=== PATIENT | male | born 1955 | race Caucasian/White ===

== ENCOUNTER 2020-09-01 11:59 | Outpatient (REF) | payer OTHER, SELFPAY ==
--- NOTE | ~2020-09-01 | XR_ITS ---
EXAMINATION: XR RIBS, RIGHT CLINICAL INFORMATION: Pleurodynia COMPARISON: CT chest of August 06, 2018 and chest x-ray of August 08, 2017 TECHNIQUE: 3 views of the right ribs were obtained. PA chest. FINDINGS: Lungs are hyperinflated with flattening of diaphragms. There is prominence of the central pulmonary arteries consistent with emphysema with some degree of pulmonary artery hypertension. No confluent parenchymal disease is seen. No pneumothorax or pleural effusion. There is bilateral apical pleural-parenchymal scarring present. Heart normal size. No evidence of pulmonary edema. There appears to be an old healed fracture about the posterior lateral aspect of the right ninth rib which was not definitely evident on CT scan of August 06, 2018. No destructive bony lesion is appreciated. XR/XR ribs RT min 3V w CXR1V IMPRESSION: COPD. No acute parenchymal disease. Old healed right ninth rib fracture with no new acute fracture appreciated. No destructive bony lesion appreciated. No pleural thickening or pleural effusion appreciated.
== END 2020-09-01 12:00 | disposition home or self-care (01) ==
LOC: HO.HMGCX 11:59
PROVIDERS: PCP Internal Medicine; Visit Provider Hospitalist
DX: R07.81 Pleurodynia (principal)
CPT/HCPCS: 71101

== ENCOUNTER → 2020-09-19 15:05 | Outpatient (BNVA) | payer OTHER, SELFPAY | PROVIDERS: PCP Internal Medicine; Visit Provider Internal Medicine ==

== ENCOUNTER 2020-10-06 08:10 | Outpatient (REF) | payer OTHER, SELFPAY ==
--- NOTE | 2020-10-06 16:40 | PFT_ITS ---
INDICATION: COPD. SPIROMETRY: FEV1 to FVC 47% with an FEV1 of 2.56 L, which is 57% predicted, an FVC of 5.45 L which is 92% predicted. No significant response to bronchodilators noted. Maximum voluntary ventilation 60% predicted. Of note, he has significant small airways disease. LUNG VOLUMES: Total lung capacity 107% predicted with residual volume 145% predicted. DIFFUSION CAPACITY: DLCO of 42% predicted. COMPARISONS: None. INTERPRETATION: There is an obstructive ventilatory defect consistent with moderate to severe COPD. No significant response to bronchodilators noted. Again, significant small airways disease and a mild to moderate decrease in the maximum voluntary ventilation secondary to deconditioning and also worsening dynamic inspiratory capacity. Lung volumes show significant air trapping, and the patient does have a severe diffusion impairment secondary to emphysema and all the parenchymal lung conditions should be considered. Clinical correlation warranted. Javi Ramesh MD MR/MODL / [id number]
== END 2020-10-06 08:11 | disposition home or self-care (01) ==
LOC: HO.RESP 08:10
PROVIDERS: PCP Internal Medicine; Visit Provider Internal Medicine
DX: J44.9 Chronic obstructive pulmonary disease, unspecified (principal); F17.200 Nicotine dependence, unspecified, uncomplicated
CPT/HCPCS: 94060; 94727; 94729

== ENCOUNTER 2020-10-27 16:01 | Outpatient (REF) | payer OTHER, SELFPAY ==
--- NOTE | ~2020-10-27 | CT_ITS ---
EXAMINATION: CT CHEST SCREENING CLINICAL INFORMATION: Nicotine dependence. COMPARISON: Chest x-ray 09/01/2020 TECHNIQUE: Multidetector volumetric CT imaging of the chest is performed without contrast using low dose technique. Additional 2D coronal and sagittal reformatted images and axial 3D maximum intensity projection (MIP) images are generated on the CT workstation. This CT examination was performed using dose optimization techniques as appropriate, variously including the following: *Automated exposure control *Adjustment of mA and/or kV according to patient size (this includes techniques or standardized protocols for targeted exams where dose is matched to indication/reason for exam; i.e. extremities or head) *Use of iterative reconstruction technique DLP: 65 mGy-cm FINDINGS: LUNGS: There is bilateral apical parenchymal scarring and apical pleural thickening. There is a 2 mm pleural-based nodule left lower lobe axial image 50/4, 4 mm nodule right lower lobe adjacent to the major fissure axial image 49/4, 2 mm nodule right middle lobe axial image 49/4. No additional nodules seen. MEDIASTINUM: The thyroid lobes are symmetrical and normal. The central trachea and the bronchi widely patent. Heart size and the great vessels are normal caliber. No abnormal size mediastinal or hilar lymph nodes seen. PLEURA: There is bilateral apical pleural thickening without calcification. No pleural effusion seen. AXILLA: No lymphadenopathy. UPPER ABDOMEN: Visualized liver, spleen, pancreas and bilateral adrenal glands are unremarkable. OSSEOUS STRUCTURES: No lytic or sclerotic process seen. There is mild spondylosis dorsal spine. CT/CT lung screening IMPRESSION: Slightly hyperinflated lungs with pulmonary nodule largest measuring 4 mm in right lower lobe. ASSESSMENT: Lung-RADS category 2: Benign RECOMMENDATION: Low dose annual CT chest.
== END 2020-10-27 16:02 | disposition home or self-care (01) ==
LOC: HO.CT 16:01
PROVIDERS: Visit Provider Physician Assistant Medical
DX: Z12.2 Encounter for screening for malignant neoplasm of respiratory organs (principal); F17.210 Nicotine dependence, cigarettes, uncomplicated
CPT/HCPCS: 71271

== ENCOUNTER → 2020-10-30 09:20 | Outpatient (BNVA) | payer OTHER, SELFPAY | PROVIDERS: PCP Internal Medicine; Visit Provider Internal Medicine ==

== ENCOUNTER 2021-02-15 12:17 | Outpatient (REF) | payer OTHER, SELFPAY ==
--- NOTE | ~2021-02-15 | XR_ITS ---
EXAMINATION: CHEST X-RAY AND BILATERAL RIB X-RAY CLINICAL INFORMATION: Chest pain and pleurodynia Previous chest x-ray July [address] most recent October 2020 TECHNIQUE: PA and lateral chest. 6 views of the left ribs FINDINGS: The cardiac and mediastinal contours are stable. The lungs are well inflated. There is biapical pleural thickening, left greater than right. The lungs are otherwise clear. There is no pleural effusion. No rib fracture or bone lesion is seen. There is curvature of the thoracic spine to the left and degenerative change. XR/XR chest 2V IMPRESSION: COPD. Biapical pleural thickening, left greater than right. Mild scoliosis and degenerative changes of the spine. No rib fracture or bone lesion is seen.
--- NOTE | ~2021-02-15 | XR_ITS ---
EXAMINATION: CHEST X-RAY AND BILATERAL RIB X-RAY CLINICAL INFORMATION: Chest pain and pleurodynia Previous chest x-ray July [address] most recent October 2020 TECHNIQUE: PA and lateral chest. 6 views of the left ribs FINDINGS: The cardiac and mediastinal contours are stable. The lungs are well inflated. There is biapical pleural thickening, left greater than right. The lungs are otherwise clear. There is no pleural effusion. No rib fracture or bone lesion is seen. There is curvature of the thoracic spine to the left and degenerative change. XR/XR ribs LT 2V IMPRESSION: COPD. Biapical pleural thickening, left greater than right. Mild scoliosis and degenerative changes of the spine. No rib fracture or bone lesion is seen.
== END 2021-02-15 12:18 | disposition home or self-care (01) ==
LOC: HO.XRAY 12:17
PROVIDERS: PCP Internal Medicine; Visit Provider Physician Assistant
DX: R07.81 Pleurodynia (principal)
CPT/HCPCS: 71046; 71100

== ENCOUNTER → 2021-04-30 09:05 | Outpatient (BNVA) | payer OTHER, SELFPAY | PROVIDERS: PCP Internal Medicine; Visit Provider Internal Medicine ==

== ENCOUNTER 2021-06-05 10:58 | Outpatient (REF) | payer OTHER, SELFPAY ==
--- NOTE | ~2021-06-05 | XR_ITS ---
EXAMINATION: XR CHEST CLINICAL INFORMATION: Chest pain COMPARISON: Chest radiograph 02/15/2021 TECHNIQUE: 2 views of the chest were obtained. FINDINGS: Significant changes of COPD are present with hyperinflated lungs, flattening of the diaphragms and increased retrosternal airspace. Heart size within normal limits.. No infiltrates, effusions or lung masses seen. Some old healed right-sided rib fractures are present. XR/XR chest 2V IMPRESSION: COPD. No acute intrathoracic disease
== END 2021-06-05 10:59 | disposition home or self-care (01) ==
LOC: HO.XRAY 10:58
PROVIDERS: PCP Internal Medicine; Visit Provider Internal Medicine
DX: R07.9 Chest pain, unspecified (principal); J44.9 Chronic obstructive pulmonary disease, unspecified; J40 Bronchitis, not specified as acute or chronic; Z87.891 Personal history of nicotine dependence
CPT/HCPCS: 71046

== ENCOUNTER 2022-05-14 09:24 | Emergency (ER) | payer OTHER, SELFPAY ==
--- NOTE | ~2022-05-14 | XR_ITS ---
EXAMINATION: XR CHEST CLINICAL INFORMATION: Shortness of breath. COMPARISON: 06/05/2021 chest radiographs. TECHNIQUE: 2 views of the chest were obtained. FINDINGS: No significant abnormality is noted involving the heart, lungs, mediastinum, bony thorax or soft tissues. XR/XR chest 2V IMPRESSION: No acute cardiopulmonary process.
--- NOTE | 2022-05-14 09:28 | ECG_ITS ---
Test Reason : CHEST PAIN/SOB Blood Pressure : / mmHG Vent. Rate : 077 BPM Atrial Rate : 077 BPM P-R Int : 158 ms QRS Dur : 096 ms QT Int : 378 ms P-R-T Axes : 079 -77 066 degrees QTc Int : 427 ms Sinus rhythm with occasional Premature ventricular complexes Possible Left atrial enlargement Left axis deviation Incomplete right bundle branch block Abnormal ECG No previous ECGs available Referred By: Generic ED Physician Electronically Signed By:ROBBY JULIO
[2022-05-14 09:31] VITALS: BP 213/119; PULSE 83; RESP 20; TEMP 36.6; O2SAT 96; BMI 23.7
--- NOTE | 2022-05-14 10:04 | PC.NURSE ---
patient a&ox3, iv inserted labs drawn, ekg performed, laboratory monitor applied, call borges within reach, will continue to monitor
[2022-05-14 10:13] VITALS: BP 169/89; PULSE 60; RESP 18; O2SAT 95
--- NOTE | 2022-05-14 10:30 | ED_ITS ---
HPI - Chest Pain General Chief Complaint: Chest Pain Stated Complaint: Chest pain/SOB sent by PCP Time Seen by Provider: 05/14/22 09:39 Source: patient Mode of arrival: ambulatory History of Present Illness HPI narrative: Patient is a 66-year-old male presents emergency department for evaluation of chest pain and shortness of breath. He was sent from a urgent care today. He states over the past 2 weeks he has been having increasing shortness of breath, but has been worse over the past few days. Reports diffuse chest pain described as a discomfort with indigestion. Reports a history of COPD states due insurance coverage he is not inhalers. Denies fevers, chills headache dizziness lightheadedness, neck, neck, numbness or tingling extremities, nausea, vomiting, abdominal pain. Denies any recent sick contacts. Related Data Previous Rx's Medication Instructions Recorded albuterol sulfate 90 mcg/actuation 2 puff inhalation Q4-6H PRN 10/30/20 aerosol inhaler shortness of breath or wheezing 60 days #8.5 grams umeclidinium 62.5 mcg/actuation 1 inh inhalation DAILY COPD 30 01/16/22 blister powder for inhalation days #30 ea (Incruse Ellipta) albuterol sulfate 90 mcg/actuation 2 inh inhalation Q4H PRN shortness 05/14/22 breath activated powder inhaler of breath or wheezing #1 ea cefuroxime axetil 500 mg tablet 500 mg PO BID #14 tabs 05/14/22 prednisone 20 mg tablet 40 mg PO DAILY 4 days #8 tabs 05/14/22 Allergies Allergy/AdvReac Type Severity Reaction Status Date / Time N.K.D.A. Allergy Unknown Unknown Uncoded 05/14/22 09:30 Review of Systems Review of Systems: Constitutional : No Weight loss, No Fever, No Chills ENT/Mouth :? No sore throat, No Rhinorrhea Eyes: No Eye Pain, No Swelling Cardiovascular : pos Chest Pain, pos SOB, no Dyspnea on Exertion, No Orthopnea, No Edema, No Palpitations Respiratory : No Cough, No Sputum Gastrointestinal : pos Nausea, No Vomiting, No Diarrhea, No abdominal Pain, No Hematochezia, No Melena Genitourinary : No Dysuria, No Urinary Frequency Musculoskeletal : No joint pain, No Myalgias, No Joint Swelling Skin : No Skin Lesions, No rash Neuro : No Weakness, No Numbness, No Dizziness, No Headache Psych : No Anxiety/Panic, No Depression Heme/Lymph: No Bruising, No Lymphadenopathy Endocrine : No Polyuria, No Polydipsia Yes all other systems are reviewed and are negative [facility] Past Medical History Attestation statement: The following information was validated with the patient. Source: old records reviewed Medical History Bronchitis Chest pain COPD (chronic obstructive pulmonary disease) Personal history of nicotine dependence Smoker Tubular adenoma of colon (~2010) Surgical History History of colonoscopy (~2018) History of endoscopy (~2018) Social History Social History Housing: House Alcohol intake: never Patient Tobacco Use Status: Current everyday Tobacco user Cigarettes Per Day: 4 Smoked in Last 30 Days: No e-Cigarette/Vaping Use: Never Used Use of substances other than those prescribed or required for medical reasons: Yes Substance Use Type: Marijuana Substance Use Frequency: Occasionally Advance Directives: No Advance Directives Information Provided: Yes Physical Exam Vital Signs: Vital Signs: Last Vital Signs Temp 98 F 05/14/22 11:46 Pulse 78 05/14/22 11:46 Resp 18 05/14/22 11:46 BP 172/104 H 05/14/22 11:46 Pulse Ox 97 05/14/22 11:46 O2 Del Method 05/14/22 11:46 BMI result Body Mass Index 23.7 Appearance: Alert.?Oriented to person, place and time. No acute distress.?Normal affect. Eyes: Pupils equal, round and reactive to light.? ENT: Pharynx normal.?? Neck: Normal inspection.? Neck supple.?? CVS: Heart sounds normal. Normal heart rate and rhythm.? Pulses normal.?? Respiratory: No respiratory distress.? Lung sounds type bilaterally, decreased aeration, excretory wheezing present. Abdomen: Soft and non-tender. Normoactive bowel sounds. Skin: Skin warm and dry.? Normal skin color.? Extremities: No lower extremity edema.? No calf ttp? Neuro: Moves all extremities spontaneously. Sensation intact bilaterally. Ambulates with normal steady gait. Course Reevaluation(s) Reevaluation #1: CBC reveals no leukocytosis, mild normocytic anemia which is consistent with baseline. BNP is within normal limits, do not suspect acute onset CHF at this time. Troponin <3.5, EKG revealing sinus rhythm, incomplete right bundle-branch block, with PVCs, given duration of symptoms, do not suspect ACS at this time. Chest x-ray without acute cardiopulmonary process, no pleural effusion, infiltrate, vascular congestion. At this time suspect symptoms are most consistent with COPD exacerbation, likely in the setting of viral upper respiratory infection. Patient was initially hypertensive, at the time of re- evaluation noted to be 168/88. Will send prescription for albuterol inhaler and antibiotic, and steroids to patient's pharmacy. We discussed worrisome signs and symptoms that would warrant re-evaluation in the emergency department. 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 All questions were answered. Patient is stable for discharge. Time: 13:01 Medications Administered Discontinued Medications Generic Name Dose Route Start Last Admin Trade Name Freq PRN Reason Stop Dose Admin Albuterol Sulfate 10 mg/ 0 mg 05/14/22 10:44 05/14/22 10:52 Ipratropium [place] 0.5 mg INHALE 05/14/22 10:45 1 each ONCE ONE Administration Methylprednisolone Sodium Succinate 80 mg 05/14/22 10:44 05/14/22 11:59 Methylprednisolone Sod Succ 125 Mg/2 Ml Vial IVPUSH 05/14/22 10:45 45 mg ONCE ONE Administration Medical Decision Making Medical Decision Making [facility] Narrative: Patient is a 66 old male with a past medical history of COPD who presents emergency department for evaluation of chest pain and shortness of breath, progressively worsening. COPD and not currently taking any inhaled steroids, bronchodilators, or anticholinergics. Will obtain CBC to evaluate for leukocytosis/ anemia, CMP and lipase to evaluate for abnormal electrolytes /abnormal renal function/ abnormal hepatic/biliary function, EKG and troponin to evaluate for ischemia/ACS. Chest x-ray to evaluate for consolidation/ infiltrate/ mass/ pulmonary congestion, BNP, and Urinalysis. Patient received Solu-Medrol IV, DuoNeb nebulizer. Disposition pending results. Differential Diagnosis Differential Diagnoses: The differential diagnosis associated with the presentation includes (ACS, pulmonary embolism, COPD exacerbation, pneumonia, viral upper respiratory infection, CHF, pleural effusion) Lab Data MDM Lab Attestation statement: I reviewed the patient's lab results. 05/14/22 12:08 05/14/22 10:35 Labs: Lab Results 05/14/22 05/14/22 05/14/22 Range/Units 09:44 10:35 10:35 WBC (4.8-10.8) X10*3/uL RBC (4.60-5.80) X10*6/uL Hgb (14.0-18.0) g/dl Hct (42.0-52.0) % MCV (80.0-98.0) fL MCH (27.0-33.0) pg MCHC (31.0-36.0) g/dl RDW (11.0-16.0) % Plt Count (160-400) X10*3/uL MPV (9.4-12.4) fL Immature Gran % (Auto) (0.0-0.4) % Neut % (Auto) (45-73) % Lymph % (Auto) (20-40) % Frontier % (Auto) (2-11) % Eos % (Auto) (0-4) % Baso % (Auto) (0-2) % Lymph # (Auto) (1.2-4.9) X10*3/uL Frontier # (Auto) (0.1-1.2) X10*3/uL Eos # (Auto) (0.0-0.4) X10*3/uL Baso # (Auto) (0.0-0.2) X10*3/uL Abs Immat Gran (auto) (0.00-0.03) X10*3/uL Absolute Neuts (auto) (2.0-8.3) x10*3/uL Absolute Nucleated RBC (0.0-0.012) X10*3/uL Nucleated RBC % (auto) (0.0-0.2) /100WBC PT (10.0-13.1) SEC INR (0.9-1.1) Sodium 139 (135-145) mmol/L Potassium 4.6 (3.3-5.1) mmol/L Chloride 110 H (96-108) mmol/L Carbon Dioxide 21 L (22-29) mmol/L Anion Gap 13 (12-20) BUN 17 H (9-16) mg/dL Creatinine 1.03 (0.5-1.4) mg/dL Estim Creat Clear Calc 91.3 Estimated GFR > 60 Random Glucose 97 (60-115) mg/dL Calcium 9.2 (8.4-10.2) mg/dL Total Bilirubin 0.4 (0.0-1.0) mg/dL Direct Bilirubin < 0.2 (0.0-0.5) mg/dL AST 17 (5-37) U/L ALT 16 (0-40) U/L Alkaline Phosphatase 109 (39-117) U/L Troponin I High Sens < 3.5 (<3.5-35.0) ng/L B-Natriuretic Peptide (<100) pg/mL Total Protein 7.2 (6.5-8.0) g/dL Albumin 4.0 (3.5-5.0) g/dL Lipase 13 (8-78) U/L COVID-19 ([facility]) (Negative) COVID-19 Clin Com Influenza Type A (CELIA) Negative (Negative) Influenza Type B (CELIA) Negative (Negative) Influenza A & B Note See Note 05/14/22 05/14/22 05/14/22 Range/Units 10:35 10:35 12:08 WBC 10.4 (4.8-10.8) X10*3/uL RBC 4.35 L (4.60-5.80) X10*6/uL Hgb 13.6 L (14.0-18.0) g/dl Hct 39.9 L (42.0-52.0) % MCV 91.7 (80.0-98.0) fL MCH 31.3 (27.0-33.0) pg MCHC 34.1 (31.0-36.0) g/dl RDW 14.3 (11.0-16.0) % Plt Count 245 (160-400) X10*3/uL MPV 9.7 (9.4-12.4) fL Immature Gran % (Auto) 0.3 (0.0-0.4) % Neut % (Auto) 65.1 (45-73) % Lymph % (Auto) 23.5 (20-40) % Frontier % (Auto) 6.5 (2-11) % Eos % (Auto) 4.2 H (0-4) % Baso % (Auto) 0.4 (0-2) % Lymph # (Auto) 2.4 (1.2-4.9) X10*3/uL Frontier # (Auto) 0.7 (0.1-1.2) X10*3/uL Eos # (Auto) 0.4 (0.0-0.4) X10*3/uL Baso # (Auto) 0.0 (0.0-0.2) X10*3/uL Abs Immat Gran (auto) 0.03 (0.00-0.03) X10*3/uL Absolute Neuts (auto) 6.8 (2.0-8.3) x10*3/uL Absolute Nucleated RBC 0.000 (0.0-0.012) X10*3/uL Nucleated RBC % (auto) 0.0 (0.0-0.2) /100WBC PT 12.1 (10.0-13.1) SEC INR 1.1 (0.9-1.1) Sodium (135-145) mmol/L Potassium (3.3-5.1) mmol/L Chloride (96-108) mmol/L Carbon Dioxide (22-29) mmol/L Anion Gap (12-20) BUN (9-16) mg/dL Creatinine (0.5-1.4) mg/dL Estim Creat Clear Calc Estimated GFR Random Glucose (60-115) mg/dL Calcium (8.4-10.2) mg/dL Total Bilirubin (0.0-1.0) mg/dL Direct Bilirubin (0.0-0.5) mg/dL AST (5-37) U/L ALT (0-40) U/L Alkaline Phosphatase (39-117) U/L Troponin I High Sens (<3.5-35.0) ng/L B-Natriuretic Peptide (<100) pg/mL Total Protein (6.5-8.0) g/dL Albumin (3.5-5.0) g/dL Lipase (8-78) U/L COVID-19 ([facility]) Negative (Negative) COVID-19 Clin Com See Note Influenza Type A ([facility]ELIA) (Negative) Influenza Type B ([facility]IA) (Negative) Influenza A & B Note 05/14/22 Range/Units 12:08 WBC (4.8-10.8) X10*3/uL RBC (4.60-5.80) X10*6/uL Hgb (14.0-18.0) g/dl Hct (42.0-52.0) % MCV (80.0-98.0) fL MCH (27.0-33.0) pg MCHC (31.0-36.0) g/dl RDW (11.0-16.0) % Plt Count (160-400) X10*3/uL MPV (9.4-12.4) fL Immature Gran % (Auto) (0.0-0.4) % Neut % (Auto) (45-73) % Lymph % (Auto) (20-40) % Frontier % (Auto) (2-11) % Eos % (Auto) (0-4) % Baso % (Auto) (0-2) % Lymph # (Auto) (1.2-4.9) X10*3/uL Frontier # (Auto) (0.1-1.2) X10*3/uL Eos # (Auto) (0.0-0.4) X10*3/uL Baso # (Auto) (0.0-0.2) X10*3/uL Abs Immat Gran (auto) (0.00-0.03) X10*3/uL Absolute Neuts (auto) (2.0-8.3) x10*3/uL Absolute Nucleated RBC (0.0-0.012) X10*3/uL Nucleated RBC % (auto) (0.0-0.2) /100WBC PT (10.0-13.1) SEC INR (0.9-1.1) Sodium (135-145) mmol/L Potassium (3.3-5.1) mmol/L Chloride (96-108) mmol/L Carbon Dioxide (22-29) mmol/L Anion Gap (12-20) BUN (9-16) mg/dL Creatinine (0.5-1.4) mg/dL Estim Creat Clear Calc Estimated GFR Random Glucose (60-115) mg/dL Calcium (8.4-10.2) mg/dL Total Bilirubin (0.0-1.0) mg/dL Direct Bilirubin (0.0-0.5) mg/dL AST (5-37) U/L ALT (0-40) U/L Alkaline Phosphatase (39-117) U/L Troponin I High Sens (<3.5-35.0) ng/L B-Natriuretic Peptide 65 (<100) pg/mL Total Protein (6.5-8.0) g/dL Albumin (3.5-5.0) g/dL Lipase (8-78) U/L COVID-19 ([facility]) (Negative) COVID-19 Clin Com Influenza Type A ([facility]) (Negative) Influenza Type B ([facility]) (Negative) Influenza A & B Note Independent Interpretation I performed an independent interpretation of an: EKG and Plain X-Ray (I person turbid chest x-ray and agree with radiologist impression) Interpretation: EKG: Rate: 77 Rhythm:? Sinus rhythm, incomplete right bundle-branch block, PVC Normal P waves.? Normal BIJU.?? Normal QRS complex.?? ST T wave :??No ST elevation, no ST depression, no T-wave inversion qTC: 427 prior studies:? None available for review The study has been interpreted contemporaneously by me. Radiology Impression Discussion of test interpretation with radiology: I have reviewed the radiologist's reading. Radiologist Impression: XR/XR chest 2V IMPRESSION: No acute cardiopulmonary process. External Record Review External record reviewed: Outpatient record Pulmonology, Dr. Monterroso, 01/16/2022, trial of Ellipta, encouraged to quit smoking. Discharge Plan Discharge Clinical Impression: COPD with acute exacerbation Patient Disposition: Elopement Instructions: COPD (Chronic Obstructive Pulmonary Disease) (ED) Additional Instructions: A prescription for antibiotic was sent to your pharmacy, please complete this entire course, in addition I have sent a prescription for an albuterol inhaler. 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 Return back to the emergency department with any new or worsening symptoms or concerns. Prescriptions: New cefuroxime axetil 500 mg tablet 500 mg PO BID Qty: 14 0RF albuterol sulfate 90 mcg/actuation aerosol powdr breath activated 2 inh inhalation Q4H PRN (Reason: shortness of breath or wheezing) Qty: 1 0RF prednisone 20 mg tablet 40 mg PO DAILY 4 Days Qty: 8 0RF No Action albuterol sulfate 90 mcg/actuation HFA aerosol inhaler 2 puff inhalation Q4-6H PRN (Reason: shortness of breath or wheezing) 60 Days Qty: 8.5 2RF Incruse Ellipta 62.5 mcg/actuation blister with device 1 inh inhalation DAILY 30 Days Qty: 30 5RF Referrals: Efe Ricci MD [Primary Care Provider] - Dominique Monterroso MD [Physician] - Interventions: ED Discharge Assessment Last Done: 05/14/22 13:42 Discharge Date/Time: 05/14/22 13:42
[2022-05-14 10:54] VITALS: PULSE 67; RESP 18; O2SAT 99
[2022-05-14 10:59] LABS: INTERNATIONAL NORM RATIO 1.1 (0.9-1.1); Prothrombin Time 12.1 SEC (10.0-13.1)
[2022-05-14 11:03] LABS: COVID-19 Test Negative (Negative); IDNOW Serial# 16C4AD1C; IDNOW Serial# BCCEAD1C; Influenza A Negative (Negative); Influenza B2 Negative (Negative)
[2022-05-14 11:12] LABS: Alanine Aminotransferase 16 U/L (0-40); Alkaline Phosphatase 109 U/L (39-117); Anion Gap 13 (12-20); Aspartate Amino Transferase 17 U/L (5-37); Bilirubin Direct < 0.2 mg/dL (0.0-0.5); Bilirubin Total 0.4 mg/dL (0.0-1.0); Blood Urea Nitrogen 17 mg/dL (9-16); Calcium 9.2 mg/dL (8.4-10.2); Carbon Dioxide 21 mmol/L (22-29); Chloride 110 mmol/L (96-108); Creatinine Clr Calc Pharmacy 91.3; Estimated Glomerular Filt Rate > 60; Glucose Random 97 mg/dL (60-115); Lipase 13 U/L (8-78); Potassium 4.6 mmol/L (3.3-5.1); Sodium 139 mmol/L (135-145); Total Protein 7.2 g/dL (6.5-8.0)
[2022-05-14 11:13] LABS: Troponin-I High Sensitivity < 3.5 ng/L (<3.5-35.0)
[2022-05-14 11:46] VITALS: BP 172/104; PULSE 78; RESP 18; TEMP 36.6; O2SAT 97
[2022-05-14] MEDS: methylPREDNISolone Sod Succ 125 MG/2 ML VIAL 80 MG IVPUSH (11:59)
--- NOTE | 2022-05-14 12:01 | PC.NURSE ---
pt medicated per order
[2022-05-14 12:17] LABS: MANUAL DIFF FLAG NO
[2022-05-14 12:24] LABS: Basophils Percent Auto 0.4 % (0-2); Eosinophils Absolute Auto 0.4 X10*3/uL (0.0-0.4); Eosinophils Percent Auto 4.2 % (0-4); Hematocrit 39.9 % (42.0-52.0); Hemoglobin 13.6 g/dl (14.0-18.0); Imm Gran Abs Auto 0.03 X10*3/uL (0.00-0.03); Imm Gran Pct Auto 0.3 % (0.0-0.4); Lymphocytes Absolute Auto 2.4 X10*3/uL (1.2-4.9); Lymphocytes Percent Auto 23.5 % (20-40); Mean Corpuscular HGB Conc 34.1 g/dl (31.0-36.0); Mean Corpuscular Hemoglobin 31.3 pg (27.0-33.0); Mean Corpuscular Volume 91.7 fL (80.0-98.0); Mean Platelet Volume 9.7 fL (9.4-12.4); Monocytes Absolute Auto 0.7 X10*3/uL (0.1-1.2); Monocytes Percent Auto 6.5 % (2-11); Neutrophils Absolute Auto 6.8 x10*3/uL (2.0-8.3); Neutrophils Percent Auto 65.1 % (45-73); Platelet Count 245 X10*3/uL (160-400); Red Blood Count 4.35 X10*6/uL (4.60-5.80); Red Cell Distribution Width 14.3 % (11.0-16.0); White Blood Count 10.4 X10*3/uL (4.8-10.8)
[2022-05-14 12:53] LABS: B Type Natriuretic Peptide 65 pg/mL (<100)
--- NOTE | 2022-05-14 13:26 | PC.NURSE ---
pt ambulated with O2 sat monitor on, pts O2 sat went from 97 and only dropped to 95%, pt denied sob while ambulating will notify provider.
== END 2022-05-14 13:42 | disposition left against medical advice (07) ==
PROVIDERS: Nurse Practitioner Family; Emergency Provider Emergency Medicine; PCP Internal Medicine
DX: J44.1 Chronic obstructive pulmonary disease with (acute) exacerbation (principal); R07.89 Other chest pain; R06.02 Shortness of breath; F17.210 Nicotine dependence, cigarettes, uncomplicated; Z20.822 Contact with and (suspected) exposure to COVID-19; Z20.828 Contact with and (suspected) exposure to other viral communicable diseases; Z79.899 Other long term (current) drug therapy; Z71.6 Tobacco abuse counseling
CPT/HCPCS: 36415; 71046; 80048; 80076; 83690; 83880; 84484; 85025; 85610; 87502; 87635; 93005; 94640; 96374; 99284; 99285; J2930

== ENCOUNTER → 2022-07-23 09:45 | Outpatient (BNVA) | payer MEDICARE, OTHER, SELFPAY | PROVIDERS: PCP Internal Medicine; Visit Provider Internal Medicine | DX: J44.9 Chronic obstructive pulmonary disease, unspecified (principal); J32.9 Chronic sinusitis, unspecified; F17.210 Nicotine dependence, cigarettes, uncomplicated | CPT/HCPCS: 99212 ==

== ENCOUNTER 2022-07-26 10:22 | Inpatient (IN) | payer MEDICARE, OTHER, SELFPAY ==
[2022-07-26] VITALS (12 sets, daily range): BP systolic 131–190; BP diastolic 73–102; PULSE 78–163; RESP 12–18; TEMP 36.6–37.2; O2SAT 92–97; BMI 26.1
--- NOTE | 2022-07-26 | ECG_ITS ---
Test Reason : CHEST PAIN Blood Pressure : / mmHG Vent. Rate : 144 BPM Atrial Rate : 000 BPM P-R Int : 000 ms QRS Dur : 086 ms QT Int : 266 ms P-R-T Axes : 000 -77 063 degrees QTc Int : 411 ms Atrial fibrillation with rapid ventricular response Left axis deviation Inferior-posterior infarct (cited on or before 26-JUL-2022) Abnormal ECG When compared with ECG of 26-JUL-2022 10:25, Atrial fibrillation has replaced Sinus rhythm ST now depressed in Anterior leads Referred By: Dusty Travis Electronically Signed By:Jean Claude Tony
--- NOTE | ~2022-07-26 | XR_ITS ---
EXAMINATION: XR CHEST CLINICAL INFORMATION: Acute dyspnea. COMPARISON: None available. TECHNIQUE: 2 views of the chest were obtained. FINDINGS: The lungs are hyperinflated but clear. The heart size and pulmonary vascularity is normal. No gross bony abnormality seen. XR/XR chest 2V IMPRESSION: Unremarkable chest exam.
--- NOTE | ~2022-07-26 | US_ITS ---
EXAMINATION: US VENOUS ULTRASOUND WITH DOPPLER LOWER EXTREMITY, BILATERAL CLINICAL INFORMATION: Bilateral lower lobe edema. COMPARISON: None available. TECHNIQUE: Ultrasound of the deep veins is performed from the hip to the calf with compression sonography and color and pulse Doppler assessment. Spectral analysis with color-flow imaging is performed. FINDINGS: RIGHT: There is normal venous compression and respiratory variation and augmented flow. The visualized common femoral vein, superficial femoral vein, profunda femoral vein, popliteal vein, and the trifurcation region shows no evidence of deep venous thrombosis. There is no significant popliteal fossa cyst. There is soft there is scattered plaque proximal right common femoral artery., Incidental finding. 2 lm 1.25 cm and residual lumen 0.8 cm. LEFT: There is normal venous compression and respiratory variation and augmented flow. The visualized common femoral vein, superficial femoral vein, profunda femoral vein, popliteal vein, and the trifurcation region shows no evidence of deep venous thrombosis. There is no significant popliteal fossa cyst. If the patient's symptoms persist, followup ultrasound in 5 days 7 days might be of value to exclude proximal propagation from a non-visualized calf vein. US/US venous duplex LE BI IMPRESSION: No DVT demonstrated in the bilateral lower extremity.
--- NOTE | 2022-07-26 10:24 | ECG_ITS ---
Test Reason : CHEST PAIN Blood Pressure : / mmHG Vent. Rate : 099 BPM Atrial Rate : 099 BPM P-R Int : 162 ms QRS Dur : 090 ms QT Int : 328 ms P-R-T Axes : 075 -83 062 degrees QTc Int : 420 ms Normal sinus rhythm Possible Left atrial enlargement Left axis deviation Cannot rule out inferior infarct Abnormal ECG When compared with ECG of 14-MAY-2022 09:34, Premature ventricular complexes are no longer Present Referred By: Generic ED Physician Electronically Signed By:Jean Claude Tony
--- NOTE | 2022-07-26 11:13 | ED.GENADULT ---
HPI - General Adult General Chief complaint: Dyspnea Stated complaint: chest pain diff breathing Time Seen by Provider: 07/26/22 10:39 Source: patient Mode of arrival: ambulatory Limitations: no limitations History of Present Illness HPI narrative: 67-year-old male with history of elevated blood pressure/hypertension, COPD presents with shortness of breath and chest pain. Symptoms of the shortness of breath started earlier this week. He described it as a head cold with congestion and some shortness of breath. Since last night, however, he has had increasing shortness of breath. There is no clear relieving or exacerbating features. It is associated with cough and yellow mucus production. He describes the symptoms as moderate nature. However, he is also now describing chest pressure. The pressure is mild to moderate. It is not associated with exertion. It is in the middle of his chest. Does not radiate. He does have lower extremity swelling which is new for him. The pressure he has been experiencing is constant without relief. He did recently start an antibiotic for sinus infection given to him by his primary care provider. Related Data Home Medications Medication Instructions Recorded Confirmed hydrochlorothiazide 25 mg tablet 25 mg PO DAILY 07/26/22 07/26/22 tiotropium bromide 18 mcg capsule 1 cap inhalation DAILY 07/26/22 07/26/22 with inhalation device (Spiriva with HandiHaler) Previous Rx's Medication Instructions Recorded albuterol sulfate 90 mcg/actuation 2 inh inhalation Q4H PRN shortness 05/14/22 breath activated powder inhaler of breath or wheezing #1 ea doxycycline hyclate 100 mg tablet 100 mg PO BID SINUSITIS 10 days 07/23/22 #20 tabs Allergies Allergy/AdvReac Type Severity Reaction Status Date / Time N.K.D.A. Allergy Unknown Unknown Uncoded 07/23/22 10:10 FORMERLY [facility] Past Medical History Medical History Bronchitis Chest pain COPD (chronic obstructive pulmonary disease) Personal history of nicotine dependence Sinusitis Smoker Tubular adenoma of colon (~2010) Surgical History History of colonoscopy (~2018) History of endoscopy (~2018) Social History Social History Housing: House Alcohol intake: never Patient Tobacco Use Status: Current everyday Tobacco user Cigarettes Per Day: 4 Smoked in Last 30 Days: No e-Cigarette/Vaping Use: Never Used Use of substances other than those prescribed or required for medical reasons: No Substance Use Type: Marijuana Advance Directives: No Advance Directives Information Provided: Yes Physical Exam ED Vital Signs: Vital Signs - 24 hr 07/26/22 10:34 07/26/22 10:37 07/26/22 11:35 Temperature 99.0 F 99.0 F Pulse Rate 90 92 89 Respiratory Rate 14 14 15 Blood Pressure 190/102 H 190/102 H Pulse Oximetry 97 97 Oxygen Delivery Method Room Air Room Air 07/26/22 12:08 07/26/22 13:14 07/26/22 13:18 Temperature Pulse Rate 163 H 148 H 101 H Respiratory Rate 16 12 Blood Pressure 147/94 H 149/83 H Pulse Oximetry 96 94 Oxygen Delivery Method Room Air Room Air BMI result Body Mass Index 26.1 GEN: Well developed, no acute distress, alert, oriented HEENT: Normocephalic, atraumatic, normal external ears, nose appears normal, no oropharyngeal edema or exudates Eyes: Normal to appearance Neck: Supple, no lymphadenopathy Respiratory: Talks in complete sentences, no respiratory distress, expiratory wheezes in bilateral lungs throughout all lung restrepo Cardiovascular: Regular rate and rhythm, no murmurs rubs or gallops Abdomen: Soft, nontender, nondistended, no guarding, no rebound Back: No CVA tenderness Extremities: No clubbing cyanosis 1+ by pedal edema Neurologic: No focal neurologic deficits, cranial nerves 2-12 intact, strength is 5/5 bilaterally, gait normal Skin: No rash Course Course Course Narrative: 67-year-old male shortness of breath and chest pain. Patient has history of hypertension and COPD. On exam he has expiratory wheezes. He is hypertensive. He is in no acute distress. Differential diagnosis could include infectious, cardiac, pulmonary. Will obtain chest x-ray, EKG, laboratory analysis, ultrasound of bilateral lower extremities given his lower extremity edema. Will provide the patient with sublingual nitroglycerin to see if that assists with his breathing and his chest discomfort. He is aware this may cause a headache. Due to wheezing, will give patient Solu-Medrol and DuoNebs x3 will re-evaluate patient. Patient may very well need to be hospitalized for his symptoms. Will also check for COVID and influenza. Reevaluation(s) Reevaluation #1: Heart rate increased after nebulizer treatment Time: 11:58 Reevaluation #2: having increased work of breathing at this time. Oxygen hunger, will give morphine. Tachycardia, will repeat EKG check for cardiac dysrhythmia Time: 12:05 Reevaluation #3: Patient now in atrial fibrillation with a heart rate of 144. Will give Cardizem. This could be due to medications or an underlying arrhythmia which is causing his symptoms. Time: 12:25 Additional Reevaluation(s): Will try beta obinna at this time, cardizem did not improve symptoms HR improved after metoprolol 5 mg IVP, giving 50 PO now, admitting to telemetry, not on any drips at this time. Consultations Consultation #1: Contacted via [facility] ([facility])keke Tony- rate control, anticoagulation at this time Time: 12:39 Medications Administered Discontinued Medications Generic Name Dose Route Start Last Admin Trade Name Freq PRN Reason Stop Dose Admin Albuterol Sulfate 5 mg/ 0 mg 07/26/22 11:01 07/26/22 11:34 Albuterol/Ipratropium 3 ml INHALE 07/26/22 11:02 5 each ONCE ONE Administration Diltiazem HCl 15 mg 07/26/22 12:33 07/26/22 12:38 Diltiazem Hcl 50 Mg/10 Ml Vial IVPUSH 07/26/22 12:34 15 mg STAT STA Administration Heparin Sodium (Porcine) 8,000 unit 07/26/22 12:41 07/26/22 13:10 Heparin Sodium,Porcine 5,000 Unit/Ml Vial 80 unit/kg (8000 unit) 07/26/22 12:42 8,000 unit IVPUSH Administration ONCE ONE Methylprednisolone Sodium Succinate 125 mg 07/26/22 11:01 07/26/22 11:41 Methylprednisolone Sod Succ 125 Mg/2 Ml Vial IVPUSH 07/26/22 11:02 125 mg ONCE ONE Administration Metoprolol Tartrate 5 mg 07/26/22 13:00 07/26/22 13:10 Metoprolol Tartrate 5 Mg/5 Ml Vial IVPUSH 07/26/22 13:01 5 mg ONCE ONE Administration Morphine Sulfate 4 mg 07/26/22 12:04 07/26/22 12:08 Morphine Sulfate 4 Mg/Ml Cartridge IVPUSH 07/26/22 12:05 4 mg ONCE ONE Administration Protocol Nitroglycerin 0.4 mg 07/26/22 11:01 07/26/22 11:41 Nitroglycerin 0.4 Mg Tab.Subl SUBLINGUAL 07/26/22 11:02 0.4 mg ONCE ONE Administration Medical Decision Making Medical Decision Making [facility] Narrative: 67-year-old male shortness of breath and chest pain. Patient has history of hypertension and COPD. On exam he has expiratory wheezes. He is hypertensive. He is in no acute distress. Differential diagnosis could include infectious, cardiac, pulmonary. Will obtain chest x-ray, EKG, laboratory analysis, ultrasound of bilateral lower extremities given his lower extremity edema. Will provide the patient with sublingual nitroglycerin to see if that assists with his breathing and his chest discomfort. He is aware this may cause a headache. Due to wheezing, will give patient Solu-Medrol and DuoNebs x3 will re-evaluate patient. Patient may very well need to be hospitalized for his symptoms. Will also check for COVID and influenza. Differential Diagnosis Differential Diagnoses: The differential diagnosis associated with the presentation includes (COPD exacerbation, cardiac pain, CHF, influenza, COVID, viral illness, pneumonia, sinus infection) Admission/Observation Consideration of admission/observation: Escalation of care including admission/observation considered Lab Data [facility] Lab Attestation statement: I reviewed the patient's lab results. 07/26/22 11:32 07/26/22 11:32 Labs: Lab Results 07/26/22 07/26/22 07/26/22 Range/Units 11:31 11:31 11:32 WBC 10.9 H (4.8-10.8) X10*3/uL RBC 4.33 L (4.60-5.80) X10*6/uL Hgb 13.5 L (14.0-18.0) g/dl Hct 39.6 L (42.0-52.0) % MCV 91.5 (80.0-98.0) fL MCH 31.2 (27.0-33.0) pg MCHC 34.1 (31.0-36.0) g/dl RDW 14.1 (11.0-16.0) % Plt Count 261 (160-400) X10*3/uL MPV 9.6 (9.4-12.4) fL Immature Gran % (Auto) 0.3 (0.0-0.4) % Neut % (Auto) 72.1 (45-73) % Lymph % (Auto) 13.9 L (20-40) % [place] % (Auto) 9.7 (2-11) % Eos % (Auto) 3.4 (0-4) % Baso % (Auto) 0.6 (0-2) % Lymph # (Auto) 1.5 (1.2-4.9) X10*3/uL [place] # (Auto) 1.1 (0.1-1.2) X10*3/uL Eos # (Auto) 0.4 (0.0-0.4) X10*3/uL Baso # (Auto) 0.1 (0.0-0.2) X10*3/uL Abs Immat Gran (auto) 0.03 (0.00-0.03) X10*3/uL Absolute Neuts (auto) 7.9 (2.0-8.3) x10*3/uL Absolute Nucleated RBC 0.000 (0.0-0.012) X10*3/uL Nucleated RBC % (auto) 0.0 (0.0-0.2) /100WBC Sodium (135-145) mmol/L Potassium (3.3-5.1) mmol/L Chloride (96-108) mmol/L Carbon Dioxide (22-29) mmol/L Anion Gap (12-20) BUN (9-16) mg/dL Creatinine (0.5-1.4) mg/dL Estim Creat Clear Calc Estimated GFR Random Glucose (60-115) mg/dL Calcium (8.4-10.2) mg/dL Troponin I High Sens (<3.5-35.0) ng/L B-Natriuretic Peptide (<100) pg/mL COVID-19 ([facility]) Negative (Negative) COVID-19 Clin Com See Note Influenza Type A ([facility]) Negative (Negative) Influenza Type B ([facility]) Negative (Negative) Influenza A & B Note See Note 07/26/22 07/26/22 07/26/22 Range/Units 11:32 11:32 11:32 WBC (4.8-10.8) X10*3/uL RBC (4.60-5.80) X10*6/uL Hgb (14.0-18.0) g/dl Hct (42.0-52.0) % MCV (80.0-98.0) fL MCH (27.0-33.0) pg MCHC (31.0-36.0) g/dl RDW (11.0-16.0) % Plt Count (160-400) X10*3/uL MPV (9.4-12.4) fL Immature Gran % (Auto) (0.0-0.4) % Neut % (Auto) (45-73) % Lymph % (Auto) (20-40) % [place] % (Auto) (2-11) % Eos % (Auto) (0-4) % Baso % (Auto) (0-2) % Lymph # (Auto) (1.2-4.9) X10*3/uL [place] # (Auto) (0.1-1.2) X10*3/uL Eos # (Auto) (0.0-0.4) X10*3/uL Baso # (Auto) (0.0-0.2) X10*3/uL Abs Immat Gran (auto) (0.00-0.03) X10*3/uL Absolute Neuts (auto) (2.0-8.3) x10*3/uL Absolute Nucleated RBC (0.0-0.012) X10*3/uL Nucleated RBC % (auto) (0.0-0.2) /100WBC Sodium 138 (135-145) mmol/L Potassium 4.0 (3.3-5.1) mmol/L Chloride 104 (96-108) mmol/L Carbon Dioxide 23 (22-29) mmol/L Anion Gap 15 (12-20) BUN 15 (9-16) mg/dL Creatinine 1.06 (0.5-1.4) mg/dL Estim Creat Clear Calc 87.5 Estimated GFR > 60 Random Glucose 104 (60-115) mg/dL Calcium 9.7 (8.4-10.2) mg/dL Troponin I High Sens < 2.7 (<3.5-35.0) ng/L B-Natriuretic Peptide < 10 (<100) pg/mL COVID-19 ([facility]) (Negative) COVID-19 Clin Com Influenza Type A ([facility]) (Negative) Influenza Type B ([facility]) (Negative) Influenza A & B Note Independent Interpretation I performed an independent interpretation of an: EKG (Normal sinus rhythm heart rate 99, left axis deviation, possible old inferior wall IA, alteration in precordial progression suggestive of an old septal wall IA, possible incomplete right bundle-branch block versus intraventricular conduction delay. Similar to 05/14/2022, PVCs absent), Plain X-Ray (Chest x-ray, hyperinflated lungs, COPD, no discrete infiltrates or pleural effusions) and Ultrasound (No DVT) Interpretation: Repeat EKG demonstrates atrial fibrillation with rapid ventricular response, heart rate 144 Radiology Impression Discussion of test interpretation with radiology: I have reviewed the radiologist's reading. ( XR/XR chest 2V IMPRESSION: Unremarkable chest exam. Dictated By:Bravo Mendez MDSigned By:<Electronically signed by Bravo Mendez MD in [place]>07/26/22 1145) Radiologist Impression: US/US venous duplex LE BI IMPRESSION: No DVT demonstrated in the bilateral lower extremity. Dictated By: Bravo Mendez MD Signed By: <Electronically signed by Bravo Mendez MD in [place]> 07/26/22 1225 Independent Historian Clinical information obtained from an independent historian. History obtained from or confirmed by: Spouse External Record Review External record reviewed: Office record (Pulmonary Medicine) Prescription Management I considered prescription management with: Pain Medication and Other (Antihypertensives) Chronic Conditions Patient?s care impacted by: Hypertension Critical Care Time Critical Care Time Critical Care Time: Yes Total Critical Care Time: 40 Attestation: Critical care time in terms of bedside management, documentation, review of medical data, managing critically ill components of care without attention could lead to deterioration medically an acutely. Is outside of procedures. Discharge Plan Discharge Clinical Impression: Chest pain, COPD (chronic obstructive pulmonary disease), Bilateral edema of lower extremity, Atrial fibrillation Patient Disposition: Admitted As Inpatient
--- NOTE | 2022-07-26 11:21 | PHA.MEDREC ---
Pharmacy Consult ? Medication Reconciliation Pharmacy has completed the medication reconciliation. Patient and spouse reported all medicaitons. Reported he stopped taking wellbutrin and omeprazole. Omeprazole did not work. Patient's spouse said patient just start Spiriva. He was prescribed another similar medications but was too expenisive, so she had the doctor switch it. Orginal medication was the Incruse. Chula Maradiaga, FranklynD
[2022-07-26] MEDS: Nitroglycerin 0.4 MG TAB.SUBL SUBLINGUAL (11:41)
[2022-07-26] MEDS: methylPREDNISolone Sod Succ 125 MG/2 ML VIAL IVPUSH (11:41)
[2022-07-26 11:42] LABS: MANUAL DIFF FLAG NO
[2022-07-26 11:44] LABS: Basophils Absolute Auto 0.1 X10*3/uL (0.0-0.2); Basophils Percent Auto 0.6 % (0-2); Eosinophils Absolute Auto 0.4 X10*3/uL (0.0-0.4); Eosinophils Percent Auto 3.4 % (0-4); Hematocrit 39.6 % (42.0-52.0); Hemoglobin 13.5 g/dl (14.0-18.0); Imm Gran Abs Auto 0.03 X10*3/uL (0.00-0.03); Imm Gran Pct Auto 0.3 % (0.0-0.4); Lymphocytes Absolute Auto 1.5 X10*3/uL (1.2-4.9); Lymphocytes Percent Auto 13.9 % (20-40); Mean Corpuscular HGB Conc 34.1 g/dl (31.0-36.0); Mean Corpuscular Hemoglobin 31.2 pg (27.0-33.0); Mean Corpuscular Volume 91.5 fL (80.0-98.0); Mean Platelet Volume 9.6 fL (9.4-12.4); Monocytes Absolute Auto 1.1 X10*3/uL (0.1-1.2); Monocytes Percent Auto 9.7 % (2-11); Neutrophils Absolute Auto 7.9 x10*3/uL (2.0-8.3); Neutrophils Percent Auto 72.1 % (45-73); Platelet Count 261 X10*3/uL (160-400); Red Blood Count 4.33 X10*6/uL (4.60-5.80); Red Cell Distribution Width 14.1 % (11.0-16.0); White Blood Count 10.9 X10*3/uL (4.8-10.8)
--- NOTE | 2022-07-26 11:46 | PC.NURSE ---
IV established, labs drawn and sent. Medicated per the JUN. Ultrasound at bedside.
[2022-07-26 11:59] LABS: Anion Gap 15 (12-20); Blood Urea Nitrogen 15 mg/dL (9-16); Calcium 9.7 mg/dL (8.4-10.2); Carbon Dioxide 23 mmol/L (22-29); Chloride 104 mmol/L (96-108); Creatinine Clr Calc Pharmacy 87.5; Estimated Glomerular Filt Rate > 60; Glucose Random 104 mg/dL (60-115); Sodium 138 mmol/L (135-145)
--- NOTE | 2022-07-26 11:59 | PC.NURSE ---
Pt's heart rate 140-160's after treatment and steroid, provider aware. Plan to monitor for 20 mins and potentially repeat EKG.
[2022-07-26 12:05] LABS: IDNOW Serial# 9DD0AD1C; Influenza A Negative (Negative); Influenza B2 Negative (Negative)
[2022-07-26 12:06] LABS: B Type Natriuretic Peptide < 10 pg/mL (<100)
[2022-07-26 12:06] LABS: COVID-19 Test Negative (Negative); IDNOW Serial# 55D5AD1C
[2022-07-26] MEDS: Morphine Sulfate 4 MG/ML CARTRIDGE IVPUSH ×2 (12:08→18:07)
--- NOTE | 2022-07-26 12:11 | PC.NURSE ---
Pt medicated per the MAR. Reporting discomfort vs pain in chest. States he is feeling better than before after morphine administration. Repeat EKG ordered. HR 140'-150' on monitor.
[2022-07-26 12:22] LABS: Troponin-I High Sensitivity < 2.7 ng/L (<3.5-35.0)
[2022-07-26] MEDS: dilTIAZem HCL 50 MG/10 ML VIAL 15 MG IVPUSH (12:38)
--- NOTE | 2022-07-26 12:51 | PC.NURSE ---
Cardizem given to patient, hr 130's
[2022-07-26] MEDS: Heparin Sodium,Porcine 5,000 UNIT/ML VIAL 8000 UNIT IVPUSH (13:10)
[2022-07-26] MEDS: Metoprolol Tartrate 5 MG/5 ML VIAL IVPUSH (13:10)
--- NOTE | 2022-07-26 13:17 | PC.NURSE ---
Pt reporting tightness in chest, states it feels more related to breathing than chest pain. Medicated with lopressor, hr in low 100's.
[2022-07-26 13:34] LABS: INTERNATIONAL NORM RATIO 1.2 (0.9-1.1); Prothrombin Time 13.6 SEC (10.0-13.1)
[2022-07-26 13:52] LABS: Partial Thromboplastin Time > 200.0 SEC (26.0-36.4)
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
[2022-07-26] MEDS: Metoprolol Tartrate 50 MG TABLET PO (14:13)
--- NOTE | 2022-07-26 15:00 | CA_ITS ---
Transthoracic Echocardiogram Patient (Last, First, Middle): Elias Pete M Gender: Male Date of : 1955 Age: 67 Procedure Date: 07/26/2022 Procedure Type: Transthoracic Echocardiogram Location: ER Height: 190.5 cm Weight: 99.79 kg BSA: 2.29 m2 Heart Rate: bpm BP: 145 / 80 mmHg Brood Station Manager: Referring MD: Florence HERNANDEZ Symptoms: New onset Afib with RVR Study Quality: Adequate ECG Rhythm: Atrial Fibrillation w RVR Conclusions: - Normal left ventricular size, thickness, and systolic function. The visually estimated ejection fraction is between 60-65%. - The basal inferior segment is akinetic. - Mildly increased right ventricular cavity size. There is normal right ventricular systolic function. - There is mild dilatation of the ascending aorta measuring 3.70 cm. Findings Left Ventricle Normal left ventricular size, thickness, and systolic function. The visually estimated ejection fraction is between 60-65%. There is evidence of regional wall motion abnormalities. Diastolic function is indeterminate on the basis of available data. Wall Motion Rest Echo Findings The basal inferior segment is akinetic. Right Ventricle Mildly increased right ventricular cavity size. There is normal right ventricular systolic function. Atria The left atrium is normal in size. Aortic Valve Normal aortic valve structure and function. There is no aortic valve stenosis. There is no aortic valve regurgitation. Mitral Valve Normal mitral valve structure and function. There is no mitral valve regurgitation. There is no mitral valve stenosis. Pulmonic Valve The pulmonic valve is likely normal. Tricuspid Valve Normal tricuspid valve structure and function. There is no tricuspid valve regurgitation. Tricuspid regurgitation envelope is inadequate for calculation of right ventricular systolic pressure. Normal right atrial pressure. Great Vessels There is mild dilatation of the ascending aorta measuring 3.70 cm. The visualized portions of the pulmonary artery and branches are normal. Venous The inferior vena cava is normal in size and collapses greater than 50% with inspiration. Pericardium/Pleural There is no evidence of pericardial effusion. Prior Study Comparison No prior study available for comparison. Measurements 2D Linear Measurements IVSd: 0.97 0.6-0.9/0.6-1.0 cm LVIDd: 4.73 3.9-5.3/4.2-5.9 cm LVIDd Index: 2.07 2.4-3.2/2.2-3.1 cm/m2 LVIDs: 2.97 2.0-3.6 cm LVPWd: 1.08 0.7-1.1 cm Ao Root: 3.00 2.1-3.5 cm LA Diam: 4.00 2.7-3.8/3.0-4.0 cm LAIDs Index: 1.75 1.5-2.3 cm/m2 LV Mass: 214.08 67-162/88-224 g LV Mass Index: 93.48 43-95/49-115 g/m2 LVOT Diam: 2.10 3.0+(-)1.3 cm 2D Systolic Function EF 4C: 71.00 >55% EF 2C: 62.00 >55% EF BiP: 68.30 >55% Mitral Valve MV Pk E: 0.91 MV Decel Time: 219.00 E'Lateral: 16.50 E'Medial: 18.00 E/E' Med: 5.10 E/E' Lat: 5.50 PHT: 64.00 MVA PHT: 3.44 Decel Tom[place]kins: 4.16 Aortic Valve AoV Pk Zackery: 1.06 AoV Mn Zackery: 0.64 AoV VTI: 0.19 AoV Pk Grad: 4.00 Aov Mn Grad: 3.00 CONCEPCION Cont.VTI: 3.61 LVOT LVOT Pk Zackery: 0.90 LVOT Mn Zackery: 0.65 LVOT VTI: 0.19 LVOT Pk Grad: 3.00 LVOT Mn Grad: 2.00 LVOT Diam: 2.10 LVOT Area: 3.46 Diastolic Function MV Pk E: 0.91 E'Medial: 18.00 E/E' Med: 5.10 E' Laterial: 16.50 E/E' Lat: 5.50 Tricuspid Valve TR Pk Azckery: 1.98 TR Pk Grad: 16.00 Great Vessels Aorta Ao Root-2D: 3.00 2.0-3.7 cm Ao Asc: 3.70 2.1-3.4 cm Pulmonary Valve PV Pk Zackery: 0.92 Peak PV Grad: 3.00 Updated in Other Vendor System with Status of Final Jean Claude Tony MD electronically signed on 07/27/2022 1:22:00 PM with status of Final
[2022-07-26] MEDS: 0.9 % Sodium Chloride Flush 3 ML SYRINGE IVFLUSH ×2 (17:39→20:35)
[2022-07-26] MEDS: Doxycycline Monohydrate 100 MG CAPSULE PO (17:39)
[2022-07-26] MEDS: Ipratropium Bromide 0.5 MG/2.5 ML SOLUTION INHALE (18:02)
[2022-07-26] MEDS: Apixaban 5 MG TABLET PO (20:35)
[2022-07-26] MEDS: Docusate Sodium 100 MG CAPSULE PO (20:35)
[2022-07-26] MEDS: methylPREDNISolone Sod Succ 40 MG/ML VIAL IVPUSH (20:35)
[2022-07-26] MEDS: Melatonin 3 MG TABLET 6 MG PO (20:38)
[2022-07-27] VITALS (8 sets, daily range): BP systolic 136–152; BP diastolic 80–96; PULSE 71–95; RESP 18–20; TEMP 36.1–37.1; O2SAT 92–98
[2022-07-27] MEDS: Doxycycline Monohydrate 100 MG CAPSULE PO ×2 (06:28→17:08)
[2022-07-27] MEDS: Ipratropium Bromide 0.5 MG/2.5 ML SOLUTION INHALE ×3 (08:00→16:09)
[2022-07-27] MEDS: Docusate Sodium 100 MG CAPSULE PO (08:10)
[2022-07-27] MEDS: Metoprolol Succinate ER 50 MG TAB.ER.24H PO ×2 (08:10→21:43)
[2022-07-27] MEDS: Apixaban 5 MG TABLET PO ×2 (08:10→21:43)
[2022-07-27] MEDS: hydroCHLOROthiazide 25 MG TABLET PO (08:10)
[2022-07-27] MEDS: Acetaminophen 325 MG TABLET 650 MG PO (08:17)
[2022-07-27] MEDS: Morphine Sulfate 4 MG/ML CARTRIDGE IVPUSH (08:21)
--- NOTE | 2022-07-27 10:01 | P.CONCA_ITS ---
History of Present Illness History of Present Illness Date of Service: 07/27/22 Requesting physician: Nikole Rainey Chief complaint: New onset AFib with RVR Narrative: [age] year gentleman presenting for chest pressure. Been experiencing chest pressure for last 3 months. It is a persistent pressure-like feeling in his chest which does not go way most of the days. In the last few days he noticed that his pressure the chest is worse and decided come the emergency department. In the ER he was noticed to be in AFib with RVR. He was given anticoagulation and was admitted. His troponins were negative. 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 He also has noticed that he is short of breath more than usual and cannot take few steps without getting out of breath. He has known history of COPD. He recently went to his pulmonol ogist and was congested and was given antibiotics which she was taking. He has background of hypertension and is currently taking hydrochlorothiazide. He is very concerned about his breathing that he cannot take few steps without getting out of breath. Occasionally he has felt palpitations to while doing activities when he was short of breath. [facility] Past Medical History Medical History Bronchitis Chest pain COPD (chronic obstructive pulmonary disease) Personal history of nicotine dependence Sinusitis Smoker Tubular adenoma of colon (~2010) Surgical History Surgical History History of colonoscopy (~2018) History of endoscopy (~2018) Social History Social History Housing: House Alcohol intake: never Patient Tobacco Use Status: Never used Tobacco Cigarettes Per Day: 4 Smoked in Last 30 Days: No e-Cigarette/Vaping Use: Never Used Use of substances other than those prescribed or required for medical reasons: No Substance Use Type: Marijuana Advance Directives: No Advance Directives Information Provided: Yes service: No Current occupational status: retired Meds Allergies Allergy/AdvReac Type Severity Reaction Status Date / Time N.K.D.A. Allergy Unknown Unknown Uncoded 07/23/22 10:10 Active Medications: Current Medications Acetaminophen (Acetaminophen 325 Mg Tablet) 650 mg PO Q6H PRN PRN Reason: Pain, Mild (Pain Scale 1-3) Last Admin: 04/08/23 08:17 Dose: 650 mg Albuterol Sulfate (Albuterol Sulfate 90 Mcg 8 Gm Inhaler) 2 puff INHALE Q4H PRN PRN Reason: shortness of breath or wheezing Apixaban (Apixaban 5 Mg Tablet) 5 mg PO BID [facility] Last Admin: 07/27/22 08:10 Dose: 5 mg Docusate Sodium (Docusate Sodium 100 Mg Capsule) 100 mg PO BID [facility] Last Admin: 07/27/22 08:10 Dose: 100 mg Doxycycline Monohydrate (Doxycycline Monohydrate 100 Mg Capsule) 100 mg PO Q12H [facility] Last Admin: 07/27/22 06:28 Dose: 100 mg Hydrochlorothiazide (Hydrochlorothiazide 25 Mg Tablet) 25 mg PO DAILY [facility]; Protocol Last Admin: 07/27/22 08:10 Dose: 25 mg Ipratropium [place] (Ipratropium [place] 0.5 Mg/2.5 Ml Solution) 0.5 mg INHALE RQ4H WHILE AWAKE [facility] Last Admin: 07/27/22 08:00 Dose: 0.5 mg Magnesium Hydroxide (Milk Of Magnesia 30 Ml Oral.Susp) 30 ml PO DAILY PRN PRN Reason: Constipation Melatonin (Melatonin 3 Mg Tablet) 6 mg PO BEDTIME PRN PRN Reason: Insomnia Last Admin: 07/26/22 20:38 Dose: 6 mg Methylprednisolone Sodium Succinate (Methylprednisolone Sod Succ 40 Mg/Ml Vial) 40 mg IVPUSH Q12H [facility] Last Admin: 07/26/22 20:35 Dose: 40 mg Metoprolol Succinate (Metoprolol Succinate Er 50 Mg Tab.Er.24h) 50 mg PO DAILY [facility]; Protocol Last Admin: 07/27/22 08:10 Dose: 50 mg Morphine Sulfate (Morphine Sulfate 4 Mg/Ml Cartridge) 4 mg IVPUSH Q4H PRN; Protocol PRN Reason: Pain, Severe (Pain Scale 7-10) Last Admin: 07/27/22 08:21 Dose: 4 mg Ondansetron HCl (Ondansetron Hcl 4 Mg/2 Ml Vial) 4 mg IVPUSH Q8H PRN PRN Reason: Nausea and Vomiting Pharmacy Consult (Consult Rx Perform Med Rec) 1 each MISCELLANE ONCE PRN PRN Reason: Consult order Sodium Chloride (0.9 % Sodium Chloride Flush 3 Ml Syringe) 3 ml IVFLUSH QSHIFT [facility] Last Admin: 07/27/22 07:17 Dose: Not Given Home Medications Medication Instructions Recorded Confirmed Last Taken Type hydrochlorothiazide 25 mg tablet 25 mg PO DAILY 07/26/22 07/26/22 Unknown History tiotropium bromide 18 mcg capsule 1 cap inhalation DAILY 07/26/22 07/26/22 Unknown History with inhalation device (Spiriva with HandiHaler) Physical Exam Vital Signs: Vital Signs: Last Vital Signs Temp 98.0 F 07/27/22 07:42 Pulse 94 07/27/22 08:01 Resp 18 07/27/22 08:01 BP 152/80 H 07/27/22 07:42 Pulse Ox 93 07/27/22 07:42 O2 Del Method Room Air 07/27/22 07:42 O2 Flow Rate 2 07/26/22 17:03 BMI result Body Mass Index 26.1 GENERAL APPEARANCE: in no acute distress, pleasant. NECK: no carotid bruit, no jugular venous distention. SKIN: no suspicious lesions, warm and dry. HEART: no murmurs, regular rate and rhythm. LUNGS: clear to auscultation bilaterally. ABDOMEN: soft, nontender. EXTREMITIES: Trace edema. PERIPHERAL PULSES: equal. NEUROLOGIC: No gross deficits, AAO X 3 Objective Labs and Meds 07/26/22 11:32 07/26/22 11:32 Lab results: Laboratory Results - last 24 hr 07/26/22 07/26/22 07/26/22 11:31 11:31 11:32 WBC 10.9 H RBC 4.33 L Hgb 13.5 L Hct 39.6 L MCV 91.5 MCH 31.2 MCHC 34.1 RDW 14.1 Plt Count 261 MPV 9.6 Immature Gran % (Auto) 0.3 Neut % (Auto) 72.1 Lymph % (Auto) 13.9 L [place] % (Auto) 9.7 Eos % (Auto) 3.4 Baso % (Auto) 0.6 Lymph # (Auto) 1.5 [place] # (Auto) 1.1 Eos # (Auto) 0.4 Baso # (Auto) 0.1 Abs Immat Gran (auto) 0.03 Absolute Neuts (auto) 7.9 Absolute Nucleated RBC 0.000 Nucleated RBC % (auto) 0.0 PT INR APTT Sodium Potassium Chloride Carbon Dioxide Anion Gap BUN Creatinine Estim Creat Clear Calc Estimated GFR Random Glucose Calcium Troponin I High Sens B-Natriuretic Peptide TSH COVID-19 (MAYE) Negative COVID-19 Clin Com See Note Influenza Type A (CELIA) Negative Influenza Type B (CELIA) Negative Influenza A & B Note See Note 07/26/22 07/26/22 07/26/22 11:32 11:32 11:32 WBC RBC Hgb Hct MCV MCH MCHC RDW Plt Count MPV Immature Gran % (Auto) Neut % (Auto) Lymph % (Auto) [place] % (Auto) Eos % (Auto) Baso % (Auto) Lymph # (Auto) [place] # (Auto) Eos # (Auto) Baso # (Auto) Abs Immat Gran (auto) Absolute Neuts (auto) Absolute Nucleated RBC Nucleated RBC % (auto) PT INR APTT Sodium 138 Potassium 4.0 Chloride 104 Carbon Dioxide 23 Anion Gap 15 BUN 15 Creatinine 1.06 Estim Creat Clear Calc 87.5 Estimated GFR > 60 Random Glucose 104 Calcium 9.7 Troponin I High Sens < 2.7 B-Natriuretic Peptide < 10 TSH 3.90 COVID-19 (MAYE) COVID-19 Clin Com Influenza Type A (CELIA) Influenza Type B (CELIA) Influenza A & B Note 07/26/22 13:22 WBC RBC Hgb Hct MCV MCH MCHC RDW Plt Count MPV Immature Gran % (Auto) Neut % (Auto) Lymph % (Auto) [place] % (Auto) Eos % (Auto) Baso % (Auto) Lymph # (Auto) [place] # (Auto) Eos # (Auto) Baso # (Auto) Abs Immat Gran (auto) Absolute Neuts (auto) Absolute Nucleated RBC Nucleated RBC % (auto) PT 13.6 H INR 1.2 H APTT > 200.0 H* Sodium Potassium Chloride Carbon Dioxide Anion Gap BUN Creatinine Estim Creat Clear Calc Estimated GFR Random Glucose Calcium Troponin I High Sens B-Natriuretic Peptide TSH COVID-19 (MAYE) COVID-19 Clin Com Influenza Type A (CELIA) Influenza Type B (CELIA) Influenza A & B Note Imaging Radiologist's impression: Impressions Chest X-Ray 07/26/22 11:12 IMPRESSION: Unremarkable chest exam. Venous Duplex 07/26/22 11:56 IMPRESSION: No DVT demonstrated in the bilateral lower extremity. Assessment and Plan (1) Atrial fibrillation with RVR: Status: Acute (2) Chest pain: Status: Acute [age] gentleman who is presenting for few symptoms. He is complaining of a pressure-like feeling in his chest which is persistently present for few months but got worse in the last few days. He is saying that the pain does not get better and is there all the time. There is no pleuritic component. He also has been short of breath more than usual. Clinically not in heart failure. He has mild wheezing on examination and definitely COPD is playing some role in his symptoms. I think he can be symptomatic from atrial fibrillation as AFib can lead to chest discomfort as well as shortness of breath. Increasing metoprolol to 50 mg twice a day. Continue apixaban. I think he will need KEVIN cardioversion. He is mildly dilated right ventricle on the echocardiogram and presented with shortness of breath and new onset atrial fibrillation. This combination can be seen in pulmonary emboli also. He had lower extremity venous Dopplers which were negative. I think we should do D-dimer on him and if it is abnormal consider doing a CT pulmonary angiogram. If D-dimer is negative then this is unlikely to be related pulmonary embolism and it is likely that he has symptoms due to AFib at this stage. Given his inferior Q-waves and evidence of basal akinesis on the echocardiogram he will need ischemic evaluation eventually. We will probably do a stress test as outpatient. Thank you for allowing me to participate in the care of your patient. Please feel free to contact me if you have any questions. Time Spent With Patient Time: Total time managing care of this patient today ____ minutes. Procedures Date of Service Date of Service: 07/27/22
[2022-07-27] MEDS: methylPREDNISolone Sod Succ 40 MG/ML VIAL IVPUSH ×2 (10:40→21:43)
--- NOTE | 2022-07-27 11:59 | MHC.CM.PN ---
TSE AND IMM 07/27/22 DELIVERED TO BEDSIDE, PT TO BE FLIPPED FROM OBS TO INPT FOR NEW ONSET AFIB W/RVR, CM MET W/PT AND AT BEDSIDE, PT AND ANSWERING QUESTIONS, PT IS INDEP W/ALL CARE, HAS A NEBULIZER, PULSE OXIMETER AND AUTOMATIC BP CUFF FOR DME, NO HOME SERVICES, PT REPORTS HE WOULD BE OPEN TO [facility] IF NECESSARY. PT VERIFIES PCP IS SAMARA DIAZ, PELON X2, PT EDUCATED ON AND HAS COMPLETED A HCP NAMING HIS RUTH LOREDO [phone] HIS [facility] AND DTR BILLIE FACUNDO [phone] HIS ALTERNATE, PT PROVIDED W/EDUCATIONAL HANDOUT, ORIGINAL AND 2 COPIES. ANTIC D/C HOME NO SERVICES ONCE MEDICALLY CLEARED, PT RUTH FOR TRANSPORT.
[2022-07-27 14:09] LABS: D Dimer High Sensitivity < 150 NG/ML
--- NOTE | 2022-07-27 14:40 | P.PNIM_ITS ---
Subjective Subjective Date of Service: 07/28/22 Physical Exam Vital Signs: Vital Signs: Last Vital Signs Temp 97.0 F 07/27/22 12:00 Pulse 95 07/27/22 12:12 Resp 18 07/27/22 12:12 BP 140/96 H 07/27/22 12:00 Pulse Ox 94 07/27/22 12:00 O2 Del Method Room Air 07/27/22 12:00 O2 Flow Rate 2 07/26/22 17:03 BMI result Body Mass Index 26.1 Objective Data Active Medications Acetaminophen (Acetaminophen 325 Mg Tablet) 650 mg PO Q6H PRN PRN Reason: Pain, Mild (Pain Scale 1-3) Last Admin: 07/27/22 08:17 Dose: 650 mg Documented By: VALDOENOAL Albuterol Sulfate (Albuterol Sulfate 90 Mcg 8 Gm Inhaler) 2 puff INHALE Q4H PRN PRN Reason: shortness of breath or wheezing Apixaban (Apixaban 5 Mg Tablet) 5 mg PO BID [facility] Last Admin: 07/27/22 08:10 Dose: 5 mg Documented By: POPPY-SOFFA Docusate Sodium (Docusate Sodium 100 Mg Capsule) 100 mg PO BID [facility] Last Admin: 07/27/22 08:10 Dose: 100 mg Documented By: POPPY-SOFFA Doxycycline Monohydrate (Doxycycline Monohydrate 100 Mg Capsule) 100 mg PO Q12H [facility] Last Admin: 07/27/22 06:28 Dose: 100 mg Documented By: ANTSHUN Hydrochlorothiazide (Hydrochlorothiazide 25 Mg Tablet) 25 mg PO DAILY [facility]; Protocol Last Admin: 07/27/22 08:10 Dose: 25 mg Documented By: POPPY-CHARUFA Ipratropium [place] (Ipratropium [place] 0.5 Mg/2.5 Ml Solution) 0.5 mg INHALE RQ4H WHILE AWAKE [facility] Last Admin: 07/27/22 12:11 Dose: 0.5 mg Documented By: ULRICC Magnesium Hydroxide (Milk Of Magnesia 30 Ml Oral.Susp) 30 ml PO DAILY PRN PRN Reason: Constipation Melatonin (Melatonin 3 Mg Tablet) 6 mg PO BEDTIME PRN PRN Reason: Insomnia Last Admin: 07/26/22 20:38 Dose: 6 mg Documented By: NATHALYOIC Methylprednisolone Sodium Succinate (Methylprednisolone Sod Succ 40 Mg/Ml Vial) 40 mg IVPUSH Q12H [facility] Last Admin: 07/27/22 10:40 Dose: 40 mg Documented By: JEAN Metoprolol Succinate (Metoprolol Succinate Er 50 Mg Tab.Er.24h) 50 mg PO BID [facility]; Protocol Morphine Sulfate (Morphine Sulfate 4 Mg/Ml Cartridge) 4 mg IVPUSH Q4H PRN; Protocol PRN Reason: Pain, Severe (Pain Scale 7-10) Last Admin: 07/27/22 08:21 Dose: 4 mg Documented By: KALYAN Ondansetron HCl (Ondansetron Hcl 4 Mg/2 Ml Vial) 4 mg IVPUSH Q8H PRN PRN Reason: Nausea and Vomiting Pharmacy Consult (Consult Rx Perform Med Rec) 1 each MISCELLANE ONCE PRN PRN Reason: Consult order Sodium Chloride (0.9 % Sodium Chloride Flush 3 Ml Syringe) 3 ml IVFLUSH QSHIFT [facility] Last Admin: 07/27/22 07:17 Dose: Not Given Documented By: JEAN Non-Admin Reason: See Note Labs 07/26/22 11:32 07/26/22 11:32 Labs: Laboratory Results - last 24 hr 07/26/22 07/27/22 11:32 13:52 D-Dimer High Sensitivty < 150 TSH 3.90 Assessment and Plan (1) Dyspnea: Status: Acute (2) Atrial fibrillation with RVR: Status: Acute Plan Pt is a 67-year-old male with a PMH significant for?HTN and COPD who presents to the ED with?SOB and chest pain.? Patient went into new onset AFib with RVR in the ED after treatment of DuoNeb.? Patient will be admitted to observation on telemetry for further evaluation of AFib with RVR and acute COPD exacerbation. New onset AFib with RVR went into AFib with RVR up to 160s in ED after DuoNeb treatment, denies history of AFib Remains in atrial fibrillation with stable ventricular rate on metoprolol xl 50 mg bid, continue Eliquis Echocardiogram showed EF 60-65%, evidence of regional wall motion abnormality, indeterminate diastolic function, mildly dilated right ventricle, D-dimer less than 150 less likely PE Persistent left anterior chest pain of several weeks duration no change in symptoms with activity or rest, with associated shortness of breath, palpitations and lightheadedness. Troponin flat ,no acute EKG changes, however echo showed wall motion abnormality ischemic workup as per Cardiology. Symptoms of chest pain/shortness of breath likely related to atrial fibrillation Cardio recommend KEVIN cardioversion at a.m. keep him NPO, amlodipine added for better blood pressure control. Add Ativan for mild anxiety Acute COPD exacerbation Shortness of breath of several weeks associated chest pain unchanged Lungs with prolonged expiratory phase, no significant rhonchi or wheeze Not hypoxic or requiring supplemental O2 Pt given DuoNeb in the ED, went into AFib with RVR shortly thereafter on Ipratropium breathing treatments ,and iv Solu-Medrol 40 mg Q 12 hours Will decrease frequency of updraft treatment and DC steroids Lower leg edema Resolved Constipation Colace b.i.d., milk of magnesia p.r.n. Full Code DVT Prophylaxis: On Eliquis Will continue in patient hospitalization due to persistent new onset atrial fibrillation plan for KEVIN cardioversion at a.m. Time Spent With Patient Time: Total time managing care of this patient today ____ minutes. Quality Stroke Does the patient have a stroke diagnosis?: No VTE Prior VTE?: No VTE Risk Level:: Medical - moderate - high VTE Device Contraindication: Treatment Not Indicated VTE Drug Contraindication: N/A - Med Ordered
[2022-07-28] VITALS (9 sets, daily range): BP systolic 132–156; BP diastolic 85–98; PULSE 64–96; RESP 16–22; TEMP 36.1–36.4; O2SAT 94–98
[2022-07-28] MEDS: 0.9 % Sodium Chloride Flush 3 ML SYRINGE IVFLUSH ×4 (00:07→20:20)
[2022-07-28] MEDS: Doxycycline Monohydrate 100 MG CAPSULE PO ×2 (05:46→18:18)
--- NOTE | 2022-07-28 06:18 | PC.NURSE ---
RESTFUL OVERNIGHT..ALERT..ORIENTED X3...NO DISTRESS AT REST ON ROOM AIR..MILDLY SOB WHEN OOB TO BR TO VOID..DECLINED PRN O2..DENIES DISCOMFORT...ATRIAL FIB HR 70'S-80'S..DENIES/OFFERS NO COMPLAINTS
[2022-07-28] MEDS: Ipratropium Bromide 0.5 MG/2.5 ML SOLUTION INHALE ×2 (07:49→14:18)
[2022-07-28] MEDS: Apixaban 5 MG TABLET PO ×2 (09:36→20:20)
[2022-07-28] MEDS: Metoprolol Succinate ER 50 MG TAB.ER.24H PO ×2 (09:36→20:20)
[2022-07-28] MEDS: hydroCHLOROthiazide 25 MG TABLET PO (09:37)
[2022-07-28] MEDS: Docusate Sodium 100 MG CAPSULE PO ×2 (09:38→20:20)
[2022-07-28] MEDS: Acetaminophen 325 MG TABLET 650 MG PO (09:44)
[2022-07-28] MEDS: LORazepam 0.5 MG TABLET PO ×2 (10:56→18:18)
--- NOTE | 2022-07-28 10:58 | P.PNCA_ITS ---
Subjective Subjective Date of Service: 07/28/22 Interval history: Seen examined at bedside. Short of breath. Complaining of chest discomfort. Continues to be in atrial fibrillation. On Toprol-XL 50 mg twice a day. Blood pressure is elevated. Saying he is feeling quite depressed due to his symptoms. Physical Exam Vital Signs: Last Vital Signs Temp 97.3 F 07/28/22 08:00 Pulse 95 07/28/22 08:00 Resp 20 07/28/22 08:00 BP 132/85 07/28/22 10:57 Pulse Ox 96 07/28/22 08:00 O2 Del Method Room Air 07/28/22 08:00 O2 Flow Rate 2 07/26/22 17:03 BMI result Body Mass Index 26.1 GENERAL APPEARANCE: in no acute distress, depressed. NECK: no carotid bruit, no jugular venous distention. SKIN: no suspicious lesions, warm and dry. HEART: no murmurs, irregular rate and rhythm. LUNGS: clear to auscultation bilaterally. ABDOMEN: soft, nontender. EXTREMITIES: Trace edema. PERIPHERAL PULSES: equal. NEUROLOGIC: No gross deficits, AAO X 3 Objective Labs and Meds 07/26/22 11:32 07/26/22 11:32 Lab results: Laboratory Results - last 24 hr 07/27/22 13:52 D-Dimer High Sensitivty < 150 Progress Note: A&P Assessment and plan (1) Atrial fibrillation with RVR: Status: Acute (2) Chest pain: Status: Acute (3) Dyspnea: Status: Acute Plan 67 year gentleman presenting for AFib with RVR, dyspnea and chest discomfort. His biomarkers are completely normal. He has been experiencing persistent chest discomfort 4 weeks. I think chest discomfort is related to AFib. He is on Eliq uis at this stage. On Toprol-XL 50 mg twice a day. Blood pressure is elevated and I am adding amlodipine 2.5 mg once a day. We discussed about KEVIN cardioversion I will try our best to do it tomorrow. Please keep him NPO after midnight. Eliquis should not be a interrupted. Post cardioversion he can be started on Multaq. He has some ECG changes of old inferior infarct with basal inferior wall motion abnormality. I would avoid flecainide or propafenone currently. He will need ischemic evaluation as outpatient with stress testing. Thank you for allowing me to participate in the care of your patient. Please feel free to contact me if you have any questions. Time Spent With Patient Time: Total time managing care of this patient today ____ minutes. Progress Note: Quality Stroke Does the patient have a stroke diagnosis?: No Procedures Date of Service Date of Service: 07/28/22
[2022-07-28] MEDS: amLODIPine Besylate 2.5 MG TABLET PO (12:08)
[2022-07-28] MEDS: Melatonin 3 MG TABLET 6 MG PO (20:20)
[2022-07-29] VITALS (13 sets, daily range): BP systolic 105–153; BP diastolic 70–97; PULSE 54–87; RESP 13–18; TEMP 36.1–37.1; O2SAT 93–99
[2022-07-29] MEDS: Doxycycline Monohydrate 100 MG CAPSULE PO ×2 (05:52→18:15)
--- NOTE | 2022-07-29 07:00 | CA_ITS ---
Transesophageal Echocardiogram Patient (Last, First, Middle): Elias Pete M Gender: Male Date of : 1955 Age: 67 Procedure Date: 07/29/2022 Procedure Type: Transesophageal Echocardiogram Location: [facility] [place] Height: 195.58 cm Weight: 99.79 kg BSA: 2.33 m2 Heart Rate: bpm [employer] Apprentice: ELMER Referring MD: Jean Claude Tony MD Tax Manager Cpa: Raza Lott MD Symptoms: Afib Conclusion: ??? 1. No intracardiac thrombi, masses or vegetations 2. No intracardiac shunting 3. Normal LV systolic function 4. Mild mitral regurgitation 5. [id number] atherosclerotic changes noted in the aorta 6. No pericardial effusion Findings Procedure Information Consent was obtained prior to the procedure. Pre KEVIN oral cavity was checked and revealed no overcrowding. The adult 3D probe was passed with no difficulty. Left Ventricle Normal left ventricular size, thickness, and systolic function. The visually estimated ejection fraction is between 60-65%. Right Ventricle Normal right ventricular cavity size and systolic function. Atria The left atrium is mildly dilated. There is lipomatous hypertrophy of the interatrial septum. There is no evidence of interatrial shunt. There is no evidence of thrombus or mass in the left atrium. the left atrial appendage was identified multiple you as there were no significant thrombi or masses seen in the left atrial appendage. The left atrial appendage ejection velocity was preserved and within normal range. The left upper and right upper pulmonary vein were draining normally into the left atrium. The right atrium is likely dilated. There is no evidence of thrombus or mass in the right atrium. The right atrium was not do very well visualized due to shadowing artifact due to lipomatous hypertrophy. However there are no significant thrombi or masses seen. IVC and SVC drain normally into the right atrium. The SVC is collapsible consistent with normal right atrial pressures. Aortic Valve Normal aortic valve structure and function. There is no aortic valve stenosis. There is no aortic valve regurgitation. Mitral Valve There is mild anterior mitral leaflet thickening. There is bowing of the anterior mitral leaflet without obvious prolapse. There is mild mitral valve regurgitation. There is no mitral valve stenosis. Pulmonic Valve The pulmonic valve is normal. Tricuspid Valve Normal tricuspid valve structure. There is mild tricuspid valve regurgitation. Great Vessels The visualized portions of the pulmonary artery and branches are normal. [id number] atherosclerotic changes noted in the descending and the arch of the aorta Venous The inferior vena cava is normal in size. Pericardium/Pleural There is no evidence of pericardial effusion. Updated by Raza Lott on 01:00 PM with Status of Final Raza Lott MD electronically signed on 07/29/2022 1:00:21 PM with status of Final
[2022-07-29] MEDS: Ipratropium Bromide 0.5 MG/2.5 ML SOLUTION INHALE ×2 (08:08→16:11)
[2022-07-29] MEDS: hydroCHLOROthiazide 25 MG TABLET PO (08:54)
[2022-07-29] MEDS: Docusate Sodium 100 MG CAPSULE PO ×2 (08:54→21:10)
[2022-07-29] MEDS: 0.9 % Sodium Chloride Flush 3 ML SYRINGE IVFLUSH ×3 (08:54→21:13)
[2022-07-29] MEDS: amLODIPine Besylate 2.5 MG TABLET PO (08:54)
[2022-07-29] MEDS: Apixaban 5 MG TABLET PO ×2 (08:54→21:10)
[2022-07-29] MEDS: Metoprolol Succinate ER 50 MG TAB.ER.24H PO (08:55)
--- NOTE | 2022-07-29 10:11 | P.CONAN_ITS ---
HPI - Anesthesia Eval Consult details Narrative: 67 M for KEVIN and cardioversion COPD , a fib RVR As per cardiology : 67 year gentleman presenting for AFib with RVR, dyspnea and chest discomfort.? His biomarkers are completely normal.? He has been experiencing persistent chest discomfort 4 weeks.? I think chest discomfort is related to AFib.? Post cardioversion he can be started on Multaq.? 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 I would avoid flecainide or propafenone currently.? He will need ischemic evaluation as outpatient with stress testing. ? [facility] Active Problems Active Problems: All Active Problems (Updated 07/28/22 @ 10:59 by Jean Claude Tony MD) Dyspnea (Acute) Atrial fibrillation with RVR (Acute) Bilateral edema of lower extremity (Acute) Atrial fibrillation (Acute) Sinusitis (Acute) Depression (Acute) Hypertension (Acute) Elevated BP without diagnosis of hypertension (Acute) Anxiety (Acute) Hospital discharge follow-up (Acute) GERD without esophagitis (Acute) Smoker (Acute) Bronchitis (Acute) Chest pain (Acute) Rib pain on left side (Acute) Left flank pain (Acute) Personal history of nicotine dependence (Acute) COPD (chronic obstructive pulmonary disease) (Acute) Rib pain on right side (Acute) Past Medical History Medical History Bronchitis Chest pain COPD (chronic obstructive pulmonary disease) Personal history of nicotine dependence Sinusitis Smoker Tubular adenoma of colon (~2010) Family History Family history of problems with anesthesia: No Surgical History Surgical History History of colonoscopy (~2018) History of endoscopy (~2018) History of Problems with Anesthesia: No Social History Social History Housing: House Alcohol intake: never Patient Tobacco Use Status: Never used Tobacco Cigarettes Per Day: 4 Smoked in Last 30 Days: No e-Cigarette/Vaping Use: Never Used Use of substances other than those prescribed or required for medical reasons: No Substance Use Type: Marijuana Advance Directives: No Advance Directives Information Provided: Yes service: No Current occupational status: retired Meds Allergies Allergy/AdvReac Type Severity Reaction Status Date / Time N.K.D.A. Allergy Unknown Unknown Uncoded 07/23/22 10:10 Active Medications: Current Medications Acetaminophen (Acetaminophen 325 Mg Tablet) 650 mg PO Q6H PRN PRN Reason: Pain, Mild (Pain Scale 1-3) Last Admin: 07/28/22 09:44 Dose: 650 mg Albuterol Sulfate (Albuterol Sulfate 90 Mcg 8 Gm Inhaler) 2 puff INHALE Q4H PRN PRN Reason: shortness of breath or wheezing Amlodipine Besylate (Amlodipine Besylate 2.5 Mg Tablet) 2.5 mg PO DAILY [facility]; Protocol Last Admin: 07/29/22 08:54 Dose: 2.5 mg Apixaban (Apixaban 5 Mg Tablet) 5 mg PO BID [facility] Last Admin: 07/29/22 08:54 Dose: 5 mg Docusate Sodium (Docusate Sodium 100 Mg Capsule) 100 mg PO BID [facility] Last Admin: 07/29/22 08:54 Dose: 100 mg Doxycycline Monohydrate (Doxycycline Monohydrate 100 Mg Capsule) 100 mg PO Q12H [facility] Last Admin: 07/29/22 05:52 Dose: 100 mg Hydrochlorothiazide (Hydrochlorothiazide 25 Mg Tablet) 25 mg PO DAILY [facility]; Protocol Last Admin: 07/29/22 08:54 Dose: 25 mg Ipratropium Cisco (Ipratropium Cisco 0.5 Mg/2.5 Ml Solution) 0.5 mg INHALE TID [facility] Last Admin: 07/29/22 08:08 Dose: 0.5 mg Lorazepam (Lorazepam 0.5 Mg Tablet) 0.5 mg PO Q8H PRN PRN Reason: Anxiety Last Admin: 07/28/22 18:18 Dose: 0.5 mg Magnesium Hydroxide (Milk Of Magnesia 30 Ml Oral.Susp) 30 ml PO DAILY PRN PRN Reason: Constipation Melatonin (Melatonin 3 Mg Tablet) 6 mg PO BEDTIME PRN PRN Reason: Insomnia Last Admin: 07/28/22 20:20 Dose: 6 mg Metoprolol Succinate (Metoprolol Succinate Er 50 Mg Tab.Er.24h) 50 mg PO BID [facility]; Protocol Last Admin: 07/29/22 08:55 Dose: 50 mg Morphine Sulfate (Morphine Sulfate 4 Mg/Ml Cartridge) 4 mg IVPUSH Q4H PRN; Prot ocol PRN Reason: Pain, Severe (Pain Scale 7-10) Last Admin: 07/27/22 08:21 Dose: 4 mg Ondansetron HCl (Ondansetron Hcl 4 Mg/2 Ml Vial) 4 mg IVPUSH Q8H PRN PRN Reason: Nausea and Vomiting Pharmacy Consult (Consult Rx Perform Med Rec) 1 each MISCELLANE ONCE PRN PRN Reason: Consult order Sodium Chloride (0.9 % Sodium Chloride Flush 3 Ml Syringe) 3 ml IVFLUSH QSHIFT [facility] Last Admin: 07/29/22 08:54 Dose: 3 ml Home Medications Medication Instructions Recorded Confirmed Last Taken Type hydrochlorothiazide 25 mg tablet 25 mg PO DAILY 07/26/22 07/26/22 Unknown History tiotropium bromide 18 mcg capsule 1 cap inhalation DAILY 07/26/22 07/26/22 Unknown History with inhalation device (Spiriva with HandiHaler) Exam Exam Date and Time: July 29, 2022 1011 Height,Weight and Vital Signs: Height 6 ft 5 in Weight 99.79 kg Last Vital Signs Temp 97.3 F 07/29/22 08:18 Pulse 81 07/29/22 08:18 Resp 18 07/29/22 08:18 BP 135/95 H 07/29/22 08:18 Pulse Ox 97 07/29/22 08:18 O2 Del Method Room Air 07/29/22 08:18 O2 Flow Rate 2 07/26/22 17:03 Pertinent Lab Results Pertinent Lab Results: Laboratory Tests 07/26/22 07/26/22 07/26/22 11:31 11:31 11:32 WBC 10.9 H RBC 4.33 L Hgb 13.5 L Hct 39.6 L MCV 91.5 MCH 31.2 MCHC 34.1 RDW 14.1 Plt Count 261 MPV 9.6 Immature Gran % (Auto) 0.3 Neut % (Auto) 72.1 Lymph % (Auto) 13.9 L [place] % (Auto) 9.7 Eos % (Auto) 3.4 Baso % (Auto) 0.6 Lymph # (Auto) 1.5 [place] # (Auto) 1.1 Eos # (Auto) 0.4 Baso # (Auto) 0.1 Abs Immat Gran (auto) 0.03 Absolute Neuts (auto) 7.9 Absolute Nucleated RBC 0.000 Nucleated RBC % (auto) 0.0 PT INR APTT D-Dimer High Sensitivty Sodium Potassium Chloride Carbon Dioxide Anion Gap BUN Creatinine Estim Creat Clear Calc Estimated GFR Random Glucose Calcium Troponin I High Sens B-Natriuretic Peptide TSH COVID-19 (MAYE) Negative COVID-19 Clin Com See Note Influenza Type A (CELIA) Negative Influenza Type B (CELIA) Negative Influenza A & B Note See Note 07/26/22 07/26/22 07/26/22 11:32 11:32 11:32 WBC RBC Hgb Hct MCV MCH MCHC RDW Plt Count MPV Immature Gran % (Auto) Neut % (Auto) Lymph % (Auto) [place] % (Auto) Eos % (Auto) Baso % (Auto) Lymph # (Auto) [place] # (Auto) Eos # (Auto) Baso # (Auto) Abs Immat Gran (auto) Absolute Neuts (auto) Absolute Nucleated RBC Nucleated RBC % (auto) PT INR APTT D-Dimer High Sensitivty Sodium 138 Potassium 4.0 Chloride 104 Carbon Dioxide 23 Anion Gap 15 BUN 15 Creatinine 1.06 Estim Creat Clear Calc 87.5 Estimated GFR > 60 Random Glucose 104 Calcium 9.7 Troponin I High Sens < 2.7 B-Natriuretic Peptide < 10 TSH 3.90 COVID-19 (MAYE) COVID-19 Clin Com Influenza Type A (CELIA) Influenza Type B (CELIA) Influenza A & B Note 07/26/22 07/27/22 13:22 13:52 WBC RBC Hgb Hct MCV MCH MCHC RDW Plt Count MPV Immature Gran % (Auto) Neut % (Auto) Lymph % (Auto) [place] % (Auto) Eos % (Auto) Baso % (Auto) Lymph # (Auto) [place] # (Auto) Eos # (Auto) Baso # (Auto) Abs Immat Gran (auto) Absolute Neuts (auto) Absolute Nucleated RBC Nucleated RBC % (auto) PT 13.6 H INR 1.2 H APTT > 200.0 H* D-Dimer High Sensitivty < 150 Sodium Potassium Chloride Carbon Dioxide Anion Gap BUN Creatinine Estim Creat Clear Calc Estimated GFR Random Glucose Calcium Troponin I High Sens B-Natriuretic Peptide TSH COVID-19 (MAYE) COVID-19 Clin Com Influenza Type A (CELIA) Influenza Type B (CELIA) Influenza A & B Note Narrative Narrative: Patient: Elias Pete MR#: [id number] : 1955 Date of Service: 07/26/22 Procedure(s): ECG 12 lead EKG Vent. Rate : 099 BPM ? ? Atrial Rate : 099 BPM ?? P-R Int : 162 ms? QRS Dur : 090 ms ? ? QT Int : 328 ms ? ? ? P-R-T Axes : 075 -83 062 degrees ?? QTc Int : 420 ms ? Normal sinus rhythm Possible Left atrial enlargement Left axis deviation Cannot rule out inferior infarct Abnormal ECG When compared with ECG of 14-MAY-2022 09:34, Premature ventricular complexes are no longer Present Date of Service: 07/26/22 Procedure(s): CA echo transthoracic complete ? Transthoracic Echocardiogram Procedure Date:? 07/26/2022 Procedure Type:? Transthoracic Echocardiogram Location:? ER Height:? 190.5 cm ? Weight: ? 99.79 kg BSA: ? 2.29 m2? Heart Rate:? ? ? bpm BP:? 145 / 80 mmHg Auto Body Estimator: ? ? VH Referring MD:? ? Florence HERNANDEZ Symptoms:? New onset Afib with RVR Study Quality: ? Adequate ECG Rhythm:? ? ? Atrial Fibrillation w RVR ?? ? Conclusions: - Normal left ventricular size, thickness, and systolic function. The visually estimated ejection fraction is between 60-65%.? ? ? - The basal inferior segment is akinetic.? - Mildly increased right ventricular cavity size.? There is? ? ? normal right ventricular systolic function.? - There is mild dilatation of the ascending aorta measuring 3.70 cm.?? Airway Mallampati Class: III Denture: Upper Loose/Missing/Broken Teeth: Yes (poor ) Assessment and Plan Assessment Anesthesia Assessment: Anesthesia Plan Discussed and Chart Reviewed Final Anesthetic Review Family History of Problems with Anesthesia: No History of Problems with Anesthesia: No NPO: Yes ASA Class: Emergency Final Preanesthetic Review: Meds/Allgs Chart Reviewed, Consent Obtained/Reviewed and Anes Risks/Benef Reviewed Patient Risk: Intermediate Procedure Risk: Intermediate Anesthetic Plan Anesthetic Plan: MAC: Disposition: Inp. Admit - IMC
--- NOTE | 2022-07-29 10:25 | P.PNCA_ITS ---
Subjective Subjective Date of Service: 07/29/22 Principal diagnosis: Atrial fibrillation Interval history: Patient heart rate is well controlled. Currently not having chest pain. Recent chest pain could be related to AFib. He is very anxious to get out of the ho spital. Denies any palpitations or lightheadedness. Review of Systems Constitutional: Reports no additional constitutional complaints Cardiovascular: Denies rapid heart rate, Denies lightheadedness, Denies Loss of Consciousness, Denies palpitations and Denies dyspnea Respiratory: Reports no additional respiratory complaints and Denies dyspnea Gastrointestinal: Reports no additional gastrointestinal complaints Reports system reviewed and no additional complaints, except as documented Endocrine: Reports no additional endocrine complaints and Denies palpitations Physical Exam Vital Signs: Last Vital Signs Temp 97.3 F 07/29/22 08:18 Pulse 81 07/29/22 08:18 Resp 18 07/29/22 08:18 BP 135/95 H 07/29/22 08:18 Pulse Ox 97 07/29/22 08:18 O2 Del Method Room Air 07/29/22 08:18 O2 Flow Rate 2 07/26/22 17:03 BMI result Body Mass Index 26.1 GENERAL APPEARANCE: in no acute distress, depressed. NECK: no carotid bruit, no jugular venous distention. SKIN: no suspicious lesions, warm and dry. HEART: no murmurs, irregular rate and rhythm. LUNGS: clear to auscultation bilaterally. ABDOMEN: soft, nontender. EXTREMITIES: Trace edema. PERIPHERAL PULSES: equal. NEUROLOGIC: No gross deficits, AAO X 3 Objective Labs and Meds 07/26/22 11:32 07/26/22 11:32 Progress Note: A&P Assessment and plan (1) Atrial fibrillation with RVR: Status: Acute Assessment and Plan: Patient with new onset atrial fibrillation with rapid ventricular response currently rate better controlled on current metoprolol therapy. Blood pressure is still elevated. Had chest pain syndrome and will pursue rhythm control approach. Not knowing exact onset of atrial fibrillation will perform KEVIN guided cardioversion. Discussed with patient the procedure of KEVIN as well as synchronized cardioversion. Risks, benefits, alternatives were discussed. Patient understands and agrees. If converts to sinus rhythm, will start on Multaq for better rate control. (2) Chest pain: Status: Acute Assessment and Plan: Could be related to atrial fibrillation, however given his multiple risk factors including family history, smoking, hypertension and his age would pursue ischemic workup as outpatient. Can be done as outpatient. Will continue to follow with you. Most likely discharge tomorrow Time Spent With Patient Time: Total time managing care of this patient today __30__ minutes. Progress Note: Quality Stroke Does the patient have a stroke diagnosis?: No Procedures Date of Service Date of Service: 07/29/22
--- NOTE | 2022-07-29 10:50 | MHC.SHP ---
Pre-Procedural Eval Section A Date of Service: 07/29/22 The patient is an INPATIENT: Yes Changes since office visit: Yes Patient answered all questions; No Cold of Flu in the past 2 weeks, No New Medical Problems and No Changes in Medication The History & Physical has been completed within 30 days and I have reviewed it.: Yes Section B Chief Complaint: New onset AFib with RVR Allergies: Allergies Allergy/AdvReac Type Severity Reaction Status Date / Time N.K.D.A. Allergy Unknown Unknown Uncoded 07/23/22 10:10 Plan I have reviewed the history and physical and performed a pertinent physical examination on my patient. No changes have occurred unless specified. Time Spent With Patient Time: Total time managing care of this patient today ____ minutes.
--- NOTE | 2022-07-29 11:46 | HO.PM.IMPN ---
Subjective Subjective Date of Service: 07/28/22 Interval History: Very anxious continue to have dull anterior chest wall pain, shortness of breath and palpitation with ambulation tele monitor showed persistent atrial fibrillation, no nause no vomiting, no headache no dizziness no other acute issues overnight. Review of Systems Review of Systems: Yes all other systems are reviewed and are negative Physical Exam Vital Signs: Vital Signs: Last Vital Signs Temp 97.6 F 07/29/22 10:51 Pulse 87 07/29/22 10:51 Resp 18 07/29/22 10:51 BP 118/97 H 07/29/22 10:51 Pulse Ox 99 07/29/22 10:51 O2 Del Method Room Air 07/29/22 10:51 O2 Flow Rate 2 07/26/22 17:03 BMI result Body Mass Index 26.1 Const: Other: General anxious looking, resting comfortably in no acute distress. Neck supple no JVD. CVS regular rate rhythm, mild mid anterior chest wall tenderness to palpation Respiratory lungs clear to auscultation, prolonged expiration few expiratory wheeze, no respiratory distress Gastrointestinal abdomen soft, nontender, bowel sounds audible, no guarding , no rigidity. Extremities no edema. Neuro nonfocal Skin no rash Psych anxious Objective Data Active Medications Acetaminophen (Acetaminophen 325 Mg Tablet) 650 mg PO Q6H PRN PRN Reason: Pain, Mild (Pain Scale 1-3) Last Admin: 07/28/22 09:44 Dose: 650 mg Documented By: MARISELA Albuterol Sulfate (Albuterol Sulfate 90 Mcg 8 Gm Inhaler) 2 puff INHALE Q4H PRN PRN Reason: shortness of breath or wheezing Amlodipine Besylate (Amlodipine Besylate 2.5 Mg Tablet) 2.5 mg PO DAILY [facility]; Protocol Last Admin: 07/29/22 08:54 Dose: 2.5 mg Documented By: ELIAZAR Apixaban (Apixaban 5 Mg Tablet) 5 mg PO BID [facility] Last Admin: 07/29/22 08:54 Dose: 5 mg Documented By: ELIAZAR Docusate Sodium (Docusate Sodium 100 Mg Capsule) 100 mg PO BID [facility] Last Admin: 07/29/22 08:54 Dose: 100 mg Documented By: ELIAZAR Doxycycline Monohydrate (Doxycycline Monohydrate 100 Mg Capsule) 100 mg PO Q12H [facility] Last Admin: 07/29/22 05:52 Dose: 100 mg Documented By: BRISSA Hydrochlorothiazide (Hydrochlorothiazide 25 Mg Tablet) 25 mg PO DAILY [facility]; Protocol Last Admin: 07/29/22 08:54 Dose: 25 mg Documented By: ELIAZAR Ipratropium [place] (Ipratropium [place] 0.5 Mg/2.5 Ml Solution) 0.5 mg INHALE TID [facility] Last Admin: 07/29/22 08:08 Dose: 0.5 mg Documented By: GERI Lorazepam (Lorazepam 0.5 Mg Tablet) 0.5 mg PO Q8H PRN PRN Reason: Anxiety Last Admin: 07/28/22 18:18 Dose: 0.5 mg Documented By: MARISELA Magnesium Hydroxide (Milk Of Magnesia 30 Ml Oral.Susp) 30 ml PO DAILY PRN PRN Reason: Constipation Melatonin (Melatonin 3 Mg Tablet) 6 mg PO BEDTIME PRN PRN Reason: Insomnia Last Admin: 07/28/22 20:20 Dose: 6 mg Documented By: BRISSA Metoprolol Succinate (Metoprolol Succinate Er 50 Mg Tab.Er.24h) 50 mg PO BID [facility]; Protocol Last Admin: 07/29/22 08:55 Dose: 50 mg Documented By: ELIAZAR Morphine Sulfate (Morphine Sulfate 4 Mg/Ml Cartridge) 4 mg IVPUSH Q4H PRN; Protocol PRN Reason: Pain, Severe (Pain Scale 7-10) Last Admin: 07/27/22 08:21 Dose: 4 mg Documented By: KALYAN Ondansetron HCl (Ondansetron Hcl 4 Mg/2 Ml Vial) 4 mg IVPUSH Q8H PRN PRN Reason: Nausea and Vomiting Pharmacy Consult (Consult Rx Perform Med Rec) 1 each MISCELLANE ONCE PRN PRN Reason: Consult order Sodium Chloride (0.9 % Sodium Chloride Flush 3 Ml Syringe) 3 ml IVFLUSH QSHIFT [facility] Last Admin: 07/29/22 08:54 Dose: 3 ml Documented By: ELIAZAR Labs 07/26/22 11:32 07/26/22 11:32 Assessment and Plan (1) Dyspnea: Status: Acute (2) Atrial fibrillation with RVR: Status: Acute Plan Pt is a 67-year-old male with a PMH significant for?HTN and COPD who presents to the ED with?SOB and chest pain.? Patient went into new onset AFib with RVR in the ED after treatment of DuoNeb.? Patient will be admitted to observation on telemetry for further evaluation of AFib with RVR and acute COPD exacerbation. New onset AFib with RVR went into AFib with RVR up to 160s in ED after DuoNeb treatment, denies history of AFib Remains in atrial fibrillation with stable ventricular rate on metoprolol xl 50 mg bid, continue Eliquis Echocardiogram showed EF 60-65%, evidence of regional wall motion abnormality, indeterminate diastolic function, mildly dilated right ventricle, D-dimer less than 150 less likely PE Persistent left anterior chest pain of several weeks duration no change in symptoms with activity or rest, with associated shortness of breath, palpitations and lightheadedness. Troponin flat ,no acute EKG changes, however echo showed wall motion abnormality ischemic workup as per Cardiology. Symptoms of chest pain/shortness of breath likely related to atrial fibrillation Cardio recommend KEVIN cardioversion at a.m. keep him NPO, amlodipine added for better blood pressure control. Add Ativan for mild anxiety Acute COPD exacerbation Shortness of breath of several weeks associated chest pain unchanged Lungs with prolonged expiratory phase, no significant rhonchi or wheeze Not hypoxic or requiring supplemental O2 Pt given DuoNeb in the ED, went into AFib with RVR shortly thereafter on Ipratropium breathing treatments ,and iv Solu-Medrol 40 mg Q 12 hours Will decrease frequency of updraft treatment and DC steroids Lower leg edema Resolved Constipation Colace b.i.d., milk of magnesia p.r.n. Full Code DVT Prophylaxis: On Eliquis Will continue in patient hospitalization due to persistent new onset atrial fibrillation plan for KEVIN cardioversion at a.m. Time Spent With Patient Time: Total time managing care of this patient today ____ minutes. Quality Stroke Does the patient have a stroke diagnosis?: No VTE Prior VTE?: No VTE Risk Level:: Medical - moderate - high VTE Device Contraindication: Treatment Not Indicated VTE Drug Contraindication: N/A - Med Ordered
--- NOTE | 2022-07-29 11:49 | ECG_ITS ---
Test Reason : S/P CARDIOVERSION Blood Pressure : / mmHG Vent. Rate : 055 BPM Atrial Rate : 055 BPM P-R Int : 176 ms QRS Dur : 082 ms QT Int : 410 ms P-R-T Axes : 079 -74 065 degrees QTc Int : 392 ms Sinus bradycardia with Premature supraventricular complexes Right atrial enlargement Left axis deviation Inferior infarct (cited on or before 26-JUL-2022) Abnormal ECG When compared with ECG of 26-JUL-2022 12:17, Sinus rhythm has replaced Atrial fibrillation Vent. rate has decreased BY [address] no longer depressed in Anterolateral leads Referred By: Raza Lott Electronically Signed By:RAZA LOTT MD
--- NOTE | 2022-07-29 11:50 | HO.CARDIVERS ---
Cardioversion Procedure Note Cardioversion Date of Procedure: Today Ordering Provider: Dr. Tony Performing Provider: Myself Indication for Procedure: Symptomatic persistent atrial fibrillation Pre-Op Diagnosis: Same Post-Op Diagnosis: Sinus rhythm Performed with Transesophageal Echo: No KEVIN findings (if KEVIN Performed): Dictate is safely. In short there were no intracardiac thrombi or masses History: See the consult note Consent: Verbal and Written consent was obtained from the patient before starting and after confirming oral anticoagulation use. The patient was made aware of the risk of synchronized cardioversion including benefits and alternatives Procedure: After consent obtained, cardioversion pads were attached in anteroposterior configuration and the patient was sedated by the anesthesia team. Once adequate sedation achieved, patient was delivered 200 joules of biphasic synchronized energy in anteroposterior configuration. Complications: None Impression: Successful conversion to sinus rhythm Recommendations: 1. Start Multaq 400 mg b.i.d. 2. Continue full oral anticoagulation Eliquis 3. 12 lead EKG 4. Hold metoprolol
--- NOTE | 2022-07-29 12:55 | HO.PM.IMPN ---
Subjective Subjective Date of Service: 07/29/22 Interval History: Very anxious this morning is scheduled for KEVIN cardioversion, continue to have dull anterior chest discomfort, palpitations and shortness of breath with ambulation, is NPO, tele monitor showed persistent atrial fibrillation with stable ventricular rate. Review of Systems Review of Systems: Yes all other systems are reviewed and are negative Physical Exam Vital Signs: Vital Signs: Last Vital Signs Temp 97.1 F 07/29/22 12:14 Pulse 54 07/29/22 12:14 Resp 16 07/29/22 12:14 BP 134/74 07/29/22 12:14 Pulse Ox 97 07/29/22 12:14 O2 Del Method Room Air 07/29/22 12:14 O2 Flow Rate 2 07/26/22 17:03 BMI result Body Mass Index 26.1 Const: Other: General anxious looking, resting comfortably in no acute distress.? Neck? supple no JVD. CVS? regular rate rhythm, mild mid anterior chest wall tenderness to palpation Respiratory lungs clear to auscultation, prolonged expiration, no respiratory distress Gastrointestinal abdomen soft, nontender, bowel sounds audible, no guarding , no rigidity. Extremities no edema. Neuro nonfocal Skin no rash Psych anxious Objective Data Active Medications Acetaminophen (Acetaminophen 325 Mg Tablet) 650 mg PO Q6H PRN PRN Reason: Pain, Mild (Pain Scale 1-3) Last Admin: 07/28/22 09:44 Dose: 650 mg Documented By: MARISELA Albuterol Sulfate (Albuterol Sulfate 90 Mcg 8 Gm Inhaler) 2 puff INHALE Q4H PRN PRN Reason: shortness of breath or wheezing Amlodipine Besylate (Amlodipine Besylate 5 Mg Tablet) 5 mg PO DAILY [facility]; Protocol Apixaban (Apixaban 5 Mg Tablet) 5 mg PO BID [facility] Last Admin: 07/29/22 08:54 Dose: 5 mg Documented By: ELIAZAR Docusate Sodium (Docusate Sodium 100 Mg Capsule) 100 mg PO BID [facility] Last Admin: 07/29/22 08:54 Dose: 100 mg Documented By: ELIAZAR Doxycycline Monohydrate (Doxycycline Monohydrate 100 Mg Capsule) 100 mg PO Q12H [facility] Last Admin: 07/29/22 05:52 Dose: 100 mg Documented By: BRISSA Hydrochlorothiazide (Hydrochlorothiazide 25 Mg Tablet) 25 mg PO DAILY [facility]; Protocol Last Admin: 07/29/22 08:54 Dose: 25 mg Documented By: ELIAZAR Ipratropium Wiley (Ipratropium Wiley 0.5 Mg/2.5 Ml Solution) 0.5 mg INHALE TID [facility] Last Admin: 07/29/22 08:08 Dose: 0.5 mg Documented By: GERI Lorazepam (Lorazepam 0.5 Mg Tablet) 0.5 mg PO Q8H PRN PRN Reason: Anxiety Last Admin: 07/28/22 18:18 Dose: 0.5 mg Documented By: MARISELA Magnesium Hydroxide (Milk Of Magnesia 30 Ml Oral.Susp) 30 ml PO DAILY PRN PRN Reason: Constipation Melatonin (Melatonin 3 Mg Tablet) 6 mg PO BEDTIME PRN PRN Reason: Insomnia Last Admin: 07/28/22 20:20 Dose: 6 mg Documented By: BRISSA Morphine Sulfate (Morphine Sulfate 4 Mg/Ml Cartridge) 4 mg IVPUSH Q4H PRN; Protocol PRN Reason: Pain, Severe (Pain Scale 7-10) Last Admin: 07/27/22 08:21 Dose: 4 mg Documented By: KALYAN Ondansetron HCl (Ondansetron Hcl 4 Mg/2 Ml Vial) 4 mg IVPUSH Q8H PRN PRN Reason: Nausea and Vomiting Pharmacy Consult (Consult Rx Perform Med Rec) 1 each MISCELLANE ONCE PRN PRN Reason: Consult order Sodium Chloride (0.9 % Sodium Chloride Flush 3 Ml Syringe) 3 ml IVFLUSH QSHIFT [facility] Last Admin: 07/29/22 08:54 Dose: 3 ml Documented By: ELIAZAR Labs 07/26/22 11:32 07/26/22 11:32 Assessment and Plan (1) Dyspnea: Status: Acute (2) Atrial fibrillation with RVR: Status: Acute Plan Pt is a 67-year-old male with a PMH significant for?HTN and COPD who presents to the ED with?SOB and chest pain.? Patient went into new onset AFib with RVR in the ED after treatment of DuoNeb.? Patient will be admitted to observation on telemetry for further evaluation of AFib with RVR and acute COPD exacerbation. New onset AFib with RVR went into AFib with RVR up to 160s in ED after DuoNeb treatment, denies history of AFib Remains in atrial fibrillation with stable ventricular rate on metoprolol xl 50 mg bid, and Eliquis Echocardiogram showed EF 60-65%, evidence of regional wall motion abnormality, indeterminate diastolic function, mildly dilated right ventricle, D-dimer less than 150 less likely PE Persistent left anterior chest pain of several weeks duration no change in symptoms with activity or rest, with associated shortness of breath, palpitations and lightheadedness. Troponin flat ,no acute EKG changes, however echo showed wall motion abnormality ischemic workup as per Cardiology. Symptoms of chest pain/shortness of breath likely related to atrial fibrillation Underwent KEVIN guided cardioversion converted to normal sinus rhythm with bradycardia Will DC metoprolol, will increase dose of Norvasc to 5 mg for better blood pressure control, Cardio recommend Multaq to be started this evening Ativan for mild anxiety Acute COPD exacerbation Resolved, shortness of breath likely due to atrial fibrillation Lungs with prolonged expiratory phase, no significant rhonchi or wheeze Not hypoxic or requiring supplemental O2 Continue as needed ipratropium updraft Lower leg edema Resolved Constipation Colace b.i.d., milk of magnesia p.r.n. Full Code DVT Prophylaxis: On Eliquis Will continue in patient hospitalization due to KEVIN cardioversion , placed on Multaq will need tele monitoring times 24 hours Time Spent With Patient Time: Total time managing care of this patient today ____ minutes. Quality Stroke Does the patient have a stroke diagnosis?: No VTE Prior VTE?: No VTE Risk Level:: Medical - moderate - high VTE Device Contraindication: Treatment Not Indicated VTE Drug Contraindication: N/A - Med Ordered
--- NOTE | 2022-07-29 14:58 | MHC.CM.PN ---
EMR reviewed, pt received successful cardioversion to sinus rhythm today. Once medically cleared anticipating D/C back home w/ no services, pts to transport. CM will continue to follow.
[2022-07-29] MEDS: LORazepam 0.5 MG TABLET PO (15:53)
[2022-07-29] MEDS: Dronedarone HCl 400 MG TABLET PO (21:10)
[2022-07-29] MEDS: Melatonin 3 MG TABLET 6 MG PO (21:10)
[2022-07-30 03:32] VITALS: BP 136/81; PULSE 56; RESP 14; TEMP 36.3; O2SAT 95
[2022-07-30] MEDS: Doxycycline Monohydrate 100 MG CAPSULE PO (05:47)
[2022-07-30] MEDS: Acetaminophen 325 MG TABLET 650 MG PO (05:50)
[2022-07-30] MEDS: LORazepam 0.5 MG TABLET PO (06:26)
--- NOTE | 2022-07-30 06:29 | PC.NURSE ---
pt sinus Travis all night high 40s 47-48 and occasional 38 pt asymptomatic
[2022-07-30 08:00] VITALS: BP 143/84; PULSE 59; RESP 20; TEMP 36.7; O2SAT 96
[2022-07-30] MEDS: Docusate Sodium 100 MG CAPSULE PO (08:36)
[2022-07-30] MEDS: 0.9 % Sodium Chloride Flush 3 ML SYRINGE IVFLUSH (08:36)
[2022-07-30] MEDS: Apixaban 5 MG TABLET PO (08:36)
[2022-07-30] MEDS: amLODIPine Besylate 5 MG TABLET PO (08:37)
[2022-07-30] MEDS: hydroCHLOROthiazide 25 MG TABLET PO (08:37)
[2022-07-30] MEDS: Ipratropium Bromide 0.5 MG/2.5 ML SOLUTION INHALE (08:37)
[2022-07-30 08:40] VITALS: PULSE 53; RESP 16; O2SAT 91
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
--- NOTE | 2022-07-30 10:46 | MHC.CM.PN ---
DP: PT HAS BEEN MEDICALLY CLEARED FOR DC HOME, NO SERVICES. WILL PROVIDE PT WITH [facility]. [facility] WILL TRANSPORT.
--- NOTE | 2022-07-30 10:56 | PM.PNCARD ---
Subjective Subjective Date of Service: 07/30/22 Principal diagnosis: Atrial fibrillation Interval history: Patient status post KEVIN guided cardioversion. Maintains rhythm today. Overnight however noted to be in sinus bradycardia heart rate in the 30s. His Multaq was withheld yesterday and metoprolol Multaq withheld this morning. No bleeding issues. No neurologic events. Wants to go home Review of Systems Review of Systems Yes all other systems are reviewed and are negative Physical Exam Vital Signs: Last Vital Signs Temp 98.0 F 07/30/22 08:00 Pulse 53 07/30/22 08:40 Resp 16 07/30/22 08:40 BP 143/84 H 07/30/22 08:00 Pulse Ox 96 07/30/22 08:00 O2 Del Method Room Air 07/30/22 08:00 O2 Flow Rate 2 07/26/22 17:03 BMI result Body Mass Index 26.1 Const General: cooperative, comfortable, no acute distress, alert and awake Orientation/consciousness: patient oriented x3 Neck Neck: Yes trachea midline, Yes supple and Yes no JVD Resp Effort & Inspection: normal respiratory effort Auscultation: clear to auscultation bilaterally Cardio Jugular venous distension: no JVD Palpation: normal PMI Rate: regular rate Rhythm: regular rhythm Heart sounds: S1 normal heart sound present, S2 normal heart sound present, no click, no gallops, no murmurs and no rubs GI Auscultation: normal bowel sounds Skin General skin exam: no rashes or lesions noted Neuro General: patient oriented x3 and no focal motor deficits Objective Labs and Meds 07/26/22 11:32 07/26/22 11:32 Progress Note: A&P Assessment and plan (1) Paroxysmal atrial fibrillation: Status: Acute Assessment and Plan: Paroxysmal atrial fibrillation status post KEVIN guided cardioversion. Feeling a lot better. Overnight developed bradycardia and therefore his rate lowering medication as well as Multaq are on hold. Will continue to hold them. Schedule for Holter monitor next couple of days. Will also need a stress test as outpatient given his chest pain associated with atrial fibrillation. Continue full oral anticoagulation with Eliquis uninterrupted for the usp. This was discussed with him in details. Avoidance of stimulants was discussed. Follow up in the office in 10-14 days. (2) Hypertension: Status: Acute Assessment and Plan: Hypertension which is better controlled. Continue current antihypertensive therapy with hydrochlorothiazide amlodipine. Stress mitigation strategies to be pursued. Avoidance stimulants such as caffeine and alcohol. Follow up in the clinic in 10-14 days after workup. Time Spent With Patient Time: Total time managing care of this patient today ____ minutes. Progress Note: Quality Stroke Does the patient have a stroke diagnosis?: No Procedures Date of Service Date of Service: 07/30/22
--- NOTE | 2022-07-30 13:08 | HO.POSTANES ---
Post Anesthesia Evaluation Post Anesthesia Evaluation Vital Signs: Vital Signs Temp Pulse Resp BP Pulse Ox O2 Del Method 07/30/22 08:40 53 16 07/30/22 08:00 98.0 F 59 20 143/84 H 96 Room Air 07/30/22 03:32 97.3 F 56 14 136/81 95 Room Air Anesthesia: Monitored Mental Status: Awake Pain Control: Satisfactory Nausea/Vomiting: None Hydration: Adequate Anesthesia-Related Issues: No Anes. Related Issues
== END 2022-07-30 11:09 | disposition home or self-care (01) | DRG 310 ==
LOC: HO.ED 13:51 → HO.EDOVER 15:36 → HO.IMC 15:57
PROVIDERS: Hospitalist; Internal Medicine Cardiovascular Disease; Admitting Provider Student in an Organized Health Care Education/Training Program; Emergency Provider Emergency Medicine; PCP Internal Medicine; Visit Provider Internal Medicine
PROC: 5A2204Z Restoration of Cardiac Rhythm, Single (ICD-10-PCS; CPT 93312; principal; 2022-07-29 11:00)
PROC: 5A2204Z Restoration of Cardiac Rhythm, Single (ICD-10-PCS; 2022-07-29 11:00)
DX: I48.19 Other persistent atrial fibrillation (principal); K59.00 Constipation, unspecified; I10 Essential (primary) hypertension; T48.6X5A Adverse effect of antiasthmatics, initial encounter; T46.2X5A Adverse effect of other antidysrhythmic drugs, initial encounter; R00.1 Bradycardia, unspecified; Z20.822 Contact with and (suspected) exposure to COVID-19; Z79.899 Other long term (current) drug therapy
CPT/HCPCS: 36415; 71046; 80048; 83880; 84443; 84484; 85025; 85379; 85610; 85730; 87502; 87635; 92960; 93005; 93306; 93970; 94640; 99222; 99285; J1643; J2270; J2370; J2920; J2930; J3010; Q9957

== ENCOUNTER → 2022-08-02 10:29 | Outpatient (REF) | payer MEDICARE, OTHER, SELFPAY ==
--- NOTE | 2022-08-02 10:31 | HM_ITS ---
Conclusion: 1. Patient was monitored for total period of 2 days and 23 hours 2. Baseline rhythm is normal sinus rhythm predominantly with average heart rate of 73 beats per minute 3. Intermittent episodes of atrial fibrillation with total burden of 7.72% with longest episode lasting 1 hour and 6 minutes with heart rate up to 160 beats per minute 4. Total of 2243 PACs accounting for 0.7% of total beats account for occasional PACs next 5. No significant pauses noted 6. Patient reported event of palpitations correlated with PACs MTDD
== END ==
LOC: HO.CARD 10:29
PROVIDERS: PCP Internal Medicine; Visit Provider Internal Medicine Cardiovascular Disease
DX: I48.0 Paroxysmal atrial fibrillation (principal); R06.00 Dyspnea, unspecified
CPT/HCPCS: 93242

== ENCOUNTER → 2022-08-12 10:01 | Outpatient (REF) | payer MEDICARE, OTHER, SELFPAY | LOC: HO.CARD 10:01 | PROVIDERS: PCP Internal Medicine; Visit Provider Internal Medicine Cardiovascular Disease | DX: Z13.89 Encounter for screening for other disorder (principal) ==

== ENCOUNTER → 2022-08-14 14:37 | Outpatient (BNVA) | payer MEDICARE, OTHER, SELFPAY | PROVIDERS: PCP Internal Medicine; Referring Provider Internal Medicine; Visit Provider Internal Medicine Cardiovascular Disease | DX: I48.0 Paroxysmal atrial fibrillation (principal) | CPT/HCPCS: 99212 ==

== ENCOUNTER 2022-08-16 11:36 | Day surgery (SDC) | payer MEDICARE, OTHER, SELFPAY ==
--- NOTE | 2022-08-15 10:59 | HO.ANESPROP2 ---
Documented by User: Shilpa Mtz NP 08/15/22 11:06 HPI - Anesthesia Eval Consult details Narrative: 67yo M for Cardioversion Eliquis for afib s/p KEVIN 07/27/22 with MAC PMFSH Active Problems Active Problems: All Active Problems (Updated 08/12/22 @ 11:16 by RUSTY Trejo) COPD (chronic obstructive pulmonary disease) (Acute) Hypertension (Acute) Paroxysmal atrial fibrillation (Acute) Sinusitis (Acute) Depression (Acute) Elevated BP without diagnosis of hypertension (Acute) Anxiety (Acute) Hospital discharge follow-up (Acute) GERD without esophagitis (Acute) Smoker (Acute) Bronchitis (Acute) Rib pain on left side (Acute) Left flank pain (Acute) Personal history of nicotine dependence (Acute) Rib pain on right side (Acute) Past Medical History Medical History Bronchitis Chest pain COPD (chronic obstructive pulmonary disease) Hypertension Personal history of nicotine dependence Sinusitis Smoker Tubular adenoma of colon (~2010) Family History Family history of problems with anesthesia: No Surgical History Surgical History History of colonoscopy (~2018) History of endoscopy (~2018) History of Problems with Anesthesia: No Social History Social History Housing: House Alcohol intake: never Patient Tobacco Use Status: Former Tobacco user Cigarettes Per Day: 4 e-Cigarette/Vaping Use: Never Used Second Hand Smoke Exposure: No Substance Use Type: Marijuana Are you DNR?: No Advance Directives: No Advance Directives Information Provided: Yes Nutrition Risks: No Nutritional Risk service: No Current occupational status: retired Meds Allergies Allergy/AdvReac Type Severity Reaction Status Date / Time N.K.D.A. Allergy Unknown Unknown Uncoded 07/23/22 10:10 Home Medications Medication Instructions Recorded Confirmed Last Taken Type hydrochlorothiazide 25 mg tablet 25 mg PO DAILY 07/26/22 08/16/22 08/16/22 History tiotropium bromide 18 mcg capsule 1 cap inhalation DAILY 07/26/22 08/16/22 08/15/22 History with inhalation device (Spiriva with HandiHaler) Exam Exam Date and Time: August 15, 2022 1059 Pertinent Lab Results Pertinent Lab Results: Laboratory Tests 07/26/22 07/26/22 11:32 11:32 WBC 10.9 H Hgb 13.5 L Hct 39.6 L Plt Count 261 Sodium 138 Potassium 4.0 Chloride 104 Carbon Dioxide 23 BUN 15 Creatinine 1.06 Narrative Narrative: EKG 07/2022 Afib @ [address] abnormality Holter 07/2022 Conclusion: 1. Patient was monitored for total period of 2 days and 23 hours 2. Baseline rhythm is normal sinus rhythm predominantly with average heart rate of 73 beats per minute 3. Intermittent episodes of atrial fibrillation with total burden of 7.72% with longest episode lasting 1 hour and 6 minutes with heart rate up to 160 beats per minute 4.? Total of 2243 PACs accounting for 0.7% of total beats account for occasional PACs next 5.? No significant pauses noted 6. Patient reported event of palpitations correlated with PACs KEVIN 07/2022 Conclusion: ??? 1. No intracardiac thrombi, masses or vegetations? 2. No intracardiac shunting? 3. Normal LV systolic function ? 4. Mild mitral regurgitation ? 5. [id number] atherosclerotic changes noted in the aorta ? 6. No pericardial effusion ?? Assessment and Plan Assessment Anesthesia Assessment: Chart Reviewed Final Anesthetic Review Family History of Problems with Anesthesia: No History of Problems with Anesthesia: No Documented by User: Rhiannon Mims MD 08/16/22 13:00 [facility] Active Problems Active Problems: All Active Problems (Updated 08/16/22 @ 12:50 by Rhiannon Mims MD) COPD (chronic obstructive pulmonary disease) (Acute) Hypertension (Acute) Paroxysmal atrial fibrillation (Acute) Sinusitis (Acute) Depression (Acute) Elevated BP without diagnosis of hypertension (Acute) Anxiety (Acute) Hospital discharge follow-up (Acute) GERD without esophagitis (Acute) Smoker (Acute) Bronchitis (Acute) Rib pain on left side (Acute) Left flank pain (Acute) Personal history of nicotine dependence (Acute) Rib pain on right side (Acute) Past Medical History Medical History Bronchitis Chest pain COPD (chronic obstructive pulmonary disease) Hypertension Personal history of nicotine dependence Sinusitis Smoker Tubular adenoma of colon (~2010) Surgical History Surgical History History of colonoscopy (~2018) History of endoscopy (~2018) Social History Social History Housing: House Alcohol intake: never Patient Tobacco Use Status: Former Tobacco user Cigarettes Per Day: 4 e-Cigarette/Vaping Use: Never Used Second Hand Smoke Exposure: No Substance Use Type: Marijuana Are you DNR?: No Advance Directives: No Advance Directives Information Provided: Yes Nutrition Risks: No Nutritional Risk service: No Current occupational status: retired Meds Allergies Allergy/AdvReac Type Severity Reaction Status Date / Time N.K.D.A. Allergy Unknown Unknown Uncoded 07/23/22 10:10 Home Medications Medication Instructions Recorded Confirmed Last Taken Type hydrochlorothiazide 25 mg tablet 25 mg PO DAILY 07/26/22 08/16/22 08/16/22 History tiotropium bromide 18 mcg capsule 1 cap inhalation DAILY 07/26/22 08/16/22 08/15/22 History with inhalation device (Spiriva with HandiHaler) Exam Height,Weight and Vital Signs: Height 6 ft 5 in Weight 94.801 kg Vital Signs Temp Pulse Resp BP Pulse Ox O2 Del Method 08/16/22 11:38 98.3 F 77 18 108/79 97 Room Air Pertinent Lab Results Pertinent Lab Results: Laboratory Tests 07/26/22 07/26/22 11:32 11:32 WBC 10.9 H Hgb 13.5 L Hct 39.6 L Plt Count 261 Sodium 138 Potassium 4.0 Chloride 104 Carbon Dioxide 23 BUN 15 Creatinine 1.06 Airway Mallampati Class: II TM Dist: >3cm Neck ROM: Full Loose/Missing/Broken Teeth: Yes (Most teeth missing. Poor dentition front) Heart: Irregularly irregular Lungs: CTAB Assessment and Plan Assessment Anesthesia Assessment: Anesthesia Plan Discussed Final Anesthetic Review NPO: Yes ASA Class: III Final Preanesthetic Review: No Changes in Pt Med Stat, Meds/Allgs Chart Reviewed, Consent Obtained/Reviewed and Anes Risks/Benef Reviewed Patient Risk: Intermediate Procedure Risk: Intermediate Assessment/Block/Sedation in SS: Assess/Block/Sedation-SS Anesthetic Plan Anesthetic Plan: GA Disposition: Standard PACU
[2022-08-16 06:21] VITALS: BMI 24.7
[2022-08-16 11:38] VITALS: BP 108/79; PULSE 77; RESP 18; TEMP 36.8; O2SAT 97
[2022-08-16] MEDS: Lactated Ringers 1,000 ML 50 ML IVCONT (12:00)
--- NOTE | 2022-08-16 12:13 | MHC.SHP ---
Pre-Procedural Eval Section A Date of Service: 08/16/22 The patient is an INPATIENT: No Changes since office visit: Yes Changes in Medication and Yes Patient answered all questions; No Cold of Flu in the past 2 weeks and No New Medical Problems The History & Physical has been completed within 30 days and I have reviewed it.: Yes Section B Chief Complaint: afib Allergies: Allergies Allergy/AdvReac Type Severity Reaction Status Date / Time N.K.D.A. Allergy Unknown Unknown Uncoded 07/23/22 10:10 Plan I have reviewed the history and physical and performed a pertinent physical examination on my patient. No changes have occurred unless specified. Time Spent With Patient Time: Total time managing care of this patient today ____ minutes.
[2022-08-16 13:17] VITALS: BP 155/74; PULSE 52; RESP 20; TEMP 37; O2SAT 95
--- NOTE | 2022-08-16 13:17 | ECG_ITS ---
Test Reason : post op Blood Pressure : / mmHG Vent. Rate : 052 BPM Atrial Rate : 052 BPM P-R Int : 172 ms QRS Dur : 096 ms QT Int : 450 ms P-R-T Axes : 075 -71 046 degrees QTc Int : 418 ms Sinus bradycardia Left axis deviation Possible Inferior infarct (cited on or before 26-JUL-2022) Abnormal ECG When compared with ECG of 29-JUL-2022 12:03, Premature supraventricular complexes are no longer Present Referred By: Raza Lott Electronically Signed By:Jean Claude Tony
[2022-08-16 13:22] VITALS: BP 107/63; PULSE 51; RESP 15; O2SAT 97
[2022-08-16 13:27] VITALS: BP 105/64; PULSE 51; RESP 20; O2SAT 97
[2022-08-16 13:32] VITALS: BP 105/64; PULSE 51; RESP 12; O2SAT 97
--- NOTE | 2022-08-16 13:33 | HO.CARDIVERS ---
Cardioversion Procedure Note Cardioversion Date of Procedure: Today Ordering Provider: Dr. Tony Performing Provider: Myself Indication for Procedure: Recurrent persistent symptomatic atrial fibrillation Pre-Op Diagnosis: Same Post-Op Diagnosis: Sinus rhythm Performed with Transesophageal Echo: No History: See the office note Consent: Verbal and Written consent was obtained from the patient before starting the procedure and after confirming oral anticoagulation amiodarone use. The patient was made aware of the risk of synchronized cardioversion including benefits and alternatives. Procedure: After consent obtained, cardioversion pads were attached in anteroposterior configuration and the patient was sedated by the anesthesia team. Once adequate sedation achieved, patient was delivered 200 joules of biphasic synchronized energy in anteroposterior configuration x2 Complications: None Impression: Successful conversion to sinus rhythm Recommendations: 1. 12 lead EKG 2. Continue amiodarone loading and dosing as recommended 3. Continue full oral anticoagulation 4. Follow up in the office after Holter monitor
[2022-08-16 13:47] VITALS: BP 116/71; PULSE 52; RESP 18; TEMP 36.4; O2SAT 96
== END 2022-08-16 14:15 | disposition home or self-care (01) ==
PROVIDERS: PCP Internal Medicine; Visit Provider Internal Medicine Cardiovascular Disease
PROC: 5A2204Z Restoration of Cardiac Rhythm, Single (ICD-10-PCS; principal; 2022-08-16 13:00)
DX: I48.19 Other persistent atrial fibrillation (principal); J44.9 Chronic obstructive pulmonary disease, unspecified; I10 Essential (primary) hypertension; Z79.01 Long term (current) use of anticoagulants; Z79.899 Other long term (current) drug therapy; Z87.891 Personal history of nicotine dependence
CPT/HCPCS: 92960; 93005; J0461

== ENCOUNTER → 2022-08-21 12:56 | Outpatient (REF) | payer MEDICARE, OTHER, SELFPAY ==
--- NOTE | 2022-08-21 13:01 | HM_ITS ---
Conclusion: 1. Patient was monitored for total period of 3 days 2. Baseline was normal sinus rhythm with average heart rate of 48 beats per minute 3. Significant sinus bradycardia weight 88% of time heart rate below 60 beats per minute with lowest heart rate of 39 beats per minute during sleep hours with no significant pauses greater than and 2.5 seconds 4. Rare ectopy noted 5. No patient reported events MTDD
== END ==
LOC: HO.CARD 12:56
PROVIDERS: Visit Provider Internal Medicine Cardiovascular Disease
DX: I48.0 Paroxysmal atrial fibrillation (principal)
CPT/HCPCS: 93242

== ENCOUNTER → 2022-09-03 08:24 | Outpatient (REF) | payer MEDICARE, OTHER, SELFPAY ==
--- NOTE | 2022-09-03 08:26 | CA_ITS ---
Acquisition Time: 2022-09-03 08:33:48 Total Exercise Time: 00:02:11 Test Indications: Dyspnea CP AFIB Medications: AMLODIPINE ELIQUIS HCTZ SPIRIVA ALBUTEROL Protocol: CATHY Max HR: 131 BPM 84% of Pred: 155 BPM Max BP: 172/078 mmHG Max Work Load: 4.6 METS Exercise stress test with exercise 2 min 11 sec of Cathy protocol, briefly achieving 74% MPHR, with patient request to stop due to significant shortness of breath, no chest discomfort, with isolated PVCs, with normotensive response to exercise, with nondiagnostic EKG for ischemia due to suboptimal exercise time and heart rate. Will order a pharmacological nuclear stress test for further evaluation. Test reviewed with Dr Tony Referred By: Raza Lott Overread By: DIANA BRAMBILA
== END ==
LOC: HO.CARD 08:24
PROVIDERS: PCP Internal Medicine; Visit Provider Internal Medicine Cardiovascular Disease
DX: I48.0 Paroxysmal atrial fibrillation (principal); R06.00 Dyspnea, unspecified
CPT/HCPCS: 93017

== ENCOUNTER → 2022-09-19 08:52 | Outpatient (REF) | payer MEDICARE, OTHER, SELFPAY ==
--- NOTE | ~2022-09-19 | NM_ITS ---
Myocardial perfusion study Indication: Abnormal stress test evaluate for myocardial ischemia Technique: The patient was brought in for a Lexiscan perfusion study on 09/19/2022. Patient performed low-level exercise and was injected 0.4 mg of Lexiscan intravenously. Within a minute of injection, 30 mCi of sestamibi was given intravenously. Images were obtained using the SPECT gamma camera interlaced with the gating device. Images were obtained in supine position. Resting perfusion study was performed on 09/20/2022. Patient was administered 30 mCi of sestamibi intravenously at rest. Images were then obtained in supine position. Images obtained with and without CT attenuation. Total DLP 81 mGy-cm. Images were processed with the software and compared side to side in short axis, horizontal long axis and vertical long axis views. Findings: The stress perfusion study showed non attenuated images show mildly reduced uptake in the inferior wall of the LV myocardium. Remainder of the LV myocardium is normally perfused. Attenuation corrected images show normal uptake of radiotracer in all segments of LV myocardium. The gated study shows normal LV systolic function with calculated LVEF of 67%. LV cavity is normal in size. The gated study shows normal systolic wall thickening and contraction of segments. Resting study shows non attenuated images show moderately reduced uptake in the inferior wall of the LV myocardium. Attenuated corrected images show mildly reduced uptake in the inferior wall of the LV myocardium.. Gating at rest reveals normal systolic wall motion with ejection fraction at 67%. The findings are consistent with normal myocardial perfusion. NM/NM cardiolite stress test Impression: 1. Myocardial perfusion imaging study shows normal myocardial perfusion 2. Gated LVEF is 67% 3. Transient ischemic dilatation not present EKG is nondiagnostic for ischemia
--- NOTE | 2022-09-19 08:55 | CA_ITS ---
Acquisition Time: 2022-09-19 09:02:02 Total Exercise Time: 00:02:00 Test Indications: CP, SOB Medications: SEE H Protocol: LEXISCAN Max HR: 085 BPM 54% of Pred: 155 BPM Max BP: 154/072 mmHG Max Work Load: 1.6 METS Pharmacological stress test with Lexiscan injection while walking on treadmill, without anginal symptoms, with isolated PVCs post inejction, with runs of accelerated junctional rhythm, with normotensive response to injection, with non-diagnositic EKGs. Aminophylline 75mg IVP to reverse Lexiscan. Nuclear images pending. Test reviewed with Dr. Lott. Referred By: Christy Lomeli Overread By: CHRISTY LOMELI
== END ==
LOC: HO.CARD 08:52
PROVIDERS: PCP Internal Medicine; Visit Provider Nurse Practitioner Family
DX: R06.02 Shortness of breath (principal); I48.0 Paroxysmal atrial fibrillation; R94.39 Abnormal result of other cardiovascular function study
CPT/HCPCS: 78452; 93017; A9500; J0280; J2785

== ENCOUNTER 2022-10-08 07:19 | Outpatient (REF) | payer MEDICARE, OTHER, SELFPAY ==
[2022-10-08 07:34] LABS: MANUAL DIFF FLAG NO
[2022-10-08 08:21] LABS: Basophils Absolute Auto 0.1 X10*3/uL (0.0-0.2); Eosinophils Absolute Auto 0.8 X10*3/uL (0.0-0.4); Eosinophils Percent Auto 8.5 % (0-4); Hematocrit 38.9 % (42.0-52.0); Hemoglobin 13.2 g/dl (14.0-18.0); Imm Gran Abs Auto 0.03 X10*3/uL (0.00-0.03); Imm Gran Pct Auto 0.3 % (0.0-0.4); Lymphocytes Absolute Auto 2.3 X10*3/uL (1.2-4.9); Lymphocytes Percent Auto 23.8 % (20-40); Mean Corpuscular HGB Conc 33.9 g/dl (31.0-36.0); Mean Corpuscular Hemoglobin 31.2 pg (27.0-33.0); Mean Platelet Volume 9.9 fL (9.4-12.4); Monocytes Absolute Auto 0.9 X10*3/uL (0.1-1.2); Monocytes Percent Auto 9.7 % (2-11); Neutrophils Absolute Auto 5.5 x10*3/uL (2.0-8.3); Neutrophils Percent Auto 56.7 % (45-73); Platelet Count 294 X10*3/uL (160-400); Red Blood Count 4.23 X10*6/uL (4.60-5.80); Red Cell Distribution Width 14.4 % (11.0-16.0); White Blood Count 9.7 X10*3/uL (4.8-10.8)
[2022-10-08 08:39] LABS: Estimated Average Glucose 111 mg/dL; Hemoglobin A1c % 5.5 %
[2022-10-08 09:12] LABS: Alanine Aminotransferase 17 U/L (0-40); Albumin Level 4.5 g/dL (3.5-5.0); Alkaline Phosphatase 119 U/L (39-117); Anion Gap 13 (12-20); Aspartate Amino Transferase 17 U/L (5-37); Bilirubin Total 0.5 mg/dL (0.0-1.0); Blood Urea Nitrogen 19 mg/dL (9-16); Calcium 9.9 mg/dL (8.4-10.2); Carbon Dioxide 28 mmol/L (22-29); Chloride 103 mmol/L (96-108); Cholesterol 239 mg/dL; Estimated Glomerular Filt Rate 53; Glucose Fasting 103 mg/dL (60-99); HDL Cholesterol 57 mg/dL; LDL Cholesterol Calculated 166 mg/dl; Potassium 3.6 mmol/L (3.3-5.1); Sodium 140 mmol/L (135-145); Total Protein 8.3 g/dL (6.5-8.0); Triglycerides 81 mg/dL
[2022-10-08 09:36] LABS: Folate 5.4 ng/mL (> or = 4.0); Prostate Specific Antigen Scr 2.81 ng/mL (<0.05-4.0); Vitamin B12 345 pg/mL (200-900)
[2022-10-08 09:45] LABS: Free T4 (Free Thyroxine) 0.98 ng/dL (0.71-1.85)
[2022-10-13 15:03] LABS: Vitamin D 25-OH, D2 <4 ng/mL; Vitamin D 25-OH, D3 9 ng/mL; Vitamin D 25-OH, Total 9 ng/mL (30-100)
== END 2022-10-08 07:20 | disposition home or self-care (01) ==
LOC: HO.LAB 07:19
PROVIDERS: PCP Internal Medicine; Visit Provider Nurse Practitioner Acute Care
DX: Z12.5 Encounter for screening for malignant neoplasm of prostate (principal); J44.9 Chronic obstructive pulmonary disease, unspecified; I48.0 Paroxysmal atrial fibrillation; R06.02 Shortness of breath; K59.00 Constipation, unspecified; I10 Essential (primary) hypertension; Z79.899 Other long term (current) drug therapy
CPT/HCPCS: 36415; 80053; 80061; 82306; 82607; 82746; 83036; 84153; 84439; 84443; 85025; 99212

== ENCOUNTER 2022-10-16 07:43 | Outpatient (REF) | payer MEDICARE, OTHER, SELFPAY ==
--- NOTE | ~2022-10-16 | XR_ITS ---
EXAMINATION: XR ABDOMEN WITH DECUBITUS VIEWS CLINICAL INDICATION: Unspecified abdominal pain. Evaluate for bowel obstruction. COMPARISON: None available. TECHNIQUE: Abdomen, 2 views FINDINGS: Lung bases are unremarkable. Moderate amount fecal material is present in the colon. No dilated loops of bowel. No pneumoperitoneum. No radiographic evidence of renal calculi. The visualized bones are intact. Mild dextrocurvature of the mildly degenerated lumbar spine. XR/XR abdomen w decubitus IMPRESSION: No acute radiographic abnormalities. No evidence of bowel obstruction.
== END 2022-10-16 07:44 | disposition home or self-care (01) ==
LOC: HO.XRAY 07:43
PROVIDERS: PCP Internal Medicine; Visit Provider Internal Medicine
DX: R10.9 Unspecified abdominal pain (principal)
CPT/HCPCS: 74021

== ENCOUNTER → 2022-10-18 10:02 | Outpatient (BNVA) | payer MEDICARE, OTHER, SELFPAY | PROVIDERS: PCP Internal Medicine; Visit Provider Nurse Practitioner Family | DX: R94.31 Abnormal electrocardiogram [ECG] [EKG] (principal) | CPT/HCPCS: 93005; Q3014 ==

== ENCOUNTER 2022-10-30 09:03 | Outpatient (AMB) | payer MEDICARE, OTHER, SELFPAY ==
--- NOTE | 2022-10-30 09:08 | A.OFFVIS_ITS ---
Intake Vital Signs 10/30/22 09:09 Height 6 ft 5 in Weight 213 lb 13.574 oz BMI 25.4 BP 138/80 Blood Pressure Location Lt brachial Position Sitting Pulse 56 Pulse Source Monitor Intake Visit Reasons: per DC multiple issues Intake Note: Follow up visit to discuss multiple cardiac concerns. 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 Allergy (Unknown, Uncoded 10/30/22 09:12) Unknown Medication List - Last Reconciled 10/30/22 by Jean Claude Tony MD albuterol sulfate 90 mcg/actuation 2 inhalations inhalation Q4H PRN apixaban (Eliquis) 5 mg PO BID atorvastatin 10 mg PO QPM 90 days bisacodyl (Dulcolax (bisacodyl)) 10 mg AZ DAILY PRN 12 days flecainide 50 mg PO Q12H hydrochlorothiazide 25 mg PO DAILY 90 days lactulose 10 grams (15 mL) PO BEDTIME PRN 3 days lisinopril 10 mg PO DAILY metoprolol succinate ER (Toprol XL) 25 mg PO DAILY sennosides (senna) 17.2 mg (2 x 8.6 mg) PO BEDTIME 30 days tiotropium bromide (Spiriva with HandiHaler) 1 cap inhalation DAILY HPI HPI Comments History of Present Illness Details 67-year-old gentleman who is here for follow-up. He presented to [facility] [place] with COPD exacerbation and he was in Atrial fibrillation. He was complaining of atypical chest pain and dyspnea. He was treated for COPD and underwent KEVIN cardioversion. He was discharged home and plan was to exercise stress test on him and decide about starting anti arrhythmic therapy. He came back for stress testing but was tachycardic and was noticed to be back in atrial fibrillation. At that time was started on metoprolol succinate and stress test was not performed. 08/14/22: His returning for follow-up now. He is saying that his shortness of breath is still present. He has COPD is under control but he continued to be short of breath. EKG in the office is showing atrial fib he also has atypical chest pain still happening. We discussed about starting amiodarone and re- attempt cardioversion. He was loaded with amiodarone and subsequently had successful cardioversion. He came back to office in September 2022 and was seen by Christy. At that time was complaining of constipation and multiple complaints. He had a stress test before that which was normal and after discussion his amiodarone was stopped and he was started on flecainide 50 mg twice a day. 10/30/22: He is here for follow-up. He has significant GI complaints ongoing. His main complaint is constipation. Also has nausea and abdominal discomfort. He has been taking medications as prescribed. He has been using laxatives including lactulose and senna. He is saying he drinks water and tries to hydrate himself. He does not take a lot of fiber in his diet. He is saying his breathing is improved but he is not back to his normal self. He has underlying COPD. He also has some peripheral edema. Clinically not in heart failure though. He also had some dizzy spells recently when he was out in the sun doing the heat wave. [facility] Medical History (Updated 10/30/22 @ 10:07 by Jean Claude Tony MD) Bronchitis Chest pain COPD (chronic obstructive pulmonary disease) Essential hypertension Gastritis Hypertension Paroxysmal atrial fibrillation Personal history of nicotine dependence Pure hypercholesterolemia Sinusitis Smoker Tubular adenoma of colon (~2010) Surgical History History of colonoscopy (~2018) History of endoscopy (~2018) Social History (Updated 10/30/22 @ 09:15 by YULIYA Tee) Housing: House Alcohol intake: never Patient Tobacco Use Status: Former Tobacco user Quit Date: 2021 Years Smoked: 30 +/- e-Cigarette/Vaping Use: Never Used Second Hand Smoke Exposure: No Substance Use Type: Marijuana service: No Current occupational status: retired Cognitive needs: No Hearing needs: No Vision needs: No Review of Systems Const Denies weakness ENT Denies dizziness Card Denies chest pain, Denies chest pain with activity, Denies syncope, Denies rapid heart rate, Denies pedal edema, Denies edema, Denies leg edema, Denies lightheadedness, Denies palpitations, Denies dyspnea, Denies dyspnea on exertion and Denies orthopnea Resp Denies cough, Denies dyspnea and Denies dyspnea on exertion GI Denies hematochezia and Denies change in stool character Musc Denies abnormal gait, Denies muscle cramps, Denies muscle weakness, Denies numbness, Denies radiating pain into limb and Denies tingling Neuro Denies abnormal gait, Denies dizziness, Denies syncope, Denies numbness, Denies tingling and Denies weakness Endo Denies palpitations Physical Exam Vital Signs: BMI result Body Mass Index 25.4 GENERAL APPEARANCE: in no acute distress, pleasant. NECK: no carotid bruit, no jugular venous distention. SKIN: no suspicious lesions, warm and dry. HEART: no murmurs, regular rate and rhythm. Bradycardia. LUNGS: clear to auscultation bilaterally. ABDOMEN: soft, nontender. EXTREMITIES: 1+ edema ankles. PERIPHERAL PULSES: equal. NEUROLOGIC: No gross deficits, AAO X 3 Office Procedures EKG Details: Sinus bradycardia 56 beats per minute, leftward axis, incomplete right bundle- branch block, QRS duration 110 milliseconds, QTC 430 milliseconds. AZ interval 186 milliseconds. [id number], Complete Assessment & Plan Assessment & Plan (1) Essential hypertension: Code(s): I10 - Essential (primary) hypertension (2) Constipation: Code(s): K59.00 - Constipation, unspecified Qualifiers: Constipation type: unspecified constipation type Qualified Code(s): K 59.00 - Constipation, unspecified (3) Paroxysmal atrial fibrillation: Code(s): I48.0 - Paroxysmal atrial fibrillation (4) Shortness of breath: Code(s): R06.02 - Shortness of breath (5) Peripheral edema: Code(s): R60.9 - Edema, unspecified Plan [age] gentleman is here for follow-up. He has paroxysmal symptomatic atrial fibrillation. He has been cardioverted twice in the past. He was initially started on amiodarone but developed some abdominal complaints including constipation abdominal pain. He had stress testing and amiodarone was stopped and he was started on flecainide. He also has hypertension and COPD. Blood pressure control is good. He has been on hydrochlorothiazide, lisinopril and metoprolol for hypertension. He is still complaining of abdominal pain and constipation. I have advised him to increase fiber in his diet and hydrate himself better. Specially with a heat wave and his dizzy spells, I have advised him that he should be hydrating himself better. We are holding the hydrochlorothiazide and atorvastatin to see if that helps his abdominal discomfort and constipation. He can continue as needed laxatives. For atrial fibrillation, he is currently in sinus rhythm with sinus bradycardia. He is on flecainide 50 mg twice a day. Changing his Toprol-XL to short-acting metoprolol 12.5 mg twice a day. There was some concern that he had heart rates in 40s at home. Currently is in 50s and I have advised the that if in noticed slow heart rates then he should be ambulated inside the house to see if his heart rate goes up. In general if there is appropriate rise of heart rate with activity then is not concerning. His dizziness episodes were due to dehydration and heat. He has peripheral edema. Clinically not in heart failure. I am going to start with compression stockings for now. Thiazide is held because of constipation. If he does not respond well to compression stockings then will try as needed Lasix. Long discussion with the patient and his . All questions were answered. Currently plan is to continue flecainide and metoprolol along with apixaban because he is in sinus rhythm and he does not tolerate atrial fibrillation. Thank you for allowing me to participate in the care of your patient. Please feel free to contact me if you have any questions. Medications: New metoprolol tartrate 12.5 mg (1/2 x 25 mg) PO BID 60 tabs 3RF comp.stocking,knee,long,medium As directed 2 ea 0RF R60.9 - Edema, unspecified On Hold atorvastatin Hold Comment: Doctor's Order 10 mg PO QPM 90 days 90 tabs 1RF hydrochlorothiazide Hold Comment: Doctor's Order 25 mg PO DAILY 90 days 90 tabs 1RF Coding Level of Care Code Est Pt Level 5 (25974) Diagnoses Essential hypertension I10 Constipation K59.00 Constipation type: unspecified constipation type Paroxysmal atrial fibrillation I48.0 Shortness of breath R06.02 Peripheral edema R60.9 CPT Codes EKG - CPT: 62677-[id number], Complete ([id number])
[2022-10-30 09:09] VITALS: BP 138/80; PULSE 56; BMI 25.4
== END 2022-10-30 09:42 | disposition home or self-care (01) ==
PROVIDERS: PCP Internal Medicine; Visit Provider Internal Medicine Cardiovascular Disease
DX: K59.00 Constipation, unspecified (principal); I48.0 Paroxysmal atrial fibrillation; R06.02 Shortness of breath; R60.9 Edema, unspecified; I10 Essential (primary) hypertension
CPT/HCPCS: 93010; 99215

== ENCOUNTER → 2022-10-30 09:03 | Outpatient (BNVA) | payer MEDICARE, OTHER, SELFPAY | PROVIDERS: PCP Internal Medicine; Visit Provider Internal Medicine Cardiovascular Disease | DX: R00.1 Bradycardia, unspecified (principal); I10 Essential (primary) hypertension; K59.00 Constipation, unspecified; I48.0 Paroxysmal atrial fibrillation; J44.1 Chronic obstructive pulmonary disease with (acute) exacerbation; R06.02 Shortness of breath; R60.9 Edema, unspecified; R07.89 Other chest pain; R11.0 Nausea; R10.9 Unspecified abdominal pain; Z98.890 Other specified postprocedural states | CPT/HCPCS: 93005; 99212 ==

== ENCOUNTER → 2022-11-06 10:02 | Outpatient (BNVA) | payer MEDICARE, OTHER, SELFPAY | PROVIDERS: PCP Internal Medicine; Visit Provider Nurse Practitioner Family ==

== ENCOUNTER 2022-11-26 10:30 | Outpatient (AMB) | payer MEDICARE, OTHER, SELFPAY ==
--- NOTE | 2022-11-26 10:33 | A.OFFVIS_ITS ---
Intake Vital Signs 11/26/22 10:34 Height 6 ft 5 in Weight 210 lb BMI 24.9 BP 164/82 H Blood Pressure Location Lt brachial Position Sitting Pulse 85 Pulse Source Pulse Oximeter Pulse Oximetry (%) 94 Oxygen Delivery Method Room Air Intake Visit Reasons: COPD Intake Note: pt is here for follow up and states he gets out of breath with exertion, stairs, carrying things, dx a-fib. 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 Allergy (Unknown, Uncoded 11/26/22 10:56) Unknown Medication List - Last Reconciled 11/26/22 by Dominique Monterroso MD albuterol sulfate 90 mcg/actuation 2 inhalations inhalation Q4H PRN apixaban (Eliquis) 5 mg PO BID atorvastatin 10 mg PO QPM 90 days bisacodyl (Dulcolax (bisacodyl)) 10 mg AZ DAILY PRN 12 days comp.stocking,knee,long,medium As directed flecainide 50 mg PO Q12H furosemide (Lasix) 20 mg PO DAILY lactulose 10 grams (15 mL) PO BEDTIME PRN 3 days lisinopril 10 mg PO DAILY metoprolol tartrate 12.5 mg (1/2 x 25 mg) PO BID sennosides (senna) 17.2 mg (2 x 8.6 mg) PO BEDTIME 30 days tiotropium bromide (Spiriva with HandiHaler) 1 cap inhalation DAILY Do you need a note to return to daycare/school/sports/work: No HPI COPD HPI Details 67 years old gentleman is here for follow-up for his COPD. COPD is under control but he does have complaint of getting short of breath if he does any heavy exertion, such as climbing stairs, walking fast or washing his car. He can walk at level ground for 1 or. 2 mi without getting short of breath He denies any. Cough or expectoration He was admitted in hospital in July of this year with atrial fibrillation and rapid ventricular response, treated with cardioversion but to atrial fibrillation has record, He has been followed up as outpatient by Cardiology and tried on various medications including amiodarone, , beta blockers and currently on flecainide. Heart rate is remaining under control at this time. He is on long-term anticoagulation with Eliquis. His current main complaint is ongoing constipation, in spite of using extra rough age, and using various kind of stool softeners and laxatives. Complains of abdominal discomfort because he has not moved his bowels for the last 3-4 days. Had abdominal x-ray yesterday which shows no obstruction but presence of stools in the large bowel. PENDING SALE TO [facility] Medical History Bronchitis Chest pain COPD (chronic obstructive pulmonary disease) Essential hypertension Gastritis Hypertension Paroxysmal atrial fibrillation Personal history of nicotine dependence Pure hypercholesterolemia Sinusitis Smoker Tubular adenoma of colon (~2010) Surgical History History of colonoscopy (~2018) History of endoscopy (~2018) Social History Housing: House Alcohol intake: never Patient Tobacco Use Status: Former Tobacco user Quit Date: 2021 Years Smoked: 30 +/- e-Cigarette/Vaping Use: Never Used Second Hand Smoke Exposure: No Substance Use Type: Marijuana service: No Current occupational status: retired Cognitive needs: No Hearing needs: No Vision needs: No Review of Systems Const All systems reviewed & are unremarkable except as noted in HPI and below Eyes Reports no additional complaints ENT Reports no additional complaints Card Reports chest pain (Discomfort across the sternum manubrie), Denies pedal edema, Denies irregular heart rhythm and Denies leg edema Resp Reports as per HPI GI Reports no additional complaints Reports no additional complaints Musc Reports no additional complaints Skin/Breast Reports system reviewed and no additional complaints, except as documented Neuro Reports no additional complaints Psych Reports no additional complaints Physical Exam Vital Signs: Last Vital Signs Pulse 85 11/26/22 10:34 BP 164/82 H 11/26/22 10:34 Pulse Ox 94 11/26/22 10:34 Oxygen Delivery Method Room Air 11/26/22 10:34 BMI result Body Mass Index 24.9 Const General: healthy appearing, comfortable, no acute distress, alert and awake Orientation/consciousness: patient oriented x3 HEENT Head: Yes normal to inspection General nose exam: No nasal polyps present, No nasal discharge present and Other nasal findings present (THICK YELLOW PHLEGM IS NOTED IN THE LEFT NOSTRIL.) Face and sinus: Yes sinuses nontender Mouth: oropharynx normal Throat: Yes posterior oropharynx normal (THERE IS MODERATE AMOUNT OF WHITISH YELLOW PHLEGM) Eyes General: appearance normal, both eyes and all related structures Neck Neck: Yes normal visual inspection, Yes no lymphadenopathy, Yes trachea midline and Yes no JVD Thyroid: Thyroid normal Chest Chest palpation & inspection: normal inspection of the chest, normal palpation of entire chest wall and no tenderness Resp Other: Percussion note is resonant, breath sounds are distant but equal on both sides. No wheezes or rhonchi are heard. Cardio Palpation: normal PMI Rate: regular rate Rhythm: regular rhythm Heart sounds: no gallops and no murmurs GI Palpation (GI): Soft to palpation, nontender, No hepatosplenomegaly present and no masses Auscultation: normal bowel sounds Back/Spine/Pelvis Thoracic/Lumbar Spine: thoracic and lumbar spine normal to inspection Skin General skin exam: no rashes or lesions noted Neuro General: patient oriented x3 and no focal motor deficits Cranial nerves: Yes CN's II-XII intact bilaterally Extrem General: Yes normal to inspection, Yes no clubbing, cyanosis or edema and Yes no calf tenderness Psych Appearance: grossly normal and well kempt Speech and movement: Normal speech and movement present Assessment & Plan Assessment & Plan (1) COPD (chronic obstructive pulmonary disease): Comment: (COPD -MODERATELY SEVERE. [place]: On his last visit he was prescribed to use Incruse Ellipta, As per insurance coverage it was changed to SPIRIVA HANDIHALER 1 INHALATION DAILY WHICH HE HAS BEEN USING REGULARLY. ALBUTEROL HFA 1 OR 2 PUFFS CUES 4-6 HOURS P.R.N.. HE HARDLY NEEDS TO USE IT. DYSPNEA ON EXERTION, IS EXPECTED FROM HIS COPD, BUT IT HAPPENS ONLY WHEN HE DOES EXTRA OF PHYSICAL WORK. ADVISED TO SLOW DOWN WHEN HE STARTS HAVING SHORTNESS OF BREATH INSTEAD OF USING TOO MUCH ALBUTEROL. Code(s): J44.9 - Chronic obstructive pulmonary disease, unspecified Coding Level of Care Code Est Pt Level 3 (63059) Diagnoses COPD (chronic obstructive pulmonary disease) J44.9
[2022-11-26 10:34] VITALS: BP 164/82; PULSE 85; O2SAT 94; BMI 24.9
== END 2022-11-26 10:55 | disposition home or self-care (01) ==
PROVIDERS: PCP Internal Medicine; Visit Provider Internal Medicine
DX: J44.9 Chronic obstructive pulmonary disease, unspecified (principal)
CPT/HCPCS: 99213

== ENCOUNTER → 2022-11-26 10:30 | Outpatient (BNVA) | payer MEDICARE, OTHER, SELFPAY | PROVIDERS: PCP Internal Medicine; Visit Provider Internal Medicine | DX: J44.9 Chronic obstructive pulmonary disease, unspecified (principal); I48.0 Paroxysmal atrial fibrillation; R79.89 Other specified abnormal findings of blood chemistry; Z79.01 Long term (current) use of anticoagulants; Z79.899 Other long term (current) drug therapy | CPT/HCPCS: 99212 ==

== ENCOUNTER 2022-11-28 09:27 | Outpatient (REF) | payer MEDICARE, OTHER, SELFPAY ==
[2022-11-28 11:10] LABS: Free T4 (Free Thyroxine) 1.05 ng/dL (0.71-1.85); Thyroid Stimulating Hormone 7.21 uIU/mL (0.32-4.0)
[2022-11-30 05:08] LABS: Thyroid Peroxidase Antibodies 1 IU/mL (<9)
[2022-11-30 05:38] LABS: Triiodothyronine T3 Total 108 ng/dL (76-181)
[2022-12-05 14:53] LABS: Thyroxine Binding Globulin 21.8 mcg/mL (12.7-25.1)
== END 2022-11-28 09:28 | disposition home or self-care (01) ==
LOC: HO.LAB 09:27
PROVIDERS: PCP Internal Medicine; Visit Provider Internal Medicine
DX: I48.0 Paroxysmal atrial fibrillation (principal); R79.89 Other specified abnormal findings of blood chemistry; R06.02 Shortness of breath; K59.00 Constipation, unspecified; I10 Essential (primary) hypertension
CPT/HCPCS: 36415; 84439; 84442; 84443; 84480; 86376; 93005; 99212

== ENCOUNTER 2022-11-28 14:29 | Outpatient (AMB) | payer MEDICARE, OTHER, SELFPAY ==
[2022-11-28 14:47] VITALS: BP 150/72; PULSE 62; BMI 25.1
--- NOTE | 2022-11-28 14:47 | A.OFFVIS_ITS ---
Intake Vital Signs 11/28/22 14:47 Height 6 ft 5 in Weight 211 lb 10.3 oz BMI 25.1 BP 150/72 H Blood Pressure Location Lt brachial Position Sitting Pulse 62 Intake Visit Reasons: 8 wk f/up per mt Intake Note: 8/wk f/u per mt Communications Station Manager Required: No Allergies N.K.D.A. Allergy (Unknown, Uncoded 11/26/22 10:56) Unknown Medication List - Last Reconciled 11/28/22 by Christy Lomeli BALING PRESS OPERATOR-C albuterol sulfate 90 mcg/actuation 2 inhalations inhalation Q4H PRN apixaban (Eliquis) 5 mg PO BID atorvastatin 10 mg PO QPM 90 days bisacodyl (Dulcolax (bisacodyl)) 10 mg [place] DAILY PRN 12 days comp.stocking,knee,long,medium As directed flecainide 50 mg PO Q12H furosemide (Lasix) 20 mg PO DAILY lactulose 10 grams (15 mL) PO BEDTIME PRN 3 days lisinopril 20 mg PO DAILY metoprolol tartrate 12.5 mg (1/2 x 25 mg) PO BID sennosides (senna) 17.2 mg (2 x 8.6 mg) PO BEDTIME 30 days tiotropium bromide (Spiriva with HandiHaler) 1 cap inhalation DAILY HPI 8 wk f/up per mt HPI Details Elias is a 67-year-old male with past medical history of smoking, COPD, hypertension, newer finding of atrial fibrillation requiring cardioversion, currently suppressed with flecainide who presents for follow-up. Today he reports that he continues to have issues with constipation. This has been his primary concern over the last few months. It initially it was felt to be related to his new medications however he had been on amlodipine and amiodarone which were then stopped. He reports abdominal pains and needing to t tung laxatives daily an order to have a bowel movement. He denies any nausea, vomiting, weight loss. He has not felt any heart palpitations consistent with AFib. No shortness of breath, dizziness, presyncope, syncope, falls. No PND, orthopnea or edema. No bleeding issues with his Eliquis. Taking meds as directed. [facility] Medical History Bronchitis Chest pain COPD (chronic obstructive pulmonary disease) Essential hypertension Gastritis Hypertension Paroxysmal atrial fibrillation Personal history of nicotine dependence Pure hypercholesterolemia Sinusitis Smoker Tubular adenoma of colon (~2010) Surgical History History of colonoscopy (~2018) History of endoscopy (~2018) Social History Housing: House Alcohol intake: never Patient Tobacco Use Status: Former Tobacco user Quit Date: 2021 Years Smoked: 30 +/- e-Cigarette/Vaping Use: Never Used Second Hand Smoke Exposure: No Substance Use Type: Marijuana service: No Current occupational status: retired Cognitive needs: No Hearing needs: No Vision needs: No Review of Systems Const All systems reviewed & are unremarkable except as noted in HPI and below ENT Denies dizziness Card Denies chest pain, Denies chest pain at rest, Denies chest pain with activity, Denies rapid heart rate, Denies pedal edema, Denies edema, Denies leg edema, Denies lightheadedness, Denies palpitations, Denies dyspnea, Denies dyspnea on exertion and Denies orthopnea Resp Denies cough, Denies dyspnea and Denies dyspnea on exertion GI Details: Abdominal discomfort, constipation Denies hematochezia and Reports change in stool character Musc Denies abnormal gait, Denies limited range of motion, Reports muscle cramps, Denies muscle weakness, Denies numbness, Denies radiating pain into limb, Denies stiffness and Denies tingling Neuro Denies abnormal gait, Denies dizziness, Denies numbness and Denies tingling Endo Denies palpitations Physical Exam Vital Signs: Last Vital Signs Pulse 62 11/28/22 14:47 BP 150/72 H 11/28/22 14:47 BMI result Body Mass Index 25.1 Const General: cooperative, comfortable and no acute distress Orientation/consciousness: patient oriented x3 Neck Neck: Yes normal visual inspection Resp Effort & Inspection: normal respiratory effort Auscultation: clear to auscultation bilaterally, no crackles, no rales, no rhonchi and no wheezes Cardio Jugular venous distension: no JVD Rate: regular rate Rhythm: regular rhythm Heart sounds: S1 normal heart sound present, S2 normal heart sound present, no gallops, no murmurs and no rubs GI Inspection: Yes normal to inspection Neuro General: patient oriented x3 Extrem General: Yes normal to inspection, No no pedal edema and No calf tenderness Psych Appearance: grossly normal Mental Status: mental status grossly normal Speech and movement: Normal speech and movement present Office Procedures EKG Details: Today, read by me, normal sinus rhythm, left axis deviation, can not exclude inferior infarct, unchanged appearance from prior, rate 62, QTC 426 millisecond [id number], Complete Assessment & Plan Assessment & Plan (1) Paroxysmal atrial fibrillation: Code(s): I48.0 - Paroxysmal atrial fibrillation Plan: Newer finding of atrial fibrillation during hospital admission July 2022 for chest pressure. He was noted to have AFib RVR which was treated for rate con trol and started on anticoagulation. He underwent a transesophageal echo and cardioversion on 07/29/2022 with successful conversion to sinus rhythm. An outpatient Holter monitor done on 08/02/2022 showed sinus rhythm with average heart rate 73, intermittent episodes of atrial fibrillation with burden 7.72%. This was then followed by persistent atrial fibrillation requiring amiodarone load and repeat cardioversion on 08/16/2022. Holter monitor done on 08/21 for 3 days shows sinus rhythm with average heart rate 48, 88% of the time heart rate below 60. His metoprolol was stopped and he was continued on amiodarone. He underwent an exercise stress test on 09/03/2022 with poor exercise tolerance due to shortness of breath, nondiagnostic EKGs. A pharmacological nuclear stress test was then done on 09/19/2022 showing normal myocardial perfusion imaging. On follow-up visit he reported issues with severe constipation, abdominal distention and discomfort. His amiodarone and amlodipine were stopped as he felt those medications were contributing to his symptoms. He was then changed to flecainide and a low-dose of metoprolol. He continues to report GI issues. An EKG done today shows normal sinus rhythm with left axis deviation, can not exclude prior inferior infarct, rate 62, QTC 426 millisecond. No reports of heart palpitations and no bleeding issues. Will continue current med management with flecainide, metoprolol and use of Eliquis for anticoagulation. He has been referred to electrophysiology for AFib ablation. He tells me his appointment is not until March. Instructed to call periodically to see if they have cancellations. Cardiology follow-up in 3-4 months, sooner if needed. EKG at that time. (2) Shortness of breath: Code(s): R06.02 - Shortness of breath Plan: As above. Normal nuclear stress test. (3) Constipation: Code(s): K59.00 - Constipation, unspecified Qualifiers: Constipation type: unspecified constipation type Qualified Code(s): K59.00 - Constipation, unspecified Plan: Symptoms as above, He is requesting referral to GI. Will send message to his PCP (4) Hypertension: Code(s): I10 - Essential (primary) hypertension Qualifiers: Hypertension type: primary hypertension Qualified Code(s): I10 - Essential (primary) hypertension Plan: Blood pressure mildly elevated today, 150/72, recheck 150/70. Will increase his lisinopril from 10 mg up to 20 mg daily. Labs done on 10/08/2022 shows creatin ine 1.34, potassium 3.6. He was having some newer ankle edema which may have been related to amlodipine. Since then his hydrochlorothiazide had been changed over to Lasix. At this time his edema has resolved. Medications: New lisinopril 20 mg PO DAILY 30 tabs 5RF Discontinued lisinopril Discontinued Reason: Doctor's Order 10 mg PO DAILY 30 tabs 1RF Coding Level of Care Code Est Pt Level 4 (33765) Diagnoses Paroxysmal atrial fibrillation I48.0 Shortness of breath R06.02 Constipation K59.00 Constipation type: unspecified constipation type Hypertension I10 Hypertension type: primary hypertension CPT Codes EKG - CPT: 62419-[id number], Complete ([id number]) Time Spent (min) 28 Comment Chart review, documentation, interview, assessment
== END 2022-11-28 15:40 | disposition home or self-care (01) ==
PROVIDERS: PCP Internal Medicine; Referring Provider Internal Medicine; Visit Provider Nurse Practitioner Family
DX: R94.31 Abnormal electrocardiogram [ECG] [EKG] (principal)
CPT/HCPCS: 93010; 99214

== ENCOUNTER 2023-01-02 09:01 | Outpatient (AMB) | payer MEDICARE, OTHER, SELFPAY ==
[2023-01-02 09:06] VITALS: BP 150/82; PULSE 63; BMI 24.7
--- NOTE | 2023-01-02 09:06 | A.OFFVIS_ITS ---
Intake Vital Signs 01/02/23 09:06 Height 6 ft 5 in Weight 208 lb 1.862 oz BMI 24.7 BP 150/82 H Blood Pressure Location Rt brachial Position Sitting Pulse 63 Intake Visit Reasons: 2 mth f/up Intake Note: 2 f/u Director Environmental Required: No Allergies N.K.D.A. Allergy (Unknown, Uncoded 11/26/22 10:56) Unknown Medication List - Last Reconciled 01/02/23 by CONSTANTIN Barillas albuterol sulfate 90 mcg/actuation 2 inhalations inhalation Q4H PRN apixaban (Eliquis) 5 mg PO BID aspirin 81 mg PO DAILY atorvastatin 10 mg PO QPM 90 days bisacodyl (Dulcolax (bisacodyl)) 10 mg [place] DAILY PRN 12 days comp.stocking,knee,long,medium As directed docusate sodium 100 mg PO DAILY furosemide (Lasix) 20 mg PO DAILY lactulose 10 grams (15 mL) PO BEDTIME PRN 3 days lisinopril 20 mg PO DAILY metoprolol tartrate 12.5 mg (1/2 x 25 mg) PO BID polyethylene glycol 3350 (Miralax) 17 grams PO DAILY sennosides (senna) 17.2 mg (2 x 8.6 mg) PO BEDTIME 30 days tiotropium bromide (Spiriva with HandiHaler) 1 cap inhalation DAILY HPI 2 mth f/up HPI Details Elias is a 67-year-old male past medical history of smoking, COPD, hypertension, atrial fibrillation with prior cardioversion who was recently admitted to [facility] for shortness of breath and found to have elevated troponin, TEO, Congestive heart failure. Echo showed EF 20-25% with wall motion abnormalities. He had cardiac catheterization showing no blockages. He was treated for stress-induced cardiomyopathy. His flecainide and amlodipine were stopped. Today he reports that he has been doing well since his hospital discharge. He says he has not had shortness of breath like prior to his admission. He denies any chest discomfort, heart palpitations, dizziness, presyncope, syncope. No PND, orthopnea or edema. He has been doing only light physical activity, walking in the neighborhood. No bleeding issues reported. He still has chronic constipation and is requesting a referral to GI. is present. Taking all meds as directed. [facility] Medical History Bronchitis Chest pain COPD (chronic obstructive pulmonary disease) Essential hypertension Gastritis Hypertension Paroxysmal atrial fibrillation Personal history of nicotine dependence Pure hypercholesterolemia Sinusitis Smoker Tubular adenoma of colon (~2010) Surgical History History of endoscopy (~2018) History of colonoscopy (~2018) Social History Housing: House Alcohol intake: never Patient Tobacco Use Status: Former Tobacco user Quit Date: 2021 Years Smoked: 30 +/- e-Cigarette/Vaping Use: Never Used Second Hand Smoke Exposure: No Substance Use Type: Marijuana service: No Current occupational status: retired Cognitive needs: No Hearing needs: No Vision needs: No Review of Systems Const All systems reviewed & are unremarkable except as noted in HPI and below ENT Denies dizziness Card Denies chest pain, Denies chest pain at rest, Denies chest pain with activity, Denies rapid heart rate, Denies pedal edema, Denies edema, Denies leg edema, Den ies lightheadedness, Denies palpitations, Denies dyspnea, Denies dyspnea on exertion and Denies orthopnea Resp Denies cough, Denies dyspnea and Denies dyspnea on exertion GI Denies hematochezia and Denies change in stool character Details: Chronic constipation Musc Denies abnormal gait, Denies limited range of motion, Denies muscle cramps, Denies muscle weakness, Denies numbness, Denies radiating pain into limb, Denies stiffness and Denies tingling Neuro Denies abnormal gait, Denies dizziness, Denies numbness and Denies tingling Endo Denies palpitations Physical Exam Vital Signs: Last Vital Signs Pulse 63 01/02/23 09:06 BP 150/82 H 01/02/23 09:06 BMI result Body Mass Index 24.7 Const General: cooperative, healthy appearing, comfortable and no acute distress Orientation/consciousness: patient oriented x3 HEENT Head: Yes normal to inspection Eyes Sclerae: sclerae normal Neck Neck: Yes normal visual inspection Carotids: normal carotid upstroke Chest Chest palpation & inspection: normal inspection of the chest Resp Effort & Inspection: normal respiratory effort Auscultation: clear to auscultation bilaterally, no crackles, no rales, no rhonchi and no wheezes Cardio Jugular venous distension: no JVD Rate: regular rate Rhythm: regular rhythm Heart sounds: S1 normal heart sound present, S2 normal heart sound present, no murmurs and no rubs Peripheral pulses: Peripheral pulses 2+ throughout GI Inspection: Yes normal to inspection Skin General skin exam: no rashes or lesions noted Neuro General: patient oriented x3 Extrem General: Yes normal to inspection Psych Appearance: grossly normal Mental Status: mental status grossly normal Speech and movement: Normal speech and movement present Office Procedures EKG Details: Today, read by me, sinus rhythm, left axis deviation, marked T-wave abnormality, same as EKG done at [facility] on 12/18/2022, QTC 472 milliseconds, rate 63 [id number], Complete Assessment & Plan Assessment & Plan (1) Stress-induced cardiomyopathy: Code(s): I51.81 - Takotsubo syndrome Plan: Recent [facility] admission for shortness of breath. He ruled in for NSTEMI. Echocardiogram showed EF 20-25% with regional wall motion abnormalities. He was taken for cardiac catheterization showing only minimal luminal irregularities. He was then determined to have stress induced cardiomyopathy. He did have TEO with creatinine up to 2.2 which had improved to 1.4 prior to discharge. His amlodipine was stopped and lisinopril was increased to 30 mg daily. His metoprolol tartrate was changed to metoprolol XL. His flecainide was stopped due to congestive heart failure. He was diuresed and sent home with Lasix 20 mg daily. At this point he reports he is doing well with no concerning symptoms beyond his usual constipation. On exam he does not appear fluid overloaded. His EKG today is showing sinus rhythm with left axis deviation, marked T-wave abnormality with inversions throughout which is same as EKG done at [facility] on 12/18/2022. Blood pressure is mildly elevated today. Will plan to review medication management with his primary drawing in machine tender Dr. Tony. Will obtain a limited echo to reassess EF and wall motion. Reviewed signs and symptoms of heart failure. Instructed on light physical activity. Cardiology follow-up in 4-6 weeks, sooner if needed. (2) NSTEMI (non-ST elevated myocardial infarction): Code(s): I21.4 - Non-ST elevation (NSTEMI) myocardial infarction Plan: Troponin elevation in setting of stress-induced cardiomyopathy. (3) S/P cardiac catheterization: Comment: 12/18/2022, left main, lad, left circumflex, RCA each with luminal irregularities Code(s): Z98.890 - Other specified postprocedural states (4) Systolic heart failure: Code(s): I50.20 - Unspecified systolic (congestive) heart failure Qualifiers: Heart failure chronicity: acute Qualified Code(s): I50.21 - Acute sy stolic (congestive) heart failure Plan: Acute systolic heart failure during recent [facility] admission. Diuresed input on Lasix 20 mg daily. Does not appear fluid overloaded on examination today (5) Hypertension: Code(s): I10 - Essential (primary) hypertension Qualifiers: Hypertension type: primary hypertension Qualified Code(s): I10 - Essential (primary) hypertension Plan: Blood pressure mildly elevated today, 150/82, recheck 160/78. His lisinopril was recently increased. His amlodipine was stopped for unclear reason. He is on metoprolol XL 25 mg daily, Lasix 20 mg daily. Will of further review meds with his drawing in machine tender. (6) Paroxysmal atrial fibrillation: Code(s): I48.0 - Paroxysmal atrial fibrillation Plan: Newer finding of atrial fibrillation during hospital admission July 2022 for chest pressure. He was noted to have AFib RVR which was treated for rate control and started on anticoagulation. He underwent a transesophageal echo and cardioversion on 07/29/2022 with successful conversion to sinus rhythm. An outpatient Holter monitor done on 08/02/2022 showed sinus rhythm with average heart rate 73, intermittent episodes of atrial fibrillation with burden 7.72%. This was then followed by persistent atrial fibrillation requiring amiodarone load and repeat cardioversion on 08/16/2022. Holter monitor done on 08/21 for 3 days shows sinus rhythm with average heart rate 48, 88% of the time heart rate below 60. His metoprolol was stopped and he was continued on amiodarone. He underwent an exercise stress test on 09/03/2022 with poor exercise tolerance due to shortness of breath, nondiagnostic EKGs. A pharmacological nuclear stress test was then done on 09/19/2022 showing normal myocardial perfusion imaging. On follow-up visit he reported issues with severe constipation, abdominal distention and discomfort. His amiodarone and amlodipine were stopped as he felt those medications were contributing to his symptoms. He was then changed to flecainide and a low-dose of metoprolol. He continues to report GI issues. At recent [facility] admission his flecainide was stopped due to congestive heart failure. An EKG done today shows normal sinus rhythm rate 63. No reports of heart palpitations and no bleeding issues. Will continue current med management with metoprolol and use of Eliquis for anticoagulation. Alternate antiarrhythmic may be indicated. He previously was referred to electrophysiology for AFib ablation. (7) Shortness of breath: Code(s): R06.02 - Shortness of breath Plan: As above. (8) Constipation: Code(s): K59.00 - Constipation, unspecified Qualifiers: Constipation type: unspecified constipation type Qualified Code(s): K59.00 - Constipation, unspecified Plan: Symptoms as above, He is requesting referral to GI. Will send message to his PCP Orders: Orders CA echo limited Today I50.20 - Unspecified systolic (congestive) heart failure, I51.81 - Takotsubo syndrome Coding Level of Care Code Est Pt Level 4 (99636) Diagnoses Stress-induced cardiomyopathy I51.81 NSTEMI (non-ST elevated myocardial infarction) I21.4 S/P cardiac catheterization Z98.890 Acute systolic heart failure I50.21 Heart failure chronicity: acute Primary hypertension I10 Hypertension type: primary hypertension Paroxysmal atrial fibrillation I48.0 Shortness of breath R06.02 Constipation, unspecified constipation type K59.00 Constipation type: unspecified constipation type CPT Codes EKG - CPT: 47820-[id number], Complete ([id number]) Time Spent (min) 35
== END 2023-01-02 09:47 | disposition home or self-care (01) ==
PROVIDERS: PCP Internal Medicine; Referring Provider Internal Medicine; Visit Provider Nurse Practitioner Family
DX: I51.81 Takotsubo syndrome (principal); I21.4 Non-ST elevation (NSTEMI) myocardial infarction; Z98.890 Other specified postprocedural states; I50.21 Acute systolic (congestive) heart failure; I10 Essential (primary) hypertension; I48.0 Paroxysmal atrial fibrillation; R06.02 Shortness of breath; K59.00 Constipation, unspecified
CPT/HCPCS: 93010; 99214

== ENCOUNTER → 2023-01-02 09:01 | Outpatient (BNVA) | payer MEDICARE, OTHER, SELFPAY | PROVIDERS: PCP Internal Medicine; Referring Provider Internal Medicine; Visit Provider Nurse Practitioner Family | DX: I11.0 Hypertensive heart disease with heart failure (principal); I50.21 Acute systolic (congestive) heart failure; I51.81 Takotsubo syndrome; I21.4 Non-ST elevation (NSTEMI) myocardial infarction; I48.0 Paroxysmal atrial fibrillation; R06.02 Shortness of breath; K59.00 Constipation, unspecified; Z98.890 Other specified postprocedural states | CPT/HCPCS: 93005; 99212 ==

== ENCOUNTER → 2023-01-13 09:53 | Outpatient (BNVA) | payer MEDICARE, OTHER, SELFPAY | PROVIDERS: PCP Internal Medicine; Visit Provider Internal Medicine Cardiovascular Disease ==

== ENCOUNTER 2023-01-21 14:59 | Outpatient (AMB) | payer MEDICARE, OTHER, SELFPAY ==
[2023-01-21 15:01] VITALS: BP 132/74; PULSE 58; O2SAT 95; BMI 24.8
--- NOTE | 2023-01-21 15:01 | A.OFFPC_ITS ---
Vital Signs 01/21/23 15:01 Height 6 ft 5 in Weight 209 lb 0.2 oz BMI 24.8 BP 132/74 Blood Pressure Location Lt brachial Position Sitting Pulse 58 Pulse Source Pulse Oximeter Temp Source Skin Pulse Oximetry (%) 95 Oxygen Delivery Method Room Air Intake Visit Reasons: [facility] 12/16-12/19 Heart failure Intake Note: Patient is here for hospital discharge follow up. Patient was discharged from [facility] [place]16[place]12/[place] HF. 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 Allergy (Unknown, Uncoded 01/21/23 15:09) Unknown Medication List - Last Reconciled 01/21/23 by Zuleyka Cr, RUSTY albuterol sulfate 90 mcg/actuation 2 inhalations inhalation Q4H PRN amiodarone 200 mg PO DAILY 30 days amlodipine 5 mg PO DAILY apixaban (Eliquis) 5 mg PO BID aspirin 81 mg PO DAILY atorvastatin 10 mg PO QPM 90 days bisacodyl (Dulcolax (bisacodyl)) 10 mg DE DAILY PRN 12 days comp.stocking,knee,long,medium As directed docusate sodium 100 mg PO DAILY furosemide (Lasix) 20 mg PO DAILY lactulose 10 grams (15 mL) PO BEDTIME PRN 3 days lisinopril 20 mg PO DAILY metoprolol succinate ER (Toprol XL) 25 mg PO DAILY polyethylene glycol 3350 (Miralax) 17 grams PO DAILY sennosides (senna) 17.2 mg (2 x 8.6 mg) PO BEDTIME 30 days tiotropium bromide (Spiriva with HandiHaler) 1 cap inhalation DAILY Tobacco use date assessed: 01/21/23 Fall risk assessment: No Falls in past year Last assessed Fall Risk: 01/21/23 Dental Screening Dental Screen Date: 01/21/23 Did you have a dental visit in the last 12 months?: Yes Did you have a dental problem in the last 6 months where you did not have access to dental care?: No HPI [facility] 12/16-12/19 Heart failure HPI Details Patient is a 67-year-old male who presents today to follow-up after [facility] discharge. Patient of Dr. Ricci. Admission date 12/15/2022, discharge date 12/19/2022. Discharge diagnosis: Acute kidney injury, NSTEMI. Patient with history of COPD, atrial fibrillation, hypertension presented to emergency department with shortness of breath. NSTEMI-patient is status post cardiac catheterization did not show any blockage, patient is to continue aspirin and statin-patient reports that his atorvastatin was stopped couple months ago-patient is to restart atorvastatin as prescribed, metoprolol changed to Toprol XL. 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 History of AFib-patient is to continue Eliquis and metoprolol, flecainide was discontinued per Cardiology recommendations due to new onset congestive heart failure. TEO-creatinine improved from 2.2-1.4 with IV fluids-patient is to repeat blood work with PCP. Patient was seen by [facility] couple weeks ago and he was started on amiodarone. He has an upcoming echocardiogram scheduled and also he will be seeing cardiology again 02/2023. In addition, patient reports ongoing constipation for the past 6 months, he reports bowel movement every 4-5 days which is hard, reports generalized abdominal pain intermittent usually 5 days per week, he reports intermittently severe pain at night and causes him hard time sleeping, reports abdominal pain usually after he eats, denies nausea or vomiting, no acid reflux. Also he reports starting seeing bright red blood in stool starting this week, reports history of hemorrhoids-denies rectal/hemorrhoidal pain. Patient requesting referral to see GI specialist, referral was placed by Cardiology couple weeks ago, will change to urgent referral due to starting with blood in stool. Patient denies changes in appetite, no changes in weight. [facility] Medical History Gastritis Pure hypercholesterolemia Essential hypertension Paroxysmal atrial fibrillation Sinusitis Hypertension Smoker Bronchitis Chest pain Tubular adenoma of colon (~2010) Personal history of nicotine dependence COPD (chronic obstructive pulmonary disease) Surgical History History of endoscopy (~2018) History of colonoscopy (~2018) Social History Housing: House Alcohol intake: never Patient Tobacco Use Status: Former Tobacco user Quit Date: 2021 Years Smoked: 30 +/- e-Cigarette/Vaping Use: Never Used Second Hand Smoke Exposure: No Substance Use Type: Marijuana service: No Current occupational status: retired Cognitive needs: No Hearing needs: No Vision needs: No Questionnaire Thrive Questionnaire Date Thrive assessed: 10/11/22 AUDIT C Alcohol Use Questionnaire (AUDIT-C) 1. How often do you have a drink containing alcohol?: Never 3. How often do you have six or more drinks on one occasion?: Never Total Score: 0 Score Reviewed/Action Taken: Yes (score reviewed, no action needed) GENIE-7 AMB Questionnaire GENIE-7 Date GENIE - 7 assessed: 05/24/22 Source: Developed by Drs. Kwan Nicholas, Shreya Dempsey, Sandoval Fuller and colleagues, with an educational em from [employer]. Review of Systems Const Denies body aches, Denies chills, Denies fever(s) and Denies headache(s) ENT Denies dizziness, Denies otalgia, Denies headache(s), Denies nasal discharge, Denies sinus pain and Denies sore throat Card Denies chest pain, Denies edema, Denies lightheadedness and Denies dyspnea Resp Denies cough, Denies dyspnea and Denies wheezing GI Reports abdominal pain, Reports hematochezia, Reports constipation, Denies diarrhea, Denies nausea and Denies vomiting Denies dysuria Musc Denies myalgias Skin/Breast Denies rash Neuro Denies dizziness and Denies headache(s) Aller/Immun Denies wheezing Physical exam (Primary Care) Vital Signs: Last Vital Signs Pulse 58 01/21/23 15:01 BP 132/74 01/21/23 15:01 Pulse Ox 95 01/21/23 15:01 Oxygen Delivery Method Room Air 01/21/23 15:01 BMI result Body Mass Index 24.8 Tobacco/Smoking Status: Tobacco use Status Tobacco use date assessed 01/21/23 01/21/23 15:08 Patient Tobacco Use Status Former Tobacco user 01/21/23 15:08 e-Cigarette/Vaping Use Never Used 01/21/23 15:08 Thrive Assessment: Date of Thrive Assessment Date Thrive assessed 10/11/22 01/21/23 15:08 Const General: cooperative and no acute distress Orientation/consciousness: patient oriented x3 HENMT Head: Yes normocephalic and Yes atraumatic Throat: Yes posterior oropharynx normal Eyes General: appearance normal, both eyes and all related structures Neck Neck: Yes normal visual inspection, Yes full ROM and Yes no lymphadenopathy Resp Effort & Inspection: normal respiratory effort and able to speak in complete sentences Auscultation: clear to auscultation bilaterally, no crackles, no rales, no rhonchi and no wheezes Cardio Rate: regular rate Rhythm: regular rhythm Heart sounds: S1 normal heart sound present, S2 normal heart sound present and no murmurs GI Other: Patient declined to check for external hemorrhoids Palpation (GI): Soft to palpation, not firm, Tenderness to palpation present (GI) (Right mid abdomen) with no rebound tenderness, no guarding, not rigid and no hepatosplenomegaly Auscultation: normal bowel sounds Skin General skin exam: no rashes or lesions noted Neuro General: patient oriented x3 Gait exam (Neuro): Normal gait present Extrem General: Yes full ROM and No edema Office Procedures Flu Questionnaire Does the patient have a severe egg allergy?: No Does the patient have severe life threatening allergies?: No Does the patient have a fever or illness today?: No Has the patient ever had Guillain-Mabscott Syndrome?: No Has the patient ever had any past reaction to a flu shot?: No Immunizations flu vacc [id number] 6mos up(PF) 60 mcg(15 mcgx4)/0.5 mL IM syringe Performing Provider: RUSTY Sauceda [place] [facility] [place] [facility] Documented (not given) by: YULIYA Shankar on 01/21/23 15:08 Reason Not Given: Patient Refused Assessment and Plan Assessment & Plan (1) Blood in stool: Code(s): K92.1 - Melena Plan: Urgent referral to GI Signs and symptoms reviewed when to notify provider or go to the emergency department (2) S/P cardiac catheterization: Comment: 12/18/2022, left main, lad, left circumflex, RCA each with luminal irregularities Code(s): Z98.890 - Other specified postprocedural states Plan: Continue to follow-up with [facility] as scheduled (3) Systolic heart failure: Code(s): I50.20 - Unspecified systolic (congestive) heart failure Qualifiers: Heart failure chronicity: acute Qualified Code(s): I50.21 - Acute systolic (congestive) heart failure Plan: Continue Lasix, lisinopril, metoprolol, amiodarone Continue to follow-up with cardiology (4) NSTEMI (non-ST elevated myocardial infarction): Code(s): I21.4 - Non-ST elevation (NSTEMI) myocardial infarction Plan: Same as above (5) Pure hypercholesterolemia: Code(s): E78.00 - Pure hypercholesterolemia, unspecified Plan: Patient is to restart atorvastatin 10 mg at bedtime LDL 166 09/2022, goal less than 100 (6) Constipation: Code(s): K59.00 - Constipation, unspecified Qualifiers: Constipation type: unspecified constipation type Qualified Code(s): K59.00 - Constipation, unspecified Plan: Urgent referral to GI Signs and symptoms reviewed when to notify provider or go to the emergency department Continue current bowel medications (7) Abdominal pain: Code(s): R10.9 - Unspecified abdominal pain Plan: Urgent referral to GI Signs and symptoms reviewed when to notify provider or go to the emergency department (8) Paroxysmal atrial fibrillation: Code(s): I48.0 - Paroxysmal atrial fibrillation Plan: Continue Eliquis and metoprolol Continue to follow-up with [facility] (9) Hospital discharge follow-up: Code(s): Z09 - Encounter for follow-up examination after completed treatment for conditions other than malignant neoplasm Plan: Repeat blood work ordered Orders: Orders Influenza [id number] Immunization Today Z23 - Encounter for immunization RUSTY Sauceda Complete Blood Count Auto Diff Today I21.4 - Non-ST elevation (NSTEMI) myocardial infarction RUSTY Sauceda Comprehensive Met. Panel Today I21.4 - Non-ST elevation (NSTEMI) myocardial infarction RUSTY Sauceda Referrals Gastroenterology Referral K59.00 - Constipation, unspecified, K92.1 - Melena, R10.9 - Unspecified abdominal pain RUSTY Sauceda Medications: Resumed atorvastatin 10 mg PO QPM 90 days 90 tabs 1RF Efe Ricci MD Coding Level of Care Code Est Pt Level 3 (21399) Diagnoses Blood in stool K92.1 S/P cardiac catheterization Z98.890 Acute systolic heart failure I50.21 Heart failure chronicity: acute NSTEMI (non-ST elevated myocardial infarction) I21.4 Pure hypercholesterolemia E78.00 Constipation, unspecified constipation type K59.00 Constipation type: unspecified constipation type Abdominal pain R10.9 Paroxysmal atrial fibrillation I48.0 Hospital discharge follow-up Z09
== END 2023-01-21 15:30 | disposition home or self-care (01) ==
PROVIDERS: PCP Internal Medicine; Visit Provider Nurse Practitioner Family
DX: K92.1 Melena (principal); I21.4 Non-ST elevation (NSTEMI) myocardial infarction; I48.0 Paroxysmal atrial fibrillation; K59.00 Constipation, unspecified
CPT/HCPCS: 99213

== ENCOUNTER 2023-02-20 14:07 | Outpatient (AMB) | payer MEDICARE, OTHER, SELFPAY ==
[2023-02-20 14:18] VITALS: BP 130/72; PULSE 81; O2SAT 95; BMI 24.5
--- NOTE | 2023-02-20 14:18 | MHC.OFFVIS ---
Intake Vital Signs 02/20/23 14:18 Height 6 ft 5 in Weight 207 lb BMI 24.5 BP 130/72 Blood Pressure Location Lt brachial Position Sitting Pulse 81 Pulse Source Pulse Oximeter Pulse Oximetry (%) 95 Oxygen Delivery Method Room Air Intake Visit Reasons: Sick Visit Intake Note: pt is here for sick visit, was at [facility] for 3 days for breathing and constipation, and Friday it started again, the whole top of his body is not feeling right. 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 Allergy (Unknown, Uncoded 02/20/23 14:45) Unknown Medication List - Last Reconciled 02/20/23 by Dominique Monterroso MD albuterol sulfate 90 mcg/actuation 2 inhalations inhalation Q4H PRN amiodarone 200 mg PO DAILY 30 days amlodipine 5 mg PO DAILY apixaban (Eliquis) 5 mg PO BID aspirin 81 mg PO DAILY bisacodyl (Dulcolax (bisacodyl)) [address] DAILY PRN 12 days comp.stocking,knee,long,medium As directed docusate sodium 100 mg PO BID furosemide (Lasix) 20 mg PO DAILY lactulose 10 grams (15 mL) PO BEDTIME PRN 3 days polyethylene glycol 3350 (Miralax) 17 grams PO DAILY sennosides (senna) 17.2 mg (2 x 8.6 mg) PO BEDTIME 30 days tiotropium bromide (Spiriva with HandiHaler) 1 cap inhalation DAILY Do you need a note to return to daycare/school/sports/work: No HPI Sick Visit HPI Details 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 JUST QUIT LAST YEAR, HE HAS MODERATELY SEVERE OBSTRUCTIVE AIRWAY DISORDER, HAS BEEN RELATIVELY STABLE AND WITHOUT ANY EXACERBATIONS. HE WAS THE ADMITTED AT [facility] LAST WEEK, WITH FEELING OF ?BLOATING AND TIGHT FEELING IN THE CHEST, THE WHOLE WORKUP OVER THERE SHOWED THAT HE WAS CONSTIPATED, WHICH IS IS VERY CHRONIC PROBLEM. THERE WAS NOTHING ACUTE GOING ON WITH HIS LUNGS. TODAY HE COMES WITH THE SAME FEELING, IF THERE IS SOME CONGESTION OF HIS LUNGS AND HE CANNOT TAKE DEEP BREATHS. HOWEVER HE DOES NOT HAVE ANY INCREASE IN HIS SHORTNESS OF BREATH . HE HAS HAD NO NO RECENT ENTER RESPIRATORY INFECTION . DENIES ANY PAIN IN THE CHEST ON TAKING DEEP BREATHS [facility] Medical History Gastritis Pure hypercholesterolemia Essential hypertension Paroxysmal atrial fibrillation Sinusitis Hypertension Smoker Bronchitis Chest pain Tubular adenoma of colon (~2010) Personal history of nicotine dependence COPD (chronic obstructive pulmonary disease) Surgical History History of endoscopy (~2018) History of colonoscopy (~2018) Social History Housing: House Alcohol intake: never Patient Tobacco Use Status: Former Tobacco user Quit Date: 2021 Years Smoked: 30 +/- e-Cigarette/Vaping Use: Never Used Second Hand Smoke Exposure: No Substance Use Type: Marijuana service: No Current occupational status: retired Cognitive needs: No Hearing needs: No Vision needs: No Review of Systems Const All systems reviewed & are unremarkable except as noted in HPI and below Eyes Reports no additional complaints ENT Reports no additional complaints Card Reports chest pain (Discomfort across the sternum manubrie), Denies pedal edema, Denies irregular heart rhythm and Denies leg edema Resp Reports as per HPI GI Reports no additional complaints Reports no additional complaints Musc Reports no additional complaints Skin/Breast Reports system reviewed and no additional complaints, except as documented Neuro Reports no additional complaints Psych Reports no additional complaints Physical Exam Vital Signs: Last Vital Signs Pulse 81 02/20/23 14:18 BP 130/72 02/20/23 14:18 Pulse Ox 95 02/20/23 14:18 Oxygen Delivery Method Room Air 02/20/23 14:18 BMI result Body Mass Index 24.5 Const General: healthy appearing, comfortable, no acute distress, alert and awake Orientation/consciousness: patient oriented x3 HEENT Head: Yes normal to inspection General nose exam: No nasal polyps present, No nasal discharge present and Other nasal findings present (THICK YELLOW PHLEGM IS NOTED IN THE LEFT NOSTRIL.) Face and sinus: Yes sinuses nontender Mouth: oropharynx normal Throat: Yes posterior oropharynx normal (THERE IS MODERATE AMOUNT OF WHITISH YELLOW PHLEGM) Eyes General: appearance normal, both eyes and all related structures Neck Neck: Yes normal visual inspection, Yes no lymphadenopathy, Yes trachea midline and Yes no JVD Thyroid: Thyroid normal Chest Chest palpation & inspection: normal inspection of the chest, normal palpation of entire chest wall and no tenderness Resp Other: Percussion note is resonant, breath sounds are distant but equal on both sides. No wheezes or rhonchi are heard. Cardio Palpation: normal PMI Rate: regular rate Rhythm: regular rhythm Heart sounds: no gallops and no murmurs GI Palpation (GI): Soft to palpation, nontender, No hepatosplenomegaly present and no masses Auscultation: normal bowel sounds Back/Spine/Pelvis Thoracic/Lumbar Spine: thoracic and lumbar spine normal to inspection Skin General skin exam: no rashes or lesions noted Neuro General: patient oriented x3 and no focal motor deficits Cranial nerves: Yes CN's II-XII intact bilaterally Extrem General: Yes normal to inspection, Yes no clubbing, cyanosis or edema and Yes no calf tenderness Psych Appearance: grossly normal and well kempt Speech and movement: Normal speech and movement present Office Procedures Spirometry Testing Spirometry Comments: pt performed maneuvers with excellent effort [id number]- Spirometry Results Reviewed Results Reviewed: DISCHARGE SUMMARY FROM [facility] IS REVIEWED AND EXPLAINED TO THE PATIENT. IT WAS NOT RELATED TO HER PULMONARY CONDITION. SPIROMETRY. FVC 97% FEV1 62% FEV1/FVC 48 FEF 25-75 27% C/W MODERATELY SEVERE OBSTRUCTIVE AIRWAY DISORDER, COMPARED TO RESULTS IN 2020 THERE IS NO FURTHER DECLINE . Assessment & Plan Assessment & Plan (1) COPD (chronic obstructive pulmonary disease): Comment: (COPD -MODERATELY SEVERE. SEEMS TO BE STABLE AT THIS TIME TX: SPIRIVA HANDIHALER 1 INHALATION DAILY WHICH HE HAS BEEN USING REGULARLY. ALBUTEROL HFA 1 OR 2 PUFFS CUES 4-6 HOURS P.R.N.. HE HARDLY NEEDS TO USE IT. DYSPNEA ON EXERTION, IS EXPECTED FROM HIS COPD, Code(s): J44.9 - Chronic obstructive pulmonary disease, unspecified Coding Level of Care Code Est Pt Level 3 (89204) Diagnoses COPD (chronic obstructive pulmonary disease) J44.9 CPT Codes Spirometry - CPT: 18823- Spirometry ([id number])
== END 2023-02-20 14:55 | disposition home or self-care (01) ==
PROVIDERS: PCP Internal Medicine; Visit Provider Internal Medicine
DX: J44.9 Chronic obstructive pulmonary disease, unspecified (principal)
CPT/HCPCS: 94010; 99213

== ENCOUNTER → 2023-02-20 14:07 | Outpatient (BNVA) | payer MEDICARE, OTHER, SELFPAY | PROVIDERS: PCP Internal Medicine; Visit Provider Internal Medicine | DX: J44.9 Chronic obstructive pulmonary disease, unspecified (principal) | CPT/HCPCS: 94010; 99212 ==

== ENCOUNTER 2023-02-26 09:29 | Outpatient (REF) | payer MEDICARE, OTHER, SELFPAY ==
[2023-02-28 14:37] LABS: H Pylori Breath Test Negative (Negative)
== END 2023-02-26 09:30 | disposition home or self-care (01) ==
LOC: HO.LNP 09:29
PROVIDERS: PCP Internal Medicine; Visit Provider Nurse Practitioner
DX: K59.04 Chronic idiopathic constipation (principal); K92.1 Melena; R10.9 Unspecified abdominal pain; A04.8 Other specified bacterial intestinal infections; I25.2 Old myocardial infarction
CPT/HCPCS: 83013; 99202

== ENCOUNTER 2023-02-26 09:29 | Outpatient (AMB) | payer MEDICARE, OTHER, SELFPAY ==
--- NOTE | 2023-02-26 09:30 | A.OFFVIS_ITS ---
Intake Vital Signs 02/26/23 09:34 Height 6 ft 5 in Weight 210 lb 5.136 oz BMI 24.9 BP 151/78 H Blood Pressure Location Lt brachial Position Sitting Pulse 76 Intake Visit Reasons: Constipation, abdominal pain, melena Intake Note: Patient presents to in office visit today as a new patient for constipation, abdominal pain, melena. CC: Patient c/o constipation since July after he went into [facility]. He states he had a heart attack back in November. Patient states he was taken to [facility] in an ambulance a few weeks ago d/t constipation because he could not breath. He states every time I eat I get pain , and states it feels tight and he can't sleep from pain and has to sit up. Patient states he is scheduled for a colonoscopy for the end of this month. He also reports he was having blood in the stool but this has resolved already. Inspector Open Die Required: No Allergies No Known Drug Allergies Allergy (Verified 02/26/23 09:42) Unknown N.K.D.A. Allergy (Unknown, Uncoded 02/20/23 14:45) Unknown HPI Constipation, abdominal pain, melena HPI Details 67-year-old male here for initial evalua tion of constipation abdominal pain. He is referred by Zuleyka Cr of [facility] primary care. PMX COPD Smoker High cholesterol Paroxysmal atrial fib Hypertension Status post NSTEMI Anxiety/depression History of sinusitis Right rib pain History of tubular adenoma-last colonoscopy 2018-[facility] * SURGICAL HISTORY EGD-2019, has son Colonoscopy-2019, [facility] * ALLERGIES: NKDA * [facility] LABS: Laboratory Tests 10/08/22 10/08/22 11/28/22 07:31 07:31 09:52 WBC 9.7 RBC 4.23 L Hgb 13.2 L Hct 38.9 L MCV 92.0 MCH 31.2 Plt Count 294 TSH 7.21 H Free T4 1.05 2019 EGD -[facility] Findings: Larynx: normal, no masses seen at vocal cords Esophagus: GE junction at 40 cm. No esophagitis or Lindsay?s. bx taken Stomach: Fundic and mid stomach mucosa was edematous and nodular appearing with erythema, biopsies taken. Distal stomach with atrophic appearing mucosa, biopsies taken. Retrofelxion with no evidence of GEJ or fundal mass Duodenum: Normal bulb and descending duodenum, bx taken Intervention: Biopsies as noted above Impression and Post Procedure Diagnosis: Plan: Await pathology results and CT scan results might consider trial of PPI depending on results of above BIOPSY A. Duodenum, biops y: Duodenal mucos a with no signific ant histopathology ; no villous abnormality identi fied; no increase in intraepithelial lymphocytes. B. Stomach, biopsy : Moderate active gastritis; Helico bacter pylori orga nisms present. C. Esophagus, biop sy: Squamous epit helium with mild r eactive features s uggestive of reflux disease; ne gative for intesti nal metaplasia; ne gative for dysplas ia. X-RAY OF THE ABDOMEN 10/16/22 FINDINGS: Lung bases are unremarkable. Moderate amount fecal material is present in the colon. No dilated loops of bowel. No pneumoperitoneum. No radiographic evidence of renal calculi. The visualized bones are intact. Mild dextrocurvature of the mildly degenerated lumbar spine. XR/XR abdomen w decubitus IMPRESSION: No acute radiographic abnormalities. No evidence of bowel obstruction. TODAY'S VISIT It appears the patient was seen in [address] Peace son an EGD was done and although there is a biopsy the procedure report is missing. HAD A CT SCAN in 2019 showing moderate scope tool the colon but no abnormality of the intestinal track liver or gallbladder to explain his pain. There is no indication of he was ever treated for his H pylori infection that in the notes but it does appear that a prescription was listed for amoxicillin clarithromycin in late 2018. The patient is also due for a colonoscopy in 2023. He says that it all stared with the [facility] in June, and then I had afib. He failed cardioversion the first time, he says it worked the second time - but they put me on a lot of medications and the CIC got worse. Then he had an TX which he feels was r/t the CIC as when he gets really backed up he can not breath (he has comorbid COPD so there is likely an element of restrictive lung disease). He was put on a regimen of laxatives (bisacodyl, colace and Miralax) and he is moving his bowels better, but he still has pain in the lower abdomen that feels like stretching. He has the pain daily but it is after eating. Pain is aroune 6-7/10. Sometimes taking tums makes it better, passing gas or burping helps too. His stool was very hard up to 2 weeks ago, but now is soft and green. He has lost 20lbs recently because he is afraid to eat. But he has a good appetite and he is always hungry. He still has frequent discomfort midline in the lower chest. He seems to remember taking the above abx but has not been tested for eradication. He feels that his current pain is similar. He has a EGD/colonoscopy scheduled with Dr. Mcclelland next week. Apparently, he saw Dr. Mcclelland at [facility]. He is on lasix and amiodarone. We will get HP breath test, TSH, chem panel, Trial of LInzess. ROV 2 weeks. [facility] Medical History Gastritis Pure hypercholesterolemia Essential hypertension Paroxysmal atrial fibrillation Sinusitis Hypertension Smoker Bronchitis Chest pain Tubular adenoma of colon (~2010) Personal history of nicotine dependence COPD (chronic obstructive pulmonary disease) Surgical History History of endoscopy (~2018) History of colonoscopy (~2018) Family History (Updated 02/26/23 @ 09:43 by SEDRICK Garcia) Sister Breast cancer Social History Housing: House Alcohol intake: never Patient Tobacco Use Status: Former Tobacco user Quit Date: 2021 Years Smoked: 30 +/- e-Cigarette/Vaping Use: Never Used Second Hand Smoke Exposure: No Substance Use Type: Marijuana service: No Current occupational status: retired Cognitive needs: No Hearing needs: No Vision needs: No Review of Systems Const Denies fatigue, Denies fever(s), Denies night sweats, Denies poor appetite and Reports weight loss ENT Reports Normal hearing present, Denies dental pain, Denies dysphagia, Denies hearing loss, Denies mouth pain, Denies odynophagia, Denies throat swelling, Denies tongue swelling and Reports other (Dentition adequate) Card Reports chest pain and Reports dyspnea on exertion Resp Reports dyspnea on exertion GI Reports abdominal pain, Denies melena, Reports bloating, Denies hematochezia, Reports constipation, Reports GI cramping, Denies dysphagia, Denies excessive flatus, Denies early satiety, Denies heartburn, Denies diarrhea, Denies nausea, Denies odynophagia, Denies vomiting and Denies hematemesis Skin/Breast Denies pruritus, Denies lesions, Denies rash and Denies jaundice Neuro Reports Normal hearing present and Denies Abnormal speech present Endo Denies fatigue Aller/Immun Denies throat swelling and Denies tongue swelling Physical Exam Vital Signs: Last Vital Signs Pulse 76 02/26/23 09:34 BP 151/78 H 02/26/23 09:34 BMI result Body Mass Index 24.9 Const General: cooperative, no acute distress, well developed and well groomed Nutritional Appearance: average body habitus and well nourished Orientation/consciousness: oriented to person, oriented to place and oriented to time Limitations: No language barrier HEENT Head: Yes normocephalic and Yes atraumatic Eyes General: appearance normal, both eyes and all related structures Pupils: Equal, round and reactive pupils present Neck Neck: Yes normal visual inspection and Yes no lymphadenopathy Thyroid: Thyroid normal Resp Effort & Inspection: normal respiratory effort and able to speak in complete sen tences Auscultation: clear to auscultation bilaterally, abnormal I/E ratio and diminished lung sounds bilateral in the lower lung restrepo Cardio Rate: regular rate Rhythm: regular rhythm Heart sounds: Normal, physiologic split S2 sound present Peripheral pulses: radial pulses present and posterior tibial pulses present GI Inspection: Yes distended (lower abd) and No Abdominal panniculus present Palpation (GI): Soft to palpation, nontender, no guarding, not rigid and No hepatosplenomegaly present Percussion: Yes normal to percussion Auscultation: normal bowel sounds Rectal Exam - Male: Yes deferred Skin General skin exam: no rashes or lesions noted, turgor normal, skin not dry, no jaundice, No spider nevi and no striae Rashes: no rashes Nails: normal Neuro General: oriented to person, oriented to place and oriented to time Cranial nerves: Yes Equal, round and reactive pupils present and Yes Normal hearing present Speech: No Abnormal speech present Extrem General: Yes normal to inspection, No clubbing, No cyanosis and No edema Psych Appearance: grossly normal and well kempt Mental Status: mental status grossly normal Speech and movement: Normal speech and movement present Affect: normal affect Attitude: cooperative Thought process: Normal thought process present and not confabulating Thought content: Normal thought content present Insight: Fair insight present (Psych) Judgement: Fair judgement present (Psych) Assessment & Plan Assessment & Plan (1) Chronic idiopathic constipation: Code(s): K59.04 - Chronic idiopathic constipation Plan: It appears the patient was seen in [address] Peace son an EGD was done and although there is a biopsy the procedure report is missing. HAD A CT SCAN in 2019 showing moderate scope tool the colon but no abnormality of the intestinal track liver or gallbladder to explain his pain. There is no indication of he was ever treated for his H pylori infection that in the notes but it does appear that a prescription was listed for amoxicillin clarithromycin in late 2018. The patient is also due for a colonoscopy in 2023. He says that it all stared with the [facility] in June, and then I had afib. He failed cardioversion the first time, he says it worked the second time - but they put me on a lot of medications and the CIC got worse. Then he had an TX which he feels was r/t the [facility] as when he gets really backed up he can not breath (he has comorbid COPD so there is likely an element of restrictive lung disease). He was put on a regimen of laxatives (bisacodyl, colace and Miralax) and he is moving his bowels better, but he still has pain in the lower abdomen that feels like stretching. He has the pain daily but it is after eating. Pain is aroune 6-7/10. Sometimes taking tums makes it better, passing gas or burping helps too. His stool was very hard up to 2 weeks ago, but now is soft and green. He has lost 20lbs recently because he is afraid to eat. But he has a good appetite and he is always hungry. He still has frequent discomfort midline in the lower chest. He seems to remember taking the above abx but has not been tested for eradication. He feels that his current pain is similar. He has a EGD/colonoscopy scheduled with Dr. Mcclelland next week. Apparently, he saw Dr. Mcclelland at [facility]. He is on lasix and amiodarone. We will get HP breath test, TSH, chem panel, Trial of LInzess. ROV 2 weeks. (2) Abdominal pain: Code(s): R10.9 - Unspecified abdominal pain Orders: Orders Comprehensive Met. Panel Today K59.04 - Chronic idiopathic constipation, R10.9 - Unspecified abdominal pain TSH reflex Free T4 Today K59.04 - Chronic idiopathic constipation H Pylori Breath Test Today Medications: New linaclotide (Linzess) 145 mcg PO QAM 30 caps 6RF A04.8 - Other specified bacterial intestinal infections, K59.04 - Chronic idiopathic constipation Discontinued sennosides (senna) Discontinued Reason: Doctor's Order 17.2 mg (2 x 8.6 mg) PO BEDTIME 30 days 60 caps 1RF constipation On Hold bisacodyl (Dulcolax (bisacodyl)) Hold Comment: Doctor's Order 10 mg IA DAILY 12 days PRN 12 ea 0RF constipation Coding Level of Care Code New Pt Level 3 (39992) Diagnoses Chronic idiopathic constipation K59.04 Abdominal pain R10.9
[2023-02-26 09:34] VITALS: BP 151/78; PULSE 76; BMI 24.9
== END 2023-02-26 10:53 | disposition home or self-care (01) ==
PROVIDERS: PCP Internal Medicine; Referring Provider Internal Medicine; Visit Provider Nurse Practitioner
DX: K59.04 Chronic idiopathic constipation (principal); R10.9 Unspecified abdominal pain
CPT/HCPCS: 99203; 99213

== ENCOUNTER 2023-03-11 13:21 | Outpatient (REF) | payer MEDICARE, OTHER, SELFPAY ==
[2023-03-11 13:38] LABS: MANUAL DIFF FLAG NO
[2023-03-11 13:59] LABS: Basophils Absolute Auto 0.1 X10*3/uL (0.0-0.2); Basophils Percent Auto 0.9 % (0-2); Eosinophils Absolute Auto 1.2 X10*3/uL (0.0-0.4); Eosinophils Percent Auto 12.3 % (0-4); Hematocrit 39.4 % (42.0-52.0); Imm Gran Abs Auto 0.02 X10*3/uL (0.00-0.03); Imm Gran Pct Auto 0.2 % (0.0-0.4); Lymphocytes Absolute Auto 2.9 X10*3/uL (1.2-4.9); Lymphocytes Percent Auto 29.7 % (20-40); Mean Corpuscular Hemoglobin 30.7 pg (27.0-33.0); Mean Corpuscular Volume 92.9 fL (80.0-98.0); Mean Platelet Volume 9.9 fL (9.4-12.4); Monocytes Absolute Auto 0.9 X10*3/uL (0.1-1.2); Monocytes Percent Auto 9.2 % (2-11); Neutrophils Absolute Auto 4.6 x10*3/uL (2.0-8.3); Neutrophils Percent Auto 47.7 % (45-73); Platelet Count 270 X10*3/uL (160-400); Red Blood Count 4.24 X10*6/uL (4.60-5.80); Red Cell Distribution Width 15.1 % (11.0-16.0); White Blood Count 9.6 X10*3/uL (4.8-10.8)
[2023-03-11 14:29] LABS: Alanine Aminotransferase 16 U/L (0-40); Albumin Level 4.4 g/dL (3.5-5.0); Alkaline Phosphatase 110 U/L (39-117); Anion Gap 8 (12-20); Aspartate Amino Transferase 19 U/L (5-37); Bilirubin Total 0.4 mg/dL (0.0-1.0); Blood Urea Nitrogen 18 mg/dL (9-16); Calcium 9.5 mg/dL (8.4-10.2); Carbon Dioxide 28 mmol/L (22-29); Chloride 105 mmol/L (96-108); Estimated Glomerular Filt Rate 54; Glucose Random 93 mg/dL (60-115); Potassium 4.3 mmol/L (3.3-5.1); Sodium 137 mmol/L (135-145)
[2023-03-11 14:44] LABS: TSH reflex Free T4 5.25 uIU/mL (0.32-4.0)
[2023-03-11 15:38] LABS: Free T4 (Free Thyroxine) 0.99 ng/dL (0.71-1.85)
== END 2023-03-11 13:22 | disposition home or self-care (01) ==
LOC: HO.LAB 13:21
PROVIDERS: Absent Provider Nurse Practitioner Family; PCP Internal Medicine; Visit Provider Nurse Practitioner
DX: R10.9 Unspecified abdominal pain (principal); I21.4 Non-ST elevation (NSTEMI) myocardial infarction; K59.04 Chronic idiopathic constipation
CPT/HCPCS: 36415; 80053; 84439; 84443; 85025

== ENCOUNTER 2023-03-12 12:04 | Outpatient (AMB) | payer MEDICARE, SELFPAY ==
[2023-03-12 12:07] VITALS: BP 153/84; PULSE 72; BMI 25.4
--- NOTE | 2023-03-12 12:07 | MHC.OFFVIS ---
Intake Vital Signs 03/12/23 12:07 Height 6 ft 5 in Weight 214 lb 4.629 oz BMI 25.4 BP 153/84 H Blood Pressure Location Lt brachial Position Sitting Pulse 72 Intake Visit Reasons: 2 weeks CIC Intake Note: Patient presents to in office visit today in follow up constipation, abdominal pain, melena. CC: Patient reports Linzess has not been working well for him he last had a BM since he started it Last Friday. He also reports abdominal pain. Pt stopeed taking his other medications thinking it was going to be too much with Linzess. Gravity Prospector Required: No Allergies No Known Drug Allergies Allergy (Verified 03/12/23 12:13) Unknown N.K.D.A. Allergy (Unknown, Uncoded 02/20/23 14:45) Unknown HPI 2 weeks CIC HPI Details Assessment & Plan (1) Chronic idiopathic constipation: Code(s): K59.04 - Chronic idiopathic constipation Plan: It appears the patient was seen in [address] Peace son an EGD was done and although there is a biopsy the procedure report is missing. HAD A CT SCAN in 2019 showing moderate scope tool the colon but no abnormality of the intestinal track liver or gallbladder to explain his pain. There is no indication of he was ever treated for his H pylori infection that in the notes but it does appear that a prescription was listed for amoxicillin clarithromycin in late 2018. The patient is also due for a colonoscopy in 2023. He says that it all stared with the CIC in June, and then I had afib. He failed cardioversion the first time, he says it worked the second time - but they put me on a lot of medications and the CIC got worse. Then he had an VT which he feels was r/t the CIC as when he gets really backed up he can not breath (he has comorbid COPD so there is likely an element of restrictive lung disease). He was put on a regimen of laxatives (bisacodyl, colace and Miralax) and he is moving his bowels better, but he still has pain in the lower abdomen that feels like stretching. He has the pain daily but it is after eating. Pain is aroune 6-7/10. Sometimes taking tums makes it better, passing gas or burping helps too. His stool was very hard up to 2 weeks ago, but now is soft and green. He has lost 20lbs recently because he is afraid to eat. But he has a good appetite and he is always hungry. He still has frequent discomfort midline in the lower chest. He seems to remember taking the above abx but has not been tested for eradication. He feels that his current pain is similar. He has a EGD/colonoscopy scheduled with Dr. Mcclelland next week. Apparently, he saw Dr. Mcclelland at [facility]. He is on lasix and amiodarone. We will get HP breath test, TSH, chem panel, Trial of LInzess. ROV 2 weeks. (2) Abdominal pain: Code(s): R10.9 - Unspecified abdominal pain Orders: Orders Comprehensive Met. Panel Today K59.04 - Chronic i diopathic constipa tion, R10.9 - Unsp ecified abdominal pain TSH reflex Free T4 Today K59.04 - Chronic i diopathic constipa tion H Pylori Breath Te st Today Medications: New linaclotide (Linze ss) 145 mcg PO QAM 30 caps 6RF A04.8 - Other spec ified bacterial in testinal infection s, K59.04 - Chroni c idiopathic const ipation Discontinued sennosides (senna) Discontinued R veda: Doctor's O rder 17.2 mg (2 x 8.6 m g) PO BEDTIME 30 d ays 60 caps 1RF co nstipation On Hold bisacodyl (Dulcola x (bisacodyl)) Hold Comment: Doc tor's Order 10 mg VA DAILY 12 days PRN 12 ea 0R F constipation LABS: Laboratory Tests 02/26/23 03/11/23 03/11/23 10:45 13:37 13:37 Estimated GFR 54 Total Bilirubin 0.4 AST 19 ALT 16 TSH 5.25 H Free T4 0.99 H. pylori Breath T est Negative CORRESPONDENCRE On 02/27/23 @ 15:47 Monica Singh Wrote To Francisco I have a coupon he can try to use. On 02/27/23 @ 12:33 Sofía Ramesh Wrote To FranciscoJuly sending as fyi - we discussed it in person but just so theres a trail. I'm going to attempt to enroll patient in [employer] assistance program for Linzess given OOP cost of $400. no PA required by insurance. patient has medicare. I spoke w/ and informed her of the forms and also included the voucher provided. TODAY'S VISIT The LInzess is not moving his bowels at the 145mcg dose. BUT he also did not know to add back in his other constipation meds if he did not move his bowels. Consequently this caused him lower abdominal pain it cramping. It is odd that his pain is always worse at night and better during the day. He also feels like at night but he has the pain his breathing is affected. I did explain how the bowels could affect the breathing especially in a COPD patient to help them better understand the pathophysiology. I reviewed the thyroid which continues to run high in the TSH but normal in the free T4. He is on amiodarone so this could be a benign affect to the lab results but also could be an element of subclinical hypothyroidism contributing to the constipation. Will continue to watch this going forward and consider if an endocrinology consult or trial of thyroid meds would be advantageous. He has an EGD/colonoscopy coming up that scheduled at [facility]. Because I cannot access the records I would give them my business card and asked them to request records to be forwarded to me so that I will have the most information to treat him. Going to increase the Linzess 290 micro g and I have asked him to add back in his other constipation meds 1 to time to see what they really need if this does not work by itself. They were successful in utilizing the coupon I gave them [facility]had [facility] co-pay. Return office visit in 5 weeks. PFSH Medical History Gastritis Pure hypercholesterolemia Essential hypertension Paroxysmal atrial fibrillation Sinusitis Hypertension Smoker Bronchitis Chest pain Tubular adenoma of colon (~2010) Personal history of nicotine dependence COPD (chronic obstructive pulmonary disease) Surgical History History of endoscopy (~2018) History of colonoscopy (~2018) Family History Sister Breast cancer Housing: House Alcohol intake: never Patient Tobacco Use Status: Former Tobacco user Quit Date: 2021 Years Smoked: 30 +/- e-Cigarette/Vaping Use: Never Used Second Hand Smoke Exposure: No Substance Use Type: Marijuana service: No Current occupational status: retired Cognitive needs: No Hearing needs: No Vision needs: No Review of Systems Const Denies fatigue, Denies fever(s), Denies night sweats, Denies poor appetite and Denies weight loss ENT Reports Normal hearing present, Denies dental pain, Denies dysphagia, Denies hearing loss, Denies mouth pain, Denies odynophagia, Denies throat swelling, Denies tongue swelling and Reports other (Dentition adequate) Card Reports no additional complaints Resp Reports no additional complaints GI Reports abdominal pain, Denies melena, Denies bloating, Denies hematochezia, Reports constipation, Denies GI cramping, Denies dysphagia, Denies excessive flatus, Denies early satiety, Reports heartburn, Denies diarrhea, Denies nausea, Denies odynophagia, Denies vomiting and Denies hematemesis Skin/Breast Denies pruritus, Denies lesions, Denies rash and Denies jaundice Neuro Reports Normal hearing present and Denies Abnormal speech present Endo Denies fatigue Aller/Immun Denies throat swelling and Denies tongue swelling Physical Exam Vital Signs: Last Vital Signs Pulse 72 03/12/23 12:07 BP 153/84 H 03/12/23 12:07 BMI result Body Mass Index 25.4 Const General: cooperative, no acute distress, well developed and well groomed Nutritional Appearance: average body habitus and well nourished Orientation/consciousness: oriented to person, oriented to place and oriented to time Limitations: No language barrier HEENT Head: Yes normocephalic and Yes atraumatic Eyes General: appearance normal, both eyes and all related structures Pupils: Equal, round and reactive pupils present Neck Neck: Yes normal visual inspection and Yes no lymphadenopathy Thyroid: Thyroid normal Resp Effort & Inspection: normal respiratory effort and able to speak in complete sentences Auscultation: clear to auscultation bilaterally Cardio Rate: regular rate Rhythm: regular rhythm Heart sounds: Normal, physiologic split S2 sound present Peripheral pulses: radial pulses present and posterior tibial pulses present GI Inspection: No distended and No Abdominal panniculus present Palpation (GI): Soft to palpation, nontender, no guarding, not rigid and No hepatosplenomegaly present Percussion: Yes normal to percussion Auscultation: normal bowel sounds Rectal Exam - Male: Yes deferred Skin General skin exam: no rashes or lesions noted, turgor normal, skin not dry, no jaundice, No spider nevi and no striae Rashes: no rashes Nails: normal Neuro General: oriented to person, oriented to place and oriented to time Cranial nerves: Yes Equal, round and reactive pupils present and Yes Normal hearing present Speech: No Abnormal speech present Extrem General: Yes normal to inspection, No clubbing, No cyanosis and No edema Psych Appearance: grossly normal and well kempt Mental Status: mental status grossly normal Speech and movement: Normal speech and movement present Affect: normal affect Attitude: cooperative Thought process: Normal thought process present and not confabulating Thought content: Normal thought content present Insight: Limited insight present (Psych) Judgement: Limited judgement present (Psych) Assessment & Plan Assessment & Plan (1) Chronic idiopathic constipation: Code(s): K59.04 - Chronic idiopathic constipation Plan: The Terry is not moving his bowels at the 145mcg dose. BUT he also did not know to add back in his other constipation meds if he did not move his bowels. Consequently this caused him lower abdominal pain it cramping. It is odd that his pain is always worse at night and better during the day. He also feels like at night but he has the pain his breathing is affected. I did explain how the bowels could affect the breathing especially in a COPD patient to help them better understand the pathophysiology. I reviewed the thyroid which continues to run high in the TSH but normal in the free T4. He is on amiodarone so this could be a benign affect to the lab results but also could be an element of subclinical hypothyroidism contributing to the constipation. Will continue to watch this going forward and consider if an endocrinology consult or trial of thyroid meds would be advantageous. He has an EGD/colonoscopy coming up that scheduled at [facility]. Because I cannot access the records I would give them my business card and asked them to request records to be forwarded to me so that I will have the most information to treat him. Going to increase the Linzess 290 micro g and I have asked him to add back in his other constipation meds 1 to time to see what they really need if this does not work by itself. They were successful in utilizing the coupon I gave them since they were in the Medicare donut hole/had a high co-pay. Return office visit in 5 weeks. (2) GERD without esophagitis: Code(s): K21.9 - Gastro-esophageal reflux disease without esophagitis (3) H. pylori infection: Code(s): A04.8 - Other specified bacterial intestinal infections Plan: Negative stool antigen in 2022 to confirm eradication Plan He is here today with his who is supportive The LInzess is not moving his bowels at the 145mcg dose. BUT he also did not know to add back in his other constipation meds if he did not move his bowels. Consequently this caused him lower abdominal pain it cramping. It is odd that his pain is always worse at night and better during the day. He also feels like at night but he has the pain his breathing is affected. I did explain how the bowels could affect the breathing especially in a COPD patient to help them better understand the pathophysiology. I reviewed the thyroid which continues to run high in the TSH but normal in the free T4. He is on amiodarone so this could be a benign affect to the lab results but also could be an element of subclinical hypothyroidism contributing to the constipation. Will continue to watch this going forward and consider if an endocrinology consult or trial of thyroid meds would be advantageous. He has an EGD/colonoscopy coming up that scheduled at [facility]. Because I cannot access the records I would give them my business card and asked them to request records to be forwarded to me so that I will have the most information to treat him. Going to increase the Linzess 290 micro g and I have asked him to add back in his other constipation meds 1 to time to see what they really need if this does not work by itself. They were successful in utilizing the coupon I gave them since they were in the Medicare donut hole/had a high co-pay. Return office visit in 5 weeks. Medications: New linaclotide (Linzess) 290 mcg PO QAM 30 days 30 caps 6RF K59.04 - Chronic idiopathic constipation Discontinued linaclotide (Linzess) Discontinued Reason: Doctor's Order 145 mcg PO QAM 30 caps 6RF A04.8 - Other specified bacterial intestinal infections, K59.04 - Chronic idiopathic constipation Coding Level of Care Code Est Pt Level 3 (58881) Diagnoses Chronic idiopathic constipation K59.04 GERD without esophagitis K21.9 H. pylori infection A04.8
== END 2023-03-12 12:48 | disposition home or self-care (01) ==
PROVIDERS: PCP Internal Medicine; Visit Provider Nurse Practitioner
DX: K59.04 Chronic idiopathic constipation (principal); K21.9 Gastro-esophageal reflux disease without esophagitis; A04.8 Other specified bacterial intestinal infections
CPT/HCPCS: 99213

== ENCOUNTER → 2023-03-12 12:04 | Outpatient (BNVA) | payer MEDICARE, OTHER, SELFPAY | PROVIDERS: PCP Internal Medicine; Visit Provider Nurse Practitioner | DX: K59.04 Chronic idiopathic constipation (principal); K21.9 Gastro-esophageal reflux disease without esophagitis; A04.8 Other specified bacterial intestinal infections | CPT/HCPCS: 99212 ==

== ENCOUNTER 2023-03-19 11:22 | Outpatient (AMB) | payer MEDICARE, SELFPAY ==
--- NOTE | 2023-03-19 11:32 | A.OFFVIS_ITS ---
Intake Vital Signs 03/19/23 11:43 Height 6 ft 5 in Weight 211 lb 10.3 oz BMI 25.1 BP 120/70 Blood Pressure Location Lt brachial Position Sitting Pulse 70 Intake Visit Reasons: fu Intake Note: f/u feel good Reexaminer Required: No Accompanied by: Self / Same As Patient Allergies No Known Drug Allergies Allergy (Verified 03/19/23 11:44) Unknown N.K.D.A. Allergy (Unknown, Uncoded 02/20/23 14:45) Unknown Medication List - Last Reconciled 03/19/23 by Jean Claude Tony MD albuterol sulfate 90 mcg/actuation 2 inhalations inhalation Q4H PRN amiodarone 200 mg PO DAILY 30 days amlodipine 5 mg PO DAILY apixaban (Eliquis) 5 mg PO BID aspirin 81 mg PO DAILY bisacodyl (Dulcolax (bisacodyl)) 10 mg ID DAILY PRN 12 days comp.stocking,knee,long,medium As directed furosemide (Lasix) 20 mg PO DAILY linaclotide (Linzess) 290 mcg PO QAM 30 days polyethylene glycol 3350 (Miralax) 17 grams PO DAILY sennosides (Natural Senna Laxative) 17.2 mg PO BEDTIME tiotropium bromide (Spiriva with HandiHaler) 1 cap inhalation DAILY HPI HPI Comments History of Present Illness Details 67-year-old gentleman who is here for fo llow-up. He presented to [facility] with COPD exacerbation and he was in Atrial fibrillation. He was complaining of atypical chest pain and dyspnea. He was treated for COPD and underwent KEVIN cardioversion. He was discharged home and plan was to exercise stress test on him and decide about starting anti arrhythmic therapy. He came back for stress testing but was tachycardic and was noticed to be back in atrial fibrillation. At that time was started on metoprolol succinate and stress test was not performed. 08/14/22: His returning for follow-up now . He is saying that his shortness of breath is still present. He has COPD is under control but he continued to be short of breath. EKG in the office is showing atrial fib he also has atypical chest pain still happening. We discussed about starting amiodarone and re- attempt cardioversion. He was loaded with amiodarone and subsequently had successful cardioversion. He came back to office in September 2022 and was seen by Christy. At that time was complaining of constipation and multiple complaints. He had a stress test before that which was normal and after discussion his amiodarone was stopped and he was started on flecainide 50 mg twice a day. 10/30/22: He is here for follow-up. He has significant GI complaints ongoing. His main complaint is constipation. Also has nausea and abdominal discomfort. He has been taking medications as prescribed. He has been using laxatives including lactulose and senna. He is saying he drinks water and tries to hydrate himself. He does not take a lot of fiber in his diet. He is saying his breathing is improved but he is not back to his normal self. He has underlying COPD. He also has some peripheral edema. Clinically not in heart failure though. He also had some dizzy spells recently when he was out in the sun doing the heat wave. 03/19/2023: He returns for follow-up. Maegan retana has been on amiodarone is currently is in sinus rhythm. He is saying his breathing is better. He is due to see electrophysiology next month at [facility] for consideration for AFib ablation. Continues to get abdominal issues and is closely following with GI. [facility] Medical History Gastritis Pure hypercholesterolemia Essential hypertension Paroxysmal atrial fibrillation Sinusitis Hypertension Smoker Bronchitis Chest pain Tubular adenoma of colon (~2010) Personal history of nicotine dependence COPD (chronic obstructive pulmonary disease) Surgical History History of endoscopy (~2018) History of colonoscopy (~2018) Family History Sister Breast cancer Social History Housing: House Alcohol intake: never Patient Tobacco Use Status: Former Tobacco user Quit Date: 2021 Years Smoked: 30 +/- e-Cigarette/Vaping Use: Never Used Second Hand Smoke Exposure: No Substance Use Type: Marijuana service: No Current occupational status: retired Cognitive needs: No Hearing needs: No Vision needs: No Review of Systems Const Reports chills, Reports fatigue, Reports fever(s), Reports frequent falls, Reports weakness, Reports weight gain and Reports weight loss ENT Reports dizziness Card Reports chest pain, Reports leg edema, Reports lightheadedness, Reports palpitations, Reports dyspnea and Reports dyspnea on exertion Resp Reports cough, Reports dyspnea and Reports dyspnea on exertion GI Reports hematochezia Musc Reports abnormal gait, Reports muscle weakness, Reports numbness, Reports radiating pain into limb and Reports tingling Neuro Reports abnormal gait, Reports dizziness, Reports frequent falls, Reports numbness, Reports tingling and Reports weakness Endo Reports fatigue and Reports palpitations Physical Exam Vital Signs: Last Vital Signs Pulse 70 03/19/23 11:43 BP 120/70 03/19/23 11:43 BMI result Body Mass Index 25.1 GENERAL APPEARANCE: in no acute distress, pleasant. NECK: no carotid bruit, no jugular venous distention. SKIN: no suspicious lesions, warm and dry. HEART: no murmurs, regular rate and rhythm. LUNGS: clear to auscultation bilaterally. ABDOMEN: soft, nontender. EXTREMITIES: No significant edema. PERIPHERAL PULSES: equal. NEUROLOGIC: No gross deficits, AAO X 3 Office Procedures EKG Details: Sinus rhythm 70 beats per minute, left axis deviation, QTC 425 milliseconds. [id number], Complete Assessment & Plan Assessment & Plan (1) Paroxysmal atrial fibrillation: Code(s): I48.0 - Paroxysmal atrial fibrillation Plan Pleasant 67 gentleman is here for follow-up. He has paroxysmal atrial fibrillation. He is currently in sinus rhythm on amiodarone 200 mg daily. He is on anticoagulation with apixaban 5 mg twice a day. Clinically not in heart failure. Blood pressure control is reasonable. He is due to see electrophysiology at [facility] to discuss ablation. If he has a successful procedure then we will consider stopping amiodarone 2 months after the procedure. Given his relatively younger age would favor getting him off the amiodarone. Thank you for allowing me to participate in the care of your patient. Please feel free to contact me if you have any questions. k Coding Level of Care Code Est Pt Level 4 (00042) Diagnoses Paroxysmal atrial fibrillation I48.0 CPT Codes EKG - CPT: 73388-[id number], Complete ([id number])
[2023-03-19 11:43] VITALS: BP 120/70; PULSE 70; BMI 25.1
== END 2023-03-19 12:11 | disposition home or self-care (01) ==
PROVIDERS: PCP Internal Medicine; Visit Provider Internal Medicine Cardiovascular Disease
DX: I48.0 Paroxysmal atrial fibrillation (principal)
CPT/HCPCS: 93010; 99214

== ENCOUNTER → 2023-03-19 11:22 | Outpatient (BNVA) | payer MEDICARE, OTHER, SELFPAY | PROVIDERS: PCP Internal Medicine; Visit Provider Internal Medicine Cardiovascular Disease | DX: I48.0 Paroxysmal atrial fibrillation (principal) | CPT/HCPCS: 93005; 99212 ==

== ENCOUNTER 2023-04-23 11:51 | Outpatient (AMB) | payer MEDICARE, OTHER, SELFPAY ==
--- NOTE | 2023-04-23 12:15 | A.OFFVIS_ITS ---
Intake Vital Signs 04/23/23 12:24 Height 6 ft 5 in Weight 213 lb 13.574 oz BMI 25.4 BP 164/79 H Blood Pressure Location Lt brachial Position Sitting Pulse 78 Intake Visit Reasons: 5 week follow u p Intake Note: Patient presents to in office visit today in 5 weeks follow up constipation, abdominal pain, and melena. CC: Patient reports Linzess did not work and he continues having the constipation. He underwent colonoscopy and EGD at [facility] on 03/14/23. Patient also c/o buzzing sound from his left ear mostly at night when he goes to bed. 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 Allergy (Unknown, Uncoded 02/20/23 14:45) Unknown HPI 5 week follow u p HPI Details Assessment & Plan (1) Chronic idiopathic constipation: Code(s): K59.04 - Chronic idiopathic constipation Plan: The LInzess is not moving his bowels at the 145mcg dose. BUT he also did not know to add back in his other constipation meds if he did not move his bowels. Consequently this caused him lower abdominal pain it cramping. It is odd that his pain is always worse at night and better during the day. He also feels like at night but he has the pain his breathing is affected. I did explain how the bowels could affect the breathing especially in a COPD patient to help them better understand the pathophysiology. I reviewed the thyroid which continues to run high in the TSH but normal in the free T4. He is on amiodarone so this could be a benign affect to the lab results but also could be an element of subclinical hypothyroidism contributing to the constipation. Will continue to watch this going forward and consider if an endocrinology consult or trial of thyroid meds would be advantageous. He has an EGD/colonoscopy coming up that scheduled at [facility]. Because I cannot access the records I would give them my business card and asked them to request records to be forwarded to me so that I will have the most information to treat him. Going to increase the Linzess 290 micro g and I have asked him to add back in his other constipation meds 1 to time to see what they really need if this does not work by itself. They were successful in utilizing the coupon I gave them since they were in the Medicare donut hole/had a high co-pay. Return office visit in 5 weeks. (2) GERD without esophagitis: Code(s): K21.9 - Gastro-esophageal reflux disease without esophagitis (3) H. pylori infection: Code(s): A04.8 - Other specified bacterial intestinal infections Plan: Negative stool antigen in 2022 to confirm eradication Plan He is here today with his who is supportive The LInzess is not moving his bowels at the 145mcg dose. BUT he also did not know to add back in his other constipation meds if he did not move his bowels. Consequently this caused him lower abdominal pain it cramping. It is odd that his pain is always worse at night and better during the day. He also feels like at night but he has the pain his breathing is affected. I did explain how the bowels could affect the breathing especially in a COPD patient to help them better understand the pathophysiology. I reviewed the thyroid which continues to run high in the TSH but normal in the free T4. He is on amiodarone so this could be a benign affect to the lab results but also could be an element of subclinical hypothyroidism contributing to the constipation. Will continue to watch this going forward and consider if an endocrinology consult or trial of thyroid meds would be advantageous. He has an EGD/colonoscopy coming up that scheduled at [facility]. Because I cannot access the records I would give them my business card and asked them to request records to be forwarded to me so that I will have the most information to treat him. Going to increase the Linzess 290 micro g and I have asked him to add back in his other constipation meds 1 to time to see what they really need if this does not work by itself. They were successful in utilizing the coupon I gave them since they were in the Medicare donut hole/had a high co-pay. Return office visit in 5 weeks. Medications: New linaclotide (Linze ss) 290 mcg PO QAM 30 days 30 caps 6RF K59.04 - Chronic i diopathic constipa tion Discontinued linaclotide (Linze ss) Discontinue d Reason: Doctor' s Order 145 mcg PO QAM 30 caps 6RF A04.8 - Other spec ified bacterial in testinal infection s, K59.04 - Chroni c idiopathic const ipation TODAY'S VISIT He is accompanied by his who is supportive. He had severe CIC again and diff breathing with severe LLQ pain. After the i nitial free coupon on they were never able to we deem the additional coupons because of Medicare restrictions. So to seems that we will have to work with the [id number] that her covered. In the past he seemed to be moving his bowels well, although he did not avoid those episodes of shortness of breath, when he would take 2 of the bisacodyl Friday and Friday. He went back to this dosing schedule when he could get the Linzess. I suggest that for now he try doing the 2 tabs every Friday and Friday and 1 tablet in the evening every other day of the week. He can cut back on this if he has diarrhea. We want to make sure that he can breathe a he does not go through these attacks of feeling short of breath as this is probably even more worrying than the left lower quadrant pain. Another contributing factor is his amiodarone which is known to cause constipation, however this was discontinued by his rabies inspector about 3 weeks ago. Given the very long half-life of amiodarone he also may find that he needs to change the dosing of the bisacodyl as this medication leaves his system. Again, initially the constipation became a problem when he was put on this m edication for his AFib. ROV 4 weeks. [facility] Medical History H. pylori infection Essential hypertension Abdominal pain Constipation Shortness of breath Sinusitis Elevated BP without diagnosis of hypertension Hospital discharge follow-up Bronchitis Rib pain on left side Left flank pain Rib pain on right side Gastritis Pure hypercholesterolemia Paroxysmal atrial fibrillation Hypertension Smoker Chest pain Tubular adenoma of colon (~2010) Personal history of nicotine dependence COPD (chronic obstructive pulmonary disease) Surgical History History of endoscopy (~2018) History of colonoscopy (~2019) Family History Sister Breast cancer Social History Housing: House Alcohol intake: never Patient Tobacco Use Status: Former Tobacco user Quit Date: 2021 Years Smoked: 30 +/- e-Cigarette/Vaping Use: Never Used Second Hand Smoke Exposure: No Substance Use Type: Marijuana service: No Current occupational status: retired Cognitive needs: No Hearing needs: No Vision needs: No Review of Systems Const Denies fatigue, Denies fever(s), Denies night sweats, Denies poor appetite and Denies weight loss ENT Reports Normal hearing present, Denies dental pain, Denies dysphagia, Denies hearing loss, Denies mouth pain, Denies odynophagia, Denies throat swelling, Denies tongue swelling and Reports other (Dentition adequate) Card Reports no additional complaints Resp Reports no additional complaints GI Denies abdominal pain, Denies melena, Denies bloating, Denies hematochezia, Reports constipation, Reports GI cramping, Denies dysphagia, Denies excessive flatus, Denies early satiety, Reports heartburn, Denies diarrhea, Denies nausea, Denies odynophagia, Denies vomiting and Denies hematemesis Skin/Breast Denies pruritus, Denies lesions, Denies rash and Denies jaundice Neuro Reports Normal hearing present and Denies Abnormal speech present Endo Denies fatigue Aller/Immun Denies throat swelling and Denies tongue swelling Physical Exam Vital Signs: Last Vital Signs Pulse 78 04/23/23 12:24 BP 164/79 H 04/23/23 12:24 BMI result Body Mass Index 25.4 Const General: cooperative, no acute distress, well developed and well groomed Nutritional Appearance: average body habitus and well nourished Orientation/consciousness: oriented to person, oriented to place and oriented to time Limitations: No language barrier HEENT Head: Yes normocephalic and Yes atraumatic Eyes General: appearance normal, both eyes and all related structures Pupils: Equal, round and reactive pupils present Neck Neck: Yes normal visual inspection and Yes no lymphadenopathy Thyroid: Thyroid normal Resp Effort & Inspection: normal respiratory effort and able to speak in complete sentences Auscultation: clear to auscultation bilaterally Cardio Rate: regular rate Rhythm: regular rhythm Heart sounds: Normal, physiologic split S2 sound present Peripheral pulses: radial pulses present and posterior tibial pulses present GI Inspection: No distended and No Abdominal panniculus present Palpation (GI): Soft to palpation, nontender, no guarding, not rigid and No hepatosplenomegaly present Percussion: Yes normal to percussion Auscultation: normal bowel sounds Rectal Exam - Male: Yes deferred Skin General skin exam: no rashes or lesions noted, turgor normal, skin not dry, no jaundice, No spider nevi and no striae Rashes: no rashes Nails: normal Neuro General: oriented to person, oriented to place and oriented to time Cranial nerves: Yes Equal, round and reactive pupils present and Yes Normal hearing present Speech: No Abnormal speech present Extrem General: Yes normal to inspection, No clubbing, No cyanosis and No edema Psych Appearance: grossly normal and well kempt Mental Status: mental status grossly normal Speech and movement: Normal speech and movement present Affect: normal affect Attitude: cooperative Thought process: Normal thought process present and not confabulating Thought content: Normal thought content present Insight: Fair insight present (Psych) Judgement: Fair judgement present (Psych) Assessment & Plan Assessment & Plan (1) Chronic idiopathic constipation: Code(s): K59.04 - Chronic idiopathic constipation (2) GERD without esophagitis: Code(s): K21.9 - Gastro-esophageal reflux disease without esophagitis Plan He is accompanied by his who is supportive. He had severe CIC again and diff breathing with severe LLQ pain. After the initial free coupon on they were never able to we deem the additional coupons because of Medicare restrictions. So to seems that we will have to work with the [id number] that her covered. In the past he seemed to be moving his bowels well, although he did not avoid those episodes of shortness of breath, when he would take 2 of the bisacodyl Friday and Friday. He went back to this dosing schedule when he could get the Linzess. I suggest that for now he try doing the 2 tabs every Friday and Friday and 1 tablet in the evening every other day of the week. He can cut back on this if he has diarrhea. We want to make sure that he can breathe a he does not go through these attacks of feeling short of breath as this is probably even more worrying than the left lower quadrant pain. He continues on famotidine 40 mg once a day with good control of his GERD. Another contributing factor is his amiodarone which is known to cause constipation, however this was discontinued by his rabies inspector about 3 weeks ago. Given the very long half-life of amiodarone he also may find that he needs to change the dosing of the bisacodyl as this medication leaves his system. Again, initially the constipation became a problem when he was put on this medication for his AFib. ROV 4 weeks. Medications: New bisacodyl 2 tabs M,W,F: 1 tab on all other nights orally 2 times a day; 60 tabs 6RF K59.04 - Chronic idiopathic constipation Discontinued bisacodyl Discontinued Reason: Doctor's Order 10 mg KS DAILY 12 days PRN 12 ea 0RF constipation amiodarone Take 2 tabs twice a day for 2 weeks (loading dose) - then reduce to one tab daily ( maintenance dose). Discontinued Reason: Doctor's Order 200 mg PO DAILY 30 days 70 tabs 1RF On Hold famotidine (Pepcid) Hold Comment: not helping 40 mg PO BEDTIME 30 tabs 6RF linaclotide (Linzess) Hold Comment: Doctor's Order 290 mcg PO QAM 30 days 30 caps 6RF K59.04 - Chronic idiopathic constipation Coding Level of Care Code Est Pt Level 3 (12303) Diagnoses Chronic idiopathic constipation K59.04 GERD without esophagitis K21.9
[2023-04-23 12:24] VITALS: BP 164/79; PULSE 78; BMI 25.4
== END 2023-04-23 13:22 | disposition home or self-care (01) ==
PROVIDERS: PCP Internal Medicine; Visit Provider Nurse Practitioner
DX: K59.04 Chronic idiopathic constipation (principal); K21.9 Gastro-esophageal reflux disease without esophagitis
CPT/HCPCS: 99213

== ENCOUNTER → 2023-04-23 11:51 | Outpatient (BNVA) | payer MEDICARE, MEDICAID, OTHER, SELFPAY | PROVIDERS: PCP Internal Medicine; Visit Provider Nurse Practitioner | DX: K59.04 Chronic idiopathic constipation (principal); K21.9 Gastro-esophageal reflux disease without esophagitis | CPT/HCPCS: 99212 ==

== ENCOUNTER 2023-05-27 10:08 | Outpatient (AMB) | payer MEDICARE, OTHER, MEDICAID, SELFPAY ==
--- NOTE | 2023-05-27 10:16 | MHC.OFFVIS ---
Intake Vital Signs 05/27/23 10:17 Height 6 ft 5 in Weight 218 lb 4.122 oz BMI 25.9 BP 140/62 H Blood Pressure Location Lt brachial Position Sitting Pulse 70 Pulse Source Pulse Oximeter Pulse Oximetry (%) 98 Oxygen Delivery Method Room Air Intake Visit Reasons: COPD Intake Note: pt is here for follow up and states he is at the same level, stomach issues still. Utilization Management Um Nurse Required: No Allergies No Known Drug Allergies Allergy (Verified 05/27/23 10:21) Unknown N.K.D.A. Allergy (Unknown, Uncoded 05/27/23 10:21) Unknown Medication List - Last Reconciled 05/27/23 by Dominique Monterroso MD albuterol sulfate 90 mcg/actuation 2 inhalations inhalation Q4H PRN apixaban (Eliquis) 5 mg PO BID aspirin 81 mg PO DAILY bisacodyl 2 tabs M,W,F: 1 tab on all other nights orally 2 times a day; comp.stocking,knee,long,medium As directed famotidine (Pepcid) 40 mg PO BEDTIME furosemide (Lasix) 20 mg PO DAILY linaclotide (Linzess) 290 mcg PO QAM 30 days polyethylene glycol 3350 (Miralax) 17 grams PO DAILY tiotropium bromide (Spiriva with HandiHaler) 1 cap inhalation DAILY Do you need a note to return to daycare/school/sports/work: No HPI COPD HPI Details 67 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 .HE IS HERE FOR HIS ROUTINE FOLLOW-UP LUCKILY HE HAS HAD NO ACUTE RESPIRATORY INFECTION CAUSING ANY ACUTE EXACERBATION. HIS MAIN COMPLAINT IS GETTING SHORT OF BREATH WHEN HE WALKS UP HILL OR WALKS AT A FAST PACE. HAS VERY LITTLE COUGH. OR WHEEZING HE USES SPIRIVA HANDIHALER ONCE A DAY AND, THE RESCUE INHALER ONLY RARELY. HE WAS IN ANNUAL LUNG SCREENING PROGRAM. BUT HIS LAST LDCT WAS IN 2020. [facility] Medical History H. pylori infection Essential hypertension Abdominal pain Constipation Shortness of breath Sinusitis Elevated BP without diagnosis of hypertension Hospital discharge follow-up Bronchitis Rib pain on left side Left flank pain Rib pain on right side Gastritis Pure hypercholesterolemia Paroxysmal atrial fibrillation Hypertension Smoker Chest pain Tubular adenoma of colon (~2010) Personal history of nicotine dependence COPD (chronic obstructive pulmonary disease) Surgical History History of endoscopy (~2018) History of colonoscopy (~2018) Family History Sister Breast cancer Social History Housing: House Alcohol intake: never Patient Tobacco Use Status: Former Tobacco user Quit Date: 2021 Years Smoked: 30 +/- e-Cigarette/Vaping Use: Never Used Second Hand Smoke Exposure: No Substance Use Type: Marijuana service: No Current occupational status: retired Cognitive needs: No Hearing needs: No Vision needs: No Review of Systems Const All systems reviewed & are unremarkable except as noted in HPI and below Eyes Reports no additional complaints ENT Reports no additional complaints Card Reports chest pain (Discomfort across the sternum manubrie), Denies pedal edema, Denies irregular heart rhythm and Denies leg edema Resp Reports as per HPI GI Reports no additional complaints Reports no additional complaints Musc Reports no additional complaints Skin/Breast Reports system reviewed and no additional complaints, except as documented Neuro Reports no additional complaints Psych Reports no additional complaints Physical Exam Const General: healthy appearing, comfortable, no acute distress, alert and awake Orientation/consciousness: patient oriented x3 HEENT Head: Yes normal to inspection General nose exam: No nasal polyps present, No nasal discharge present and Other nasal findings present (THICK YELLOW PHLEGM IS NOTED IN THE LEFT NOSTRIL.) Face and sinus: Yes sinuses nontender Mouth: oropharynx normal Throat: Yes posterior oropharynx normal (THERE IS MODERATE AMOUNT OF WHITISH YELLOW PHLEGM) Eyes General: appearance normal, both eyes and all related structures Neck Neck: Yes normal visual inspection, Yes no lymphadenopathy, Yes trachea midline and Yes no JVD Thyroid: Thyroid normal Chest Chest palpation & inspection: normal inspection of the chest, normal palpation of entire chest wall and no tenderness Resp Other: Percussion note is resonant, breath sounds are distant but equal on both sides. No wheezes or rhonchi are heard. Cardio Palpation: normal PMI Rate: regular rate Rhythm: regular rhythm Heart sounds: no gallops and no murmurs GI Palpation (GI): Soft to palpation, nontender, No hepatosplenomegaly present and no masses Auscultation: normal bowel sounds Back/Spine/Pelvis Thoracic/Lumbar Spine: thoracic and lumbar spine normal to inspection Skin General skin exam: no rashes or lesions noted Neuro General: patient oriented x3 and no focal motor deficits Cranial nerves: Yes CN's II-XII intact bilaterally Extrem General: Yes normal to inspection, Yes no clubbing, cyanosis or edema and Yes no calf tenderness Psych Appearance: grossly normal and well kempt Speech and movement: Normal speech and movement present Results Reviewed Results Reviewed: I reviewed the results of pulmonary function test in 2020 and subsequent spirometry, reports were. With him He has moderately severe obstructive airway disorder, without any response to BDs Assessment & Plan Assessment & Plan (1) COPD (chronic obstructive pulmonary disease): Comment: (COPD -MODERATELY SEVERE. SEEMS TO BE STABLE AT THIS TIME Code(s): J44.9 - Chronic obstructive pulmonary disease, unspecified Plan: TX: SPIRIVA HANDIHALER 1 INHALATION DAILY WHICH HE HAS BEEN USING REGULARLY. ALBUTEROL HFA 1 OR 2 PUFFS CUES 4-6 HOURS P.R.N.. HE HARDLY NEEDS TO USE IT. (2) Smoker: Comment: LONG-TIME SMOKER , HE HAS NOT SMOKED IN THE PAST ONE YEAR. Code(s): F17.200 - Nicotine dependence, unspecified, uncomplicated Plan: .COMMENDED FOR NOT SMOKING HE SHOULD CONTINUE IN ANNUAL LUNG SCREENING PROGRAM. I HAVE GENERATED THE REFERRAL AGAIN. Orders: Referrals Thoracic Surgery Referral F17.200 - Nicotine dependence, unspecified, uncomplicated, J44.9 - Chronic obstructive pulmonary disease, unspecified Coding Level of Care Code Est Pt Level 3 (65325) Diagnoses COPD (chronic obstructive pulmonary disease) J44.9 Smoker F17.200
[2023-05-27 10:17] VITALS: BP 140/62; PULSE 70; O2SAT 98; BMI 25.9
== END 2023-05-27 10:35 | disposition home or self-care (01) ==
PROVIDERS: PCP Internal Medicine; Visit Provider Internal Medicine
DX: J44.9 Chronic obstructive pulmonary disease, unspecified (principal); F17.200 Nicotine dependence, unspecified, uncomplicated
CPT/HCPCS: 99213

== ENCOUNTER → 2023-05-27 10:08 | Outpatient (BNVA) | payer MEDICARE, MEDICAID, SELFPAY | PROVIDERS: PCP Internal Medicine; Visit Provider Internal Medicine | DX: J44.9 Chronic obstructive pulmonary disease, unspecified (principal); Z87.891 Personal history of nicotine dependence | CPT/HCPCS: 99212 ==

== ENCOUNTER 2023-06-13 10:02 | Outpatient (AMB) | payer MEDICARE, OTHER, SELFPAY ==
--- NOTE | 2023-06-13 10:10 | A.OFFVIS_ITS ---
Intake Vital Signs 06/13/23 10:14 Height 6 ft 5 in Weight 210 lb 12.191 oz BMI 25.0 BP 179/93 H Blood Pressure Location Rt brachial Position Sitting Pulse 109 H Intake Visit Reasons: 4 week follow up Intake Note: Patient here for 4wk f/u constipation. Reports improvement with constipation. Patient states sleep has improved since last visit. Prepress Supervisor Required: No Accompanied by: Self / Same As Patient Allergies No Known Drug Allergies Allergy (Verified 06/16/23 10:12) Unknown N.K.D.A. Allergy (Unknown, Uncoded 06/16/23 10:12) Unknown HPI 4 week follow up HPI Details Assessment & Plan (1) Chronic idiopathic constipation: Code(s): K59.04 - Chronic idiopathic constipation (2) GERD without esophagitis: Code(s): K21.9 - Gastro-esophageal reflux disease without esophagitis Plan He is accompanied by his who is supportive. He had severe CIC again and diff breathing with severe LLQ pain. After the initial free coupon on they were never able to we deem the additional coupons because of Medicare restrictions. So to seems that we will have to work with the [id number] that her covered. In the past he seemed to be moving his bowels well, although he did not avoid those episodes of shortness of breath, when he would take 2 of the bisacodyl Friday and Friday. He went back to this dosing schedule when he could get the Linzess. I suggest that for now he try doing the 2 tabs every Friday and Friday and 1 tablet in the evening every other day of the week. He can cut back on this if he has diarrhea. We want to make sure that he can breathe a he does not go through these attacks of feeling short of breath as this is probably even more worrying than the left lower quadrant pain. He continues on famotidine 40 mg once a day with good control of his GERD. Another contributing factor is his amiodarone which is known to cause constipation, however this was discontinued by his mortgage loan processor about 3 weeks ago. Given the very long half-life of amiodarone he also may find that he needs to change the dosing of the bisacodyl as this medication leaves his system. Again, initially the constipation became a problem when he was put on this medication for his AFib. ROV 4 weeks. Medications: New bisacodyl 2 tabs M,W,F: 1 ta b on all other nig hts orally 2 times a day; 60 tabs 6 RF K59.04 - Chronic i diopathic constipa tion Discontinued bisacodyl Disco ntinued Reason: D octor's Order 10 mg NM DAILY 12 days PRN 12 ea 0R F constipation amiodarone Take 2 tabs twice a da y for 2 weeks (maura ding dose) - then reduce to one tab daily ( maintenanc e dose). Disco ntinued Reason: D octor's Order 200 mg PO DAILY 3 0 days 70 tabs 1RF On Hold famotidine (Pepcid ) Hold Comment: not helping 40 mg PO BEDTIME 30 tabs 6RF linaclotide (Linze ss) Hold Commen t: Doctor's Order 290 mcg PO QAM 30 days 30 caps 6RF K59.04 - Chronic i diopathic constipa tion TODAY'S VISIT He is doing much better with the bisacodyl, he says ?it has not perfect, but if I keep doing what you tell me I am feeling much better. ? His stomach problems and not waking him up as much only maybe twice a week which is a great improvement. He does know that if he has dietary indiscretions it will be worse and that ?if the heartburn stops nothing at all will stop it. ? He knows that tacos for instance which she enjoys eating did not sit well with him. For now he feels satisfied with his GI regimen of bisacodyl and famotidine. Return office visit in 6 months. [facility] Medical History H. pylori infection Essential hypertension Abdominal pain Constipation Shortness of breath Sinusitis Elevated BP without diagnosis of hypertension Hospital discharge follow-up Bronchitis Rib pain on left side Left flank pain Rib pain on right side Gastritis Pure hypercholesterolemia Paroxysmal atrial fibrillation Hypertension Smoker Chest pain Tubular adenoma of colon (~2010) Personal history of nicotine dependence COPD (chronic obstructive pulmonary disease) Surgical History History of endoscopy (~2018) History of colonoscopy (~2018) Family History Sister Breast cancer Social History Housing: House Alcohol intake: never Patient Tobacco Use Status: Former Tobacco user Quit Date: 2021 Years Smoked: 30 +/- e-Cigarette/Vaping Use: Never Used Second Hand Smoke Exposure: No Substance Use Type: Marijuana service: No Current occupational status: retired Cognitive needs: No Hearing needs: No Vision needs: No Review of Systems Const Denies fatigue, Denies fever(s), Denies night sweats, Denies poor appetite and Denies weight loss ENT Reports Normal hearing present, Denies dental pain, Denies dysphagia, Denies hearing loss, Denies mouth pain, Denies odynophagia, Denies throat swelling, Denies tongue swelling and Reports other (Dentition adequate) Card Reports no additional complaints Resp Reports no additional complaints GI Details: Denies abdominal pain, Denies melena, Denies bloating, Denies hematochezia, Reports constipation, Denies GI cramping, Denies dysphagia, Denies excessive flatus, Denies early satiety, Reports heartburn, Denies diarrhea, Denies nausea, Denies odynophagia, Denies vomiting and Denies hematemesis Skin/Breast Denies pruritus, Denies lesions, Denies rash and Denies jaundice Neuro Reports Normal hearing present and Denies Abnormal speech present Endo Denies fatigue Aller/Immun Denies throat swelling and Denies tongue swelling Physical Exam Vital Signs: Last Vital Signs Pulse 109 H 06/13/23 10:14 BP 179/93 H 06/13/23 10:14 BMI result Body Mass Index 25.0 Const General: cooperative, no acute distress, well developed and well groomed Nutritional Appearance: average body habitus and well nourished Orientation/consciousness: oriented to person, oriented to place and oriented to time Limitations: No language barrier HEENT Head: Yes normocephalic and Yes atraumatic Eyes General: appearance normal, both eyes and all related structures Pupils: Equal, round and reactive pupils present Neck Neck: Yes normal visual inspection and Yes no lymphadenopathy Thyroid: Thyroid normal Resp Effort & Inspection: normal respiratory effort and able to speak in complete sentences Auscultation: clear to auscultation bilaterally Cardio Rate: regular rate Rhythm: regular rhythm Heart sounds: Normal, physiologic split S2 sound present Peripheral pulses: radial pulses present and posterior tibial pulses present GI Inspection: No distended and No Abdominal panniculus present Palpation (GI): Soft to palpation, nontender, no guarding, not rigid and No hepatosplenomegaly present Percussion: Yes normal to percussion Auscultation: normal bowel sounds Rectal Exam - Male: Yes deferred Skin General skin exam: no rashes or lesions noted, turgor normal, skin not dry, no jaundice, No spider nevi and no striae Rashes: no rashes Nails: normal Neuro General: oriented to person, oriented to place and oriented to time Cranial nerves: Yes Equal, round and reactive pupils present and Yes Normal hearing present Speech: No Abnormal speech present Extrem General: Yes normal to inspection, No clubbing, No cyanosis and No edema Psych Appearance: grossly normal and well kempt Mental Status: mental status grossly normal Speech and movement: Normal speech and movement present Affect: normal affect Attitude: cooperative Thought process: Normal thought process present and not confabulating Thought content: Normal thought content present Insight: Fair insight present (Psych) Judgement: Fair judgement present (Psych) Assessment & Plan Assessment & Plan (1) Chronic idiopathic constipation: Code(s): K59.04 - Chronic idiopathic constipation (2) GERD without esophagitis: Code(s): K21.9 - Gastro-esophageal reflux disease without esophagitis Plan He is doing much better with the bisacodyl, he says ?it has not perfect, but if I keep doing what you tell me I am feeling much better. ? His stomach problems and not waking him up as much only maybe twice a week which is a great improvement. He does know that if he has dietary indiscretions it will be worse and that ?if the heartburn stops nothing at all will stop it. ? He knows that tacos for instance which she enjoys eating did not sit well with him. For now he feels satisfied with his GI regimen of bisacodyl and famotidine. Return office visit in 6 months. Medications: New bisacodyl (Dulcolax (bisacodyl)) 10 mg (2 x 5 mg) PO BEDTIME 60 tabs 6RF 30 days K59.04 - Chronic idiopathic constipation Discontinued linaclotide Discontinued Reason: Doctor's Order 290 mcg PO QAM 30 days 30 caps 6RF K59.04 - Chronic idiopathic constipation Resumed famotidine (Pepcid) 40 mg PO BEDTIME 30 tabs 6RF Coding Level of Care Code Est Pt Level 3 (56816) Diagnoses Chronic idiopathic constipation K59.04 GERD without esophagitis K21.9
[2023-06-13 10:14] VITALS: BP 179/93; PULSE 109; BMI 25.0
== END 2023-06-13 10:39 | disposition home or self-care (01) ==
PROVIDERS: PCP Internal Medicine; Visit Provider Nurse Practitioner
DX: K59.04 Chronic idiopathic constipation (principal); K21.9 Gastro-esophageal reflux disease without esophagitis
CPT/HCPCS: 99213

== ENCOUNTER → 2023-06-13 10:02 | Outpatient (BNVA) | payer MEDICARE, OTHER, SELFPAY | PROVIDERS: PCP Internal Medicine; Visit Provider Nurse Practitioner | DX: K59.04 Chronic idiopathic constipation (principal); K21.9 Gastro-esophageal reflux disease without esophagitis | CPT/HCPCS: 99212 ==

== ENCOUNTER 2023-06-16 09:59 | Outpatient (AMB) | payer MEDICARE, MEDICAID, SELFPAY ==
[2023-06-16 10:10] VITALS: BP 140/82; PULSE 94; BMI 25.7
--- NOTE | 2023-06-16 10:10 | MHC.OFFVIS ---
Intake Vital Signs 06/16/23 10:10 Height 6 ft 5 in Weight 216 lb 7.903 oz BMI 25.7 BP 140/82 H Blood Pressure Location Rt brachial Position Sitting Pulse 94 Pulse Source Pulse Oximeter Intake Visit Reasons: 3 mth fu (KM) Patient Accounting Representative Required: No Allergies No Known Drug Allergies Allergy (Verified 06/16/23 10:12) Unknown N.K.D.A. Allergy (Unknown, Uncoded 06/16/23 10:12) Unknown Medication List - Last Reconciled 06/16/23 by Christy Lomeli, [employer] albuterol sulfate 90 mcg/actuation 2 inhalations inhalation Q4H PRN apixaban (Eliquis) 5 mg PO BID aspirin 81 mg PO DAILY bisacodyl (Dulcolax (bisacodyl)) 10 mg (2 x 5 mg) PO BEDTIME 30 days comp.stocking,knee,long,medium As directed famotidine (Pepcid) 40 mg PO BEDTIME furosemide (Lasix) 20 mg PO DAILY polyethylene glycol 3350 (Miralax) 17 grams PO DAILY tiotropium bromide (Spiriva with HandiHaler) 1 cap inhalation DAILY HPI 3 mth fu (KM) HPI Details Elias is a 67-year-old male past medical history of smoking, COPD, hypertension, atrial fibrillation with prior cardioversion, recurrent paroxysmal AFib, TEO, Congestive heart failure, cardiomyopathy who was seen by Dr. Constantino for EP in March and was taken off amiodarone as it may contribute to his issue with constipation. His AFib was to be treated with heart rate control. He now presents for follow-up. Today he reports that he has been feeling generally well. He still has issues with intermittent constipation and abdominal pains. He is following with GI. Overall he says this has improved some. He denies any issues with heart palpitations, shortness of breath, chest discomfort at rest or with activity. No lightheadedness, presyncope, syncope, PND, orthopnea or edema. Taking meds as directed. No bleeding issues reported. [facility]MERLY [facility], [facility] Medical History H. pylori infection Essential hypertension Abdominal pain Constipation Shortness of breath Sinusitis Elevated BP without diagnosis of hypertension Hospital discharge follow-up Bronchitis Rib pain on left side Left flank pain Rib pain on right side Gastritis Pure hypercholesterolemia Paroxysmal atrial fibrillation Hypertension Smoker Chest pain Tubular adenoma of colon (~2010) Personal history of nicotine dependence COPD (chronic obstructive pulmonary disease) Surgical History History of endoscopy (~2018) History of colonoscopy (~2018) Family History Sister Breast cancer Social History Housing: House Alcohol intake: never Patient Tobacco Use Status: Former Tobacco user Quit Date: 2021 Smoked: 30 +/- e-Cigarette/Vaping Use: Never Used Second Hand Smoke Exposure: No Substance Use Type: Marijuana service: No Current occupational status: retired Cognitive needs: No Hearing needs: No Vision needs: No Review of Systems Const All systems reviewed & are unremarkable except as noted in HPI and below ENT Denies dizziness Card Denies chest pain, Denies chest pain at rest, Denies chest pain with activity, Denies rapid heart rate, Denies pedal edema, Denies edema, Denies leg edema, Denies lightheadedness, Denies palpitations, Denies dyspnea, Denies dyspnea on exertion and Denies orthopnea Resp Denies cough, Denies dyspnea and Denies dyspnea on exertion GI Denies hematochezia, Denies change in stool character, Reports constipation and Reports GI cramping Musc Denies abnormal gait, Denies limited range of motion, Denies muscle cramps, Denies muscle weakness, Denies numbness, Denies radiating pain into limb, Denies stiffness and Denies tingling Neuro Denies abnormal gait, Denies dizziness, Denies numbness and Denies tingling Endo Denies palpitations Physical Exam Vital Signs: Last Vital Signs Pulse 94 06/16/23 10:10 BP 140/82 H 06/16/23 10:10 BMI result Body Mass Index 25.7 Const General: cooperative, healthy appearing, comfortable and no acute distress Orientation/consciousness: patient oriented x3 Neck Neck: Yes normal visual inspection and Yes no JVD Resp Effort & Inspection: normal respiratory effort Auscultation: clear to auscultation bilaterally, no crackles, no rales, no rhonchi and no wheezes Cardio Jugular venous distension: no JVD Rate: regular rate Rhythm: abnormal rhythm Heart sounds: S1 normal heart sound present, S2 normal heart sound present, no murmurs and no rubs Peripheral pulses: Peripheral pulses 2+ throughout Neuro General: patient oriented x3 Extrem General: Yes normal to inspection and No no pedal edema Psych Appearance: grossly normal Mental Status: mental status grossly normal Speech and movement: Normal speech and movement present Office Procedures EKG Details: Today, read by me, atrial fibrillation, left axis deviation, rate 86, QTC 452 milliseconds [id number], Complete Assessment & Plan Assessment & Plan (1) Paroxysmal atrial fibrillation: Code(s): I48.0 - Paroxysmal atrial fibrillation Plan: Newer finding of atrial fibrillation during hospital admission July 2022 for chest pressure. He was noted to have AFib RVR which was treated for rate control and started on anticoagulation. He underwent a transesophageal echo and cardioversion on 07/29/2022 with successful conversion to sinus rhythm. An outpatient Holter monitor done on 08/02/2022 showed sinus rhythm with average heart rate 73, intermittent episodes of atrial fibrillation with burden 7.72%. This was then followed by persistent atrial fibrillation requiring amiodarone load and repeat cardioversion on 08/16/2022. Holter monitor done on 08/21 for 3 days shows sinus rhythm with average heart rate 48, 88% of the time heart rate below 60. His metoprolol was stopped and he was continued on amiodarone. He underwent an exercise stress test on 09/03/2022 with poor exercise tolerance due to shortness of breath, nondiagnostic EKGs. A pharmacological nuclear stress test was then done on 09/19/2022 showing normal myocardial perfusion imaging. Since then he did have cardiac catheterization as stated below. In March 2023 he was evaluated by Dr. Constantino for electrophysiology. Patient's primary complaint was of constipation and abdominal discomfort. It was thought that his amiodarone could be contributing to this symptom. Amiodarone was stopped. Patient tells me that also his metoprolol was stopped. EKG done today showing atrial fibrillation, rate 86. He is not noticing heart palpitations. At this time he is not on any rate control agents. Blood pressure is mildly elevated. Will be adding metoprolol XL 50 mg daily. Will plan to check Holter monitor prior to next visit. Cardiology office visit in 4 months, sooner if needed. (2) Stress-induced cardiomyopathy: Code(s): I51.81 - Takotsubo syndrome Plan: Recent [facility] admission for shortness of breath 11/2022. He ruled in for NSTEMI. Echocardiogram showed EF 20-25% with regional wall motion abnormalities. He was taken for cardiac catheterization showing only minimal luminal irregularities. He was then determined to have stress induced cardiomyopathy. His meds were adjusted and he was put on lisinopril and metoprolol XL to help with neurohormonal modulation. He had been on flecainide which was stopped due to congestive heart failure. He was diuresed and sent home with Lasix 20 mg daily. A repeat echocardiogram done at [facility] 01/2023 showed EF 60-65%, basal inferior inferior and inferior lateral akinetic. Today he reports that his breathing is comfortable. He recently had some leg edema and had restarted the Lasix which he had previously stopped. On exam he does not appear fluid overloaded. His EKG today is showing atrial fibrillation, rate 86. Blood pressure is mildly elevated today. His current med list no longer includes lisinopril or metoprolol. Is back on amlodipine for blood pressure control. Reviewed with Dr. Justen mendez. Will restart metoprolol XL 50 mg daily. Reviewed signs and symptoms of heart failure. (3) NSTEMI (non-ST elevated myocardial infarction): Code(s): I21.4 - Non-ST elevation (NSTEMI) myocardial infarction Plan: Troponin elevation in setting of stress-induced cardiomyopathy. (4) S/P cardiac catheterization: Comment: 12/18/2022, left main, lad, left circumflex, RCA each with luminal irregularities Code(s): Z98.890 - Other specified postprocedural states Plan: As above (5) Systolic heart failure: Code(s): I50.20 - Unspecified systolic (congestive) heart failure Qualifiers: Heart failure chronicity: acute Qualified Code(s): I50.21 - Acute systolic (congestive) heart failure Plan: Acute systolic heart failure during recent [facility] admission 11/2022. Diuresed input on Lasix 20 mg daily. Does not appear fluid overloaded on examination today (6) Hypertension: Code(s): I10 - Essential (primary) hypertension Qualifiers: Hypertension type: primary hypertension Qualified Code(s): I10 - Essential (primary) hypertension Plan: Blood pressure mildly elevated today. Restarting metoprolol (7) Constipation: Code(s): K59.00 - Constipation, unspecified Qualifiers: Constipation type: unspecified constipation type Qualified Code(s): K59.00 - Constipation, unspecified Plan: Following with GI Plan Time spent on chart review, documentation, interview assess Orders: Orders ECG 3 day holter monitor 3 Months I48.0 - Paroxysmal atrial fibrillation Medications: New metoprolol succinate ER 50 mg PO DAILY 90 tabs 3RF Coding Level of Care Code Est Pt Level 4 (17224) Diagnoses Paroxysmal atrial fibrillation I48.0 Stress-induced cardiomyopathy I51.81 NSTEMI (non-ST elevated myocardial infarction) I21.4 S/P cardiac catheterization Z98.890 Acute systolic heart failure I50.21 Heart failure chronicity: acute Primary hypertension I10 Hypertension type: primary hypertension Constipation, unspecified constipation type K59.00 Constipation type: unspecified constipation type CPT Codes EKG - CPT: 29820-[id number], Complete ([id number]) Time Spent (min) 30
== END 2023-06-16 10:33 | disposition home or self-care (01) ==
PROVIDERS: PCP Internal Medicine; Visit Provider Nurse Practitioner Family
DX: I48.0 Paroxysmal atrial fibrillation (principal); I51.81 Takotsubo syndrome; I21.4 Non-ST elevation (NSTEMI) myocardial infarction; Z98.890 Other specified postprocedural states; I50.21 Acute systolic (congestive) heart failure; I10 Essential (primary) hypertension; K59.00 Constipation, unspecified
CPT/HCPCS: 93010; 99214

== ENCOUNTER → 2023-06-16 09:59 | Outpatient (BNVA) | payer MEDICARE, MEDICAID, SELFPAY | PROVIDERS: PCP Internal Medicine; Visit Provider Nurse Practitioner Family | DX: I48.0 Paroxysmal atrial fibrillation (principal); I51.81 Takotsubo syndrome; I21.4 Non-ST elevation (NSTEMI) myocardial infarction; I50.21 Acute systolic (congestive) heart failure; I10 Essential (primary) hypertension; K59.00 Constipation, unspecified; Z98.890 Other specified postprocedural states | CPT/HCPCS: 93005; 99212 ==

== ENCOUNTER → 2023-06-20 09:05 | Outpatient (REF) | payer MEDICARE, MEDICAID, SELFPAY ==
--- NOTE | 2023-06-20 09:09 | HM_ITS ---
Conclusion: 1. Patient was monitored for total period of 3 days 2. Baseline was atrial fibrillation with average heart of 71 beats per minute with good rate control 3. No significant pauses noted 4. Frequent mostly isolated PVCs noted with total burden of 4.4% 5. Patient marked the counter 2 times with symptoms of chest pain shortness of breath correlating with PVCs MTDD
== END ==
LOC: HO.CARD 09:05
PROVIDERS: PCP Internal Medicine; Visit Provider Nurse Practitioner Family
DX: I48.0 Paroxysmal atrial fibrillation (principal)
CPT/HCPCS: 93242

== ENCOUNTER → 2023-06-20 09:09 | Outpatient (BNV) | payer MEDICARE, MEDICAID, SELFPAY | PROVIDERS: PCP Internal Medicine; Visit Provider Internal Medicine Cardiovascular Disease | DX: I48.0 Paroxysmal atrial fibrillation (principal) | CPT/HCPCS: 93244 ==

== ENCOUNTER 2023-07-24 10:44 | Outpatient (AMB) | payer MEDICARE, SELFPAY ==
[2023-07-24 10:50] VITALS: BP 144/90; PULSE 85; O2SAT 98; BMI 25.7
--- NOTE | 2023-07-24 10:50 | A.OFFPC_ITS ---
Vital Signs 07/24/23 10:50 Height 6 ft 5 in Weight 217 lb BMI 25.7 BP 144/90 H Blood Pressure Location Lt brachial Position Sitting Pulse 85 Pulse Source Pulse Oximeter Pulse Oximetry (%) 98 Oxygen Delivery Method Room Air Intake Visit Reasons: Constipation Engine Dispatcher Required: No Prepper: Not Required per policy Accompanied by: Self / Same As Patient Allergies No Known Drug Allergies Allergy (Verified 07/24/23 11:12) Unknown Medication List - Last Reconciled 07/25/23 by Efe Ricci MD albuterol sulfate 90 mcg/actuation 2 inhalations inhalation Q4H PRN apixaban (Eliquis) 5 mg PO BID aspirin 81 mg PO DAILY bisacodyl (Dulcolax (bisacodyl)) 10 mg (2 x 5 mg) PO BEDTIME 30 days comp.stocking,knee,long,medium As directed famotidine (Pepcid) 40 mg PO BEDTIME furosemide 20 mg PO DAILY metoprolol succinate ER 50 mg PO DAILY polyethylene glycol 3350 (Miralax) 17 grams PO DAILY tiotropium bromide (Spiriva with HandiHaler) 1 cap inhalation DAILY Tobacco use date assessed: 07/24/23 Fall risk assessment: No Falls in past year Last assessed Fall Risk: 07/24/23 Dental Screening Dental Screen Date: 07/24/23 Did you have a dental visit in the last 12 months?: No Did you have a dental problem in the last 6 months where you did not have access to dental care?: No Was dental information given to patient?: Patient has dentist HPI Constipation HPI Details Patient comes in today for his follow up visit - he was last seen by me on 10/11/2022 He was previously admitted to [facility] in November 2022 when he presented to the ER there with increasing SOB and was found to be in heart failure, with EF of only 25 to 30% at the time, an elevated troponin level and findings of TEO He had a recent cardiac catheterization done a couple of months prior (September 2022) that showed no significant coronary disease (myocardial perfusion was normal) and he was diagnosed with stress-induced cardiomyopathy His Flecainide and Amlodipine at the time were discontinued due to his CHF Amiodarone was started for his atrial fibrillation (patient has had 2 previous cardioversions but he eventually reverted back to AF) He was admitted to [facility] again briefly in January 2023 when he went to the ER with chest pains and discomfort Work ups done revealed (+) elevated troponin and findings of TEO again but his EF is now normal on echocardiogram His symptoms were thought to be more likely multifactorial, including his bouts with constipation recently, and not necessarily cardiac He was started on a maintenance bowel regimen and was referred to GI for his bowel issues and also to pulmonary for his recurrent SOB He was seen by Dr. Constantino ar [facility] in March 2023 for further consultation regarding his atrial fibrillation and was advised at this time to just continue with rate control going forward, as he has apparently failed cardioversion already twice It was thought that his increasing constipation at the time was due to his Amiodarone and this was discontinued Patient states that his bowel movements have been well-controlled since as long as he stays on his Miralax and Docusate He is currently on Eliquis for thromboembolism prophylaxis and Metoprolol ER for rate control States that he presently feels okay He denies any headaches or dizziness Denies any chest pains, no SOB No nausea/vomiting and no abdominal pain noted lately [facility] Medical History (Updated 07/25/23 @ 05:37 by Efe Ricci MD) Chronic kidney disease (CKD), stage II (mild) H. pylori infection Essential hypertension Constipation Sinusitis Bronchitis Gastritis Pure hypercholesterolemia Paroxysmal atrial fibrillation Smoker Tubular adenoma of colon (~2010) Personal history of nicotine dependence COPD (chronic obstructive pulmonary disease) Surgical History History of endoscopy (~2018) History of colonoscopy (~2018) Family History (Updated 07/24/23 @ 10:52 by YULIYA Partida) Sister Breast cancer Social History Housing: House Alcohol intake: never Patient Tobacco Use Status: Former Tobacco user Quit Date: 2021 Years Smoked: 30 +/- e-Cigarette/Vaping Use: Never Used Second Hand Smoke Exposure: No Substance Use Type: Marijuana service: No Current occupational status: retired Cognitive needs: No Hearing needs: No Vision needs: No Questionnaire PHQ-9 Over the last 2 weeks, how often have you been bothered by any of the following problems? 1. Little interest or pleasure in doing things: not at all 2. Feeling down, depressed, or hopeless: not at all 3. Trouble falling or staying asleep, or sleeping too much: not at all 4. Feeling tired or having little energy: not at all 5. Poor appetite or overeating: not at all 6. Feeling bad about yourself - or that you are a failure or have let yourself or your family down: not at all 7. Trouble concentrating on things, such as reading the newspaper or watching television: not at all 8. Moving or speaking so slowly that other people could have noticed. Or the opposite - being so fidgety or restless that you have been moving around a lot more than usual: several days 9. Thoughts that you would be better off or of hurting yourself in some way: not at all Total score: 1 Depression Screening Interpretation: Negative Depression Screening Done: Yes 82213 - PHQ-9 Billing: Yes Source: Developed by Drs. Kwan Nicholas, Shreya Dempsey, Sandoval Fuller and colleagues, with an educational em from [employer]. Thrive Questionnaire Date Thrive assessed: 07/24/23 I am a: Patient What is your living situation today?: I have a steady place to live Within the past 12 months, did the food you bought not last and you didn't have the money to get more?: Never true Within the past 12 months, did you worry whether your food would run out before you got money to buy more?: Never true Do you have trouble paying for medicines?: No Do you have trouble getting transportation to medical appointments?: No Do you have trouble paying your heating and electricity bill?: No Do you have trouble taking care of your child, family member or friend?: No Do you have trouble with day-to-day activities such as bathing, preparing meals, shopping, managing finances, etc.?: No Are you currently unemployed and looking for a job?: No Are you interested in more education?: No Please select the resources that you would like help with: None Currently or been in a relationship where the following occur: no concerns reported THRIVE Score: 0 AUDIT C Alcohol Use Questionnaire (AUDIT-C) 1. How often do you have a drink containing alcohol?: Never 3. How often do you have six or more drinks on one occasion?: Never Total Score: 0 Score Reviewed/Action Taken: Yes (score reviewed, no action needed) GENIE-7 AMB Questionnaire GENIE-7 Date GENIE - 7 assessed: 07/24/23 Feeling nervous, anxious, or on edge: 1 = Several days Not being able to stop or control worryin = Not at all Worrying too much about different things: 1 = Several days Trouble relaxin = Not at all Being so restless that it is hard to sit still: 0 = Not at all Becoming easily annoyed or irritable: 0 = Not at all Feeling afraid as if something awful might happen: 0 = Not at all Total GENIE-7 score (0-4 normal; 5-9 mild; 10-14 moderate; 15-21 severe): 2 Source: Developed by Drs. Kwan Nicholas, Shreya Dempsey, Sandoval Fuller and colleagues, with an educational em from [employer]. Review of Systems Const Denies chills, Reports fatigue (mild), Denies fever(s) and Denies headache(s) ENT Denies dysphagia, Denies dizziness, Denies otalgia, Denies headache(s), Denies neck pain, Denies odynophagia and Denies sore throat Card Denies chest pain, Denies palpitations and Reports dyspnea on exertion (mild) Resp Denies chest congestion, Denies cough, Reports dyspnea on exertion (mild) and Denies wheezing GI Denies abdominal pain, Reports constipation (controlled lately), Denies dysphagia, Denies heartburn, Denies diarrhea, Denies nausea, Denies odynophagia and Denies vomiting Denies dysuria, Denies nocturia and Denies urinary frequency Musc Denies back pain and Denies neck pain Skin/Breast Denies rash Neuro Denies dizziness and Denies headache(s) Endo Reports fatigue (mild) and Denies palpitations Aller/Immun Denies wheezing Physical exam (Primary Care) Vital Signs: Last Vital Signs Pulse 85 07/24/23 10:50 BP 144/90 H 07/24/23 10:50 Pulse Ox 98 07/24/23 10:50 Oxygen Delivery Method Room Air 07/24/23 10:50 BMI result Body Mass Index 25.7 Tobacco/Smoking Status: Tobacco use Status Tobacco use date assessed 07/24/23 07/24/23 10:52 Patient Tobacco Use Status Former Tobacco user 07/24/23 10:52 e-Cigarette/Vaping Use Never Used 07/24/23 10:52 PHQ-9: PHQ-9 Score PHQ-9: Total score 1 07/24/23 11:24 Depression Screening Interpretation: Negative Thrive Assessment: Date of Thrive Assessment Date Thrive assessed 07/24/23 07/24/23 10:52 Currently or been in a relationship where the following occur: no concerns reported Const General: no acute distress and alert HENMT Ears: TM's normal bilaterally and EAC's normal Throat: Yes posterior oropharynx normal and Yes tonsils normal (no TP congestion) Neck Neck: Yes no lymphadenopathy and Yes supple Thyroid: Thyroid normal Resp Auscultation: clear to auscultation bilaterally, no rales, no wheezes and diminished lung sounds (slightly) bilateral Cardio Rate: regular rate Rhythm: abnormal rhythm irregularly irregular Heart sounds: no murmurs GI Palpation (GI): Soft to palpation and nontender Auscultation: normal bowel sounds General: Yes no CVA tenderness Back/Spine/Pelvis Back: no CVA tenderness Skin Rashes: no rashes Extrem General: Yes no clubbing, cyanosis or edema Assessment and Plan Assessment & Plan (1) Persistent atrial fibrillation: Code(s): I48.19 - Other persistent atrial fibrillation Plan: Patient is currently in atrial fibrillation but is rate-controlled He's had 2 unsuccessful cardioversions in the past; was initially on Fleicanide but this had to be discontinued last year when patient developed stress-induced cardiomyopathy and also had NSTEMI He was more recently on Amiodarone but this was also discontinued due to his increasing constipation while on the Rx He was seen by Dr. Constantino at [facility] in March 2023 and was advised going forward to just continue with rate control for his AF Continue Apixaban 5 mg BID for thromboembolism prophylaxis and Metoprolol ER 50 mg QD for rate control Follow up with cardiology as scheduled (2) Stress-induced cardiomyopathy: Code(s): I51.81 - Takotsubo syndrome Plan: His EF was around 25 to 30% back in September 2022 when he presented to the ER with increasing SOB - was diagnosed with CHF and started on Furosemide 20 mg QD His EF has since improved back to normal a few months later He had a normal myocardial perfusion on stress testing in September 2022 and cardiac catheterization done last year also showed no significant coronary disease Continue Apirin 81 mg QD (3) Pure hypercholesterolemia: Code(s): E78.00 - Pure hypercholesterolemia, unspecified Plan: Reinforced low cholesterol diet His LDL cholesterol when last checked here at [facility] in September 2022 was still at 166 mg/dl He was started on Atorvastatin 10 mg QD last year but unclear how long he took it for as he reports that he has not been taking it for a while now Will have him recheck his labs and fasting lipids in 3 months for follow up (4) Constipation: Code(s): K59.00 - Constipation, unspecified Qualifiers: Constipation type: unspecified constipation type Qualified Code(s): K59.00 - Constipation, unspecified Plan: Patient states that this has been better controlled lately, as long as he stays on his regimen of Miralax 17 gm QD and Dulcolax 10 mg Q HS He is again reminded as well on increased oral fluids and dietary fiber intake Follow up with GI as scheduled (5) COPD (chronic obstructive pulmonary disease): Comment: (COPD -MODERATELY SEVERE. SEEMS TO BE STABLE AT THIS TIME Code(s): J44.9 - Chronic obstructive pulmonary disease, unspecified Qualifiers: COPD type: unspecified COPD Qualified Code(s): J44.9 - Chronic obstructive pulmonary disease, unspecified Plan: Stable Continue Spiriva Handihaler 18 mcg inhale contents of 1 capsule QD and Albuterol HFA 2 inhalations Q 6 hours PRN Follow up with pulmonary as scheduled (6) Chronic kidney disease (CKD), stage II (mild): Code(s): N18.2 - Chronic kidney disease, stage 2 (mild) Plan: He's had bouts of TEO on his hospital admissions to [facility] last year Follow up with nephrology as scheduled Will have patient recheck his labs and renal function in 3 months for follow up (7) GERD without esophagitis: Code(s): K21.9 - Gastro-esophageal reflux disease without esophagitis Plan: Dietary restrictions reinforced Continue Famotidine 40 mg Q HS Plan Follow up in 3 months Orders: Orders Complete Blood Count Auto Diff 3 Months D64.9 - Anemia, unspecified Comprehensive [place]. Panel Fast 3 Months E78.00 - Pure hypercholesterolemia, unspecified Lipid Panel 3 Months E78.00 - Pure hypercholesterolemia, unspecified Free T4 (Free Thyroxine) 3 Months R79.89 - Other specified abnormal findings of blood chemistry UA CC w/rflx Micro + Cult 3 Months R30.0 - Dysuria Vitamin D 25-OH Total 3 Months E55.9 - Vitamin D deficiency, unspecified B Type Natriuretic Peptide 3 Months I50.9 - Heart failure, unspecified, I51.81 - Takotsubo syndrome Thyroid Stimulating Hormone 3 Months R79.89 - Other specified abnormal findings of blood chemistry Coding Level of Care Code Est Pt Level 4 (20688) Diagnoses Persistent atrial fibrillation I48.19 Stress-induced cardiomyopathy I51.81 Pure hypercholesterolemia E78.00 Constipation, unspecified constipation type K59.00 Constipation type: unspecified constipation type Chronic obstructive pulmonary disease, unspecified COPD type J44.9 COPD type: unspecified COPD Chronic kidney disease (CKD), stage II (mild) N18.2 GERD without esophagitis K21.9
== END 2023-07-24 11:26 | disposition home or self-care (01) ==
PROVIDERS: PCP Internal Medicine; Visit Provider Internal Medicine
DX: K59.00 Constipation, unspecified (principal); I51.81 Takotsubo syndrome; E78.00 Pure hypercholesterolemia, unspecified; J44.9 Chronic obstructive pulmonary disease, unspecified; N18.2 Chronic kidney disease, stage 2 (mild); K21.9 Gastro-esophageal reflux disease without esophagitis
CPT/HCPCS: 99214

== ENCOUNTER 2023-08-15 11:00 | Outpatient (AMB) | payer MEDICARE, MEDICAID, SELFPAY ==
--- NOTE | 2023-08-15 07:53 | MHC.OFFVIS ---
Intake Visit Reasons: Former smoker Allergies No Known Drug Allergies Allergy (Verified 07/24/23 11:12) Unknown HPI HPI Former smoker: Details: Initial visit for this 68yo former smoker with a 40PYH. Patient started smoking at age 18 for 49 years at 1ppd. He quit smoking 1 year ago - 07/2022. . Reports marijuana use 1-2 times a week. Denies second hand smoke exposure. Denies exposure to chemicals or substances like asbestos. . Denies known family history of lung cancer. Denies personal history of cancers. Denies chest CT in last year. . Denies recent travel outside the [place]. Denies recent respiratory illness or recent hospitalization for respiratory issues. Reports testing positive for COVID. Admits receiving COVID Vaccine. x2. . History of ME in 11/2022. Denies fever, chills, new/worsening cough, hemoptysis, hoarseness or dysphagia. Denies significant chest pain, significant dyspnea or unintentional weight loss. Patient Lung Cancer Screening Questionnaire reviewed with patient by provider. . Shared Decision Making Completed. Patient meets criteria. Discussed in detail with patient, the risk vs benefit of LDCT screening. Patient consents to proceed with scan. Discussed and encouraged continued smoking cessation. [facility] Medical History (Updated 08/15/23 @ 11:18 by Radha Villanueva PA-C) Stress-induced cardiomyopathy Paroxysmal atrial fibrillation History of non-ST elevation myocardial infarction (NSTEMI) Essential hypertension Pure hypercholesterolemia Chronic kidney disease (CKD), stage II (mild) COPD (chronic obstructive pulmonary disease) Bronchitis Sinusitis Personal history of nicotine dependence H. pylori infection Constipation Gastritis Tubular adenoma of colon (~2010) Surgical History (Updated 08/15/23 @ 10:42 by Radah Villanueva PA-C) History of cardioversion History of cardiac cath History of endoscopy (~2018) History of colonoscopy (~2018) Family History (Updated 07/24/23 @ 10:52 by YULIYA Partida) Sister Breast cancer Social History (Updated 08/15/23 @ 11:19 by Radha Villanueva PA-C) Housing: House Alcohol intake: never Patient Tobacco Use Status: Former Tobacco user Quit Date: 07/2022 Years Smoked: (former smoker - onset 18yo, 1ppd x 49yrs, 40pyh - quit 07/2022) e-Cigarette/Vaping Use: Never Used Second Hand Smoke Exposure: No Substance Use Type: Marijuana service: No Current occupational status: retired Cognitive needs: No Hearing needs: No Vision needs: No Assessment & Plan Assessment & Plan (1) Personal history of nicotine dependence: Comment: (former smoker - onset 18yo, 1ppd x 49yrs, 40pyh - quit 07/2022) Code(s): Z87.891 - Personal history of nicotine dependence Category: Medical Plan: - SDM visit completed today in office. - Patient meets criteria for LDCT for lung cancer screening purposes and is asymptomatic. - Smoking cessation counseling offered. Patients can always call [phone]. - Will arrange for a LDCT scan of the chest for screening purposes at [facility]. - Risks, benefits, and alternatives were discussed in detail and the patient agrees to proceed. - Risks discussed include but are not limited to: radiation exposure, anxiety during testing and while awaiting results, false negatives, false positives and possibility of additional intervention such as further imaging or surgical procedures for benign disease. - Benefits are obviously detection of lung cancer at an early stage which can lead to improved outcomes. - Discussed the importance of screening program compliance with adherence to yearly LDCT scan as scheduled - or sooner interval scans for personalized screening regimen. - Discussed follow up plan. Our office will send a letter discussing results and if needed set up phone call and office visit based on CT findings. - Patient educated on results categorization and the management decisions for suspicious findings potentially found on the screening LDCT scan. Any patient with a Lung RADS score of 3 or 4 will be reviewed by a multidisciplinary team at [facility] to form a plan of action in regards to scan findings. - If further work up is warranted for a suspicious lung finding this will be followed by the Lung Cancer Screening program in conjunction with the Thoracic Surgery Department at [facility]. - A copy of the office note and LDCT will be sent to the patient's PCP - as well as documentation on any associated further plans of care. - Incidental findings on LDCT are the PCP's responsibility. These findings are indicated with an S finding on the LDCT Assessment. A note discussing the findings will be sent to the PCP who is then responsible for further management. - All questions answered.? Coding Level of Care Code Lung Cancer Screening G0296 Diagnoses Personal history of nicotine dependence Z87.891
== END 2023-08-15 11:30 | disposition home or self-care (01) ==
PROVIDERS: PCP Internal Medicine; Referring Provider Internal Medicine; Visit Provider Physician Assistant Medical
DX: Z87.891 Personal history of nicotine dependence (principal)
CPT/HCPCS: G0296

== ENCOUNTER 2023-08-15 11:27 | Outpatient (REF) | payer MEDICARE, MEDICAID, SELFPAY ==
--- NOTE | ~2023-08-15 | CT_ITS ---
EXAMINATION: CT CHEST SCREENING CLINICAL INFORMATION: Personal history of nicotine dependence. The patient has a 46 pack-year history of smoking, having quit 1 year ago. COMPARISON: X-ray chest 07/26/2022. CT chest 10/27/2020. TECHNIQUE: Multidetector volumetric CT imaging of the chest is performed on a Siemens SOMATOM Definition scanner without contrast using low dose technique. Additional 2D coronal and sagittal reformatted images and axial 3D maximum intensity projection (MIP) images are generated on the CT workstation. This CT examination was performed using dose optimization techniques as appropriate, variously including the following: *Automated exposure control *Adjustment of mA and/or kV according to patient size (this includes techniques or standardized protocols for targeted exams where dose is matched to indication/reason for exam; i.e. extremities or head) *Use of iterative reconstruction technique DLP: 64 mGy-cm FINDINGS: LUNGS: Marked bilateral biapical pleural-parenchymal scarring is present. Mild emphysematous changes are present. Diffuse [id number] bronchial thickening is seen. There are some unchanged lung nodules seen, the largest in the right lower lobe adjacent to the fissure measuring 4 mm (5:363, compare prior 5:397), along with a left lower lobe pleural-based 3 mm nodule (5:367, compare prior 5:411). The images of all nodules have been saved. MEDIASTINUM: The ascending aorta measures about 4 cm and is unchanged. Heart size normal. No mediastinal or hilar lymphadenopathy. CORONARY ARTERY CALCIFICATION: Mild. PLEURA: There is no pleural effusion. AXILLA: No lymphadenopathy. UPPER ABDOMEN: Unremarkable. OSSEOUS STRUCTURES: Mild degenerative changes are present in the spine. CT/CT lung screening IMPRESSION: No evidence of malignancy. Unchanged small pulmonary nodules ASSESSMENT: Lung-RADS category 2: Benign RECOMMENDATION: Routine annual low-dose CT screening in 12 months.
== END 2023-08-15 11:28 | disposition home or self-care (01) ==
LOC: HO.CT 11:27
PROVIDERS: PCP Internal Medicine; Visit Provider Nurse Practitioner Family
DX: Z12.2 Encounter for screening for malignant neoplasm of respiratory organs (principal); Z87.891 Personal history of nicotine dependence
CPT/HCPCS: 71271; G0296

== ENCOUNTER 2023-10-02 11:16 | Outpatient (AMB) | payer MEDICARE, MEDICAID, SELFPAY ==
[2023-10-02 11:33] VITALS: BP 112/80; PULSE 84; O2SAT 98; BMI 25.2
--- NOTE | 2023-10-02 11:33 | A.OFFVIS_ITS ---
Vital Signs 10/02/23 11:33 Height 6 ft 5 in Weight 212 lb 11.937 oz BMI 25.2 BP 112/80 Blood Pressure Location Lt brachial Position Sitting Pulse 84 Pulse Source Pulse Oximeter Pulse Oximetry (%) 98 Oxygen Delivery Method Room Air Intake Visit Reasons: copd Intake Note: pt is here for follow up and states he had a couple of episodes of breathing. 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 Allergies No Known Drug Allergies Allergy (Verified 10/02/23 11:40) Unknown Medication List - Last Reconciled 10/02/23 by Dominique Monterroso MD albuterol sulfate 90 mcg/actuation 2 inhalations inhalation Q4H PRN amlodipine 5 mg PO DAILY apixaban (Eliquis) 5 mg PO BID aspirin 81 mg PO DAILY bisacodyl (Dulcolax (bisacodyl)) 10 mg (2 x 5 mg) PO BEDTIME 30 days comp.stocking,knee,long,medium As directed famotidine (Pepcid) 40 mg PO BEDTIME furosemide 20 mg PO DAILY metoprolol succinate ER 50 mg PO DAILY polyethylene glycol 3350 (Miralax) 17 grams PO DAILY tiotropium bromide (Spiriva with HandiHaler) 1 cap inhalation DAILY HPI Comments Details: 68 YEARS OLD GENTLEMAN, WITH LONGSTANDING PAST HISTORY OF SMOKING BUT LUCKILY QUIT IN 2022. HE IS HERE FOR FOLLOW-UP. FAR COPD IS CONCERNED IS REMAINING VERY STABLE. HE DOES HAVE MILD INTERMITTENT COUGH, WHICH MAY BE DUE TO INTERMITTENT SMOKING. 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 HE DOES GET SHORT OF BREATH IF HE WALKS UP HILL OR CLIMBS STAIRS, . BUT HE IS COMFORTABLE AT REST USING SPIRIVA HANDIHALER 1 CAPSULE BY INHALATION DAILY AND ALBUTEROL HFA ONLY ONCE IN A WHILE. HE IS PARTICIPATING IN LUNG SCREENING PROGRAM, AND RECENT LDCT. IS BENIGN. [facility] Medical History Stress-induced cardiomyopathy Paroxysmal atrial fibrillation History of non-ST elevation myocardial infarction (NSTEMI) Essential hypertension Pure hypercholesterolemia Chronic kidney disease (CKD), stage II (mild) COPD (chronic obstructive pulmonary disease) Bronchitis Sinusitis Personal history of nicotine dependence H. pylori infection Constipation Gastritis Tubular adenoma of colon (~2010) Surgical History History of cardioversion History of cardiac cath History of endoscopy (~2018) History of colonoscopy (~2018) Family History Sister Breast cancer Social History Housing: House Alcohol intake: never Patient Tobacco Use Status: Former Tobacco user Years Smoked: (former smoker - onset 18yo, 1ppd x 49yrs, 40pyh - quit 07/2022) e-Cigarette/Vaping Use: Never Used Second Hand Smoke Exposure: No Substance Use Type: Marijuana service: No Current occupational status: retired Cognitive needs: No Hearing needs: No Vision needs: No Review of Systems Const All systems reviewed & are unremarkable except as noted in HPI and below Eyes Reports no additional complaints ENT Reports no additional complaints Card Reports chest pain (Discomfort across the sternum manubrie), Denies pedal edema, Denies irregular heart rhythm and Denies leg edema Resp Reports as per HPI GI Reports no additional complaints Reports no additional complaints Musc Reports no additional complaints Skin/Breast Reports system reviewed and no additional complaints, except as documented Neuro Reports no additional complaints Psych Reports no additional complaints Physical Exam Vital Signs: Last Vital Signs Pulse 84 10/02/23 11:33 BP 112/80 10/02/23 11:33 Pulse Ox 98 10/02/23 11:33 Oxygen Delivery Method Room Air 10/02/23 11:33 BMI result Body Mass Index 25.2 Const General: healthy appearing, comfortable, no acute distress, alert and awake Orientation/consciousness: patient oriented x3 HEENT Head: Yes normal to inspection General nose exam: No nasal polyps present, No nasal discharge present and Other nasal findings present (THICK YELLOW PHLEGM IS NOTED IN THE LEFT NOSTRIL.) Face and sinus: Yes sinuses nontender Mouth: oropharynx normal Throat: Yes posterior oropharynx normal (THERE IS MODERATE AMOUNT OF WHITISH YELLOW PHLEGM) Eyes General: appearance normal, both eyes and all related structures Neck Neck: Yes normal visual inspection, Yes no lymphadenopathy, Yes trachea midline and Yes no JVD Thyroid: Thyroid normal Chest Chest palpation & inspection: normal inspection of the chest, normal palpation of entire chest wall and no tenderness Resp Other: Percussion note is resonant, breath sounds are distant but equal on both sides. No wheezes or rhonchi are heard. Cardio Palpation: normal PMI Rate: regular rate Rhythm: regular rhythm Heart sounds: no gallops and no murmurs GI Palpation (GI): Soft to palpation, nontender, No hepatosplenomegaly present and no masses Auscultation: normal bowel sounds Back/Spine/Pelvis Thoracic/Lumbar Spine: thoracic and lumbar spine normal to inspection Skin General skin exam: no rashes or lesions noted Neuro General: patient oriented x3 and no focal motor deficits Cranial nerves: Yes CN's II-XII intact bilaterally Extrem General: Yes normal to inspection, Yes no clubbing, cyanosis or edema and Yes no calf tenderness Psych Appearance: grossly normal and well kempt Speech and movement: Normal speech and movement present Assessment & Plan Assessment & Plan (1) Personal history of nicotine dependence: Comment: (former smoker - onset 18yo, 1ppd x 49yrs, 40pyh - quit 07/2022), has cheated by smoking 1 or 2 cigarettes a day last month, may be due to stress, but not anymore. Code(s): Z87.891 - Personal history of nicotine dependence Category: Medical Plan: I told him that he should not go back to smoking at all . And he is agreeable (2) COPD (chronic obstructive pulmonary disease): Comment: (COPD -MODERATELY SEVERE. SEEMS TO BE STABLE AT THIS TIME Code(s): J44.9 - Chronic obstructive pulmonary disease, unspecified Category: Medical Qualifiers: COPD type: unspecified COPD Qualified Code(s): J44.9 - Chronic obstructive pulmonary disease, unspecified Plan: Continues Spiriva HandiHaler 1 inhalation daily. Albuterol HFA 2 puffs q.6 hours only p.r.n. Coding Level of Care Code Est Pt Level 3 (31917) Diagnoses Personal history of nicotine dependence Z87.891 Chronic obstructive pulmonary disease, unspecified COPD type J44.9 COPD type: unspecified COPD
== END 2023-10-02 11:47 | disposition home or self-care (01) ==
PROVIDERS: PCP Internal Medicine; Visit Provider Internal Medicine
DX: Z87.891 Personal history of nicotine dependence (principal); J44.9 Chronic obstructive pulmonary disease, unspecified
CPT/HCPCS: 99213

== ENCOUNTER → 2023-10-02 11:16 | Outpatient (BNVA) | payer MEDICARE, MEDICAID, SELFPAY | PROVIDERS: PCP Internal Medicine; Visit Provider Internal Medicine | DX: J44.9 Chronic obstructive pulmonary disease, unspecified (principal); Z87.891 Personal history of nicotine dependence | CPT/HCPCS: 99212 ==

== ENCOUNTER 2023-10-15 10:07 | Outpatient (AMB) | payer MEDICARE, MEDICAID, SELFPAY ==
[2023-10-15 10:10] VITALS: BP 160/74; PULSE 86; BMI 24.9
--- NOTE | 2023-10-15 10:10 | A.OFFVIS_ITS ---
Vital Signs 10/15/23 10:10 Height 6 ft 5 in Weight 210 lb 5.136 oz BMI 24.9 BP 160/74 H Blood Pressure Location Rt brachial Position Sitting Pulse 86 Pulse Source Pulse Oximeter Intake Visit Reasons: 4 mth f/up s/p holter DC Intake Note: pt is here for his 4 mnth f/up he state thats he have been having pain on the pack on his neck that comes to his chest, yesterday pt was SOB and could walk, but today pt state that he is more better. Printer'S Devil Required: No Accompanied by: Spouse Allergies No Known Drug Allergies Allergy (Verified 10/02/23 11:40) Unknown Medication List - Last Reconciled 10/15/23 by Jean Claude Tony MD albuterol sulfate 90 mcg/actuation 2 inhalations inhalation Q4H PRN amlodipine 5 mg PO DAILY apixaban (Eliquis) 5 mg PO BID aspirin 81 mg PO DAILY bisacodyl (Dulcolax (bisacodyl)) 10 mg (2 x 5 mg) PO BEDTIME 30 days comp.stocking,knee,long,medium As directed famotidine (Pepcid) 40 mg PO BEDTIME furosemide 20 mg PO DAILY metoprolol succinate ER 50 mg PO DAILY polyethylene glycol 3350 (Miralax) 17 grams PO DAILY tiotropium bromide (Spiriva with HandiHaler) 1 cap inhalation DAILY HPI Comments Details: 67-year-old gentleman who is here for follow-up. He presented to [facility] with COPD exacerbation and he was in Atrial fibrillation. He was complaining of atypical chest pain and dyspnea. He was treated for COPD and underwent KEVIN card ioversion. He was discharged home and plan was to exercise stress test on him and decide about starting anti arrhythmic therapy. He came back for stress testing but was tachycardic and was noticed to be back in atrial fibrillation. At that time was started on metoprolol succinate and stress test was not performed. 08/14/22: His returning for follow-up now. He is saying that his shortness of b reath is still present. He has COPD is under control but he continued to be short of breath. EKG in the office is showing atrial fib he also has atypical chest pain still happening. We discussed about starting amiodarone and re- attempt cardioversion. He was loaded with amiodarone and subsequently had successful cardioversion. He came back to office in September 2022 and was seen by Christy. At that time was complaining of constipation and multiple complaints. He had a stress test before that which was normal and after discussion his amiodarone was stopped and he was started on flecainide 50 mg twice a day. 10/30/22: He is here for follow-up. He has significant GI complaints ongoing. His main complaint is constipation. Also has nausea and abdominal discomfort. He has been taking medications as prescribed. He has been using laxatives including lactulose and senna. He is saying he drinks water and tries to hydrate himself. He does not take a lot of fiber in his diet. He is saying his breathing is improved but he is not back to his normal self. He has underlying COPD. He also has some peripheral edema. Clinically not in heart failure though. He also had some dizzy spells recently when he was out in the sun doing the heat wave. 03/19/2023: He returns for follow-up. He has been on amiodarone is currently is in sinus rhythm. He is saying his breathing is better. He is due to see electrophysiology next month at [facility] for consideration for AFib ablation. Continues to get abdominal issues and is closely following with GI. 10/15/23: He is returning for follow-up. He has seen our nurse practitioners previously. He was referred to EP but it appears it was felt that he has not very symptomatic from atrial fibrillation and also was getting significant GI issues with amiodarone amiodarone was discontinued. He has been on metoprolol succinate 50 mg once a day. He is complaining of neck pain and upper chest tightness ongoing for few days persistently. He was also getting some fevers. Has been coughing too. He does not smoke cigarettes but his daughter smokes inside the household. He also has acid reflux and is using Pepcid currently although previously was advised to be on omeprazole. He is saying he is feeling better today but for the last couple of days he was not doing well and was getting significant symptoms along with shortness of breath. [facility] Medical History Stress-induced cardiomyopathy Paroxysmal atrial fibrillation History of non-ST elevation myocardial infarction (NSTEMI) Essential hypertension Pure hypercholesterolemia Chronic kidney disease (CKD), stage II (mild) COPD (chronic obstructive pulmonary disease) Bronchitis Sinusitis Personal history of nicotine dependence H. pylori infection Constipation Gastritis Tubular adenoma of colon (~2010) Surgical History History of cardioversion History of cardiac cath History of endoscopy (~2018) History of colonoscopy (~2018) Family History Sister Breast cancer Social History Housing: House Alcohol intake: never Patient Tobacco Use Status: Former Tobacco user Years Smoked: (former smoker - onset 18yo, 1ppd x 49yrs, 40pyh - quit 07/2022) e-Cigarette/Vaping Use: Never Used Second Hand Smoke Exposure: No Substance Use Type: Marijuana service: No Current occupational status: retired Cognitive needs: No Hearing needs: No Vision needs: No Review of Systems Const Denies chills, Denies fatigue, Denies fever(s), Denies frequent falls, Denies weakness, Denies weight gain and Denies weight loss ENT Denies dizziness Card Denies chest pain, Denies leg edema, Denies lightheadedness, Denies palpitations, Denies dyspnea and Denies dyspnea on exertion Resp Denies cough, Denies dyspnea and Denies dyspnea on exertion GI Denies hematochezia Musc Denies abnormal gait, Denies muscle weakness, Denies numbness, Denies radiating pain into limb and Denies tingling Neuro Denies abnormal gait, Denies dizziness, Denies frequent falls, Denies numbness, Denies tingling and Denies weakness Endo Denies fatigue and Denies palpitations Physical Exam Vital Signs: Last Vital Signs Pulse 86 10/15/23 10:10 BP 160/74 H 10/15/23 10:10 BMI result Body Mass Index 24.9 Manual BP 140/70 GENERAL APPEARANCE: in no acute distress, pleasant. NECK: no carotid bruit, no jugular venous distention. SKIN: no suspicious lesions, warm and dry. HEART: no murmurs, regular rate and rhythm. LUNGS: clear to auscultation bilaterally. ABDOMEN: soft, nontender. EXTREMITIES: No significant edema. PERIPHERAL PULSES: equal. NEUROLOGIC: No gross deficits, AAO X 3 Assessment & Plan Assessment & Plan (1) Dyspnea: Code(s): R06.00 - Dyspnea, unspecified Category: Medical Plan [age] year gentleman who is here for follow-up. He has history of atrial fibrillation which was initially felt to be quite symptomatic because he was complaining of shortness of breath but despite cardioversion his symptoms do not improve and it was felt that most of his symptoms are related to underlying COPD and lung disease. He was referred for ablation but he was treated with rate control strategy and his amiodarone was discontinued. Heart rate control is better. His blood pressure is elevated. I have advised him to increase her metoprolol succinate to 50 mg twice a day. He is complaining of some neck and chest discomfort ongoing for few days. He also is complaining of some shortness of breath. We will check a chest x-ray and some basic labs. Based on that will go forward with further management plan. I have advised him to use omeprazole 30 minutes before breakfast. We will see him back in few months. Thank you for allowing me to participate in the care of your patient. Please feel free to contact me if you have any questions. Orders: Orders Troponin-I High Sensitivity Today R06.00 - Dyspnea, unspecified Complete Blood Count Auto Diff Today R06.00 - Dyspnea, unspecified XR chest 2V Today R06.00 - Dyspnea, unspecified Basic Metabolic Panel Today R06.00 - Dyspnea, unspecified B Type Natriuretic Peptide Today R06.00 - Dyspnea, unspecified Medications: Changed From metoprolol succinate ER 50 mg PO DAILY 90 tabs 3RF R06.00 - Dyspnea, unspecified To metoprolol succinate ER 50 mg PO BID 120 tabs 3RF R06.00 - Dyspnea, unspecified Coding Level of Care Code Est Pt Level 4 (49061) Diagnoses Dyspnea R06.00
== END 2023-10-15 10:50 | disposition home or self-care (01) ==
PROVIDERS: PCP Internal Medicine; Visit Provider Internal Medicine Cardiovascular Disease
DX: R06.00 Dyspnea, unspecified (principal)
CPT/HCPCS: 99214

== ENCOUNTER 2023-10-15 10:07 | Outpatient (REF) | payer MEDICARE, MEDICAID, SELFPAY ==
--- NOTE | ~2023-10-15 | XR_ITS ---
EXAMINATION: XR CHEST CLINICAL INFORMATION: Dyspnea. COMPARISON: CT chest 08/15/2023. Chest radiograph 07/26/2022. TECHNIQUE: 2 views of the chest were obtained. FINDINGS: The lungs are well-inflated. There is no gross pneumothorax. Heart size is normal. Degenerative changes in the thoracic spine. Redemonstration of bilateral biapical pleural-parenchymal scarring with mild emphysematous changes, better characterized on CT scan. Pulmonary nodules identified on CT scan of 08/15/2023 are too tiny to characterize adequately on this exam. No new focal consolidation to suggest pneumonia. Increased blunting of the posterior sulcus suggests small left pleural effusion. XR/XR chest 2V IMPRESSION: 1. Redemonstration of bilateral biapical pleural-parenchymal scarring with mild emphysematous changes, better characterized on CT scan. 2. Pulmonary nodules identified on CT scan of 08/15/2023 are too tiny to characterize adequately on this exam. 3. Increased blunting of the posterior sulcus suggests small left pleural effusion.
[2023-10-15 11:13] LABS: MANUAL DIFF FLAG NO
[2023-10-15 11:38] LABS: Basophils Absolute Auto 0.1 X10*3/uL (0.0-0.2); Basophils Percent Auto 0.9 % (0-2); Eosinophils Absolute Auto 0.6 X10*3/uL (0.0-0.4); Eosinophils Percent Auto 5.9 % (0-4); Hematocrit 40.4 % (42.0-52.0); Hemoglobin 13.8 g/dl (14.0-18.0); Imm Gran Abs Auto 0.02 X10*3/uL (0.00-0.03); Imm Gran Pct Auto 0.2 % (0.0-0.4); Lymphocytes Absolute Auto 2.4 X10*3/uL (1.2-4.9); Lymphocytes Percent Auto 25.2 % (20-40); Mean Corpuscular HGB Conc 34.2 g/dl (31.0-36.0); Mean Corpuscular Hemoglobin 31.6 pg (27.0-33.0); Mean Corpuscular Volume 92.4 fL (80.0-98.0); Mean Platelet Volume 9.9 fL (9.4-12.4); Monocytes Absolute Auto 0.8 X10*3/uL (0.1-1.2); Monocytes Percent Auto 8.2 % (2-11); Neutrophils Absolute Auto 5.6 x10*3/uL (2.0-8.3); Neutrophils Percent Auto 59.6 % (45-73); Platelet Count 277 X10*3/uL (160-400); Red Blood Count 4.37 X10*6/uL (4.60-5.80); Red Cell Distribution Width 15.4 % (11.0-16.0); White Blood Count 9.3 X10*3/uL (4.8-10.8)
[2023-10-15 12:30] LABS: Anion Gap 11 (12-20); Blood Urea Nitrogen 17 mg/dL (9-16); Calcium 9.8 mg/dL (8.4-10.2); Carbon Dioxide 26 mmol/L (22-29); Chloride 106 mmol/L (96-108); Estimated Glomerular Filt Rate 55; Glucose Random 95 mg/dL (60-115); Potassium 4.4 mmol/L (3.3-5.1); Sodium 139 mmol/L (135-145)
[2023-10-15 12:33] LABS: B Type Natriuretic Peptide 161 pg/mL (<100)
[2023-10-15 12:38] LABS: Troponin-I High Sensitivity < 2.7 ng/L (<3.5-35.0)
== END 2023-10-15 10:08 | disposition home or self-care (01) ==
LOC: HO.XRAY 10:07
PROVIDERS: PCP Internal Medicine; Visit Provider Internal Medicine Cardiovascular Disease
DX: R06.00 Dyspnea, unspecified (principal); J44.9 Chronic obstructive pulmonary disease, unspecified
CPT/HCPCS: 36415; 71046; 80048; 83880; 84484; 85025; 99212

== ENCOUNTER 2023-10-28 10:17 | Outpatient (REF) | payer MEDICARE, MEDICAID, SELFPAY ==
[2023-10-28 10:32] LABS: MANUAL DIFF FLAG NO
[2023-10-28 11:13] LABS: Basophils Absolute Auto 0.1 X10*3/uL (0.0-0.2); Basophils Percent Auto 1.2 % (0-2); Eosinophils Absolute Auto 0.7 X10*3/uL (0.0-0.4); Eosinophils Percent Auto 5.5 % (0-4); Hematocrit 41.5 % (42.0-52.0); Hemoglobin 13.9 g/dl (14.0-18.0); Imm Gran Abs Auto 0.03 X10*3/uL (0.00-0.03); Imm Gran Pct Auto 0.2 % (0.0-0.4); Lymphocytes Percent Auto 16.4 % (20-40); Mean Corpuscular HGB Conc 33.5 g/dl (31.0-36.0); Mean Corpuscular Hemoglobin 31.3 pg (27.0-33.0); Mean Corpuscular Volume 93.5 fL (80.0-98.0); Mean Platelet Volume 10.1 fL (9.4-12.4); Monocytes Absolute Auto 0.6 X10*3/uL (0.1-1.2); Monocytes Percent Auto 4.7 % (2-11); Neutrophils Absolute Auto 8.7 x10*3/uL (2.0-8.3); Platelet Count 278 X10*3/uL (160-400); Red Blood Count 4.44 X10*6/uL (4.60-5.80); Red Cell Distribution Width 15.1 % (11.0-16.0); White Blood Count 12.1 X10*3/uL (4.8-10.8)
[2023-10-28 11:44] LABS: Appearance Urine Clear; Color Urine Yellow; Glucose Urine UA Negative (Negative); Leukocyte Esterase Urine Negative (Negative); Nitrite Urine Negative (Negative); Urine Blood Negative (Negative); Urine Ketones Negative (Negative); Urine Protein Negative (Neg-Trace)
[2023-10-28 11:51] LABS: B Type Natriuretic Peptide 142 pg/mL (<100)
[2023-10-28 12:24] LABS: Alanine Aminotransferase 15 U/L (0-40); Albumin Level 4.3 g/dL (3.5-5.0); Alkaline Phosphatase 117 U/L (39-117); Anion Gap 12 (12-20); Aspartate Amino Transferase 16 U/L (5-37); Bilirubin Total 0.4 mg/dL (0.0-1.0); Blood Urea Nitrogen 19 mg/dL (9-16); Calcium 9.6 mg/dL (8.4-10.2); Carbon Dioxide 25 mmol/L (22-29); Chloride 106 mmol/L (96-108); Cholesterol 201 mg/dL (<200); Estimated Glomerular Filt Rate 55; Free T4 (Free Thyroxine) 1.02 ng/dL (0.71-1.85); Glucose Fasting 115 mg/dL (60-99); HDL Cholesterol 41 mg/dL (>40); LDL Cholesterol Calculated 128 mg/dL (<100); Potassium 3.8 mmol/L (3.3-5.1); Sodium 139 mmol/L (135-145); Total Protein 7.8 g/dL (6.5-8.0); Triglycerides 160 mg/dL (<150); Vitamin D 25-OH Total 10.4 ng/mL (>30)
== END 2023-10-28 10:18 | disposition home or self-care (01) ==
LOC: HO.LAB 10:17
PROVIDERS: PCP Internal Medicine; Visit Provider Internal Medicine
DX: E78.00 Pure hypercholesterolemia, unspecified (principal); D64.9 Anemia, unspecified; R30.0 Dysuria; E55.9 Vitamin D deficiency, unspecified; I50.9 Heart failure, unspecified; I51.81 Takotsubo syndrome; R79.89 Other specified abnormal findings of blood chemistry
CPT/HCPCS: 36415; 80053; 80061; 81003; 82306; 83880; 84439; 84443; 85025

== ENCOUNTER 2023-10-30 11:23 | Outpatient (AMB) | payer MEDICARE, MEDICAID, SELFPAY ==
[2023-10-30 11:25] VITALS: BP 138/80; PULSE 96; O2SAT 97; BMI 24.9
--- NOTE | 2023-10-30 11:25 | A.OFFPC_ITS ---
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 Allergies No Known Drug Allergies Allergy (Verified 10/30/23 11:56) Unknown Medication List - Last Reconciled 10/30/23 by Efe Ricci MD albuterol sulfate 90 mcg/actuation 2 inhalations inhalation Q4H PRN amlodipine 5 mg PO DAILY apixaban (Eliquis) 5 mg PO BID aspirin 81 mg PO DAILY bisacodyl (Dulcolax (bisacodyl)) 10 mg (2 x 5 mg) PO BEDTIME 30 days comp.stocking,knee,long,medium As directed famotidine (Pepcid) 40 mg PO BEDTIME furosemide 40 mg (2 x 20 mg) PO DAILY metoprolol succinate ER 50 mg PO DAILY polyethylene glycol 3350 (Miralax) 17 grams PO DAILY tiotropium bromide (Spiriva with HandiHaler) 1 cap inhalation DAILY Tobacco use date assessed: 07/24/23 Fall risk assessment: No Falls in past year Last assessed Fall Risk: 10/30/23 Dental Screening Dental Screen Date: 07/24/23 HPI AF, cardiomyopathy HPI Details Patient comes in today for his follow up visit States that he feels okay He denies any headaches or dizziness Denies any chest pains, still has some shortness of breath with exertion at times but states that this is mostly mild No nausea/ vomiting, no abdominal pain No change in bowel habits noted He had his follow-up labs done couple of days ago - to discuss his results [facility] Medical History (Updated 10/30/23 @ 12:22 by Efe Ricci MD) Vitamin D deficiency Stress-induced cardiomyopathy Paroxysmal atrial fibrillation History of non-ST elevation myocardial infarction (NSTEMI) Essential hypertension Pure hypercholesterolemia Chronic kidney disease (CKD), stage II (mild) COPD (chronic obstructive pulmonary disease) Bronchitis Sinusitis Personal history of nicotine dependence H. pylori infection Constipation Gastritis Tubular adenoma of colon (~2010) Surgical History History of cardioversion History of cardiac cath History of endoscopy (~2019) History of colonoscopy (~2019) Family History Sister Breast cancer Social History Housing: House Alcohol intake: never Patient Tobacco Use Status: Former Tobacco user Years Smoked: (former smoker - onset 18yo, 1ppd x 49yrs, 40pyh - quit 07/2022) e-Cigarette/Vaping Use: Never Used Second Hand Smoke Exposure: No Substance Use Type: Marijuana service: No Current occupational status: retired Cognitive needs: No Hearing needs: No Vision needs: No Questionnaire PHQ-9 Over the last 2 weeks, how often have you been bothered by any of the following problems? 1. Little interest or pleasure in doing things: not at all 2. Feeling down, depressed, or hopeless: not at all 3. Trouble falling or staying asleep, or sleeping too much: not at all 4. Feeling tired or having little energy: not at all 5. Poor appetite or overeating: not at all 6. Feeling bad about yourself - or that you are a failure or have let yourself or your family down: not at all 7. Trouble concentrating on things, such as reading the newspaper or watching television: not at all 8. Moving or speaking so slowly that other people could have noticed. Or the opposite - being so fidgety or restless that you have been moving around a lot more than usual: several days 9. Thoughts that you would be better off or of hurting yourself in some way: not at all Total score: 1 Depression Screening Interpretation: Negative Depression Screening Done: Yes 14177 - PHQ-9 Billing: Yes Source: Developed by Drs. Kwan Nicholas, Shreya Dempsey, Sandoval Fuller and colleagues, with an educational em from [employer]. Thrive Questionnaire Date Thrive assessed: 07/24/23 I am a: Patient What is your living situation today?: I have a steady place to live Within the past 12 months, did the food you bought not last and you didn't have the money to get more?: Never true Within the past 12 months, did you worry whether your food would run out before you got money to buy more?: Never true Do you have trouble paying for medicines?: No Do you have trouble getting transportation to medical appointments?: No Do you have trouble paying your heating and electricity bill?: No Do you have trouble taking care of your child, family member or friend?: No Do you have trouble with day-to-day activities such as bathing, preparing meals, shopping, managing finances, etc.?: No Are you currently unemployed and looking for a job?: No Are you interested in more education?: No Please select the resources that you would like help with: None THRIVE Score: 0 AUDIT C Alcohol Use Questionnaire (AUDIT-C) 1. How often do you have a drink containing alcohol?: Never 3. How often do you have six or more drinks on one occasion?: Never Total Score: 0 Score Reviewed/Action Taken: Yes (score reviewed, no action needed) GENIE-7 AMB Questionnaire GENIE-7 Date GENIE - 7 assessed: 07/24/23 Source: Developed by Drs. Kwan Nicholas, Shreya Dempsey, Sandoval Fuller and colleagues, with an educational em from [employer]. Review of Systems Const Denies chills, Reports fatigue (mild), Denies fever(s) and Denies headache(s) ENT Denies dysphagia, Denies dizziness, Denies otalgia, Denies headache(s), Denies neck pain, Denies odynophagia and Denies sore throat Card Denies chest pain, Denies palpitations and Reports dyspnea on exertion (mild) Resp Denies chest congestion, Denies cough, Reports dyspnea on exertion (mild) and Denies wheezing GI Denies abdominal pain, Reports constipation (controlled lately), Denies dysphagia, Denies heartburn, Denies diarrhea, Denies nausea, Denies odynophagia and Denies vomiting Denies dysuria, Denies nocturia and Denies urinary frequency Musc Denies back pain and Denies neck pain Skin/Breast Denies rash Neuro Denies dizziness and Denies headache(s) Endo Reports fatigue (mild) and Denies palpitations Aller/Immun Denies wheezing Physical exam (Primary Care) Vital Signs: Last Vital Signs Pulse 96 10/30/23 11:25 BP 138/80 10/30/23 11:25 Pulse Ox 97 10/30/23 11:25 Oxygen Delivery Method Room Air 10/30/23 11:25 BMI result Body Mass Index 24.9 Tobacco/Smoking Status: Tobacco use Status Tobacco use date assessed 07/24/23 10/30/23 11:26 Patient Tobacco Use Status Former Tobacco user 10/30/23 11:26 e-Cigarette/Vaping Use Never Used 10/30/23 11:26 PHQ-9: PHQ-9 Score PHQ-9: Total score 1 10/31/23 00:12 Depression Screening Interpretation: Negative Thrive Assessment: Date of Thrive Assessment Date Thrive assessed 07/24/23 10/30/23 11:26 Const General: no acute distress and alert HENMT Ears: TM's normal bilaterally and EAC's normal Throat: Yes posterior oropharynx normal and Yes tonsils normal (no TP congestion) Neck Neck: Yes no lymphadenopathy and Yes supple Thyroid: Thyroid normal Resp Auscultation: clear to auscultation bilaterally, no rales, no wheezes and diminished lung sounds (slightly) bilateral Cardio Rate: regular rate Rhythm: abnormal rhythm irregularly irregular Heart sounds: no murmurs GI Palpation (GI): Soft to palpation and nontender Auscultation: normal bowel sounds General: Yes no CVA tenderness Back/Spine/Pelvis Back: no CVA tenderness Skin Rashes: no rashes Extrem General: Yes no clubbing, cyanosis or edema Results Reviewed Results Reviewed: Laboratory Tests 10/28/23 10/28/23 10:31 10:54 WBC 12.1 H Hgb 13.9 L Hct 41.5 L Plt Count 278 Sodium 139 Potassium 3.8 Creatinine 1.31 Estimated GFR 55 Fasting Glucose 115 H Calcium 9.6 AST 16 ALT 15 B-Natriuretic Peptide 142 H Triglycerides 160 H Cholesterol 201 H LDL Cholesterol, Calc 128 H HDL Cholesterol 41 25-OH Vitamin D Total 10.4 L TSH 5.30 H Free T4 1.02 Ur Specific [place] 1.010 Urine Protein Negative Urine Glucose (UA) Negative Urine Blood Negative Urine Nitrite Negative Ur Leukocyte Esterase Negative Assessment and Plan Assessment & Plan (1) Persistent atrial fibrillation: Code(s): I48.19 - Other persistent atrial fibrillation Plan: Patient is currently still in atrial fibrillation but is rate-controlled He's had 2 unsuccessful cardioversions in the past; was initially on Fleicanide but this had to be discontinued last year when patient developed stress-induced cardiomyopathy and also had NSTEMI He was more recently on Amiodarone but this was also discontinued due to his increasing constipation while on the Rx He was seen by Dr. Constantino at [facility] in March 2023 and was advised going forward to just continue with rate control for his AF Continue Apixaban 5 mg BID for thromboembolism prophylaxis and Metoprolol ER 50 mg QD for rate control Follow up with cardiology as scheduled (2) Stress-induced cardiomyopathy: Code(s): I51.81 - Takotsubo syndrome Plan: His EF was around 25 to 30% back in September 2022 when he presented to the ER with increasing SOB - was diagnosed with CHF and started on Furosemide 20 mg QD His EF has since improved back to normal a few months later He had a normal myocardial perfusion on stress testing in September 2022 and cardiac catheterization done last year also showed NO significant coronary disease Continue Aspirin 81 mg QD (3) Pure hypercholesterolemia: Code(s): E78.00 - Pure hypercholesterolemia, unspecified Plan: Results of his labs done a couple of days ago reviewed and discussed with patient - his LDL cholesterol has improved to 128 mg/dl on his recent labs (was at 166 mg/dl last year); total cholesterol is still at 201 mg/dl Reinforced low cholesterol diet He was started on Atorvastatin 10 mg QD last year but unclear how long he took it for as he reports that he has not been taking it for a while now Will start him back on Atorvastatin 10 mg Q HS Will have him recheck his labs and fasting lipids in 3 months for follow up (4) COPD (chronic obstructive pulmonary disease): Comment: (COPD -MODERATELY SEVERE. SEEMS TO BE STABLE AT THIS TIME Code(s): J44.9 - Chronic obstructive pulmonary disease, unspecified Qualifiers: COPD type: unspecified COPD Qualified Code(s): J44.9 - Chronic obstructive pulmonary disease, unspecified Plan: Stable although he still reports experiencing frequent SOB and SAMPSON Continue Spiriva Handihaler 18 mcg inhale contents of 1 capsule QD and Albuterol HFA 2 inhalations Q 6 hours PRN Will try starting him additionally on Montelukast 10 mg Q PM, especially with his recent eosinophilia, although have advised him that this may or may not necessarily help but he is willing to try anything that will help with his breathing He has quit smoking in 2022 and has not gone back to smoking so far Follow up with pulmonary as scheduled (5) Constipation: Code(s): K59.00 - Constipation, unspecified Qualifiers: Constipation type: unspecified constipation type Qualified Code(s): K59.00 - Constipation, unspecified Plan: Patient states that this has been better controlled lately, as long as he stays on his regimen of Miralax 17 gm QD and Dulcolax 10 mg Q HS He is again reminded on increased oral fluids and dietary fiber intake Follow up with GI as scheduled (6) Chronic kidney disease (CKD), stage II (mild): Code(s): N18.2 - Chronic kidney disease, stage 2 (mild) Plan: He's had bouts of TEO on his hospital admissions to [facility] last year but his renal function appears stable on his recent labs Follow up with nephrology as scheduled Will have patient recheck his labs and renal function in 3 months for follow up (7) Vitamin D deficiency: Code(s): E55.9 - Vitamin D deficiency, unspecified Plan: He is advised that his Vitamin D level is very low on his recent labs Will start him on Vitamin D3 2000 units QD (8) Eosinophilia: Code(s): D72.10 - Eosinophilia, unspecified Qualifiers: Eosinophilia type: unspecified eosinophilia Qualified Code(s): D72.10 - Eosinophilia, unspecified Plan: Have discussed with patient that his recent labs showed (+) leucocytosis and eosinpophilia - unclear at this time what is causing these Will test him for IgE Ab level with his next labs in 3 months Will also recheck his CBC in 3 months for follow up (9) Impaired fasting glucose: Code(s): R73.01 - Impaired fasting glucose Plan: Have also cautioned patient that his FBS is again elevated on his recent labs Reinforced low calorie/low carb diet Will recheck his FBS in 3 months; will also check his HgbA1c then for further evaluation (10) GERD without esophagitis: Code(s): K21.9 - Gastro-esophageal reflux disease without esophagitis Plan: Dietary restrictions reinforced Continue Famotidine 40 mg Q HS Plan Follow up in 3 months Orders: Orders Complete Blood Count Auto Diff 3 Months D64.9 - Anemia, unspecified IgE Antibody (Anti-IgE IgG) 3 Months D72.10 - Eosinophilia, unspecified B Type Natriuretic Peptide 3 Months I50.9 - Heart failure, unspecified UA CC w/rflx Micro + Cult 3 Months R30.0 - Dysuria Comprehensive [place]. Panel Fast 3 Months E78.00 - Pure hypercholesterolemia, unspecified Lipid Panel 3 Months E78.00 - Pure hypercholesterolemia, unspecified Hemoglobin A1c 3 Months R73.01 - Impaired fasting glucose Thyroid Stimulating Hormone 3 Months R79.89 - Other specified abnormal findings of blood chemistry Free T4 (Free Thyroxine) 3 Months R79.89 - Other specified abnormal findings of blood chemistry Vitamin D 25-OH Total 3 Months E55.9 - Vitamin D deficiency, unspecified Vitamin B12 and Folate 3 Months E53.8 - Deficiency of other specified B group vitamins Medications: New montelukast 10 mg PO QPM 90 tabs 1RF 90 days atorvastatin 10 mg PO BEDTIME 90 tabs 1RF 90 days cholecalciferol (vitamin D3) 50 mcg PO DAILY 90 caps 3RF 90 days E55.9 - Vitamin D deficiency, unspecified Coding Level of Care Code Est Pt Level 4 (12915) Complex EM visit Add On G2211 Diagnoses Persistent atrial fibrillation I48.19 Stress-induced cardiomyopathy I51.81 Pure hypercholesterolemia E78.00 Chronic obstructive pulmonary disease, unspecified COPD type J44.9 COPD type: unspecified COPD Constipation, unspecified constipation type K59.00 Constipation type: unspecified constipation type Chronic kidney disease (CKD), stage II (mild) N18.2 Vitamin D deficiency E55.9 Eosinophilia, unspecified type D72.10 Eosinophilia type: unspecified eosinophilia Impaired fasting glucose R73.01 GERD without esophagitis K21.9
== END 2023-10-30 12:10 | disposition home or self-care (01) ==
PROVIDERS: PCP Internal Medicine; Visit Provider Internal Medicine
DX: I48.19 Other persistent atrial fibrillation (principal); J44.9 Chronic obstructive pulmonary disease, unspecified; I51.81 Takotsubo syndrome; E78.00 Pure hypercholesterolemia, unspecified; K59.00 Constipation, unspecified; N18.2 Chronic kidney disease, stage 2 (mild); E55.9 Vitamin D deficiency, unspecified; D72.10 Eosinophilia, unspecified; R73.01 Impaired fasting glucose; K21.9 Gastro-esophageal reflux disease without esophagitis
CPT/HCPCS: 99214; G2211

== ENCOUNTER 2023-12-12 09:59 | Outpatient (AMB) | payer MEDICARE, MEDICAID, SELFPAY ==
[2023-12-12 10:14] VITALS: BP 152/84; PULSE 87; BMI 25.1
--- NOTE | 2023-12-12 10:14 | MHC.OFFVIS ---
Vital Signs 12/12/23 10:14 Height 6 ft 5 in Weight 211 lb 10.3 oz BMI 25.1 BP 152/84 H Blood Pressure Location Rt brachial Position Sitting Pulse 87 Intake Visit Reasons: 6 month follow up CIC, GERD Intake Note: Patient in office today in follow up of constipation. CC: Patient states that he has constipation if he forgets to take his medication but other than that he is doing well. 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 ? His stomach problems and not waking him up as much only maybe twice a week which is a great improvement. He does know that if he has dietary indiscretions it will be worse and that ?if the heartburn stops nothing at all will stop it. ? He knows that tacos for instance which she enjoys eating did not sit well with him. For now he feels satisfied with his GI regimen of bisacodyl and famotidine. Return office visit in 6 months. Medications: New bisacodyl (Dulcolax (bisacodyl)) 10 mg (2 x 5 mg) PO BEDTIME 60 tabs 6RF 30 days K59.04 - Chronic idiopathic constipation Discontinued linaclotide Discontinued Reason: Doctor's Order 290 mcg PO QAM 30 days 30 caps 6RF K59.04 - Chronic idiopathic constipation Resumed famotidine (Pepcid) 40 mg PO BEDTIME 30 tabs 6RF TODAY'S VISIT She continues to do well on his bisacodyl 2 qhs and famotidine prn. He is quite happy with this. Return office visit in 6 months PFSH Medical History Vitamin D deficiency Stress-induced cardiomyopathy Paroxysmal atrial fibrillation History of non-ST elevation myocardial infarction (NSTEMI) Essential hypertension Pure hypercholesterolemia Chronic kidney disease (CKD), stage II (mild) COPD (chronic obstructive pulmonary disease) Bronchitis Sinusitis Personal history of nicotine dependence H. pylori infection Constipation Gastritis Tubular adenoma of colon (~2010) Surgical History (Updated 12/12/23 @ 10:37 by GEOFF Gutierrez) History of cardioversion History of cardiac cath History of endoscopy (~2018) History of colonoscopy (~2018) Family History Sister Breast cancer Social History Housing: House Alcohol intake: never Patient Tobacco Use Status: Former Tobacco user Years Smoked: (former smoker - onset 18yo, 1ppd x 49yrs, 40pyh - quit 07/2022) e-Cigarette/Vaping Use: Never Used Second Hand Smoke Exposure: No Substance Use Type: Marijuana service: No Current occupational status: retired Cognitive needs: No Hearing needs: No Vision needs: No Review of Systems Const Denies fatigue, Denies fever(s), Denies night sweats, Denies poor appetite and Denies weight loss ENT Reports Normal hearing present, Denies dental pain, Denies dysphagia, Denies hearing loss, Denies mouth pain, Denies odynophagia, Denies throat swelling, Denies tongue swelling and Reports other (Dentition adequate) Card Reports no additional complaints Resp Reports no additional complaints GI Details: Denies abdominal pain, Denies melena, Denies bloating, Denies hematochezia, Reports constipation, Denies GI cramping, Denies dysphagia, Denies excessive flatus, Denies early satiety, Denies heartburn, Denies diarrhea, Denies nausea, Denies odynophagia, Denies vomiting and Denies hematemesis Skin/Breast Denies pruritus, Denies lesions, Denies rash and Denies jaundice Neuro Reports Normal hearing present and Denies Abnormal speech present Endo Denies fatigue Aller/Immun Denies throat swelling and Denies tongue swelling Physical Exam Vital Signs: Last Vital Signs Pulse 87 12/12/23 10:14 BP 152/84 H 12/12/23 10:14 BMI result Body Mass Index 25.1 Const General: cooperative, no acute distress, well developed and well groomed Nutritional Appearance: average body habitus and well nourished Orientation/consciousness: oriented to person, oriented to place and oriented to time Limitations: No language barrier HEENT Head: Yes normocephalic and Yes atraumatic Eyes General: appearance normal, both eyes and all related structures Pupils: Equal, round and reactive pupils present Neck Neck: Yes normal visual inspection and Yes no lymphadenopathy Thyroid: Thyroid normal Resp Effort & Inspection: normal respiratory effort and able to speak in complete sentences Auscultation: clear to auscultation bilaterally Cardio Rate: regular rate Rhythm: regular rhythm Heart sounds: Normal, physiologic split S2 sound present Peripheral pulses: radial pulses present and posterior tibial pulses present GI Inspection: No distended and No Abdominal panniculus present Palpation (GI): Soft to palpation, nontender, no guarding, not rigid and No hepatosplenomegaly present Percussion: Yes normal to percussion Auscultation: normal bowel sounds Rectal Exam - Male: Yes deferred Skin General skin exam: no rashes or lesions noted, turgor normal, skin not dry, no jaundice, No spider nevi and no striae Rashes: no rashes Nails: normal Neuro General: oriented to person, oriented to place and oriented to time Cranial nerves: Yes Equal, round and reactive pupils present and Yes Normal hearing present Speech: No Abnormal speech present Extrem General: Yes normal to inspection, No clubbing, No cyanosis and No edema Psych Appearance: grossly normal and well kempt Mental Status: mental status grossly normal Speech and movement: Normal speech and movement present Affect: normal affect Attitude: cooperative Thought process: Normal thought process present and not confabulating Thought content: Normal thought content present Insight: Good insight present (Psych) Judgement: Good judgement present (Psych) Assessment & Plan Assessment & Plan (1) Chronic idiopathic constipation: Code(s): K59.04 - Chronic idiopathic constipation Category: Medical (2) GERD without esophagitis: Code(s): K21.9 - Gastro-esophageal reflux disease without esophagitis Category: Medical Plan She continues to do well on his bisacodyl 2 qhs and famotidine prn. He is quite happy with this. Return office visit in 6 months Medications: Refilled famotidine 40 mg PO BEDTIME 90 tabs 2RF bisacodyl (Dulcolax (bisacodyl)) 10 mg (2 x 5 mg) PO BEDTIME 60 tabs 6RF 30 days K59.04 - Chronic idiopathic constipation Coding Level of Care Code Est Pt Level 3 (31343) Diagnoses Chronic idiopathic constipation K59.04 GERD without esophagitis K21.9
== END 2023-12-12 10:41 | disposition home or self-care (01) ==
PROVIDERS: PCP Internal Medicine; Visit Provider Nurse Practitioner
DX: K59.04 Chronic idiopathic constipation (principal); K21.9 Gastro-esophageal reflux disease without esophagitis
CPT/HCPCS: 99213

== ENCOUNTER → 2023-12-12 09:59 | Outpatient (BNVA) | payer MEDICARE, MEDICAID, SELFPAY | PROVIDERS: PCP Internal Medicine; Visit Provider Nurse Practitioner | DX: K59.04 Chronic idiopathic constipation (principal); K21.9 Gastro-esophageal reflux disease without esophagitis | CPT/HCPCS: 99212 ==

== ENCOUNTER 2024-01-12 14:58 | Outpatient (AMB) | payer MEDICARE, MEDICAID, SELFPAY ==
[2024-01-12 15:03] VITALS: BP 140/70; PULSE 95; BMI 25.7
--- NOTE | 2024-01-12 15:03 | MHC.OFFVIS ---
Vital Signs 01/12/24 15:03 Height 6 ft 5 in Weight 216 lb 7.903 oz BMI 25.7 BP 140/70 H Blood Pressure Location Lt brachial Position Sitting Pulse 95 Pulse Source Pulse Oximeter Intake Visit Reasons: 3m follow up Intake Note: 3 mth f/up- pt state that he have been SOB for the 2 days [employer] Required: No Accompanied by: Self / Same As Patient Allergies No Known Drug Allergies Allergy (Verified 12/12/23 10:15) Unknown Medication List - Last Reconciled 01/12/24 by Jean Claude Tony MD albuterol sulfate 90 mcg/actuation 2 inhalations inhalation Q4H PRN amlodipine 5 mg PO DAILY apixaban (Eliquis) 5 mg PO BID aspirin 81 mg PO DAILY atorvastatin 10 mg PO BEDTIME 90 days bisacodyl (Dulcolax (bisacodyl)) 10 mg (2 x 5 mg) PO BEDTIME 30 days cholecalciferol (vitamin D3) 50 mcg PO DAILY 90 days comp.stocking,knee,long,medium As directed famotidine 40 mg PO BEDTIME furosemide 40 mg (2 x 20 mg) PO DAILY metoprolol succinate ER 50 mg PO DAILY montelukast 10 mg PO QPM 90 days polyethylene glycol 3350 (Miralax) 17 grams PO DAILY tiotropium bromide (Spiriva with HandiHaler) 1 cap inhalation DAILY HPI Comments Details: 68-year-old gentleman who is here for follow-up. He presented to [facility] with COPD exacerbation and he was in Atrial fibrillation. He was complaining of atypical chest pain and dyspnea. He was treated for COPD and underwent KEVIN cardioversion. He was discharged home and plan was to exercise stress test on him and decide about starting anti arrhythmic therapy. He came back for stress testing but was tachycardic and was noticed to be back in atrial fibrillation. At that time was started on metoprolol succinate and stress test was not performed. 08/14/22: His returning for follow-up now. He is saying that his shortness of breath is still present. He has COPD is under control but he continued to be short of breath. EKG in the office is showing atrial fib he also has atypical chest pain still happening. We discussed about starting amiodarone and re-attempt cardioversion. He was loaded with amiodarone and subsequently had successful cardioversion. He came back to office in September 2022 and was seen by Christy. At that time was complaining of constipation and multiple complaints. He had a stress test before that which was normal and after discussion his amiodarone was stopped and he was started on flecainide 50 mg twice a day. 10/30/22: He is here for follow-up. He has significant GI complaints ongoing. His main complaint is constipation. Also has nausea and abdominal discomfort. He has been taking medications as prescribed. He has been using laxatives including lactulose and senna. He is saying he drinks water and tries to hydrate himself. He does not take a lot of fiber in his diet. He is saying his breathing is improved but he is not back to his normal self. He has underlying COPD. He also has some peripheral edema. Clinically not in heart failure though. He also had some dizzy spells recently when he was out in the sun doing the heat wave. 03/19/2023: He returns for follow-up. He has been on amiodarone is currently is in sinus rhythm. He is saying his breathing is better. He is due to see electrophysiology next month at [facility] for consideration for AFib ablation. Continues to get abdominal issues and is closely following with GI. 10/15/23: He is returning for follow-up. He has seen our nurse practitioners previously. He was referred to EP but it appears it was felt that he has not very symptomatic from atrial fibrillation and also was getting significant GI issues with amiodarone amiodarone was discontinued. He has been on metoprolol succinate 50 mg once a day. He is complaining of neck pain and upper chest tightness ongoing for few days persistently. He was also getting some fevers. Has been coughing too. He does not smoke cigarettes but his daughter smokes inside the household. He also has acid reflux and is using Pepcid currently although previously was advised to be on omeprazole. He is saying he is feeling better today but for the last couple of days he was not doing well and was getting significant symptoms along with shortness of breath. 01/12/2024: He is here for follow-up. He is saying that his breathing is good and bad on some days. He has been getting some abdominal pain and had some diarrhea today. No fevers or chills. He is saying he is feeling somewhat lousy due to that. He also has been experiencing left arm pain along with neck and left shoulder discomfort. He is saying his neck has been hurting for 1 month and since then he has been experiencing this pain. When he moves his left arm there is worsening of pain in the arm. There is no local tenderness noted though. [facility] Medical History Vitamin D deficiency Stress-induced cardiomyopathy Paroxysmal atrial fibrillation History of non-ST elevation myocardial infarction (NSTEMI) Essential hypertension Pure hypercholesterolemia Chronic kidney disease (CKD), stage II (mild) COPD (chronic obstructive pulmonary disease) Bronchitis Sinusitis Personal history of nicotine dependence H. pylori infection Constipation Gastritis Tubular adenoma of colon (~2010) Surgical History History of cardioversion History of cardiac cath History of endoscopy (~2018) History of colonoscopy (~2018) Family History Sister Breast cancer Social History Housing: House Alcohol intake: never Patient Tobacco Use Status: Former Tobacco user Years Smoked: (former smoker - onset 18yo, 1ppd x 49yrs, 40pyh - quit 07/2022) e-Cigarette/Vaping Use: Never Used Second Hand Smoke Exposure: No Substance Use Type: Marijuana service: No Current occupational status: retired Cognitive needs: No Hearing needs: No Vision needs: No Review of Systems Const Denies chills, Denies fatigue, Denies fever(s), Denies frequent falls, Denies weakness, Denies weight gain and Denies weight loss ENT Denies dizziness Card Denies chest pain, Denies leg edema, Denies lightheadedness, Denies palpitations, Reports dyspnea and Reports dyspnea on exertion Resp Denies cough, Reports dyspnea and Reports dyspnea on exertion GI Denies hematochezia Musc Denies abnormal gait, Denies muscle weakness, Denies numbness, Denies radiating pain into limb and Denies tingling Neuro Denies abnormal gait, Denies dizziness, Denies frequent falls, Denies numbness, Denies tingling and Denies weakness Endo Denies fatigue and Denies palpitations Physical Exam Vital Signs: Last Vital Signs Pulse 95 01/12/24 15:03 BP 140/70 H 01/12/24 15:03 BMI result Body Mass Index 25.7 GENERAL APPEARANCE: in no acute distress, pleasant. NECK: no carotid bruit, no jugular venous distention. SKIN: no suspicious lesions, warm and dry. HEART: no murmurs, irregular rate and rhythm. LUNGS: clear to auscultation bilaterally. ABDOMEN: soft, nontender. EXTREMITIES: No significant edema. PERIPHERAL PULSES: equal. NEUROLOGIC: No gross deficits, AAO X 3 Assessment & Plan Assessment & Plan (1) Dyspnea: Code(s): R06.00 - Dyspnea, unspecified Category: Medical (2) Persistent atrial fibrillation: Code(s): I48.19 - Other persistent atrial fibrillation Category: Medical Plan [age] year gentleman who is here for follow-up. He has persistent atrial fibrillation at this point and is being treated with rate control strategy with metoprolol succinate 50 mg daily. Heart rate is well controlled. He has advanced COPD and shortness of breath due to that. Blood pressure control is reasonable currently. He will continue same medications for now. Abdominal discomfort and diarrhea likely to do some viral gastroenteritis. He will monitor this and will hydrate himself. If he did not improve then he will reach out to Gastroenterology. Left arm pain along with neck and left shoulder pain. There is worsening of pain with movement of arm. This is likely musculoskeletal or related to neck issues. He did have cardiac catheterization previously which did not show any coronary disease. Thank you for allowing me to participate in the care of your patient. Please feel free to contact me if you have any questions. Coding Level of Care Code Est Pt Level 4 (90242) Diagnoses Dyspnea R06.00 Persistent atrial fibrillation I48.19
== END 2024-01-12 15:25 | disposition home or self-care (01) ==
PROVIDERS: PCP Internal Medicine; Visit Provider Internal Medicine Cardiovascular Disease
DX: R06.00 Dyspnea, unspecified (principal); I48.19 Other persistent atrial fibrillation
CPT/HCPCS: 99214

== ENCOUNTER → 2024-01-12 14:58 | Outpatient (BNVA) | payer MEDICARE, MEDICAID, SELFPAY | PROVIDERS: PCP Internal Medicine; Visit Provider Internal Medicine Cardiovascular Disease | DX: I48.19 Other persistent atrial fibrillation (principal); R06.00 Dyspnea, unspecified; J44.9 Chronic obstructive pulmonary disease, unspecified | CPT/HCPCS: 99212 ==

== ENCOUNTER 2024-02-04 14:00 | Outpatient (AMB) | payer MEDICARE, MEDICAID, SELFPAY ==
[2024-02-04 14:08] VITALS: BP 138/82; PULSE 92; O2SAT 98; BMI 26.1
--- NOTE | 2024-02-04 14:08 | A.OFFVIS_ITS ---
Vital Signs 02/04/24 14:08 Height 6 ft 5 in Weight 220 lb 7.396 oz BMI 26.1 BP 138/82 Blood Pressure Location Lt brachial Position Sitting Pulse 92 Pulse Source Pulse Oximeter Pulse Oximetry (%) 98 Oxygen Delivery Method Room Air Intake Visit Reasons: productive cough/ dyspnea Intake Note: pt is here for sick visit, it is sitting in the center of chest that it is on fire, it all start Friday with episode of unable to catch breath and progressing each day. pt has been out of sprivia for a few weeks. [employer] Required: No Allergies No Known Drug Allergies Allergy (Verified 02/04/24 14:30) Unknown Medication List - Last Reconciled 02/04/24 by Dominique Monterroso MD albuterol sulfate 90 mcg/actuation 2 inhalations inhalation Q4H PRN amlodipine 5 mg PO DAILY apixaban (Eliquis) 5 mg PO BID aspirin 81 mg PO DAILY atorvastatin 10 mg PO BEDTIME 90 days bisacodyl (Dulcolax (bisacodyl)) 10 mg (2 x 5 mg) PO BEDTIME 30 days cholecalciferol (vitamin D3) 50 mcg PO DAILY 90 days comp.stocking,knee,long,medium As directed famotidine 40 mg PO BEDTIME furosemide 40 mg (2 x 20 mg) PO DAILY metoprolol succinate ER 50 mg PO DAILY montelukast 10 mg PO QPM 90 days polyethylene glycol 3350 (Miralax) 17 grams PO DAILY tiotropium bromide (Spiriva with HandiHaler) 1 cap inhalation DAILY Do you need a note to return to daycare/school/sports/work: No HPI HPI productive cough/ dyspnea: Details: This 68 years old gentleman with past history of smoking, quit in 2022. He does have chronic obstructive pulmonary disease and some degree of upper airway allergies. He has been treated with Spiriva HandiHaler 1 capsule by inhalation daily and albuterol p.r.n.. He also takes montelukast 10 mg daily. This gentleman has cardiac issues and his shortness of breath on exertion is due to combination of COPD/congestive failure. He has been out of Spiriva for about 2 weeks and he did not realize whether he needs to continue or not . For the past few days he is having increased shortness of breath and even on minimal walking he can not catch his breath. He feels congested and somewhat heavy in the chest especially in the mid chest. He was afraid that he may end up in the hospital so he decided to come to the office for an urgent visit. [facility] Medical History Vitamin D deficiency Stress-induced cardiomyopathy Paroxysmal atrial fibrillation History of non-ST elevation myocardial infarction (NSTEMI) Essential hypertension Pure hypercholesterolemia Chronic kidney disease (CKD), stage II (mild) COPD (chronic obstructive pulmonary disease) Bronchitis Sinusitis Personal history of nicotine dependence H. pylori infection Constipation Gastritis Tubular adenoma of colon (~2010) Surgical History History of cardioversion History of cardiac cath History of endoscopy (~2018) History of colonoscopy (~2018) Family History Sister Breast cancer Social History Housing: House Alcohol intake: never Patient Tobacco Use Status: Former Tobacco user Years Smoked: (former smoker - onset 18yo, 1ppd x 49yrs, 40pyh - quit 07/2022) e-Cigarette/Vaping Use: Never Used Second Hand Smoke Exposure: No Substance Use Type: Marijuana service: No Current occupational status: retired Cognitive needs: No Hearing needs: No Vision needs: No Review of Systems Const All systems reviewed & are unremarkable except as noted in HPI and below Eyes Reports no additional complaints ENT Reports no additional complaints Card Reports chest pain (Discomfort across the sternum manubrie), Denies pedal edema, Denies irregular heart rhythm and Denies leg edema Resp Reports as per HPI GI Reports no additional complaints Reports no additional complaints Musc Reports no additional complaints Skin/Breast Reports system reviewed and no additional complaints, except as documented Neuro Reports no additional complaints Psych Reports no additional complaints Physical Exam Vital Signs: Last Vital Signs Pulse 92 02/04/24 14:08 BP 138/82 02/04/24 14:08 Pulse Ox 98 02/04/24 14:08 Oxygen Delivery Method Room Air 02/04/24 14:08 BMI result Body Mass Index 26.1 Const General: healthy appearing, comfortable, no acute distress, alert and awake Orientation/consciousness: patient oriented x3 HEENT Head: Yes normal to inspection General nose exam: No nasal polyps present, No nasal discharge present and Other nasal findings present (THICK YELLOW PHLEGM IS NOTED IN THE LEFT NOSTRIL.) Face and sinus: Yes sinuses nontender Mouth: oropharynx normal Throat: Yes posterior oropharynx normal (THERE IS MODERATE AMOUNT OF WHITISH YELLOW PHLEGM) Eyes General: appearance normal, both eyes and all related structures Neck Neck: Yes normal visual inspection, Yes no lymphadenopathy, Yes trachea midline and Yes no JVD Thyroid: Thyroid normal Chest Chest palpation & inspection: normal inspection of the chest, normal palpation of entire chest wall and no tenderness Resp Other: Percussion note is resonant, breath sounds are distant but equal on both sides. A few wheezes over the lower part of the chest, no rhonchi or crepitations. Cardio Palpation: normal PMI Rate: regular rate Rhythm: regular rhythm Heart sounds: no gallops and no murmurs GI Palpation (GI): Soft to palpation, nontender, No hepatosplenomegaly present and no masses Auscultation: normal bowel sounds Back/Spine/Pelvis Thoracic/Lumbar Spine: thoracic and lumbar spine normal to inspection Skin General skin exam: no rashes or lesions noted Neuro General: patient oriented x3 and no focal motor deficits Cranial nerves: Yes CN's II-XII intact bilaterally Extrem General: Yes normal to inspection, Yes no clubbing, cyanosis or edema and Yes no calf tenderness Psych Appearance: grossly normal and well kempt Speech and movement: Normal speech and movement present Assessment & Plan Assessment & Plan (1) COPD (chronic obstructive pulmonary disease): Comment: (COPD -MODERATELY SEVERE. HAS BEEN STABLE AND CONTROLLED, BUT NOW HE SEEMS TO HAVE A MILD ACUTE EXACERBATION , THIS MAY BE DUE TO LOW- GRADE VIRAL DISEASE ARE DUE TO NOT USING SPIRIVA HANDIHALER. Code(s): J44.9 - Chronic obstructive pulmonary disease, unspecified Category: Medical Qualifiers: COPD type: unspecified COPD Qualified Code(s): J44.9 - Chronic obstructive pulmonary disease, unspecified Plan: I ADVISED HIM THAT HE HAS TO STAY ON SPIRIVA HANDIHALER REGULARLY, SO HE NEEDS TO GET IT REFILLED. I WOULD ALSO GIVE HIM PREDNISONE 20 MG A DAY FOR 5 DAYS, JUST TO BE ON THE SAFE SIDE. EXPLAINED TO HIM THAT HE DOES NOT NEED TO USE ANY ANTIBIOTIC AT THIS TIME. CONTINUE TO USE ALBUTEROL 2 PUFFS Q 6 HOURS ONLY P.R.N.. (2) Personal history of nicotine dependence: Comment: (former smoker - onset 18yo, 1ppd x 49yrs, 40pyh - quit 07/2022), has cheated by smoking 1 or 2 cigarettes a day last month, may be due to stress, but not anymore. Code(s): Z87.891 - Personal history of nicotine dependence Category: Medical Plan: RECONFIRMED THAT HE IS NOT SMOKING ANYMORE SINCE 2022. Medications: New prednisone 10 mg PO BID 5 days 10 tabs 0RF copd EXCERBATION tiotropium bromide (Spiriva with HandiHaler) puncture 1 cap using device; one dose = 2 inhalations 1 cap inhalation DAILY 30 days 30 inhalations 5RF COPD Coding Level of Care Code Est Pt Level 3 (17126) Diagnoses Chronic obstructive pulmonary disease, unspecified COPD type J44.9 COPD type: unspecified COPD Personal history of nicotine dependence Z87.891
== END 2024-02-04 14:29 | disposition home or self-care (01) ==
PROVIDERS: PCP Internal Medicine; Visit Provider Internal Medicine
DX: J44.9 Chronic obstructive pulmonary disease, unspecified (principal); Z87.891 Personal history of nicotine dependence
CPT/HCPCS: 99213

== ENCOUNTER → 2024-02-04 14:00 | Outpatient (BNVA) | payer MEDICARE, MEDICAID, SELFPAY | PROVIDERS: PCP Internal Medicine; Visit Provider Internal Medicine | DX: J44.9 Chronic obstructive pulmonary disease, unspecified (principal); R06.00 Dyspnea, unspecified; Z87.891 Personal history of nicotine dependence; Z79.899 Other long term (current) drug therapy | CPT/HCPCS: 99212 ==

== ENCOUNTER 2024-02-16 12:01 | Outpatient (REF) | payer MEDICARE, MEDICAID, SELFPAY ==
[2024-02-16 12:28] LABS: Basophils Absolute Auto 0.1 X10*3/uL (0.0-0.2); Basophils Percent Auto 0.6 % (0-2); Eosinophils Absolute Auto 0.6 X10*3/uL (0.0-0.4); Hematocrit 41.6 % (42.0-52.0); Hemoglobin 14.2 g/dl (14.0-18.0); Imm Gran Abs Auto 0.04 X10*3/uL (0.00-0.03); Imm Gran Pct Auto 0.3 % (0.0-0.4); Lymphocytes Absolute Auto 3.5 X10*3/uL (1.2-4.9); Lymphocytes Percent Auto 24.8 % (20-40); MANUAL DIFF FLAG SCAN; Mean Corpuscular HGB Conc 34.1 g/dl (31.0-36.0); Mean Corpuscular Hemoglobin 32.1 pg (27.0-33.0); Mean Corpuscular Volume 93.9 fL (80.0-98.0); Mean Platelet Volume 9.6 fL (9.4-12.4); Monocytes Absolute Auto 1.6 X10*3/uL (0.1-1.2); Monocytes Percent Auto 11.3 % (2-11); Neutrophils Absolute Auto 8.4 x10*3/uL (2.0-8.3); Platelet Count 274 X10*3/uL (160-400); Red Blood Count 4.43 X10*6/uL (4.60-5.80); Red Cell Distribution Width 15.1 % (11.0-16.0); SCAN SMEAR FLAG 1; White Blood Count 14.2 X10*3/uL (4.8-10.8)
[2024-02-16 12:36] LABS: Estimated Average Glucose 120 mg/dL; Hemoglobin A1c % 5.8 % (<6.0); Total Hemoglobin (HGBA1C) 3667.4155 umol/L
[2024-02-16 12:46] LABS: SLIDE REVIEW VERIFIED
[2024-02-16 13:04] LABS: Alanine Aminotransferase 20 U/L (0-40); Alkaline Phosphatase 119 U/L (39-117); Anion Gap 8 (12-20); Aspartate Amino Transferase 23 U/L (5-37); Bilirubin Total 0.6 mg/dL (0.0-1.0); Blood Urea Nitrogen 15 mg/dL (9-16); Calcium 9.3 mg/dL (8.4-10.2); Carbon Dioxide 29 mmol/L (22-29); Chloride 103 mmol/L (96-108); Cholesterol 186 mg/dL (<200); Estimated Glomerular Filt Rate > 60; Glucose Fasting 92 mg/dL (60-99); HDL Cholesterol 51 mg/dL (>40); LDL Cholesterol Calculated 116 mg/dL (<100); Potassium 3.9 mmol/L (3.3-5.1); Sodium 136 mmol/L (135-145); Total Protein 7.5 g/dL (6.5-8.0); Triglycerides 97 mg/dL (<150)
[2024-02-16 13:15] LABS: Color Urine Yellow; Glucose Urine UA Negative (Negative); Leukocyte Esterase Urine Negative (Negative); Nitrite Urine Negative (Negative); PH 5.5 (5.0-9.0); UMIC TRIGGER UACC YES; Urine Blood Trace (Negative); Urine Ketones Negative (Negative); Urine Protein Negative (Neg-Trace)
[2024-02-16 13:16] LABS: Appearance Urine Clear
[2024-02-16 13:17] LABS: Bacteria Urine None Seen (None Seen); Hyaline Casts Urine 0-2 /LPF (0-2); RBC Urine 0-2 /HPF (0-2); Squamous Epithelial Cell Urine 0-2 /HPF (0-2); WBC Urine 0-5 /HPF (0-5)
[2024-02-16 13:26] LABS: Free T4 (Free Thyroxine) 1.08 ng/dL (0.71-1.85); Vitamin D 25-OH Total 9.8 ng/mL (>30)
[2024-02-16 13:29] LABS: Folate 6.1 ng/mL (> or = 4.0); Vitamin B12 353 pg/mL (200-900)
[2024-02-16 13:44] LABS: B Type Natriuretic Peptide 105 pg/mL (<100)
[2024-02-26 04:28] LABS: IgE Antibody (Anti-IgE IgG) <6 ng/mL (<168)
== END 2024-02-16 12:02 | disposition home or self-care (01) ==
LOC: HO.LAB 12:01
PROVIDERS: PCP Internal Medicine; Visit Provider Internal Medicine
DX: R07.81 Pleurodynia (principal); I50.9 Heart failure, unspecified; D64.9 Anemia, unspecified; E78.00 Pure hypercholesterolemia, unspecified; E53.8 Deficiency of other specified B group vitamins; R73.01 Impaired fasting glucose; E55.9 Vitamin D deficiency, unspecified; R79.89 Other specified abnormal findings of blood chemistry; D72.10 Eosinophilia, unspecified
CPT/HCPCS: 36415; 80053; 80061; 81001; 82306; 82607; 82746; 83036; 83520; 83880; 84439; 84443; 85025

== ENCOUNTER 2024-02-17 14:45 | Outpatient (AMB) | payer MEDICARE, MEDICAID, SELFPAY ==
--- NOTE | 2024-02-17 14:57 | A.OFFPC_ITS ---
Vital Signs 02/17/24 15:09 Height 6 ft 5 in Weight 216 lb BMI 25.6 BP 130/80 Blood Pressure Location Lt brachial Position Sitting Pulse 94 Pulse Source Pulse Oximeter Pulse Oximetry (%) 96 Oxygen Delivery Method Room Air Intake Visit Reasons: 3 Month F/U Intake Note: Patient is here to follow up on HTN, Hypercholesterolemia, CKD, COPD . Pt decline flu shot today. Chronometer Assembler Required: No Infantryman: Not Required per policy Accompanied by: Self / Same As Patient Allergies No Known Drug Allergies Allergy (Verified 02/17/24 15:20) Unknown Medication List - Last Reconciled 02/17/24 by Efe Ricci MD albuterol sulfate 90 mcg/actuation 2 inhalations inhalation Q4H PRN amlodipine 5 mg PO DAILY apixaban (Eliquis) 5 mg PO BID aspirin 81 mg PO DAILY atorvastatin 10 mg PO BEDTIME 90 days bisacodyl (Dulcolax (bisacodyl)) 10 mg (2 x 5 mg) PO BEDTIME 30 days cholecalciferol (vitamin D3) 50 mcg PO DAILY 90 days comp.stocking,knee,long,medium As directed famotidine 40 mg PO BEDTIME furosemide 40 mg (2 x 20 mg) PO DAILY metoprolol succinate ER 50 mg PO DAILY montelukast 10 mg PO QPM 90 days polyethylene glycol 3350 (Miralax) 17 grams PO DAILY prednisone 10 mg PO BID 5 days umeclidinium 62.5 mcg/actuation (Incruse Ellipta) 1 inh inhalation DAILY Tobacco use date assessed: 02/17/24 Fall risk assessment: No Falls in past year Last assessed Fall Risk: 02/17/24 Dental Screening Dental Screen Date: 07/24/23 HPI 3 Month F/U HPI Details Patient comes in today for his follow up visit States that he has been experiencing recurrent sharp pains in his right eye lately He was initially advised by his blocker heated metal [facility] that he had a laceration on his retina and initially underwent some procedure that he states helped with his vision only minimally He then went back for a follow up as his eye pain was getting worse and was supposedly found out by another doctor there who examined him this time that the contact lens that was initially placed was left in his eye for the past 3 weeks This was eventually removed and he is scheduled to go back next week on 02/27/2024 for a clean up surgery States that he currently still has recurrent eye pain as well as right-sided headaches Patient also recalls that about a month ago, he was unable to walk much due to increasing SAMPSON He was seen by Dr. Monterroso, who started him back on Spiriva but this was changed over to Incruse Ellipta later on due to insurance coverage - states that his shortness of breath has gradually improved since he was started on his inhaler(s) Patient currently denies any exertional chest pains No nausea/vomiting, no abdominal pain No change in bowel habits noted He had his follow-up labs done yesterday - to discuss his results [facility] Medical History Vitamin D deficiency Stress-induced cardiomyopathy Paroxysmal atrial fibrillation History of non-ST elevation myocardial infarction (NSTEMI) Essential hypertension Pure hypercholesterolemia Chronic kidney disease (CKD), stage II (mild) COPD (chronic obstructive pulmonary disease) Bronchitis Sinusitis Personal history of nicotine dependence H. pylori infection Constipation Gastritis Tubular adenoma of colon (~2010) Surgical History History of cardioversion History of cardiac cath History of endoscopy (~2018) History of colonoscopy (~2018) Family History Sister Breast cancer Social History Housing: House Alcohol intake: never Patient Tobacco Use Status: Former Tobacco user Years Smoked: (former smoker - onset 18yo, 1ppd x 49yrs, 40pyh - quit 07/2022) e-Cigarette/Vaping Use: Never Used Second Hand Smoke Exposure: Yes Substance Use Type: Marijuana service: No Current occupational status: retired Cognitive needs: No Hearing needs: No Vision needs: No Questionnaire Thrive Questionnaire Date Thrive assessed: 07/24/23 GENIE-7 AMB Questionnaire GENIE-7 Date GENIE - 7 assessed: 07/24/23 Source: Developed by Drs. Kwan Nicholas, Sherya Dempsey, Sandoval Fuller and colleagues, with an educational em from [employer]. Review of Systems Const Denies chills, Denies fatigue, Denies fever(s) and Reports headache(s) (on and off, right-sided (see HPI)) Eyes Reports blurry vision (in the right eye) and Reports eye pain (right eye) ENT Denies dysphagia, Denies dizziness, Denies otalgia, Reports headache(s) (on and off, right-sided (see HPI)), Denies neck pain, Denies odynophagia and Denies sore throat Card Denies chest pain, Denies palpitations and Reports dyspnea on exertion (mild) Resp Denies chest congestion, Denies cough and Reports dyspnea on exertion (mild) GI Denies abdominal pain, Reports constipation (controlled lately), Denies dysphagia, Denies heartburn, Denies diarrhea, Denies nausea, Denies odynophagia and Denies vomiting Denies dysuria, Denies nocturia and Denies urinary frequency Musc Denies back pain and Denies neck pain Skin/Breast Denies rash Neuro Denies dizziness and Reports headache(s) (on and off, right-sided (see HPI)) Endo Denies fatigue and Denies palpitations Physical exam (Primary Care) Vital Signs: Last Vital Signs Pulse 94 02/17/24 15:09 BP 130/80 02/17/24 15:09 Pulse Ox 96 02/17/24 15:09 Oxygen Delivery Method Room Air 02/17/24 15:09 BMI result Body Mass Index 25.6 Tobacco/Smoking Status: Tobacco use Status Tobacco use date assessed 02/17/24 02/17/24 15:13 Patient Tobacco Use Status Former Tobacco user 02/17/24 14:58 e-Cigarette/Vaping Use Never Used 02/17/24 14:58 Thrive Assessment: Date of Thrive Assessment Date Thrive assessed 07/24/23 02/17/24 14:58 Const General: no acute distress and alert HENMT Ears: TM's normal bilaterally and EAC's normal Throat: Yes posterior oropharynx normal and Yes tonsils normal (no TP congestion) Neck Neck: Yes no lymphadenopathy and Yes supple Thyroid: Thyroid normal Resp Auscultation: clear to auscultation bilaterally, no rales, no wheezes and diminished lung sounds (slightly) bilateral Cardio Rate: regular rate Rhythm: abnormal rhythm irregularly irregular Heart sounds: no murmurs GI Palpation (GI): Soft to palpation and nontender Auscultation: normal bowel sounds General: Yes no CVA tenderness Back/Spine/Pelvis Back: no CVA tenderness Skin Rashes: no rashes Extrem General: Yes no clubbing, cyanosis or edema Results Reviewed Results Reviewed: Laboratory Tests 02/16/24 02/16/24 12:13 12:14 WBC 14.2 H Hgb 14.2 Hct 41.6 L Plt Count 274 Sodium 136 Potassium 3.9 Creatinine 1.19 Estimated GFR > 60 Fasting Glucose 92 Hemoglobin A1c % 5.8 Calcium 9.3 AST 23 ALT 20 B-Natriuretic Peptide 105 H Triglycerides 97 Cholesterol 186 LDL Cholesterol, Calc 116 H HDL Cholesterol 51 Vitamin B12 353 25-OH Vitamin D Total 9.8 L TSH 3.50 Free T4 1.08 Ur Specific [place] 1.020 Urine Protein Negative Urine Glucose (UA) Negative Urine Blood Trace H Urine Nitrite Negative Ur Leukocyte Esterase Negative Coding Level of Care Code Est Pt Level 4 (54447) Diagnoses Persistent atrial fibrillation I48.19 Stress-induced cardiomyopathy I51.81 Pure hypercholesterolemia E78.00 Chronic obstructive pulmonary disease, unspecified COPD type J44.9 COPD type: unspecified COPD Chronic idiopathic constipation K59.04 Chronic kidney disease (CKD), stage II (mild) N18.2 Vitamin D deficiency E55.9 Eosinophilia, unspecified type D72.10 Eosinophilia type: unspecified eosinophilia Impaired fasting glucose R73.01 GERD without esophagitis K21.9 Pain in right eye H57.11 Assessment & Plan Assessment & Plan (1) Persistent atrial fibrillation: Code(s): I48.19 - Other persistent atrial fibrillation Category: Medical Plan: Patient is currently still in atrial fibrillation but is rate-controlled He's had 2 unsuccessful cardioversions in the past; was initially on Fleicanide but this had to be discontinued last year when patient developed stress-induced cardiomyopathy and also had NSTEMI He was more recently on Amiodarone but this was also discontinued due to his increasing constipation while on the Rx He was seen by Dr. Constantino at [facility] in March 2023 and was advised going forward to just continue with rate control for his AF Continue Apixaban 5 mg BID for thromboembolism prophylaxis and Metoprolol ER 50 mg QD for rate control Follow up with cardiology as scheduled (2) Stress-induced cardiomyopathy: Code(s): I51.81 - Takotsubo syndrome Category: Medical Plan: His EF was around 25 to 30% back in September 2022 when he presented to the ER with increasing SOB - was diagnosed with CHF and started on Furosemide 20 mg QD His EF has since improved back to normal a few months later He had a normal myocardial perfusion on stress testing in September 2022 and cardiac catheterization done last year also showed NO significant coronary disease Continue Aspirin 81 mg QD (3) Pure hypercholesterolemia: Code(s): E78.00 - Pure hypercholesterolemia, unspecified Category: Medical Plan: Results of his labs done yesterday reviewed and discussed with patient - his LDL cholesterol has improved further to 116 mg/dl on his recent labs (was at 166 mg/dl last year); total cholesterol is now at 186 mg/dl (201 mg/dl previously) Reinforced low cholesterol diet Continue Atorvastatin 10 mg Q HS Will have him recheck his labs and fasting lipids in 4 months for follow up (4) COPD (chronic obstructive pulmonary disease): Comment: (COPD -MODERATELY SEVERE. HAS BEEN STABLE AND CONTROLLED, BUT NOW HE SEEMS TO HAVE A MILD ACUTE EXACERBATION , THIS MAY BE DUE TO LOW- GRADE VIRAL DISEASE ARE DUE TO NOT USING SPIRIVA HANDIHALER. Code(s): J44.9 - Chronic obstructive pulmonary disease, unspecified Category: Medical Qualifiers: COPD type: unspecified COPD Qualified Code(s): J44.9 - Chronic obstructive pulmonary disease, unspecified Plan: Notes that his SAMPSON has been slowly improving on his current inhalers Continue Incruse Ellipta 62.5 mcg 1 inhalation QD and Albuterol HFA 2 inhalations Q 6 hours PRN He has quit smoking in 2022 and has not gone back to smoking since (5) Chronic idiopathic constipation: Code(s): K59.04 - Chronic idiopathic constipation Category: Medical Plan: Patient states that this has been better controlled lately, as long as he stays on his regimen of Miralax 17 gm QD and Dulcolax 10 mg Q HS He is again reminded on increased oral fluids and dietary fiber intake Follow up with GI as scheduled (6) Chronic kidney disease (CKD), stage II (mild): Code(s): N18.2 - Chronic kidney disease, stage 2 (mild) Category: Medical Plan: He's had bouts of TEO on his hospital admissions to [facility] last year but his renal function appears stable on his recent labs Follow up with nephrology as scheduled Will have patient recheck his labs and renal function in 4 months for follow up (7) Vitamin D deficiency: Code(s): E55.9 - Vitamin D deficiency, unspecified Category: Medical Plan: Continue Vitamin D3 2000 units QD (8) Eosinophilia: Code(s): D72.10 - Eosinophilia, unspecified Category: Medical Qualifiers: Eosinophilia type: unspecified eosinophilia Qualified Code(s): D72.10 - Eosinophilia, unspecified Plan: Have discussed with patient that his recent labs showed (+) leucocytosis and eosinpophilia - unclear at this time what is causing these We also tested him for IgE Ab level - results are still pending at this time We will recheck his CBC in 4 months for follow up (9) Impaired fasting glucose: Code(s): R73.01 - Impaired fasting glucose Category: Medical Plan: His HgbA1c was at 5.8% on his labs done yesterday; FBS is now normal at 92 mg/dl Reinforced low calorie/low carb diet (10) GERD without esophagitis: Code(s): K21.9 - Gastro-esophageal reflux disease without esophagitis Category: Medical Plan: Dietary restrictions reinforced Continue Famotidine 40 mg Q HS (11) Pain in right eye: Code(s): H57.11 - Ocular pain, right eye Category: Medical Plan: He was reportedly advised that he has a retinal laceration a few weeks ago but more recently has had some eye injury due to a contact lens supposedly being left in his eye accidentally for about 3 weeks He has an upcoming eye procedure next week to try to rectify his acute eye issue Follow up with ophthalmology as scheduled Plan Follow up in 4 months Orders: Orders Complete Blood Count Auto Diff 4 Months D64.9 - Anemia, unspecified Lipid Panel 4 Months E78.00 - Pure hypercholesterolemia, unspecified TSH reflex Free T4 4 Months E78.00 - Pure hypercholesterolemia, unspecified Comprehensive [place]. Panel Fast 4 Months E78.00 - Pure hypercholesterolemia, unspecified UA CC w/rflx Micro + Cult 4 Months R30.0 - Dysuria Vitamin D 25-OH Total 4 Months E55.9 - Vitamin D deficiency, unspecified B Type Natriuretic Peptide 4 Months I50.9 - Heart failure, unspecified
[2024-02-17 15:09] VITALS: BP 130/80; PULSE 94; O2SAT 96; BMI 25.6
== END 2024-02-17 15:36 | disposition home or self-care (01) ==
LOC: HO.HMCH 14:46
PROVIDERS: PCP Internal Medicine; Visit Provider Internal Medicine
DX: I48.19 Other persistent atrial fibrillation (principal); I51.81 Takotsubo syndrome; E78.00 Pure hypercholesterolemia, unspecified; J44.9 Chronic obstructive pulmonary disease, unspecified; K59.04 Chronic idiopathic constipation; N18.2 Chronic kidney disease, stage 2 (mild); E55.9 Vitamin D deficiency, unspecified; D72.10 Eosinophilia, unspecified; R73.01 Impaired fasting glucose; K21.9 Gastro-esophageal reflux disease without esophagitis; H57.11 Ocular pain, right eye

== ENCOUNTER → 2024-02-17 14:45 | Outpatient (BNVA) | payer MEDICARE, MEDICAID, SELFPAY | PROVIDERS: PCP Internal Medicine; Visit Provider Internal Medicine | DX: I48.19 Other persistent atrial fibrillation (principal); I51.81 Takotsubo syndrome; E78.00 Pure hypercholesterolemia, unspecified; J44.9 Chronic obstructive pulmonary disease, unspecified; K59.04 Chronic idiopathic constipation; N18.2 Chronic kidney disease, stage 2 (mild); E55.9 Vitamin D deficiency, unspecified; R73.01 Impaired fasting glucose; K21.9 Gastro-esophageal reflux disease without esophagitis; H57.11 Ocular pain, right eye | CPT/HCPCS: 99212 ==

== ENCOUNTER 2024-05-06 10:52 | Outpatient (AMB) | payer MEDICARE, MEDICAID, SELFPAY ==
--- NOTE | 2024-05-06 10:58 | A.OFFVIS_ITS ---
Vital Signs 05/06/24 10:59 Height 6 ft 5 in Weight 225 lb 15.581 oz BMI 26.8 BP 140/84 H Blood Pressure Location Lt brachial Position Sitting Pulse 68 Pulse Source Pulse Oximeter Pulse Oximetry (%) 96 Oxygen Delivery Method Room Air Intake Visit Reasons: copd Intake Note: pt is here for follow up and states his breahing is bad, he cannot even bring his trash cans out together, he gets a center based chest pain, he cannot bend down, he cannot breath. 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 Allergies No Known Drug Allergies Allergy (Verified 05/06/24 11:24) Unknown Medication List - Last Reconciled 05/06/24 by Dominique Monterroso MD albuterol sulfate 90 mcg/actuation 2 inhalations inhalation Q4H PRN amlodipine 5 mg PO DAILY apixaban (Eliquis) 5 mg PO BID aspirin 81 mg PO DAILY atorvastatin 10 mg PO BEDTIME 90 days bisacodyl (Dulcolax (bisacodyl)) 10 mg (2 x 5 mg) PO BEDTIME 30 days cholecalciferol (vitamin D3) 50 mcg PO DAILY 90 days comp.stocking,knee,long,medium As directed famotidine 40 mg PO BEDTIME furosemide 40 mg PO DAILY metoprolol succinate ER 50 mg PO DAILY montelukast 10 mg PO QPM 90 days polyethylene glycol 3350 (Miralax) 17 grams PO DAILY umeclidinium 62.5 mcg/actuation (Incruse Ellipta) 1 inh inhalation DAILY Do you need a note to return to daycare/school/sports/work: No HPI HPI copd: Details: This gentleman is 68 years old, with past history of smoking, quit 1 and half year ago. Has moderately severe obstructive airway disorder. Patient has been using Incruse Ellipta 1 inhalation daily. Up until last year he was fairly stable. Now he has increased dyspnea on exertion, when he goes to walk in his driveway and come back to the house. At times he does get some tight feeling in the chest. He is known to atrial fibrillation and also cardiomyopathy, with decreased LVEF ( 20-25 % as per ECHO in 2022 ) He is in annual lung screening program. [facility] Medical History Vitamin D deficiency Stress-induced cardiomyopathy Paroxysmal atrial fibrillation History of non-ST elevation myocardial infarction (NSTEMI) Essential hypertension Pure hypercholesterolemia Chronic kidney disease (CKD), stage II (mild) COPD (chronic obstructive pulmonary disease) Bronchitis Sinusitis Personal history of nicotine dependence H. pylori infection Constipation Gastritis Tubular adenoma of colon (~2010) Surgical History History of cardioversion History of cardiac cath History of endoscopy (~2018) History of colonoscopy (~2018) Family History Sister Breast cancer Social History Housing: House Alcohol intake: never Patient Tobacco Use Status: Former Tobacco user Years Smoked: (former smoker - onset 18yo, 1ppd x 49yrs, 40pyh - quit 07/2022) e-Cigarette/Vaping Use: Never Used Second Hand Smoke Exposure: Yes Substance Use Type: Marijuana service: No Current occupational status: retired Cognitive needs: No Hearing needs: No Vision needs: No Review of Systems Const All systems reviewed & are unremarkable except as noted in HPI and below Eyes Reports no additional complaints ENT Reports no additional complaints Card Reports chest pain (Discomfort across the sternum manubrie), Denies pedal edema, Denies irregular heart rhythm and Denies leg edema Resp Reports as per HPI GI Reports no additional complaints Reports no additional complaints Musc Reports no additional complaints Skin/Breast Reports system reviewed and no additional complaints, except as documented Neuro Reports no additional complaints Psych Reports no additional complaints Physical Exam Vital Signs: Last Vital Signs Pulse 68 05/06/24 10:59 BP 140/84 H 05/06/24 10:59 Pulse Ox 96 05/06/24 10:59 Oxygen Delivery Method Room Air 05/06/24 10:59 BMI result Body Mass Index 26.8 Const General: healthy appearing, comfortable, no acute distress, alert and awake Orientation/consciousness: patient oriented x3 HEENT Head: Yes normal to inspection General nose exam: No nasal polyps present, No nasal discharge present and Other nasal findings present (THICK YELLOW PHLEGM IS NOTED IN THE LEFT NOSTRIL.) Face and sinus: Yes sinuses nontender Mouth: oropharynx normal Throat: Yes posterior oropharynx normal (THERE IS MODERATE AMOUNT OF WHITISH YELLOW PHLEGM) Eyes General: appearance normal, both eyes and all related structures Neck Neck: Yes normal visual inspection, Yes no lymphadenopathy, Yes trachea midline and Yes no JVD Thyroid: Thyroid normal Chest Chest palpation & inspection: normal inspection of the chest, normal palpation of entire chest wall and no tenderness Resp Other: Percussion note is resonant, breath sounds are distant but equal on both sides. No wheezes heard .Also no rhonchi or crepitations. Cardio Palpation: normal PMI Rate: regular rate Rhythm: regular rhythm Heart sounds: no gallops and no murmurs GI Palpation (GI): Soft to palpation, nontender, No hepatosplenomegaly present and no masses Auscultation: normal bowel sounds Back/Spine/Pelvis Thoracic/Lumbar Spine: thoracic and lumbar spine normal to inspection Skin General skin exam: no rashes or lesions noted Neuro General: patient oriented x3 and no focal motor deficits Cranial nerves: Yes CN's II-XII intact bilaterally Extrem General: Yes normal to inspection, Yes no clubbing, cyanosis or edema and Yes no calf tenderness Psych Appearance: grossly normal and well kempt Speech and movement: Normal speech and movement present Office Procedures Spirometry Testing Spirometry Comments: In office spirometry completed with results given to Dr Monterroso. [id number]- Spirometry Results Reviewed Results Reviewed: SPIROMETRY IN THE OFFICE: FVC = 81 % FEV1= 53 % FEF 25-75 = 25 % C/W SEVERE OBSTRUCTIVE AIRWAY DISORDER. Assessment & Plan Assessment & Plan (1) COPD (chronic obstructive pulmonary disease): Comment: (COPD -MODERATELY SEVERE. HAS BEEN STABLE AND CONTROLLED, BUT NOW COMPLAINS OF INCREASED DYSPNEA ON ANY EXERTION. SPIROMETRY SHOWS SOME DECLINE IN THE FLOW VOLUMES, COMPARED TO SPIROMETRY IN 2020 AND 2022. SO HIS COPD IS SLIGHTLY GETTING WORSE, THIS MAY VERY WELL BE AGE RELATED. Code(s): J44.9 - Chronic obstructive pulmonary disease, unspecified Category: Medical Qualifiers: COPD type: unspecified COPD Qualified Code(s): J44.9 - Chronic obstructive pulmonary disease, unspecified Plan: EXPLAINED ABOUT COPD, EXPLAINED THAT THIS IS QUITE ADVANCED. IT IS GOOD THAT HE IS NOT SMOKING ANYMORE. R/X CONTINUE TO USE INCRUSE ELLIPTA 1 INHALATION DAILY WILL ADD WIXELA 250-51 INHALATION B.I.D. AND TO SEE IF THIS IMPROVES HIS LUNG FUNCTION , IF THERE IS NO SIGNIFICANT CHANGE THEN HE CAN STOP IT. CONTINUE TO USE ALBUTEROL HFA P.R.N. BUT AVOID ANY OVER USAGE. (2) Personal history of nicotine dependence: Comment: (former smoker - onset 18yo, 1ppd x 51yrs, 40pyh - quit 07/2022), has cheated by smoking 1 or 2 cigarettes a day last month, may be due to stress, but not anymore. Code(s): Z87.891 - Personal history of nicotine dependence Category: Medical Plan: CONTINUE ANNUAL LUNG SCREENING WITH LDCT (3) Dyspnea: Comment: INCREASED DYSPNEA IS DUE TO COMBINATION OF HIS ADVANCED CHRONIC OBSTRUCTIVE PULMONARY DISEASE WELL ISCHEMIC CARDIOMYOPATHY CAUSING LOW LVEF . AND PERSISTENT ATRIAL FIBRILLATION. Code(s): R06.00 - Dyspnea, unspecified Category: Medical Plan: EXPLAINED TO THE PATIENT THE COMBINATION OF PULMONARY WELL CARDIAC REASONS FOR INCREASED SHORTNESS OF BREATH. HE IS ADVISED TO WALK AT A SLOW PACE, AND AVOID ANY STRENUOUS PHYSICAL ACTIVITY, Orders: Orders AMB Spirometry Testing Today J44.9 - Chronic obstructive pulmonary disease, unspecified Coding Level of Care Code Est Pt Level 4 (86689) Diagnoses Chronic obstructive pulmonary disease, unspecified COPD type J44.9 COPD type: unspecified COPD Personal history of nicotine dependence Z87.891 Dyspnea R06.00 CPT Codes Spirometry - CPT: 33756- Spirometry ([id number])
[2024-05-06 10:59] VITALS: BP 140/84; PULSE 68; O2SAT 96; BMI 26.8
== END 2024-05-06 11:50 | disposition home or self-care (01) ==
PROVIDERS: PCP Internal Medicine; Visit Provider Internal Medicine
DX: J44.9 Chronic obstructive pulmonary disease, unspecified (principal); Z87.891 Personal history of nicotine dependence; R06.00 Dyspnea, unspecified
CPT/HCPCS: 94010; 99214

== ENCOUNTER → 2024-05-06 10:52 | Outpatient (BNVA) | payer MEDICARE, MEDICAID, SELFPAY | PROVIDERS: PCP Internal Medicine; Visit Provider Internal Medicine | DX: J44.9 Chronic obstructive pulmonary disease, unspecified (principal); R06.00 Dyspnea, unspecified; Z87.891 Personal history of nicotine dependence | CPT/HCPCS: 94010; 99212 ==

== ENCOUNTER 2024-06-21 14:00 | Outpatient (AMB) | payer MEDICARE, MEDICAID, SELFPAY ==
[2024-06-21 14:02] VITALS: BP 132/86; PULSE 114; O2SAT 96; BMI 26.8
--- NOTE | 2024-06-21 14:02 | A.OFFPC_ITS ---
Vital Signs 06/21/24 14:02 Height 6 ft 5 in Weight 226 lb 2 oz BMI 26.8 BP 132/86 Blood Pressure Location Lt brachial Position Sitting Pulse 114 H Pulse Source Pulse Oximeter Pulse Oximetry (%) 96 Oxygen Delivery Method Room Air Intake Visit Reasons: 4 Months f/u Operating Room Specialist Required: No Accompanied by: Self / Same As Patient Allergies No Known Drug Allergies Allergy (Verified 06/21/24 14:28) Unknown Medication List - Last Reconciled 06/21/24 by Efe Ricci MD albuterol sulfate 90 mcg/actuation 2 inhalations inhalation Q4H PRN amlodipine 5 mg PO DAILY apixaban (Eliquis) 5 mg PO BID aspirin 81 mg PO DAILY atorvastatin 10 mg PO BEDTIME 90 days bisacodyl (Dulcolax (bisacodyl)) 10 mg (2 x 5 mg) PO BEDTIME 30 days cholecalciferol (vitamin D3) 50 mcg PO DAILY 90 days comp.stocking,knee,long,medium As directed famotidine 40 mg PO BEDTIME fluticasone propion-salmeterol 250-50 mcg/dose (Wixela Inhub) 1 inh inhalation BID 30 days furosemide 40 mg PO DAILY metoprolol succinate ER 50 mg PO DAILY montelukast 10 mg PO QPM 90 days polyethylene glycol 3350 (Miralax) 17 grams PO DAILY umeclidinium 62.5 mcg/actuation (Incruse Ellipta) 1 inh inhalation DAILY Tobacco use date assessed: 06/21/24 Fall risk assessment: No Falls in past year Last assessed Fall Risk: 06/21/24 Dental Screening Dental Screen Date: 06/21/24 Did you have a dental visit in the last 12 months?: No Did you have a dental problem in the last 6 months where you did not have access to dental care?: No Was dental information given to patient?: No HPI 4 Months f/u HPI Details Patient comes in today for his follow up visit States that he has been experiencing increased cough and congestion for about 10 days now He is presently experiencing some chest pressure and some mild SAMPSON and states that he is coughing up thick whitish phlegm at times and that his cough is much worse at night and has kept him up the past few nights already Relates (+) fatigue but he denies any headaches or dizziness Denies any fever or sore throat Denies any exertional chest pains lately No nausea/vomiting, no abdominal pain No change in bowel habits noted He did not get his follow up labs done prior to his appointment today - states that he called up last week and was advised that he did not have any labs ordered for this appointment, which is obviously NOT CORRECT [facility] Medical History Vitamin D deficiency Stress-induced cardiomyopathy Paroxysmal atrial fibrillation History of non-ST elevation myocardial infarction (NSTEMI) Essential hypertension Pure hypercholesterolemia Chronic kidney disease (CKD), stage II (mild) COPD (chronic obstructive pulmonary disease) Bronchitis Sinusitis Personal history of nicotine dependence H. pylori infection Constipation Gastritis Tubular adenoma of colon (~2010) Surgical History History of cardioversion History of cardiac cath History of endoscopy (~2018) History of colonoscopy (~2018) Family History Sister Breast cancer Social History Housing: House Alcohol intake: never Patient Tobacco Use Status: Former Tobacco user Years Smoked: (former smoker - onset 18yo, 1ppd x 49yrs, 40pyh - quit 07/2022) e-Cigarette/Vaping Use: Never Used Second Hand Smoke Exposure: Yes Substance Use Type: Marijuana service: No Current occupational status: retired Cognitive needs: No Hearing needs: No Vision needs: No Questionnaire PHQ-9 Over the last 2 weeks, how often have you been bothered by any of the following problems? 1. Little interest or pleasure in doing things: not at all 2. Feeling down, depressed, or hopeless: not at all 3. Trouble falling or staying asleep, or sleeping too much: not at all 4. Feeling tired or having little energy: not at all 5. Poor appetite or overeating: not at all 6. Feeling bad about yourself - or that you are a failure or have let yourself or your family down: not at all 7. Trouble concentrating on things, such as reading the newspaper or watching television: not at all 8. Moving or speaking so slowly that other people could have noticed. Or the opposite - being so fidgety or restless that you have been moving around a lot more than usual: several days 9. Thoughts that you would be better off or of hurting yourself in some way: not at all Total score: 1 Depression Screening Interpretation: Negative Depression Screening Done: Yes 79196 - PHQ-9 Billing: Yes Source: Developed by Drs. Kwan Nicholas, Shreya Dempsey, Sandoval Fuller and colleagues, with an educational em from [employer]. Thrive Questionnaire Date Thrive assessed: 06/21/24 I am a: Patient What is your living situation today?: I have a steady place to live Within the past 12 months, did the food you bought not last and you didn't have the money to get more?: Never true Within the past 12 months, did you worry whether your food would run out before you got money to buy more?: Never true Do you have trouble paying for medicines?: No Do you have trouble getting transportation to medical appointments?: No Do you have trouble paying your heating and electricity bill?: No Do you have trouble taking care of your child, family member or friend?: No Do you have trouble with day-to-day activities such as bathing, preparing meals, shopping, managing finances, etc.?: No Are you currently unemployed and looking for a job?: No Are you interested in more education?: No Please select the resources that you would like help with: None Currently or been in a relationship where the following occur: No concerns reported THRIVE Score: 0 AUDIT C Alcohol Use Questionnaire (AUDIT-C) 1. How often do you have a drink containing alcohol?: Never 3. How often do you have six or more drinks on one occasion?: Never Total Score: 0 Score Reviewed/Action Taken: Yes (score reviewed, no action needed) GENIE-7 AMB Questionnaire GENIE-7 Date GENIE - 7 assessed: 06/21/24 Feeling nervous, anxious, or on edge: 0 = Not at all Not being able to stop or control worryin = Not at all Worrying too much about different things: 0 = Not at all Trouble relaxin = Not at all Being so restless that it is hard to sit still: 0 = Not at all Becoming easily annoyed or irritable: 0 = Not at all Feeling afraid as if something awful might happen: 0 = Not at all Total GENIE-7 score (0-4 normal; 5-9 mild; 10-14 moderate; 15-21 severe): 0 Source: Developed by Drs. Kwan Nicholas, Shreya Dempsey, Sandoval Fuller and colleagues, with an educational em from [employer]. Review of Systems Const Denies chills, Reports difficulty sleeping (mainly due to increased coughing recently), Reports fatigue, Denies fever(s) and Denies headache(s) ENT Denies dysphagia, Denies dizziness, Denies otalgia, Denies headache(s), Reports nasal congestion, Denies neck pain, Denies odynophagia and Denies sore throat Card Denies chest pain, Denies palpitations and Reports dyspnea on exertion Resp Reports chest congestion (for the past 10 days), Reports cough (recurrent, worse at night - coughs up thick whitish phlegm), Reports dyspnea on exertion and D enies wheezing GI Denies abdominal pain, Denies constipation (controlled lately), Denies dysphagia, Denies heartburn, Denies diarrhea, Denies nausea, Denies odynophagia and Denies vomiting Denies dysuria, Denies nocturia and Denies urinary frequency Musc Denies back pain and Denies neck pain Skin/Breast Denies rash Neuro Denies dizziness and Denies headache(s) Endo Reports fatigue and Denies palpitations Aller/Immun Denies wheezing Physical exam (Primary Care) Vital Signs: Last Vital Signs Pulse 114 H 06/21/24 14:02 BP 132/86 06/21/24 14:02 Pulse Ox 96 06/21/24 14:02 Oxygen Delivery Method Room Air 06/21/24 14:02 BMI result Body Mass Index 26.8 Tobacco/Smoking Status: Tobacco use Status Tobacco use date assessed 06/21/24 06/21/24 14:04 Patient Tobacco Use Status Former Tobacco user 06/21/24 14:04 e-Cigarette/Vaping Use Never Used 06/21/24 14:04 PHQ-9: PHQ-9 Score PHQ-9: Total score 1 06/21/24 14:04 Depression Screening Interpretation: Negative Thrive Assessment: Date of Thrive Assessment Date Thrive assessed 06/21/24 06/21/24 14:04 Currently or been in a relationship where the following occur: No concerns reported Const General: no acute distress and alert HENMT Ears: TM's normal bilaterally and EAC's normal Throat: Yes posterior oropharynx normal and Yes tonsils normal (no TP congestion) Neck Neck: Yes supple and No lymphadenopathy Thyroid: Thyroid normal Resp Auscultation: no rales, rhonchi (scattered) throughout, no wheezes, diminished lung sounds bilateral and bronchial breath sounds (occasional) bilateral Cardio Rate: regular rate Rhythm: abnormal rhythm irregularly irregular Heart sounds: no murmurs GI Palpation (GI): Soft to palpation and nontender Auscultation: normal bowel sounds General: Yes no CVA tenderness Back/Spine/Pelvis Back: no CVA tenderness Skin Rashes: no rashes Extrem General: Yes no clubbing, cyanosis or edema Coding Level of Care Code Est Pt Level 4 (19541) Diagnoses COPD exacerbation J44.1 Persistent atrial fibrillation I48.19 Stress-induced cardiomyopathy I51.81 Pure hypercholesterolemia E78.00 Chronic idiopathic constipation K59.04 Chronic kidney disease (CKD), stage II (mild) N18.2 Vitamin D deficiency E55.9 Eosinophilia, unspecified type D72.10 Eosinophilia type: unspecified eosinophilia Impaired fasting glucose R73.01 GERD without esophagitis K21.9 Additional Codes PHQ-9 - 21546 - PHQ-9 Billing: Yes ([id number]) Assessment & Plan Assessment & Plan (1) COPD exacerbation: Code(s): J44.1 - Chronic obstructive pulmonary disease with (acute) exacerbation Category: Medical Plan: Will start patient empirically for now on Doxycycline 100 mg BID x 10 days but he is advised to proceed to the ER [facility] or call for help if he starts experiencing progressive SOB despite his current meds/Tx Continue Incruse Ellipta 62.5 mcg 1 inhalation QD and Albuterol HFA 2 inhalations Q 6 hours PRN; Dr. Monterroso recently added Raymundoela to see if this will help him further; otherwise, if he does not notice any significant improvement, can D/C this He has quit smoking in 2022 and has not gone back to smoking since Follow up with pulmonary as scheduled (2) Persistent atrial fibrillation: Code(s): I48.19 - Other persistent atrial fibrillation Category: Medical Plan: In-office EKG done today showed (+) persistent AF with normal ventricular response with no acute ST-T wave changes noted Patient is currently still in atrial fibrillation but is rate-controlled He's had 2 unsuccessful cardioversions in the past; was initially on Fleicanide but this had to be discontinued a couple of years ago when patient developed stress-induced cardiomyopathy and also had NSTEMI He was more recently on Amiodarone but this was also discontinued due to his increasing constipation while on the Rx He was seen by Dr. Constantino at [facility] in March 2023 and was advised going forward to just continue with rate control for his AF Continue Apixaban 5 mg BID for thromboembolism prophylaxis and Metoprolol ER 50 mg QD for rate control Follow up with cardiology as scheduled (3) Stress-induced cardiomyopathy: Code(s): I51.81 - Takotsubo syndrome Category: Medical Plan: His EF was around 25 to 30% back in September 2022 when he presented to the ER with increasing SOB - was diagnosed with CHF and started on Furosemide 20 mg QD His EF has since improved back to normal a few months later He had a normal myocardial perfusion on stress testing in September 2022 and cardiac catheterization done last year also showed NO significant coronary disease Continue Aspirin 81 mg QD (4) Pure hypercholesterolemia: Code(s): E78.00 - Pure hypercholesterolemia, unspecified Category: Medical Plan: Patient did not get his follow up labs done prior to his appointment today as he supposedly called up last week to ask if he needs to have labs drawn for today's visit and was reportedly advised by the call center that he did not have any labs ordered, which is NOT CORRECT This is getting concerning as this is not my first patient that this has happened to and over the past few weeks, I have had several patients with similar encounters and they end up coming in with no follow up labs done - am not really sure why the people at the call center will be telling patients this when they cannot verify what they are saying or telling patients Have reminded patient that his LDL cholesterol has improved further to 116 mg/dl on his previous labs (was at 166 mg/dl the year before); total cholesterol was then at 186 mg/dl (201 mg/dl previously) Reinforced low cholesterol diet Continue Atorvastatin 10 mg Q HS Will have him recheck his labs and fasting lipids in 4 months for follow up - will just have patient use his current orders (updated) for his next lab draw and he is advised to not even bother to call up and just go to the lab when the time comes (5) Chronic idiopathic constipation: Code(s): K59.04 - Chronic idiopathic constipation Category: Medical Plan: Patient states that this has been better controlled as long as he stays on his regimen of Miralax 17 gm QD and Dulcolax 10 mg Q HS He is again reminded on increased oral fluids and dietary fiber intake Follow up with GI as scheduled (6) Chronic kidney disease (CKD), stage II (mild): Code(s): N18.2 - Chronic kidney disease, stage 2 (mild) Category: Medical Plan: He's had bouts of TEO on his hospital admissions to [facility] a couple of years ago but his renal function appears stable on his recent labs Follow up with nephrology as scheduled Will have patient recheck his labs and renal function in 4 months for follow up (7) Vitamin D deficiency: Code(s): E55.9 - Vitamin D deficiency, unspecified Category: Medical Plan: Continue Vitamin D3 2000 units QD (8) Eosinophilia: Code(s): D72.10 - Eosinophilia, unspecified Category: Medical Qualifiers: Eosinophilia type: unspecified eosinophilia Qualified Code(s): D72.10 - Eosinophilia, unspecified Plan: Have discussed with patient that his recent labs showed (+) leucocytosis and eosinpophilia - unclear at this time what is causing these We also tested him for IgE Ab level - results are still pending at this time We will recheck his CBC in 4 months for follow up (9) Impaired fasting glucose: Code(s): R73.01 - Impaired fasting glucose Category: Medical Plan: His HgbA1c was at 5.8% on his labs done a few months ago; FBS was normal at 92 mg/dl back then Reinforced low calorie/low carb diet (10) GERD without esophagitis: Code(s): K21.9 - Gastro-esophageal reflux disease without esophagitis Category: Medical Plan: Dietary restrictions reinforced Continue Famotidine 40 mg Q HS Plan Follow up in 4 months Medications: New doxycycline hyclate 100 mg PO BID 10 days 20 caps 0RF
--- OUTSIDE RECORDS SUMMARY | 2024-06-21 16:38 | XMS_ITS | Clinical Summary ---
Author Organization [facility] Facility Address [address] [address] Care Team Providers Care Insurance Examiner Name Role Phone Efe Ricci MD Primary Care Provider [phone] Allergies No known active allergies Medications amLODIPine (NORVASC) 5 MG tablet Take 5 mg by mouth 1 (one) time each day Active Apixaban Starter Pack 5 MG tablet therapy pack Take by mouth Act donte atorvastatin (LIPITOR) 10 MG tablet Take 10 mg by mouth 1 (one) time each day Active flecainide (TAMBOCOR) 50 MG tablet Take 50 mg by mouth in the morning and 50 mg in the evening. Active furosemide (LASIX) 20 MG tablet Take 20 mg by mouth in the morning and 20 mg in the evening. Active lisinopril 20 MG tablet Take 20 mg by mouth 1 (one) time each day Active metoprolol succinate XL (TOPROL XL) 25 MG 24 hr tablet Take 25 mg by mouth 1 (one) time each day Do not crush or chew. Active HEPARIN, PORCINE, IN NACL IJ Inject as directed Active Melatonin 3 MG capsule Take by mouth Active aspirin (ST MALIA) 81 MG EC tablet Take 81 mg by mouth 1 (one) time each day Active omeprazole (PriLOSEC) [address] capsule Take 20 mg by mouth 1 (one) time each day Do not crush or chew. Active amiodarone (PACERONE) 200 MG tablet Take 200 mg by mouth 1 (one) time each day Active Active Problems Problem Noted Date Diagnosed Date Hypertensive chronic kidney disease 01/18/2023 Dyslipidemia 01/18/2023 Stage 3a chronic kidney disease 01/18/2023 Nontransmural myocardial infarction 01/16/2023 Acute kidney failure 01/16/2023 Essential (primary) hypertension 01/16/2023 Paroxysmal atrial fibrillation 01/16/2023 Chronic obstructive pulmonary disease 01/16/2023 Social History Tobacco Use Types Packs/Day Years Used Date Smoking Tobacco: Former Cigarettes Smokeless Tobacco: Never Tobacco Cessation:Counseling Given: No Alcohol Use Standard Drinks/Week Comments Not Currently 0 (1 standard drink = 0.6 oz pur e alcohol) Sex and Gender Information Value Date Recorded Sex Assigned at Not on file Legal Sex Male 2:48 PM EDT Gender Identity Not on file Sexual Orientation Not on file Last Filed Vital Signs Vital Sign Reading Time Taken Comments Blood Pressure 144/75 01/16/2023 2:34 PM EDT Pulse 93 01/16/2023 2:34 PM EDT Temperature - - Respiratory Rate - - Oxygen Saturation - - Inhaled Oxygen Concentration - - Weight 93 kg (205 lb) 01/16/2023 2:34 PM EDT Height - - Body Mass Index - - Plan of Treatment Health Maintenance Due Date Last Done Comments Pneumococcal Vaccine: 65+ Ye ars (1 of 2 - PCV) 1961 Colorectal Cancer Screening: Annual FOBT 2006 Colorectal Cancer Screening: Colonoscopy 2006 Colorectal Cancer Screening: Sigmoidoscopy 2006 Influenza Vaccine (#1) 2023 Hepatitis B Vaccine Aged Out No longe r eligible based on patient's age to complete this topic Insurance MEDICARE MEDICARE Care Teams Insurance Examiner Relationship Specialty Start Date End Date Efe Ricci MD [address] [place] [address] [address] [place], [place] [id number] PCP - General Internal Medicine 01/16/23
== END 2024-06-21 14:36 | disposition home or self-care (01) ==
PROVIDERS: PCP Internal Medicine; Visit Provider Internal Medicine
DX: J44.1 Chronic obstructive pulmonary disease with (acute) exacerbation (principal); I48.19 Other persistent atrial fibrillation; I51.81 Takotsubo syndrome; E78.00 Pure hypercholesterolemia, unspecified; K59.04 Chronic idiopathic constipation; N18.2 Chronic kidney disease, stage 2 (mild); E55.9 Vitamin D deficiency, unspecified; D72.10 Eosinophilia, unspecified; R73.01 Impaired fasting glucose; K21.9 Gastro-esophageal reflux disease without esophagitis

== ENCOUNTER → 2024-06-21 14:00 | Outpatient (BNVA) | payer MEDICARE, MEDICAID, SELFPAY | PROVIDERS: PCP Internal Medicine; Visit Provider Internal Medicine | DX: J44.1 Chronic obstructive pulmonary disease with (acute) exacerbation (principal); I48.19 Other persistent atrial fibrillation; I51.81 Takotsubo syndrome; E78.00 Pure hypercholesterolemia, unspecified; K59.04 Chronic idiopathic constipation; N18.2 Chronic kidney disease, stage 2 (mild); E55.9 Vitamin D deficiency, unspecified; R73.01 Impaired fasting glucose; D72.10 Eosinophilia, unspecified; K21.9 Gastro-esophageal reflux disease without esophagitis | CPT/HCPCS: 96127; 99212 ==

== ENCOUNTER 2024-07-12 12:31 | Outpatient (AMB) | payer MEDICARE, MEDICAID, SELFPAY ==
--- NOTE | 2024-07-12 12:39 | A.OFFVIS_ITS ---
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 Required: No Accompanied by: Self / Same As Patient Allergies No Known Drug Allergies Allergy (Verified 06/21/24 14:28) Unknown Medication List - Last Reconciled 07/12/24 by Jean Claude Tony MD albuterol sulfate 90 mcg/actuation 2 inhalations inhalation Q4H PRN amlodipine 5 mg PO DAILY apixaban (Eliquis) 5 mg PO BID aspirin 81 mg PO DAILY atorvastatin 10 mg PO BEDTIME 90 days azithromycin For 250 mg dose pack: take 500 mg today (day 1), then 250 mg for 4 days (days 2-5) PO bisacodyl (Dulcolax (bisacodyl)) 10 mg (2 x 5 mg) PO BEDTIME 30 days cholecalciferol (vitamin D3) 50 mcg PO DAILY 90 days comp.stocking,knee,long,medium As directed famotidine 40 mg PO BEDTIME fluticasone propion-salmeterol 250-50 mcg/dose (Wixela Inhub) 1 inh inhalation BID 30 days furosemide 20 mg PO DAILY metoprolol succinate ER 50 mg PO DAILY montelukast 10 mg PO QPM 90 days polyethylene glycol 3350 (Miralax) 17 grams PO DAILY prednisone 10 mg PO DIRECTED umeclidinium 62.5 mcg/actuation (Incruse Ellipta) 1 inh inhalation DAILY HPI Comments Details: 69-year-old gentleman who is here for follow-up. He presented to [facility] with COPD exacerbation and he was in Atrial fibrillation. He was complaining of atypical chest pain and dyspnea. He was treated for COPD and underwent KEVIN cardioversion. He was discharged home and plan was to exercise stress test on him and decide about starting anti arrhythmic therapy. He came back for stress testing but was tachycardic and was noticed to be back in atrial fibrillation. At that time was started on metoprolol succinate and stress test was not performed. 08/14/22: His returning for follow-up now. He is saying that his shortness of breath is still present. He has COPD is under control but he continued to be short of breath. EKG in the office is showing atrial fib he also has atypical chest pain still happening. We discussed about starting amiodarone and re- attempt cardioversion. He was loaded with amiodarone and subsequently had successful cardioversion. He came back to office in September 2022 and was seen by Christy. At that time was complaining of constipation and multiple complaints. He had a stress test before that which was normal and after discussion his amiodarone was stopped and he was started on flecainide 50 mg twice a day. 10/30/22: He is here for follow-up. He has significant GI complaints ongoing. His main complaint is constipation. Also has nausea and abdominal discomfort. He has been taking medications as prescribed. He has been using laxatives including lactulose and senna. He is saying he drinks water and tries to hydrate himself. He does not take a lot of fiber in his diet. He is saying his breathing is improved but he is not back to his normal self. He has underlying COPD. He also has some peripheral edema. Clinically not in heart failure though. He also had some dizzy spells recently when he was out in the sun doing the heat wave. 03/19/2023: He returns for follow-up. He has been on amiodarone is currently is in sinus rhythm. He is saying his breathing is better. He is due to see electrophysiology next month at [facility] for consideration for AFib ablation. Continues to get abdominal issues and is closely following with GI. 10/15/23: He is returning for follow-up. He has seen our nurse practitioners previously. He was referred to EP but it appears it was felt that he has not very symptomatic from atrial fibrillation and also was getting significant GI issues with amiodarone amiodarone was discontinued. He has been on metoprolol s uccinate 50 mg once a day. He is complaining of neck pain and upper chest tightness ongoing for few days persistently. He was also getting some fevers. Has been coughing too. He does not smoke cigarettes but his daughter smokes inside the household. He also has acid reflux and is using Pepcid currently although previously was advised to be on omeprazole. He is saying he is feeling better today but for the last couple of days he was not doing well and was getting significant symptoms along with shortness of breath. 01/12/2024: He is here for follow-up. He is saying that his breathing is good and bad on some days. He has been getting some abdominal pain and had some diarrhea today. No fevers or chills. He is saying he is feeling somewhat lousy due to that. He also has been experiencing left arm pain along with neck and left shoulder discomfort. He is saying his neck has been hurting for 1 month and since then he has been experiencing this pain. When he moves his left arm there is worsening of pain in the arm. There is no local tenderness noted though. 07/12/2024: He is here for follow-up. He is saying he has been doing well. He has shortness of breath but this is stable. He has COPD and follows with pulmonology. No other symptoms currently. Heart rate well controlled in atrial fibrillation. Blood pressure is well controlled too. [facility] Medical History Vitamin D deficiency Stress-induced cardiomyopathy Paroxysmal atrial fibrillation History of non-ST elevation myocardial infarction (NSTEMI) Essential hypertension Pure hypercholesterolemia Chronic kidney disease (CKD), stage II (mild) COPD (chronic obstructive pulmonary disease) Bronchitis Sinusitis Personal history of nicotine dependence H. pylori infection Constipation Gastritis Tubular adenoma of colon (~2010) Surgical History History of cardioversion History of cardiac cath History of endoscopy (~2018) History of colonoscopy (~2018) Family History Sister Breast cancer Social History Housing: House Alcohol intake: never Patient Tobacco Use Status: Former Tobacco user Years Smoked: (former smoker - onset 18yo, 1ppd x 49yrs, 40pyh - quit 07/2022) e-Cigarette/Vaping Use: Never Used Second Hand Smoke Exposure: Yes Substance Use Type: Marijuana service: No Current occupational status: retired Cognitive needs: No Hearing needs: No Vision needs: No Review of Systems Const Denies chills, Denies fatigue, Denies fever(s), Denies frequent falls, Denies weakness, Denies weight gain and Denies weight loss ENT Denies dizziness Card Denies chest pain, Denies leg edema, Denies lightheadedness, Denies palpitations, Denies dyspnea and Denies dyspnea on exertion Resp Denies cough, Denies dyspnea and Denies dyspnea on exertion GI Denies hematochezia Musc Denies abnormal gait, Denies muscle weakness, Denies numbness, Denies radiating pain into limb and Denies tingling Neuro Denies abnormal gait, Denies dizziness, Denies frequent falls, Denies numbness, Denies tingling and Denies weakness Endo Denies fatigue and Denies palpitations Physical Exam Vital Signs: Last Vital Signs Pulse 88 07/12/24 12:41 BP 110/72 07/12/24 12:41 BMI result Body Mass Index 26.8 Office Procedures EKG Details: Atrial fibrillation, leftward axis, QTC 428 milliseconds. [id number], Complete Assessment & Plan Assessment & Plan (1) Dyspnea: Comment: INCREASED DYSPNEA IS DUE TO COMBINATION OF HIS ADVANCED CHRONIC OBSTRUCTIVE PU LMONARY DISEASE WELL ISCHEMIC CARDIOMYOPATHY CAUSING LOW LVEF . AND PERSISTENT ATRIAL FIBRILLATION. Code(s): R06.00 - Dyspnea, unspecified Category: Medical (2) Persistent atrial fibrillation: Code(s): I48.19 - Other persistent atrial fibrillation Category: Medical Plan 69-year-old gentleman who is here for follow-up. He has persistent atrial fibrillation at this point and is being treated with rate control strategy with metoprolol succinate 50 mg daily. Heart rate is well controlled. He has advanced COPD and shortness of breath due to that. Blood pressure control is reasonable currently. He will continue same medications for now. Continues to have abdominal issues and will be following with GI. Overall clinically stable. He will see us back in 6 months. Thank you for allowing me to participate in the care of your patient. Please feel free to contact me if you have any questions. Coding Level of Care Code Est Pt Level 4 (98697) Diagnoses Dyspnea R06.00 Persistent atrial fibrillation I48.19 CPT Codes EKG - CPT: [id number], Complete ([id number])
[2024-07-12 12:41] VITALS: BP 110/72; PULSE 88; BMI 26.8
== END 2024-07-12 13:31 | disposition home or self-care (01) ==
LOC: HO.HCS 12:31
PROVIDERS: PCP Internal Medicine; Visit Provider Internal Medicine Cardiovascular Disease
DX: R06.00 Dyspnea, unspecified (principal); I48.19 Other persistent atrial fibrillation
CPT/HCPCS: 93010; 99214

== ENCOUNTER → 2024-07-12 12:31 | Outpatient (BNVA) | payer MEDICARE, MEDICAID, SELFPAY | PROVIDERS: PCP Internal Medicine; Visit Provider Internal Medicine Cardiovascular Disease | DX: I48.19 Other persistent atrial fibrillation (principal); R06.00 Dyspnea, unspecified; J44.9 Chronic obstructive pulmonary disease, unspecified | CPT/HCPCS: 93005; 99212 ==

== ENCOUNTER 2024-08-12 10:59 | Outpatient (AMB) | payer MEDICARE, MEDICAID, SELFPAY ==
--- NOTE | 2024-08-12 11:01 | MHC.OFFVIS ---
Vital Signs 08/12/24 11:03 Height 6 ft 5 in Weight 220 lb 10.67 oz BMI 26.2 BP 147/81 H Blood Pressure Location Lt brachial Position Sitting Pulse 82 Intake Visit Reasons: 8 months follow up Intake Note: Elias presents in the office as a 8 month follow up. CC: States that he has been having issues with his stomach lately. Has been dealing with diarrhea and constipation on certain days. He states that his issue is more so the pains. Allergies No Known Drug Allergies Allergy (Verified 06/21/24 14:28) Unknown HPI HPI 8 months follow up: Details: Assessment & Plan (1) Chronic idiopathic constipation: Code(s): K59.04 - Chronic idiopathic constipation Category: Medical (2) GERD without esophagitis: Code(s): K21.9 - Gastro-esophageal reflux disease without esophagitis Category: Medical Plan She continues to do well on his bisacodyl 2 qhs and famotidine prn. He is quite happy with this. Return office visit in 6 months Medications: Refilled famotidine 40 mg PO BEDTIME 90 tabs 2RF bisacodyl (Dulcolax (bisacodyl)) 10 mg (2 x 5 mg) PO BEDTIME 60 tabs 6RF 30 days K59.04 - Chronic idiopathic constipation TODAY'S VISIT (Patient has been seeing Cardiology and complaining GI problems including diarrhea and constipation. Last visit with Cardiology 12/2023. They seem to think he might have a viral gastroenteritis.) He is moving his bowels well, but he is having intermittent fairly severe periumbilical abdominal pain. He describes it as cramping. The timing is random he has trouble tying it to anything eaten although bending seems to set it off somewhat. The pain is very severe times 10/10 in takes his breath away. When it starts last for couple of hours. He has tried taking an extra famotidine he is uncertain whether this has helped or not. I will give him twice a day dosing in the meantime just in case. There are no new medical conditions that he knows of, no big changes in his diet, and no medications that are new introduced to his regimen. He thinks that he his father may have had trouble with his gallbladder. We will get an ultrasound to see if this is gallbladder disease since he has a lot of burping and bloating but not much flatulence. I put him on simethicone to see if mobilizing gas is helpful and on dicyclomine to see if it helps with cramping. This access both the treatment and a diagnostic tool. Next avail. [facility] Medical History Vitamin D deficiency Stress-induced cardiomyopathy Paroxysmal atrial fibrillation History of non-ST elevation myocardial infarction (NSTEMI) Essential hypertension Pure hypercholesterolemia Chronic kidney disease (CKD), stage II (mild) COPD (chronic obstructive pulmonary disease) Bronchitis Sinusitis Personal history of nicotine dependence H. pylori infection Constipation Gastritis Tubular adenoma of colon (~2010) Surgical History History of cardioversion History of cardiac cath History of endoscopy (~2018) History of colonoscopy (~2018) Family History Sister Breast cancer Social History Housing: House Alcohol intake: never Patient Tobacco Use Status: Former Tobacco user Years Smoked: (former smoker - onset 18yo, 1ppd x 49yrs, 40pyh - quit 07/2022) e-Cigarette/Vaping Use: Never Used Second Hand Smoke Exposure: Yes Substance Use Type: Marijuana service: No Current occupational status: retired Cognitive needs: No Hearing needs: No Vision needs: No Review of Systems Const Denies fatigue, Denies fever(s), Denies night sweats, Denies poor appetite and Denies weight loss ENT Reports Normal hearing present, Denies dental pain, Denies dysphagia, Denies hearing loss, Denies mouth pain, Denies odynophagia, Denies throat swelling, Denies tongue swelling and Reports other (Dentition adequate) Card Reports no additional complaints Resp Reports no additional complaints GI Details: Reports abdominal pain, Reports belching, Denies melena, Reports bloating, Denies hematochezia, Denies constipation, Reports GI cramping, Denies dysphagia, Denies excessive flatus, Denies early satiety, Reports heartburn, Denies diarrhea, Denies nausea, Denies odynophagia, Denies vomiting and Denies hematemesis Skin/Breast Denies pruritus, Denies lesions, Denies rash and Denies jaundice Neuro Reports Normal hearing present and Denies Abnormal speech present Endo Denies fatigue Aller/Immun Denies throat swelling and Denies tongue swelling Physical Exam Vital Signs: Last Vital Signs Pulse 82 08/12/24 11:03 BP 147/81 H 08/12/24 11:03 BMI result Body Mass Index 26.2 Const General: cooperative, no acute distress, well developed and well groomed Nutritional Appearance: average body habitus and well nourished Orientation/consciousness: oriented to person, oriented to place and oriented to time Limitations: No language barrier HEENT Head: Yes normocephalic and Yes atraumatic Eyes General: appearance normal, both eyes and all related structures Pupils: Equal, round and reactive pupils present Neck Neck: Yes normal visual inspection and Yes no lymphadenopathy Thyroid: Thyroid normal Resp Effort & Inspection: normal respiratory effort and able to speak in complete sentences Auscultation: clear to auscultation bilaterally Cardio Rate: regular rate Rhythm: regular rhythm Heart sounds: Normal, physiologic split S2 sound present Peripheral pulses: radial pulses present and posterior tibial pulses present GI Inspection: No distended and No Abdominal panniculus present Palpation (GI): Soft to palpation, nontender, no guarding, not rigid and No hepatosplenomegaly present Percussion: Yes normal to percussion Auscultation: normal bowel sounds Rectal Exam - Male: Yes deferred Skin General skin exam: no rashes or lesions noted, turgor normal, skin not dry, no jaundice, No spider nevi and no striae Rashes: no rashes Nails: normal Neuro General: oriented to person, oriented to place and oriented to time Cranial nerves: Yes Equal, round and reactive pupils present and Yes Normal hearing present Speech: No Abnormal speech present Extrem General: Yes normal to inspection, No clubbing, No cyanosis and No edema Psych Appearance: grossly normal and well kempt Mental Status: mental status grossly normal Speech and movement: Normal speech and movement present Affect: normal affect Attitude: cooperative Thought process: Normal thought process present and not confabulating Thought content: Normal thought content present Insight: Good insight present (Psych) Judgement: Good judgement present (Psych) Assessment & Plan Assessment & Plan (1) GERD without esophagitis: Code(s): K21.9 - Gastro-esophageal reflux disease without esophagitis Category: Medical (2) Chronic idiopathic constipation: Code(s): K59.04 - Chronic idiopathic constipation Category: Medical (3) Abdominal bloating: Code(s): R14.0 - Abdominal distension (gaseous) Category: Medical (4) Periumbilical abdominal pain: Code(s): R10.33 - Periumbilical pain Category: Medical Plan (Patient has been seeing Cardiology and complaining GI problems including diarrhea and constipation. Last visit with Cardiology 12/2023. They seem to think he might have a viral gastroenteritis.) He is moving his bowels well, but he is having intermittent fairly severe periumbilical abdominal pain. He describes it as cramping. The timing is random he has trouble tying it to anything eaten although bending seems to set it off somewhat. The pain is very severe times 10/10 in takes his breath away. When it starts last for couple of hours. He has tried taking an extra famotidine he is uncertain whether this has helped or not. I will give him twice a day dosing in the meantime just in case. There are no new medical conditions that he knows of, no big changes in his diet, and no medications that are new introduced to his regimen. He thinks that he his father may have had trouble with his gallbladder. We will get an ultrasound to see if this is gallbladder disease since he has a lot of burping and bloating but not much flatulence. I put him on simethicone to see if mobilizing gas is helpful and on dicyclomine to see if it helps with cramping. This access both the treatment and a diagnostic tool. Next avail. Orders: Orders H pylori Ag Stool Today R10.33 - Periumbilical pain, R14.0 - Abdominal distension (gaseous) US abdomen complete Today R10.33 - Periumbilical pain, R14.0 - Abdominal distension (gaseous) Medications: New simethicone (Gas Relief (simethicone)) 125 mg PO BID-QID PRN 90 tabs 6RF abdominal distention R10.33 - Periumbilical pain, R14.0 - Abdominal distension (gaseous) dicyclomine 20 mg PO QID 30 days 120 tabs 6RF R10.33 - Periumbilical pain Changed From famotidine 40 mg PO BEDTIME 90 tabs 2RF To famotidine 40 mg PO BID 90 days 180 tabs 1RF Discontinued bisacodyl (Dulcolax (bisacodyl)) Discontinued Reason: Patient Completed Course 10 mg (2 x 5 mg) PO BEDTIME 30 days 60 tabs 6RF K59.04 - Chronic idiopathic constipation Coding Level of Care Code Est Pt Level 4 (48886) Diagnoses GERD without esophagitis K21.9 Chronic idiopathic constipation K59.04 Abdominal bloating R14.0 Periumbilical abdominal pain R10.33 Time Spent (min) 33
[2024-08-12 11:03] VITALS: BP 147/81; PULSE 82; BMI 26.2
--- OUTSIDE RECORDS SUMMARY | 2024-08-12 12:56 | XMS_ITS | Clinical Summary ---
Author Organization [facility] Facility Address [address] [address] Care Team Providers Care Cash Application Representative Name Role Phone Efe Ricci MD Primary Care Provider [phone] Allergies No known active allergies Medications amLODIPine [...] Due Date Last Done Comments Pneumococcal Vaccine: 50+ Ye ars (1 of 2 - PCV) 1976 Colorectal Cancer Screening: Annual FOBT 2006 Colorectal Cancer Screening: Colonoscopy 2006 Colorectal Cancer Screening: Sigmoidoscopy 2006 Influenza Vaccine (Season Ended) 2024 Hepatitis B Vaccine Aged Out No longe r eligible based on patient's age to complete this topic Insurance Medicare Medicare Care Teams Cash Application Representative Relationship Specialty Start Date End Date Efe Ricci MD [address] [place] [address] [address] [place], [place] [id number] PCP - General Internal Medicine 01/16/23
== END 2024-08-12 11:34 | disposition home or self-care (01) ==
LOC: HO.HGI 10:59
PROVIDERS: PCP Internal Medicine; Visit Provider Nurse Practitioner
DX: K21.9 Gastro-esophageal reflux disease without esophagitis (principal); K59.04 Chronic idiopathic constipation; R14.0 Abdominal distension (gaseous); R10.33 Periumbilical pain
CPT/HCPCS: 99214

== ENCOUNTER → 2024-08-12 10:59 | Outpatient (BNVA) | payer MEDICARE, MEDICAID, SELFPAY | PROVIDERS: PCP Internal Medicine; Visit Provider Nurse Practitioner | DX: K59.04 Chronic idiopathic constipation (principal); K21.9 Gastro-esophageal reflux disease without esophagitis; R14.0 Abdominal distension (gaseous); R10.33 Periumbilical pain | CPT/HCPCS: 99212 ==

== ENCOUNTER 2024-08-30 10:56 | Outpatient (AMB) | payer MEDICARE, MEDICAID, SELFPAY ==
[2024-08-30 11:01] VITALS: BP 140/84; PULSE 67; O2SAT 98; BMI 26.8
--- NOTE | 2024-08-30 11:01 | MHC.OFFVIS ---
Vital Signs 08/30/24 11:01 Height 6 ft 5 in Weight 225 lb 15.581 oz BMI 26.8 BP 140/84 H Blood Pressure Location Lt brachial Position Sitting Pulse 67 Pulse Source Pulse Oximeter Pulse Oximetry (%) 98 Oxygen Delivery Method Room Air Intake Visit Reasons: COPD Intake Note: pt is here for follow up and states his breathing is getting worse, he is having a stomach issue affecting his breathing Carbon Accountant Required: No Allergies No Known Drug Allergies Allergy (Verified 08/30/24 11:08) Unknown Medication List - Last Reconciled 08/30/24 by Dominique Monterroso MD albuterol sulfate 90 mcg/actuation 2 inhalations inhalation Q4H PRN amlodipine 5 mg PO DAILY apixaban (Eliquis) 5 mg PO BID aspirin 81 mg PO DAILY atorvastatin 10 mg PO BEDTIME 90 days cholecalciferol (vitamin D3) 50 mcg PO DAILY 90 days comp.stocking,knee,long,medium As directed dicyclomine 20 mg PO QID 30 days famotidine 40 mg PO BID 90 days fluticasone propion-salmeterol 250-50 mcg/dose (Wixela Inhub) 1 inh inhalation BID 30 days furosemide 20 mg PO DAILY metoprolol succinate ER 50 mg PO BID montelukast 10 mg PO QPM 90 days simethicone (Gas Relief (simethicone)) 125 mg PO BID-QID PRN umeclidinium 62.5 mcg/actuation (Incruse Ellipta) 1 inh inhalation DAILY Do you need a note to return to daycare/school/sports/work: No HPI HPI COPD: Details: 69 YEARS OLD GENTLEMAN IS HERE FOR HIS ROUTINE FOLLOW-UP. HE IS A CASE OF SEVERE, OBSTRUCTIVE AIRWAY DISORDER ALONG WITH UPPER AIRWAY ALLERGIES. DURING THE SPRING SEASON HIS NASAL CONGESTION IS SOMEWHAT WORSE. HE COMPLAINS OF INCREASED SHORTNESS OF BREATH ON MINIMAL EXERTION. BUT HE HAS NOT. HAD ANY ACUTE RESPIRATORY INFECTION HE SEEMS TO BE SUFFERING, FROM INCREASED LAZINESS AND IS NOT DOING ANY WALKING ON A REGULAR BASIS. ALSO HAS NOT BEEN USING THE INCRUSE ELLIPTA . HE THOUGHT HE SHOULD USE ONLY WIXELA TWICE A DAY. [facility] Medical History Vitamin D deficiency Stress-induced cardiomyopathy Paroxysmal atrial fibrillation History of non-ST elevation myocardial infarction (NSTEMI) Essential hypertension Pure hypercholesterolemia Chronic kidney disease (CKD), stage II (mild) COPD (chronic obstructive pulmonary disease) Bronchitis Sinusitis Personal history of nicotine dependence H. pylori infection Constipation Gastritis Tubular adenoma of colon (~2010) Surgical History History of cardioversion History of cardiac cath History of endoscopy (~2018) History of colonoscopy (~2018) Family History Sister Breast cancer Social History Housing: House Alcohol intake: never Patient Tobacco Use Status: Former Tobacco user Years Smoked: (former smoker - onset 18yo, 1ppd x 49yrs, 40pyh - quit 07/2022) e-Cigarette/Vaping Use: Never Used Second Hand Smoke Exposure: Yes Substance Use Type: Marijuana service: No Current occupational status: retired Cognitive needs: No Hearing needs: No Vision needs: No Review of Systems Const All systems reviewed & are unremarkable except as noted in HPI and below Eyes Reports no additional complaints ENT Reports no additional complaints Card Reports chest pain (Discomfort across the sternum manubrie), Denies pedal edema, Denies irregular heart rhythm and Denies leg edema Resp Reports as per HPI GI Reports no additional complaints Reports no additional complaints Musc Reports no additional complaints Skin/Breast Reports system reviewed and no additional complaints, except as documented Neuro Reports no additional complaints Psych Reports no additional complaints Physical Exam Const General: healthy appearing, comfortable, no acute distress, alert and awake Orientation/consciousness: patient oriented x3 HEENT Head: Yes normal to inspection General nose exam: No nasal polyps present, No nasal discharge present and Other nasal findings present (THICK YELLOW PHLEGM IS NOTED IN THE LEFT NOSTRIL.) Face and sinus: Yes sinuses nontender Mouth: oropharynx normal Throat: Yes posterior oropharynx normal (THERE IS MODERATE AMOUNT OF WHITISH YELLOW PHLEGM) Eyes General: appearance normal, both eyes and all related structures Neck Neck: Yes normal visual inspection, Yes no lymphadenopathy, Yes trachea midline and Yes no JVD Thyroid: Thyroid normal Chest Chest palpation & inspection: normal inspection of the chest, normal palpation of entire chest wall and no tenderness Resp Other: Percussion note is resonant, breath sounds are distant but equal on both sides. No wheezes heard .Also no rhonchi or crepitations. Cardio Palpation: normal PMI Rate: regular rate Rhythm: regular rhythm Heart sounds: no gallops and no murmurs GI Palpation (GI): Soft to palpation, nontender, No hepatosplenomegaly present and no masses Auscultation: normal bowel sounds Back/Spine/Pelvis Thoracic/Lumbar Spine: thoracic and lumbar spine normal to inspection Skin General skin exam: no rashes or lesions noted Neuro General: patient oriented x3 and no focal motor deficits Cranial nerves: Yes CN's II-XII intact bilaterally Extrem General: Yes normal to inspection, Yes no clubbing, cyanosis or edema and Yes no calf tenderness Psych Appearance: grossly normal and well kempt Speech and movement: Normal speech and movement present Assessment & Plan Assessment & Plan (1) COPD (chronic obstructive pulmonary disease): Comment: (COPD -MODERATELY SEVERE. HAS BEEN STABLE AND CONTROLLED, BUT NOW COMPLAINS OF INCREASED DYSPNEA ON ANY EXERTION. Code(s): J44.9 - Chronic obstructive pulmonary disease, unspecified Category: Medical Qualifiers: COPD type: unspecified COPD Qualified Code(s): J44.9 - Chronic obstructive pulmonary disease, unspecified Plan: CONTINUE TO USE WIXELA 250-50 1 INHALATION B.I.D. ALSO RESTART USING INCRUSE ELLIPTA 1 INHALATION DAILY USE ALBUTEROL HFA 2 PUFFS Q 6 HOURS P.R.N. (2) Personal history of nicotine dependence: Comment: (former smoker - onset 18yo, 1ppd x 49yrs, 40pyh - quit 07/2022), has cheated by smoking 1 or 2 cigarettes a day last month, may be due to stress, but not anymore. Code(s): Z87.891 - Personal history of nicotine dependence Category: Medical Plan: COMMENDED FOR NOT GOING BACK TO SMOKING. CONTINUE TO HAVE ANNUAL LDCT (3) Dyspnea: Comment: INCREASED DYSPNEA IS DUE TO COMBINATION OF HIS ADVANCED CHRONIC OBSTRUCTIVE PULMONARY DISEASE WELL ISCHEMIC CARDIOMYOPATHY CAUSING LOW LVEF ,AND PERSISTENT ATRIAL FIBRILLATION, AND SOME LAZINESS. Code(s): R06.00 - Dyspnea, unspecified Category: Medical Plan: GIVE HIM A PEP TALK. ADVISED HIM TO START WALKING AT LEAST UP TO 1 CT EVERY DAY, EVEN IF IT IS IN INSTALLMENTS. ADVISED TO DO DEEP BREATHING EXERCISES 2 OR 3 TIMES A DAY. I WILL RECHECK HIM MORE OF. Medications: Changed From umeclidinium 62.5 mcg/actuation (Incruse Ellipta) 1 inh inhalation DAILY 1 ea 6RF To umeclidinium 62.5 mcg/actuation (Incruse Ellipta) 1 inh inhalation DAILY 30 days 1 ea 6RF COPD Coding Level of Care Code Est Pt Level 3 (52154) Diagnoses Chronic obstructive pulmonary disease, unspecified COPD type J44.9 COPD type: unspecified COPD Personal history of nicotine dependence Z87.891 Dyspnea R06.00
--- OUTSIDE RECORDS SUMMARY | 2024-08-30 11:41 | XMS_ITS | Clinical Summary ---
Author Organization [facility] Facility Address [address] [address] Care Team Providers Care Waist Presser Name Role Phone Efe Ricci MD Primary Care Provider +1- [phone] Allergies No known active allergies Medications amLODIPine [...] this topic Insurance Medicare Medicare Care Teams Waist Presser Relationship Specialty Start Date End Date Efe Ricci MD [address] [place] [address] [address] [place], [place] [id number] PCP - General Internal Medicine 01/16/23
== END 2024-08-30 11:21 | disposition home or self-care (01) ==
LOC: HO.HPS 10:57
PROVIDERS: PCP Internal Medicine; Visit Provider Internal Medicine
DX: J44.9 Chronic obstructive pulmonary disease, unspecified (principal); Z87.891 Personal history of nicotine dependence; R06.00 Dyspnea, unspecified
CPT/HCPCS: 99213

== ENCOUNTER → 2024-08-30 10:56 | Outpatient (BNVA) | payer MEDICARE, MEDICAID, SELFPAY | PROVIDERS: PCP Internal Medicine; Visit Provider Internal Medicine | DX: J44.9 Chronic obstructive pulmonary disease, unspecified (principal); R06.00 Dyspnea, unspecified; Z87.891 Personal history of nicotine dependence | CPT/HCPCS: 99212 ==

== ENCOUNTER 2024-09-29 08:53 | Outpatient (REF) | payer MEDICARE, MEDICAID, SELFPAY ==
--- NOTE | ~2024-09-29 | US_ITS ---
CLINICAL HISTORY: R10.33 - Periumbilical pain US abdomen complete Comparison: None Findings: The pancreatic duct is dilated to 6 mm. Portions of the pancreas are poorly visualized secondary to overlying bowel gas. No obvious focal lesion within visualized portions. Mildly limited evaluation of the abdominal aorta secondary to overlying bowel gas. No gross evidence of aneurysm. Unremarkable IVC. The liver is normal in size and echotexture. There is no intrahepatic bile duct dilatation. The common duct is 6 mm in diameter. The gallbladder is normal. There is no sonographic Bernardo sign. The main portal vein is antegrade. The right kidney is 9.3 cm in length. The left kidney is 10.2 cm in length. The spleen is 10.3 cm in length. No ascites. IMPRESSION: There is abnormal dilatation of the pancreatic duct. Recommend further evaluation with contrast-enhanced CT or MRI when clinically appropriate. This document has been electronically signed by: Tammie Mendoza MD on 09/29/2024 16:31:56
--- OUTSIDE RECORDS SUMMARY | 2024-09-29 09:15 | XMS_ITS | Clinical Summary ---
Author Organization [facility] Facility Address [address] [address] Care Team Providers Care Division Manager Name Role Phone Efe Ricci MD Primary Care Provider +1- [phone] Allergies No known active allergies Medications amLODIPine [...] this topic Insurance Medicare Medicare Care Teams Division Manager Relationship Specialty Start Date End Date Efe Ricci MD [address] [place] [address] [address] [place], [place] [phone] PCP - General Internal Medicine 01/16/23
== END 2024-09-29 08:54 | disposition home or self-care (01) ==
LOC: HO.US 08:53
PROVIDERS: PCP Internal Medicine; Visit Provider Nurse Practitioner
DX: R10.33 Periumbilical pain (principal); R14.0 Abdominal distension (gaseous)
CPT/HCPCS: 76700

== ENCOUNTER → 2024-09-29 08:55 | Outpatient (BNV) | payer MEDICARE, MEDICAID, SELFPAY | PROVIDERS: PCP Internal Medicine; Visit Provider Radiology Diagnostic Radiology | DX: K86.89 Other specified diseases of pancreas (principal) | CPT/HCPCS: 76700 ==

== ENCOUNTER 2024-10-06 11:52 | Outpatient (AMB) | payer MEDICARE, MEDICAID, SELFPAY ==
--- NOTE | 2024-10-06 11:55 | MHC.OFFVIS ---
Vital Signs 10/06/24 11:56 Height 6 ft 5 in Weight 223 lb 8 oz BMI 26.5 BP 146/88 H Blood Pressure Location Rt brachial Position Sitting Pulse 76 Pulse Source Pulse Oximeter Pulse Oximetry (%) 96 Oxygen Delivery Method Room Air Intake Visit Reasons: f/u h pylori and us Intake Note: Est pt for GERD mgmt. US done. Needs H Pylori BT. On famotidine but not PPI. CC; C.O. possible adverse reaction to the dicyclomine. Pt reports he stopped taking the Rx after 1 week as he was noticing increased abd pain and constipation. Pt also here to discuss results of US and have BT performed provided that the POLITICAL ANTHROPOLOGIST agrees. Pt confirms he has not had anything to eat or drink in the last 1 hour. No famotidine within the last 24 hours. Power Generation Equipment Repairer Required: No Accompanied by: Self / Same As Patient Allergies No Known Drug Allergies Allergy (Verified 10/06/24 11:56) Unknown HPI HPI f/u h pylori and us: Details: Assessment & Plan (1) GERD without esophagitis: Code(s): K21.9 - Gastro-esophageal reflux disease without esophagitis Category: Medical (2) Chronic idiopathic constipation: Code(s): K59.04 - Chronic idiopathic constipation Category: Medical (3) Abdominal bloating: Code(s): R14.0 - Abdominal distension (gaseous) Category: Medical (4) Periumbilical abdominal pain: Code(s): R10.33 - Periumbilical pain Category: Medical Plan (Patient has been seeing Cardiology and complaining GI problems including diarrhea and constipation. Last visit with Cardiology 12/2023. They seem to think he might have a viral gastroenteritis.) He is moving his bowels well, but he is having intermittent fairly severe periumbilical abdominal pain. He describes it as cramping. The timing is random he has trouble tying it to anything eaten although bending seems to set it off somewhat. The pain is very severe times 10/10 in takes his breath away. When it starts last for couple of hours. He has tried taking an extra famotidine he is uncertain whether this has helped or not. I will give him twice a day dosing in the meantime just in case. There are no new medical conditions that he knows of, no big changes in his diet, and no medications that are new introduced to his regimen. He thinks that he his father may have had trouble with his gallbladder. We will get an ultrasound to see if this is gallbladder disease since he has a lot of burping and bloating but not much flatulence. I put him on simethicone to see if mobilizing gas is helpful and on dicyclomine to see if it helps with cramping. This access both the treatment and a diagnostic tool. Next avail. Orders: Orders H pylori Ag Stool Today R10.33 - Periumbilical pain, R14.0 - Abdominal distension (gaseous) US abdomen complete Today R10.33 - Periumbilical pain, R14.0 - Abdominal distension (gaseous) Medications: New simethicone (Gas Relief (simethicone)) 125 mg PO BID-QID PRN 90 tabs 6RF abdominal distention R10.33 - Periumbilical pain, R14.0 - Abdominal distension (gaseous) dicyclomine 20 mg PO QID 30 days 120 tabs 6RF R10.33 - Periumbilical pain Changed From famotidine 40 mg PO BEDTIME 90 tabs 2RF To famotidine 40 mg PO BID 90 days 180 tabs 1RF Discontinued bisacodyl (Dulcolax (bisacodyl)) Discontinued Reason: Patient Completed Course 10 mg (2 x 5 mg) PO BEDTIME 30 days 60 tabs 6RF K59.04 - Chronic idiopathic constipation LABS h pylori stool not obtained US ABD 09/2024 Findings: The pancreatic duct is dilated to 6 mm. Portions of the pancreas are poorly visualized secondary to overlying bowel gas. No obvious focal lesion within visualized portions. Mildly limited evaluation of the abdominal aorta secondary to overlying bowel gas. No gross evidence of aneurysm. Unremarkable IVC. The liver is normal in size and echotexture. There is no intrahepatic bile duct dilatation. The common duct is 6 mm in diameter. The gallbladder is normal. There is no sonographic Bernardo sign. The main portal vein is antegrade. The right kidney is 9.3 cm in length. The left kidney is 10.2 cm in length. The spleen is 10.3 cm in length. No ascites. IMPRESSION: There is abnormal dilatation of the pancreatic duct. Recommend further evaluation with contrast-enhanced CT or MRI when clinically appropriate. CORRESPONDENCE On 09/30/24 @ 12:23 Monica Singh Wrote To Monica Singh (2) Please call this patient and let him know I am ordering an MR CP to take a look at a possible dilated pancreatic duct. Sometimes this is a false reading on ultrasound I am mostly ordering this study just to be complete and thorough. Patient has chronic kidney disease so I would prefer this over CT with contrast. New Orders MR MRCP MRI 09/30/24 TODAYS VISIT MRCP was ordered in response to the dilated pancreatic duct which is of uncertain significance. I would like to go get some blood work and check a lipase and amylase. At this point he is off famotidine 40 mg twice a day and of the last visit we also started dicyclomine and simethicone. ABDOMINAL PAIN MORE OF a tightness, and it is very intermittent any still can not link it to anything like food eaten. He also has other concerning symptoms in that it manifest intermittently with severe intermittent shortness of breath. The way he can relate this is sometimes he can take his trash down to the end of his very long driveway without shortness of breath and other times he struggles severely and this can vary 1 day to the next. He is also having more swelling of his feet. Again when the abdominal pain happens it is just his intermittent and it is tied to these other symptoms of shortness of breath. He has been seeing his marketing technology coordinator and they are telling him that his COPD is stable and unchanged so this does not seem to be a convincing explanation. He does have atrial fibrillation and follows with cardiology so it is possible that this isn't atypical cardiac presentation into the stomach or interfering with the perfusion of the stomach. This would be my biggest fear. Because of this I am going to get some basic labs including a proBNP and I am going to ask him to go for a walk-in EKG. He had 1 in June which did appear to be significantly different from the 1 done a year prior but with his AFib it is difficult to tell. He has a cardiology appointment in December and depending on the outcome these labs I will try to advise him whether that should be moved up to be more proactive. In the meantime he has the MRCP scheduled at the end of this month for the dilated pancreatic duct which could just be a normal variant and of uncertain contribution to his symptoms. I would think that if he actually had pancreatic dysfunction that the pain would be more constant and not intermittent. However, we will check his pancreatic enzymes to see how those are affected or not. Return office visit after his MRCP at the end of this month. [facility] Medical History (Updated 10/06/24 @ 12:19 by GEOFF Gutierrez) Dilated pancreatic duct Vitamin D deficiency Stress-induced cardiomyopathy Paroxysmal atrial fibrillation History of non-ST elevation myocardial infarction (NSTEMI) Essential hypertension Pure hypercholesterolemia Chronic kidney disease (CKD), stage II (mild) COPD (chronic obstructive pulmonary disease) Bronchitis Sinusitis Personal history of nicotine dependence H. pylori infection Constipation Gastritis Tubular adenoma of colon (~2010) Surgical History History of cardioversion History of cardiac cath History of endoscopy (~2018) History of colonoscopy (~2018) Family History Sister Breast cancer Social History Housing: House Alcohol intake: never Patient Tobacco Use Status: Former Tobacco user Years Smoked: (former smoker - onset 18yo, 1ppd x 49yrs, 40pyh - quit 07/2022) e-Cigarette/Vaping Use: Never Used Second Hand Smoke Exposure: Yes Substance Use Type: Marijuana service: No Current occupational status: retired Cognitive needs: No Hearing needs: No Vision needs: No Review of Systems Const Denies fatigue, Denies fever(s), Denies night sweats, Denies poor appetite and Denies weight loss ENT Reports Normal hearing present, Denies dental pain, Denies dysphagia, Denies hearing loss, Denies mouth pain, Denies odynophagia, Denies throat swelling, Denies tongue swelling and Reports other (Dentition adequate) Card Reports no additional complaints and Reports dyspnea on exertion Resp Reports dyspnea on exertion GI Details: Reports abdominal pain, Denies melena, Denies bloating, Denies hematochezia, Denies constipation, Denies GI cramping, Denies dysphagia, Denies excessive flatus, Denies early satiety, Denies heartburn, Denies diarrhea, Denies nausea, Denies odynophagia, Denies vomiting and Denies hematemesis Skin/Breast Denies pruritus, Denies lesions, Denies rash and Denies jaundice Neuro Reports Normal hearing present and Denies Abnormal speech present Endo Denies fatigue Aller/Immun Denies throat swelling and Denies tongue swelling Physical Exam Vital Signs: Last Vital Signs Pulse 76 10/06/24 11:56 BP 146/88 H 10/06/24 11:56 Pulse Ox 96 10/06/24 11:56 Oxygen Delivery Method Room Air 10/06/24 11:56 BMI result Body Mass Index 26.5 Const General: cooperative, no acute distress, well developed and well groomed Nutritional Appearance: well nourished Orientation/consciousness: oriented to person, oriented to place and oriented to time Limitations: No language barrier HEENT Head: Yes normocephalic and Yes atraumatic Eyes General: appearance normal, both eyes and all related structures Pupils: Equal, round and reactive pupils present Neck Neck: Yes normal visual inspection and Yes no lymphadenopathy Thyroid: Thyroid normal Resp Effort & Inspection: normal respiratory effort and able to speak in complete sentences Auscultation: clear to auscultation bilaterally Cardio Rate: regular rate Rhythm: regular rhythm Heart sounds: Normal, physiologic split S2 sound present Peripheral pulses: radial pulses present and posterior tibial pulses present GI Inspection: No distended and No Abdominal panniculus present Palpation (GI): Soft to palpation, nontender, no guarding, not rigid and No hepatosplenomegaly present Percussion: Yes normal to percussion Auscultation: normal bowel sounds Rectal Exam - Male: Yes deferred Skin General skin exam: no rashes or lesions noted, turgor normal, skin not dry, no jaundice, No spider nevi and no striae Rashes: no rashes Nails: normal Neuro General: oriented to person, oriented to place and oriented to time Cranial nerves: Yes Equal, round and reactive pupils present and Yes Normal hearing present Speech: No Abnormal speech present Extrem General: Yes normal to inspection, No clubbing, No cyanosis and No edema Psych Appearance: grossly normal and well kempt Mental Status: mental status grossly normal Speech and movement: Normal speech and movement present Affect: normal affect Attitude: cooperative Thought process: Normal thought process present and not confabulating Thought content: Normal thought content present Insight: Good insight present (Psych) Judgement: Good judgement present (Psych) Assessment & Plan Assessment & Plan (1) Periumbilical abdominal pain: Code(s): R10.33 - Periumbilical pain Category: Medical (2) Dilated bile duct: Comment: ULTRASOUND OF THE ABDOMEN 09/29/2024 IMPRESSION: There is abnormal dilatation of the pancreatic duct. Recommend further evaluation with contrast-enhanced CT or MRI when clinically appropriate. Code(s): K83.8 - Other specified diseases of biliary tract Category: Medical (3) Abdominal bloating: Code(s): R14.0 - Abdominal distension (gaseous) Category: Medical (4) Chronic idiopathic constipation: Code(s): K59.04 - Chronic idiopathic constipation Category: Medical (5) GERD without esophagitis: Code(s): K21.9 - Gastro-esophageal reflux disease without esophagitis Category: Medical (6) Stress-induced cardiomyopathy: Code(s): I51.81 - Takotsubo syndrome Category: Medical (7) Systolic heart failure: Code(s): I50.20 - Unspecified systolic (congestive) heart failure Category: Medical Qualifiers: Heart failure chronicity: acute Qualified Code(s): I50.21 - Acute systolic (congestive) heart failure (8) Shortness of breath: Code(s): R06.02 - Shortness of breath Category: Medical Plan MRCP was ordered in response to the dilated pancreatic duct which is of uncertain significance. I would like to go get some blood work and check a lipase and amylase. At this point he is off famotidine 40 mg twice a day and of the last visit we also started dicyclomine and simethicone. ABDOMINAL PAIN MORE OF a tightness, and it is very intermittent any still can not link it to anything like food eaten. He also has other concerning symptoms in that it manifest intermittently with severe intermittent shortness of breath. The way he can relate this is sometimes he can take his trash down to the end of his very long driveway without shortness of breath and other times he struggles severely and this can vary 1 day to the next. He is also having more swelling of his feet. Again when the abdominal pain happens it is just his intermittent and it is tied to these other symptoms of shortness of breath. He has been seeing his marketing technology coordinator and they are telling him that his COPD is stable and unchanged so this does not seem to be a convincing explanation. He does have atrial fibrillation and follows with cardiology so it is possible that this isn't atypical cardiac presentation into the stomach or interfering with the perfusion of the stomach. This would be my biggest fear. Because of this I am going to get some basic labs including a proBNP and I am going to ask him to go for a walk-in EKG. He had 1 in June which did appear to be significantly different from the 1 done a year prior but with his AFib it is difficult to tell. He has a cardiology appointment in December and depending on the outcome these labs I will try to advise him whether that should be moved up to be more proactive. In the meantime he has the MRCP scheduled at the end of this month for the dilated pancreatic duct which could just be a normal variant and of uncertain contribution to his symptoms. I would think that if he actually had pancreatic dysfunction that the pain would be more constant and not intermittent. However, we will check his pancreatic enzymes to see how those are affected or not. Return office visit after his MRCP at the end of this month. Orders: Orders Amylase 10/06/24 K83.8 - Other specified diseases of biliary tract Comprehensive Met. Panel 10/06/24 R10.33 - Periumbilical pain, K83.8 - Other specified diseases of biliary tract B Type Natriuretic Peptide 10/06/24 I51.81 - Takotsubo syndrome, I50.21 - Acute systolic (congestive) heart failure ECG 12 lead EKG 10/06/24 I50.21 - Acute systolic (congestive) heart failure, I51.81 - Takotsubo syndrome, R06.02 - Shortness of breath Lipase 10/06/24 K83.8 - Other specified diseases of biliary tract Complete Blood Count Auto Diff 10/06/24 R10.33 - Periumbilical pain, K83.8 - Other specified diseases of biliary tract TSH reflex Free T4 10/06/24 R10.33 - Periumbilical pain, K83.8 - Other specified diseases of biliary tract Coding Level of Care Code Est Pt Level 4 (93757) Diagnoses Periumbilical abdominal pain R10.33 Dilated bile duct K83.8 Abdominal bloating R14.0 Chronic idiopathic constipation K59.04 GERD without esophagitis K21.9 Stress-induced cardiomyopathy I51.81 Acute systolic heart failure I50.21 Heart failure chronicity: acute Shortness of breath R06.02 Time Spent (min) 39
[2024-10-06 11:56] VITALS: BP 146/88; PULSE 76; O2SAT 96; BMI 26.5
--- OUTSIDE RECORDS SUMMARY | 2024-10-06 13:51 | XMS_ITS | Clinical Summary ---
Author Organization [facility] Facility Address [address] [address] Care Team Providers Care Medical Lab Technologist Name Role Phone Efe Ricci MD Primary Care Provider [phone]- [phone] Allergies No known active allergies Medications amLODIPine [...] this topic Insurance Medicare Medicare Care Teams Medical Lab Technologist Relationship Specialty Start Date End Date Efe Ricci MD [address] [place] [address] [address] [place], [place] [id number] PCP - General Internal Medicine 01/16/23
== END 2024-10-06 12:53 | disposition home or self-care (01) ==
LOC: HO.HGI 11:52
PROVIDERS: PCP Internal Medicine; Visit Provider Nurse Practitioner
DX: R10.33 Periumbilical pain (principal); K83.8 Other specified diseases of biliary tract; R14.0 Abdominal distension (gaseous); K59.04 Chronic idiopathic constipation; K21.9 Gastro-esophageal reflux disease without esophagitis; I51.81 Takotsubo syndrome; I50.21 Acute systolic (congestive) heart failure; R06.02 Shortness of breath
CPT/HCPCS: 99214

== ENCOUNTER → 2024-10-06 11:52 | Outpatient (BNVA) | payer MEDICARE, MEDICAID, SELFPAY | PROVIDERS: PCP Internal Medicine; Visit Provider Nurse Practitioner | DX: R10.33 Periumbilical pain (principal); R14.0 Abdominal distension (gaseous); K83.8 Other specified diseases of biliary tract; K59.04 Chronic idiopathic constipation; K21.9 Gastro-esophageal reflux disease without esophagitis | CPT/HCPCS: 99212 ==

== ENCOUNTER 2024-10-14 07:29 | Outpatient (REF) | payer MEDICARE, MEDICAID, SELFPAY ==
--- NOTE | ~2024-10-14 | CT_ITS ---
CLINICAL HISTORY: Z87.891 - Personal history of nicotine dependence CT lung cancer screening (LDCT) Comparison: CT/ND/SR - CT LUNG SCREENING - 08/15/23 11:43 EDT Technique: Axial CT images of the chest using low-dose technique. Referring provider counseled the patient on shared decision-making for LDCT screening. Additional counseling was provided on smoking cessation. Effective radiation dose total: DLP 60.9 mGycm, CTDIvol 1.5 mGy. Findings: Lung: No evidence of pneumonia or edema. Biapical scarring. Stable small bilateral pulmonary nodules. For example, no change in the 4 mm nodule within the right lower lobe anteriorly (image 125). Coronary artery calcifications: Mild Limited upper abdomen: Unremarkable Other: None Impression: 1. Coronary artery disease. 2. LungRADS 2 - Benign Appearance: Continue annual screening with low dose Chest CT in 12 months. ##L2## Category 1: Normal; continue annual screening Category 2: Benign appearance or behavior, continue annual screening Category 3: Probably benign, [address] recommended Category 4A: Suspicious, [address] recommended; may consider PET/CT Category 4B: Suspicious, Additional diagnostics and/or tissue sampling recommended Category 4X: Suspicious, Additional diagnostics and/or tissue sampling recommended Category 0: Recalls (incomplete screen due to Incomplete coverage, Noise, Respiratory motion, Expiration, Obscured by acute abnormality) This document has been electronically signed by: Radha Reilly MD on 10/14/2024 16:36:01
== END 2024-10-14 07:30 | disposition home or self-care (01) ==
LOC: HO.CT 07:29
PROVIDERS: PCP Internal Medicine; Visit Provider Physician Assistant Medical
DX: Z12.2 Encounter for screening for malignant neoplasm of respiratory organs (principal); Z87.891 Personal history of nicotine dependence
CPT/HCPCS: 71271

== ENCOUNTER → 2024-10-14 07:31 | Outpatient (BNV) | payer MEDICARE, MEDICAID, SELFPAY | PROVIDERS: PCP Internal Medicine; Visit Provider Radiology Diagnostic Radiology | DX: Z87.891 Personal history of nicotine dependence (principal) | CPT/HCPCS: 71271 ==

== ENCOUNTER 2024-10-18 09:51 | Outpatient (REF) | payer MEDICARE, MEDICAID, SELFPAY ==
--- NOTE | ~2024-10-18 | XR_ITS ---
EXAMINATION: XR SCREENING FILM FOR MR HISTORY: PRE MRI ORBITS, R/O METAL IN EYES COMPARISON: There are no prior studies available for comparison. FINDINGS: Three views of the orbits demonstrate no radiopaque foreign body. A rounded soft tissue density in the left frontal sinus likely represents a polyp or mucous retention cyst. XR/XR pre mri screening IMPRESSION: No radiopaque foreign body is identified. Electronically signed by: Kwan Kessler MD 10/18/2024 10:21 AM EDT
--- NOTE | ~2024-10-18 | MR_ITS ---
EXAMINATION: MRCP HISTORY: K86.89 - Other specified diseases of pancreas COMPARISON: Correlation is made with an abdominal ultrasound dated 09/29/[address] of the abdomen with contrast dated 08/06/2018 TECHNIQUE: Axial gradient echo in and out of phase T1, axial T2 and fat suppressed T2, and coronal haste T2 with fat saturation images were obtained through the abdomen. 3D MRCP Reconstructed images and thick slab imaging of the biliary tree were obtained. FINDINGS: There is no significant signal loss within the liver on opposed phase imaging to suggest steatosis. No abnormal signal intensity is identified in the liver. There is no intrahepatic biliary ductal dilatation. The gallbladder is unremarkable. The common bile duct is normal in caliber. No intraluminal filling defects are identified to suggest choledocholithiasis. The spleen has an unremarkable unenhanced appearance. There is mild dilatation of the pancreatic duct. There is pancreas divisum. The adrenals are unremarkable. There are probable subcentimeter cysts in both kidneys. No retroperitoneal lymphadenopathy or ascites is identified in the upper abdomen. The visualized bones demonstrate normal marrow signal intensity. MR/MR MRCP IMPRESSION: Pancreas divisum. Mild prominence of the pancreatic duct. Electronically signed by: Kwan Kessler MD 10/18/2024 12:13 PM EDT
--- OUTSIDE RECORDS SUMMARY | 2024-10-18 10:23 | XMS_ITS | Clinical Summary ---
Author Organization [facility] Facility Address [address] [address] Care Team Providers Care Painter And Paperhanger Apprentice Name Role Phone Efe Ricci MD Primary Care Provider +1- [phone] Allergies No known active allergies Medications amLODIPine [...] this topic Insurance Medicare Medicare Care Teams Painter And Paperhanger Apprentice Relationship Specialty Start Date End Date Efe Ricci MD [address] [place] [address] [address] [place], [place] [phone] PCP - General Internal Medicine 01/16/23
== END 2024-10-18 09:52 | disposition home or self-care (01) ==
LOC: HO.MRI 09:51
PROVIDERS: PCP Internal Medicine; Visit Provider Nurse Practitioner
DX: K86.89 Other specified diseases of pancreas (principal)
CPT/HCPCS: 74181

== ENCOUNTER → 2024-10-18 09:53 | Outpatient (BNV) | payer MEDICARE, MEDICAID, SELFPAY | PROVIDERS: PCP Internal Medicine; Visit Provider Radiology Diagnostic Radiology | DX: K86.89 Other specified diseases of pancreas (principal) | CPT/HCPCS: 74181 ==

== ENCOUNTER 2024-10-25 09:29 | Outpatient (REF) | payer MEDICARE, MEDICAID, SELFPAY ==
--- OUTSIDE RECORDS SUMMARY | 2024-10-25 10:01 | XMS_ITS | Clinical Summary ---
Author Organization [facility] Facility Address [address] [address] Care Team Providers Care Chemical Compounder Helper Name Role Phone Efe Ricci MD Primary Care Provider +1- [phone] Allergies No known active allergies Medications amLODIPine [...] this topic Insurance Medicare Medicare Care Teams Chemical Compounder Helper Relationship Specialty Start Date End Date Efe Ricci MD [address] [place] [address] [address] [place], [place] [phone] PCP - General Internal Medicine 01/16/23
[2024-10-25 10:11] LABS: MANUAL DIFF FLAG NO
[2024-10-25 10:52] LABS: Hematocrit 42.3 % (42.0-52.0); Hemoglobin 14.2 g/dl (14.0-18.0); Imm Gran Abs Auto 0.03 X10*3/uL (0.00-0.03); Imm Gran Pct Auto 0.3 % (0.0-0.4); Lymphocytes Absolute Auto 2.6 X10*3/uL (1.2-4.9); Mean Corpuscular HGB Conc 33.6 g/dl (31.0-36.0); Mean Corpuscular Hemoglobin 31.4 pg (27.0-33.0); Mean Corpuscular Volume 93.6 fL (80.0-98.0); NRBC Abs Auto 0.000 X10*3/uL (0.0-0.012); NRBC Pct Auto 0.0 /100WBC (0.0-0.2); Platelet Count 260 X10*3/uL (160-400); Red Blood Count 4.52 X10*6/uL (4.60-5.80); White Blood Count 10.9 X10*3/uL (4.8-10.8)
[2024-10-25 10:54] LABS: Hematocrit 42.1 % (42.0-52.0); Hemoglobin 14.2 g/dl (14.0-18.0); Imm Gran Abs Auto 0.02 X10*3/uL (0.00-0.03); Imm Gran Pct Auto 0.2 % (0.0-0.4); Lymphocytes Absolute Auto 2.7 X10*3/uL (1.2-4.9); Mean Corpuscular HGB Conc 33.7 g/dl (31.0-36.0); Mean Corpuscular Hemoglobin 31.6 pg (27.0-33.0); Mean Corpuscular Volume 93.6 fL (80.0-98.0); NRBC Abs Auto 0.000 X10*3/uL (0.0-0.012); NRBC Pct Auto 0.0 /100WBC (0.0-0.2); Platelet Count 258 X10*3/uL (160-400); Red Blood Count 4.50 X10*6/uL (4.60-5.80); White Blood Count 11.0 X10*3/uL (4.8-10.8)
[2024-10-25 11:20] LABS: B Type Natriuretic Peptide 258 pg/mL (<100)
[2024-10-25 12:16] LABS: Appearance Urine Clear; Glucose Urine UA Negative (Negative); PH 5.5 (5.0-9.0); Specific Gravity - Urine 1.025 (1.005-1.025)
[2024-10-25 12:30] LABS: Amylase 54 U/L (28-100)
[2024-10-25 12:36] LABS: Free T4 (Free Thyroxine) 0.98 ng/dL (0.71-1.85)
[2024-10-25 12:54] LABS: Anion Gap 12 (12-20)
[2024-10-25 13:01] LABS: Alanine Aminotransferase 17 U/L (0-40); Albumin Level 4.5 g/dL (3.5-5.0); Alkaline Phosphatase 123 U/L (39-117); Aspartate Amino Transferase 23 U/L (5-37); Blood Urea Nitrogen 17 mg/dL (9-16); Calcium 9.1 mg/dL (8.4-10.2); Carbon Dioxide 23 mmol/L (22-29); Chloride 109 mmol/L (96-108); Cholesterol 166 mg/dL (<200); Estimated Glomerular Filt Rate 56; HDL Cholesterol 41 mg/dL (>40); Lipase 18 U/L (8-78); Potassium 4.8 mmol/L (3.3-5.1); Sodium 139 mmol/L (135-145); Total Protein 7.7 g/dL (6.5-8.0); Triglycerides 91 mg/dL (<150)
== END 2024-10-25 09:30 | disposition home or self-care (01) ==
LOC: HO.LAB 09:29
PROVIDERS: Absent Provider Nurse Practitioner; PCP Internal Medicine; Visit Provider Internal Medicine
DX: I51.81 Takotsubo syndrome (principal); R30.0 Dysuria; D64.9 Anemia, unspecified; E55.9 Vitamin D deficiency, unspecified; E78.00 Pure hypercholesterolemia, unspecified; I50.21 Acute systolic (congestive) heart failure; R10.33 Periumbilical pain; K83.8 Other specified diseases of biliary tract
CPT/HCPCS: 36415; 80053; 80061; 81003; 82150; 82306; 83690; 83880; 84439; 84443; 85025

== ENCOUNTER 2024-10-27 13:28 | Outpatient (AMB) | payer MEDICARE, MEDICAID, SELFPAY ==
[2024-10-27 13:31] VITALS: BP 128/82; PULSE 77; O2SAT 94; BMI 26.3
--- NOTE | 2024-10-27 13:31 | A.OFFPC_ITS ---
Vital Signs 10/27/24 13:31 Height 6 ft 5 in Weight 221 lb 8 oz BMI 26.3 BP 128/82 Blood Pressure Location Lt brachial Position Sitting Pulse 77 Pulse Source Pulse Oximeter Pulse Oximetry (%) 94 Oxygen Delivery Method Room Air Intake Visit Reasons: Follow Up Fly Rail Operator Required: No Accompanied by: Self / Same As Patient Allergies No Known Drug Allergies Allergy (Verified 10/27/24 14:02) Unknown Medication List - Last Reconciled 10/27/24 by Efe Ricci MD albuterol sulfate 90 mcg/actuation 2 inhalations inhalation Q4H PRN amlodipine 5 mg PO DAILY apixaban (Eliquis) 5 mg PO BID aspirin 81 mg PO DAILY atorvastatin 10 mg PO BEDTIME 90 days cholecalciferol (vitamin D3) 50 mcg PO DAILY 90 days comp.stocking,knee,long,medium As directed famotidine 40 mg PO BID 90 days fluticasone propion-salmeterol 250-50 mcg/dose (Wixela Inhub) 1 inh inhalation BID 30 days furosemide 20 mg PO DAILY metoprolol succinate ER 50 mg PO BID montelukast 10 mg PO QPM 90 days simethicone (Gas Relief (simethicone)) 125 mg PO BID-QID PRN umeclidinium 62.5 mcg/actuation (Incruse Ellipta) 1 inh inhalation DAILY 30 days Tobacco use date assessed: 10/27/24 Fall risk assessment: No Falls in past year Last assessed Fall Risk: 10/27/24 Dental Screening Dental Screen Date: 10/27/24 Did you have a dental visit in the last 12 months?: No Did you have a dental problem in the last 6 months where you did not have access to dental care?: No Was dental information given to patient?: No HPI Follow Up HPI Details Patient comes in today for his follow-up visit States that he currently feels okay He denies any headaches or dizziness Denies any chest pains, no increased shortness of breath No nausea/vomiting, no abdominal pain No change in bowel habits noted He had his follow-up labs done a couple of days ago - to discuss his results adds that he had abdominal ultrasound and MRI as well as CT lung screening done over the past month and he would like to make sure that all of his results came out okay with no immediate concerns PFSH Medical History (Updated 10/31/24 @ 18:12 by Efe Ricci MD) Overweight (BMI 25.0-29.9) Dilated pancreatic duct Vitamin D deficiency Stress-induced cardiomyopathy Paroxysmal atrial fibrillation History of non-ST elevation myocardial infarction (NSTEMI) Essential hypertension Pure hypercholesterolemia Chronic kidney disease (CKD), stage II (mild) COPD (chronic obstructive pulmonary disease) Bronchitis Sinusitis Personal history of nicotine dependence H. pylori infection Constipation Gastritis Tubular adenoma of colon (~2010) Surgical History History of cardioversion History of cardiac cath History of endoscopy (~2018) History of colonoscopy (~2018) Family History Sister Breast cancer Social History Housing: House Alcohol intake: never Patient Tobacco Use Status: Former Tobacco user Years Smoked: (former smoker - onset 18yo, 1ppd x 49yrs, 40pyh - quit 07/2022) e-Cigarette/Vaping Use: Never Used Second Hand Smoke Exposure: Yes Substance Use Type: Marijuana service: No Current occupational status: retired Cognitive needs: No Hearing needs: No Vision needs: No Questionnaire PHQ-9 Over the last 2 weeks, how often have you been bothered by any of the following problems? 1. Little interest or pleasure in doing things: not at all 2. Feeling down, depressed, or hopeless: not at all 3. Trouble falling or staying asleep, or sleeping too much: not at all 4. Feeling tired or having little energy: not at all 5. Poor appetite or overeating: not at all 6. Feeling bad about yourself - or that you are a failure or have let yourself or your family down: not at all 7. Trouble concentrating on things, such as reading the newspaper or watching television: not at all 8. Moving or speaking so slowly that other people could have noticed. Or the opposite - being so fidgety or restless that you have been moving around a lot more than usual: not at all 9. Thoughts that you would be better off or of hurting yourself in some way: not at all Total score: 0 Depression Screening Interpretation: Negative Depression Screening Done: Yes 88883 - PHQ-9 Billing: Yes Source: Developed by Drs. Kwan Nicholas, Shreya Dempsey, Sandoval Fuller and colleagues, with an educational em from [employer]. Thrive Questionnaire Date Thrive assessed: 10/27/24 I am a: Patient What is your living situation today?: I have a place to live, but I am worried about losing it in the future Within the past 12 months, did the food you bought not last and you didn't have the money to get more?: I choose not to answer this question Within the past 12 months, did you worry whether your food would run out before you got money to buy more?: Never true Do you have trouble paying for medicines?: No Do you have trouble getting transportation to medical appointments?: No Do you have trouble paying your heating and electricity bill?: Yes Do you have trouble taking care of your child, family member or friend?: No Do you have trouble with day-to-day activities such as bathing, preparing meals, shopping, managing finances, etc.?: No Are you currently unemployed and looking for a job?: No Are you interested in more education?: No Please select the resources that you would like help with: None Currently or been in a relationship where the following occur: No concerns reported THRIVE Score: 2 AUDIT C Alcohol Use Questionnaire (AUDIT-C) 1. How often do you have a drink containing alcohol?: Never 3. How often do you have six or more drinks on one occasion?: Never Total Score: 0 Score Reviewed/Action Taken: Yes GENIE-7 AMB Questionnaire GENIE-7 Date GENIE - 7 assessed: 10/27/24 Feeling nervous, anxious, or on edge: 0 = Not at all Not being able to stop or control worryin = Not at all Worrying too much about different things: 0 = Not at all Trouble relaxin = Not at all Being so restless that it is hard to sit still: 0 = Not at all Becoming easily annoyed or irritable: 0 = Not at all Feeling afraid as if something awful might happen: 0 = Not at all Total GENIE-7 score (0-4 normal; 5-9 mild; 10-14 moderate; 15-21 severe): 0 Source: Developed by Drs. Kwan Nicholas, Shreya Dempsey, Sandoval Fuller and colleagues, with an educational em from [employer]. Review of Systems Const Denies chills, Denies fatigue, Denies fever(s) and Denies headache(s) ENT Denies dysphagia, Denies dizziness, Denies otalgia, Denies headache(s), Denies neck pain, Denies odynophagia and Denies sore throat Card Denies chest pain, Denies palpitations and Reports dyspnea on exertion (mild) Resp Denies chest congestion, Denies cough and Reports dyspnea on exertion (mild) GI Denies abdominal pain, Reports constipation (controlled lately), Denies dysphagia, Denies heartburn, Denies diarrhea, Denies nausea, Denies odynophagia and Denies vomiting Denies difficulty urinating, Denies dysuria, Denies nocturia and Denies urinary frequency Musc Denies back pain and Denies neck pain Skin/Breast Denies rash Neuro Denies dizziness and Denies headache(s) Endo Denies fatigue and Denies palpitations Physical exam (Primary Care) Vital Signs: Last Vital Signs Pulse 77 10/27/24 13:31 BP 128/82 10/27/24 13:31 Pulse Ox 94 10/27/24 13:31 Oxygen Delivery Method Room Air 10/27/24 13:31 BMI result Body Mass Index 26.3 Tobacco/Smoking Status: Tobacco use Status Tobacco use date assessed 10/27/24 10/27/24 13:40 Patient Tobacco Use Status Former Tobacco user 10/27/24 13:40 e-Cigarette/Vaping Use Never Used 10/27/24 13:40 PHQ-9: PHQ-9 Score PHQ-9: Total score 0 10/27/24 23:03 Depression Screening Interpretation: Negative Thrive Assessment: Date of Thrive Assessment Date Thrive assessed 10/27/24 10/27/24 13:40 Currently or been in a relationship where the following occur: No concerns reported Const General: no acute distress and alert HENMT Ears: TM's normal bilaterally and EAC's normal Throat: Yes posterior oropharynx normal and Yes tonsils normal (no TP congestion) Neck Neck: Yes supple and No lymphadenopathy Thyroid: Thyroid normal Resp Auscultation: clear to auscultation bilaterally, no rales, no wheezes and diminished lung sounds bilateral Cardio Rate: regular rate Rhythm: abnormal rhythm irregularly irregular Heart sounds: no murmurs GI Palpation (GI): Soft to palpation and nontender Auscultation: normal bowel sounds General: Yes no CVA tenderness Back/Spine/Pelvis Back: no CVA tenderness Skin Rashes: no rashes Extrem General: Yes no clubbing, cyanosis or edema Results Reviewed Results Reviewed: Laboratory Tests 10/25/24 10/25/24 10:07 10:09 WBC 11.0 H Hgb 14.2 Hct 42.1 Plt Count 258 Sodium 139 Potassium 4.8 D Creatinine 1.28 Estimated GFR 56 Fasting Glucose 93 Calcium 9.1 AST 23 ALT 17 B-Natriuretic Peptide 258 H Triglycerides 91 Cholesterol 166 LDL Cholesterol, Calc 107 H HDL Cholesterol 41 Amylase 54 Lipase 18 25-OH Vitamin D Total 15.9 L TSH 4.83 H Free T4 0.98 Ur Specific [place] 1.025 Urine Protein Negative Urine Glucose (UA) Negative Urine Blood Negative Urine Nitrite Negative Ur Leukocyte Esterase Negative Coding Level of Care Code Est Pt Level 4 (37582) Diagnoses Chronic obstructive pulmonary disease, unspecified COPD type J44.9 COPD type: unspecified COPD Persistent atrial fibrillation I48.19 Stress-induced cardiomyopathy I51.81 Pure hypercholesterolemia E78.00 Chronic idiopathic constipation K59.04 Dilated pancreatic duct K86.89 GERD without esophagitis K21.9 Chronic kidney disease (CKD), stage II (mild) N18.2 Vitamin D deficiency E55.9 Eosinophilia, unspecified type D72.10 Eosinophilia type: unspecified eosinophilia Impaired fasting glucose R73.01 Overweight (BMI 25.0-29.9) E66.3 Additional Codes PHQ-9 - 02132 - PHQ-9 Billing: Yes ([id number]) Assessment & Plan Assessment & Plan (1) COPD (chronic obstructive pulmonary disease): Comment: (COPD -MODERATELY SEVERE. HAS BEEN STABLE AND CONTROLLED, BUT NOW COMPLAINS OF INCREASED DYSPNEA ON ANY EXERTION. Code(s): J44.9 - Chronic obstructive pulmonary disease, unspecified Category: Medical Qualifiers: COPD type: unspecified COPD Qualified Code(s): J44.9 - Chronic obstructive pulmonary disease, unspecified Plan: Controlled at present Continue Wixela Inhub 250-50 mcg 1 inhalation BID, Incruse Ellipta 62.5 mcg 1 inhalation QD and Albuterol HFA 2 inhalations Q 6 hours PRN Follow up with pulmonary as scheduled (2) Persistent atrial fibrillation: Code(s): I48.19 - Other persistent atrial fibrillation Category: Medical Plan: Patient is currently still in atrial fibrillation but is rate-controlled His most recent EKG done in June 2024 still showed persistent atrial fibrillation He's had 2 unsuccessful cardioversions in the past; was initially on Fleicanide but this had to be discontinued a couple of years ago when patient developed stress-induced cardiomyopathy and also had NSTEMI He was more recently tried on Amiodarone but this was also discontinued due to his increasing constipation while on the Rx He was seen by Dr. Constantino at [facility] in March 2023 and was advised to just continue with rate control for his AF with no further recommendations at the time Continue Apixaban 5 mg BID for thromboembolism prophylaxis and Metoprolol ER 50 mg QD for rate control Follow up with cardiology as scheduled (3) Stress-induced cardiomyopathy: Code(s): I51.81 - Takotsubo syndrome Category: Medical Plan: His EF was around 25 to 30% back in September 2022 when he presented to the ER with increasing SOB - was diagnosed with CHF at the time and started on Furosemide 20 mg QD His EF apparently improved back to normal a few months later He had a normal myocardial perfusion on stress testing in September 2022 and cardiac catheterization done in 2022 also showed NO significant coronary disease Continue Aspirin 81 mg QD (4) Pure hypercholesterolemia: Code(s): E78.00 - Pure hypercholesterolemia, unspecified Category: Medical Plan: Results of his labs done a couple of days ago reviewed and discussed with patient - he is advised that his cholesterol levels have improved further from his previous numbers in January 2024 Reinforced low cholesterol diet Continue Atorvastatin 10 mg Q HS Will have him recheck his labs and fasting lipids in 4 months for follow up (5) Chronic idiopathic constipation: Code(s): K59.04 - Chronic idiopathic constipation Category: Medical Plan: Patient states that this has been better controlled as long as he stays on his regimen of Miralax 17 gm QD and Dulcolax 10 mg Q HS He is again reminded to increase his oral fluids and dietary fiber intake Follow up with GI as scheduled (6) Dilated pancreatic duct: Code(s): K86.89 - Other specified diseases of pancreas Category: Medical Plan: Patient is advised / reassured that his recent MRI/MRCP revealed (+) pancreas divisum, which is a benign condition with no further workups or intervention required (7) GERD without esophagitis: Code(s): K21.9 - Gastro-esophageal reflux disease without esophagitis Category: Medical Plan: Dietary restrictions reinforced Continue Famotidine 40 mg Q HS (8) Chronic kidney disease (CKD), stage II (mild): Code(s): N18.2 - Chronic kidney disease, stage 2 (mild) Category: Medical Plan: He's had bouts of TEO on his hospital admissions to [facility] a couple of years ago but his renal function appears stable on his recent labs Follow up with nephrology as scheduled Will have patient recheck his labs and renal function in 4 months for follow up (9) Vitamin D deficiency: Code(s): E55.9 - Vitamin D deficiency, unspecified Category: Medical Plan: Continue Vitamin D3 2000 units QD - he is advised that his Vitamin D level is still low on his recent labs (10) Eosinophilia: Code(s): D72.10 - Eosinophilia, unspecified Category: Medical Qualifiers: Eosinophilia type: unspecified eosinophilia Qualified Code(s): D72.10 - Eosinophilia, unspecified Plan: His recent labs still shows (+) leucocytosis and eosinophilia although his WBC count has decreased from before - still unclear at this time what is causing t hese His IgE Ab level back in January 2024 came out normal We will recheck his CBC in 4 months for follow up (11) Impaired fasting glucose: Code(s): R73.01 - Impaired fasting glucose Category: Medical Plan: His FBS was normal at 93 mg/dl on his recent labs; HgbA1c was normal at 5.8% when previously checked Reinforced low calorie/low carb diet (12) Overweight (BMI 25.0-29.9): Code(s): E66.3 - Overweight Category: Medical Plan: Reinforce diet/exercise as tolerated/lose weight Plan Follow up in 4 months Orders: Orders Complete Blood Count Auto Diff 4 Months D64.9 - Anemia, unspecified Lipid Panel 4 Months E78.00 - Pure hypercholesterolemia, unspecified B Type Natriuretic Peptide 4 Months I50.9 - Heart failure, unspecified Vitamin D 25-OH Total 4 Months E55.9 - Vitamin D deficiency, unspecified Comprehensive [place]. Panel Fast 4 Months E78.00 - Pure hypercholesterolemia, unspecified TSH reflex Free T4 4 Months E78.00 - Pure hypercholesterolemia, unspecified UA CC w/rflx Micro + Cult 4 Months R30.0 - Dysuria
--- OUTSIDE RECORDS SUMMARY | 2024-10-27 14:18 | XMS_ITS | Clinical Summary ---
Author Organization [facility] Facility Address [address] [address] Care Team Providers Care Subway Train Driver Name Role Phone Efe Ricci MD Primary Care Provider [phone]- [phone] Allergies No known active allergies Medications amLODIPine [...] Cancer Screening: Sigmoidoscopy 2006 Influenza Vaccine (#1) 2024 Hepatitis B Vaccine Aged Out No longe r eligible based on patient's age to complete this topic Insurance Medicare Medicare Care Teams Subway Train Driver Relationship Specialty Start Date End Date Efe Ricci MD [address] [place] [address] [address] [place], [place] [id number] PCP - General Internal Medicine 01/16/23
== END 2024-10-27 14:11 | disposition home or self-care (01) ==
LOC: HO.HMCH 13:29
PROVIDERS: PCP Internal Medicine; Visit Provider Internal Medicine
DX: J44.9 Chronic obstructive pulmonary disease, unspecified (principal); I48.19 Other persistent atrial fibrillation; I51.81 Takotsubo syndrome; E78.00 Pure hypercholesterolemia, unspecified; K59.04 Chronic idiopathic constipation; K86.89 Other specified diseases of pancreas; K21.9 Gastro-esophageal reflux disease without esophagitis; N18.2 Chronic kidney disease, stage 2 (mild); E55.9 Vitamin D deficiency, unspecified; D72.10 Eosinophilia, unspecified; R73.01 Impaired fasting glucose; E66.3 Overweight

== ENCOUNTER → 2024-10-27 13:28 | Outpatient (BNVA) | payer MEDICARE, MEDICAID, SELFPAY | PROVIDERS: PCP Internal Medicine; Visit Provider Internal Medicine | DX: J44.9 Chronic obstructive pulmonary disease, unspecified (principal); I48.19 Other persistent atrial fibrillation; I51.81 Takotsubo syndrome; E78.00 Pure hypercholesterolemia, unspecified; K86.89 Other specified diseases of pancreas; K21.9 Gastro-esophageal reflux disease without esophagitis; N18.2 Chronic kidney disease, stage 2 (mild); E55.9 Vitamin D deficiency, unspecified; D72.10 Eosinophilia, unspecified; R73.01 Impaired fasting glucose; E66.3 Overweight; Z68.26 Body mass index [BMI] 26.0-26.9, adult; Z71.3 Dietary counseling and surveillance; Z87.891 Personal history of nicotine dependence | CPT/HCPCS: 96127; 99212 ==

== ENCOUNTER 2024-12-01 10:59 | Outpatient (AMB) | payer MEDICARE, MEDICAID, SELFPAY ==
--- NOTE | 2024-12-01 11:24 | MHC.OFFVIS ---
Vital Signs 12/01/24 11:25 Height 6 ft 5 in Weight 223 lb 12.307 oz BMI 26.5 BP 142/90 H Blood Pressure Location Lt brachial Position Sitting Pulse 84 Pulse Source Pulse Oximeter Pulse Oximetry (%) 97 Oxygen Delivery Method Room Air Intake Visit Reasons: COPD Intake Note: pt is here for follow up and states he had an episode yesterday that he could not breath, tight in chest, pain in the neck which he could not move his head, and today still having some chest discomfort today. Instrumentation Engineer Required: No Allergies No Known Drug Allergies Allergy (Verified 12/01/24 11:40) Unknown Medication List - Last Reconciled 12/01/24 by Dominique Monterroso MD albuterol sulfate 90 mcg/actuation 2 inhalations inhalation Q4H PRN amlodipine 5 mg PO DAILY apixaban (Eliquis) 5 mg PO BID aspirin 81 mg PO DAILY atorvastatin 10 mg PO BEDTIME 90 days cholecalciferol (vitamin D3) 50 mcg PO DAILY 90 days comp.stocking,knee,long,medium As directed famotidine 40 mg PO BID 90 days fluticasone propion-salmeterol 250-50 mcg/dose (Wixela Inhub) 1 inh inhalation BID 30 days furosemide 20 mg PO DAILY PRN metoprolol succinate ER 50 mg PO BID montelukast 10 mg PO QPM 90 days simethicone (Gas Relief (simethicone)) 125 mg PO BID-QID PRN umeclidinium 62.5 mcg/actuation (Incruse Ellipta) 1 inh inhalation DAILY 30 days Do you need a note to return to daycare/school/sports/work: No HPI HPI COPD: Details: This 69 years old very pleasant gentleman is here for follow-up for his COPD. Since last visit he has been using Wixela as well as Incruse Ellipta regularly. He still gets shortness of breath on doing any strenuous work but not with ordinary day-to-day activities. Couple days ago he was doing some work at the sink, bending down, and a few days later he had acute neck pain , which seems to be due to cervical strain and not anything to do with the lungs. His ongoing symptoms are mild intermittent cough, and mild to moderate dyspnea on exertion. . No attacks of wheezing He is an ex smoker and is in annual lung screening program. [facility] Medical History Overweight (BMI 25.0-29.9) Dilated pancreatic duct Vitamin D deficiency Stress-induced cardiomyopathy Paroxysmal atrial fibrillation History of non-ST elevation myocardial infarction (NSTEMI) Essential hypertension Pure hypercholesterolemia Chronic kidney disease (CKD), stage II (mild) COPD (chronic obstructive pulmonary disease) Bronchitis Sinusitis Personal history of nicotine dependence H. pylori infection Constipation Gastritis Tubular adenoma of colon (~2010) Surgical History History of cardioversion History of cardiac cath History of endoscopy (~2018) History of colonoscopy (~2018) Family History Sister Breast cancer Social History Housing: House Alcohol intake: never Patient Tobacco Use Status: Former Tobacco user Years Smoked: (former smoker - onset 18yo, 1ppd x 49yrs, 40pyh - quit 07/2022) e-Cigarette/Vaping Use: Never Used Second Hand Smoke Exposure: Yes Substance Use Type: Marijuana service: No Current occupational status: retired Cognitive needs: No Hearing needs: No Vision needs: No Review of Systems Const All systems reviewed & are unremarkable except as noted in HPI and below Eyes Reports no additional complaints ENT Reports no additional complaints Card Reports chest pain (Discomfort across the sternum manubrie), Denies pedal edema, Denies irregular heart rhythm and Denies leg edema Resp Reports as per HPI GI Reports no additional complaints Reports no additional complaints Musc Reports no additional complaints Skin/Breast Reports system reviewed and no additional complaints, except as documented Neuro Reports no additional complaints Psych Reports no additional complaints Physical Exam Vital Signs: Last Vital Signs Pulse 84 12/01/24 11:25 BP 142/90 H 12/01/24 11:25 Pulse Ox 97 12/01/24 11:25 Oxygen Delivery Method Room Air 12/01/24 11:25 BMI result Body Mass Index 26.5 Const General: healthy appearing, comfortable, no acute distress, alert and awake Orientation/consciousness: patient oriented x3 HEENT Head: Yes normal to inspection General nose exam: No nasal polyps present, No nasal discharge present and Other nasal findings present (THICK YELLOW PHLEGM IS NOTED IN THE LEFT NOSTRIL.) Face and sinus: Yes sinuses nontender Mouth: oropharynx normal Throat: Yes posterior oropharynx normal (THERE IS MODERATE AMOUNT OF WHITISH YELLOW PHLEGM) Eyes General: appearance normal, both eyes and all related structures Neck Neck: Yes normal visual inspection, Yes no lymphadenopathy, Yes trachea midline and Yes no JVD Thyroid: Thyroid normal Chest Chest palpation & inspection: normal inspection of the chest, normal palpation of entire chest wall and no tenderness Resp Other: Percussion note is resonant, breath sounds are distant but equal on both sides. No wheezes heard .Also no rhonchi or crepitations. Cardio Palpation: normal PMI Rate: regular rate Rhythm: regular rhythm Heart sounds: no gallops and no murmurs GI Palpation (GI): Soft to palpation, nontender, No hepatosplenomegaly present and no masses Auscultation: normal bowel sounds Back/Spine/Pelvis Thoracic/Lumbar Spine: thoracic and lumbar spine normal to inspection Skin General skin exam: no rashes or lesions noted Neuro General: patient oriented x3 and no focal motor deficits Cranial nerves: Yes CN's II-XII intact bilaterally Extrem General: Yes normal to inspection, Yes no clubbing, cyanosis or edema and Yes no calf tenderness Psych Appearance: grossly normal and well kempt Speech and movement: Normal speech and movement present Assessment & Plan Assessment & Plan (1) COPD (chronic obstructive pulmonary disease): Comment: (COPD -MODERATELY SEVERE. HAS BEEN STABLE AND CONTROLLED, BUT COMPLAINS OF INCREASED DYSPNEA ON ANY EXERTION. ON FURTHER DISCUSSION HE ADMITS THAT HIS DYSPNEA ON EXERTION IS NOT A BIG PROBLEM Code(s): J44.9 - Chronic obstructive pulmonary disease, unspecified Category: Medical Qualifiers: COPD type: unspecified COPD Qualified Code(s): J44.9 - Chronic obstructive pulmonary disease, unspecified Plan: I ADVISED THAT A MAINTENANCE TREATMENT HE SHOULD CONTINUE ON WIXELA 250-51 INHALATION B.I.D. AND INCRUSE ELLIPTA 1 INHALATION DAILY. USE ALBUTEROL 2 PUFFS Q 6 HOURS ONLY P.R.N.. (2) Personal history of nicotine dependence: Comment: (former smoker - onset 18yo, 1ppd x 49yrs, 40pyh - quit 07/2022), has cheated by smoking 1 or 2 cigarettes a day last month, may be due to stress, but not anymore. Code(s): Z87.891 - Personal history of nicotine dependence Category: Medical Plan: ADVISE THAT HE SHOULD CONTINUE TO HAVE ANNUAL LUNG SCREENING WITH LDCT . (3) Dyspnea: Comment: INCREASED DYSPNEA IS DUE TO COMBINATION OF HIS ADVANCED CHRONIC OBSTRUCTIVE PULMONARY DISEASE WELL ISCHEMIC CARDIOMYOPATHY CAUSING LOW LVEF ,AND PERSISTENT ATRIAL FIBRILLATION, AND SOME LAZINESS. HE ADMITS THAT HIS DYSPNEA ON EXERTION IS STAYING STABLE. Code(s): R06.00 - Dyspnea, unspecified Category: Medical Plan: CONTINUE THE PRESENT MEDICATIONS AND ALSO TRY TO STAY ACTIVE, AND DO DEEP BREATHING EXERCISES 2 TO 3 TIMES A DAY. Coding Level of Care Code Est Pt Level 3 (15696) Diagnoses Chronic obstructive pulmonary disease, unspecified COPD type J44.9 COPD type: unspecified COPD Personal history of nicotine dependence Z87.891 Dyspnea R06.00
[2024-12-01 11:25] VITALS: BP 142/90; PULSE 84; O2SAT 97; BMI 26.5
--- OUTSIDE RECORDS SUMMARY | 2024-12-01 11:56 | XMS_ITS | Clinical Summary ---
Author Organization [facility] Facility Address [address] [address] Care Team Providers Care Electromechanical Technologist Name Role Phone Efe Ricci MD Primary Care Provider [phone]- [phone] Allergies No known active allergies Medications amLODIPine [...] this topic Insurance Medicare Medicare Care Teams Electromechanical Technologist Relationship Specialty Start Date End Date Efe Ricci MD [address] [place] [address] [address] [place], [place] [phone] PCP - General Internal Medicine 01/16/23
== END 2024-12-01 11:54 | disposition home or self-care (01) ==
LOC: HO.HPS 11:00
PROVIDERS: PCP Internal Medicine; Visit Provider Internal Medicine
DX: J44.9 Chronic obstructive pulmonary disease, unspecified (principal); Z87.891 Personal history of nicotine dependence; R06.00 Dyspnea, unspecified
CPT/HCPCS: 99213

== ENCOUNTER → 2024-12-01 10:59 | Outpatient (BNVA) | payer MEDICARE, MEDICAID, SELFPAY | PROVIDERS: PCP Internal Medicine; Visit Provider Internal Medicine | DX: R06.00 Dyspnea, unspecified (principal); J44.9 Chronic obstructive pulmonary disease, unspecified; Z87.891 Personal history of nicotine dependence | CPT/HCPCS: 99212 ==

== ENCOUNTER 2024-12-08 12:30 | Outpatient (AMB) | payer MEDICARE, MEDICAID, SELFPAY ==
--- NOTE | 2024-12-08 12:34 | A.OFFVIS_ITS ---
Vital Signs 12/08/24 12:39 Height 6 ft 5 in Weight 223 lb BMI 26.4 BP 158/86 H Blood Pressure Location Lt brachial Position Sitting Pulse 90 Pulse Source Pulse Oximeter Pulse Oximetry (%) 96 Oxygen Delivery Method Room Air Intake Visit Reasons: MRI results Intake Note: Est pt for mgmt of GERD + CIC. MRI done. CC: C.O. increased constipation with dicyclomine. Pt has since stopped this medication and returned to his previous baseline. Joint Cutter Required: No Accompanied by: Self / Same As Patient Allergies No Known Drug Allergies Allergy (Verified 12/08/24 12:41) Unknown HPI HPI MRI results: Details: Assessment & Plan (1) Periumbilical abdominal pain: Code(s): R10.33 - Periumbilical pain Category: Medical (2) Dilated bile duct: Comment: ULTRASOUND OF THE ABDOMEN 09/29/2024 IMPRESSION: There is abnormal dilatation of the pancreatic duct. Recommend further evaluation with contrast-enhanced CT or MRI when clinically appropriate. Code(s): K83.8 - Other specified diseases of biliary tract Category: Medical (3) Abdominal bloating: Code(s): R14.0 - Abdominal distension (gaseous) Category: Medical (4) Chronic idiopathic constipation: Code(s): K59.04 - Chronic idiopathic constipation Category: Medical (5) GERD without esophagitis: Code(s): K21.9 - Gastro-esophageal reflux disease without esophagitis Category: Medical (6) Stress-induced cardiomyopathy: Code(s): I51.81 - Takotsubo syndrome Category: Medical (7) Systolic heart failure: Code(s): I50.20 - Unspecified systolic (congestive) heart failure Category: Medical Qualifiers: Heart failure chronicity: acute Qualified Code(s): I50.21 - Acute systolic (congestive) heart failure (8) Shortness of breath: Code(s): R06.02 - Shortness of breath Category: Medical Plan MRCP was ordered in response to the dilated pancreatic duct which is of uncertain significance. I would like to go get some blood work and check a lipase and amylase. At this point he is off famotidine 40 mg twice a day and of the last visit we also started dicyclomine and simethicone. ABDOMINAL PAIN MORE OF a tightness, and it is very intermittent any still can not link it to anything like food eaten. He also has other concerning symptoms in that it manifest intermittently with severe intermittent shortness of breath. The way he can relate this is sometimes he can take his trash down to the end of his very long driveway without shortness of breath and other times he struggles severely and this can vary 1 day to the next. He is also having more swelling of his feet. Again when the abdominal pain happens it is just his intermittent and it is tied to these other symptoms of shortness of breath. He has been seeing his mechanical systems control engineer and they are telling him that his COPD is stable and unchanged so this does not seem to be a convincing explanation. He does have atrial fibrillation and follows with cardiology so it is possible that this isn't atypical cardiac presentation into the stomach or interfering with the perfusion of the stomach. This would be my biggest fear. Because of this I am going to get some basic labs including a proBNP and I am going to ask him to go for a walk-in EKG. He had 1 in June which did appear to be significantly different from the 1 done a year prior but with his AFib it is difficult to tell. He has a cardiology appointment in December and depending on the outcome these labs I will try to advise him whether that should be moved up to be more proactive. In the meantime he has the MRCP scheduled at the end of this month for the dilated pancreatic duct which could just be a normal variant and of uncertain contribution to his symptoms. I would think that if he actually had pancreatic dysfunction that the pain would be more constant and not intermittent. However, we will check his pancreatic enzymes to see how those are affected or not. Return office visit after his MRCP at the end of this month. Orders: Orders Amylase 10/06/24 K83.8 - Other specified diseases of biliary tract Comprehensive Met. Panel 10/06/24 R10.33 - Periumbilical pain, K83.8 - Other specified diseases of biliary tract B Type Natriuretic Peptide 10/06/24 I51.81 - Takotsubo syndrome, I50.21 - Acute systolic (congestive) heart failure ECG 12 lead EKG 10/06/24 I50.21 - Acute systolic (congestive) heart failure, I51.81 - Takotsubo syndrome, R06.02 - Shortness of breath Lipase 10/06/24 K83.8 - Other specified diseases of biliary tract Complete Blood Count Auto Diff 10/06/24 R10.33 - Periumbilical pain, K83.8 - Other specified diseases of biliary tract TSH reflex Free T4 10/06/24 R10.33 - Periumbilical pain, K83.8 - Other specified diseases of biliary tract LABS: Laboratory Tests 02/16/24 10/25/24 12:14 10:09 WBC 11.0 H RBC 4.50 L Hgb 14.2 Hct 42.1 Plt Count 258 Estimated GFR 56 Total Bilirubin 0.4 AST 23 ALT 17 Alkaline Phosphatase 123 H B-Natriuretic Peptide 105 H 258 H Amylase 54 Lipase 18 TSH 4.83 H Free T4 0.98 EKG 06/2024 (not the 1 I ordered) AFib with normal ventricular response as interpreted by Cardiology MRCP 10/18/2024 FINDINGS: There is no significant signal loss within the liver on opposed phase imaging to suggest steatosis. No abnormal signal intensity is identified in the liver. There is no intrahepatic biliary ductal dilatation. The gallbladder is unremarkable. The common bile duct is normal in caliber. No intraluminal filling defects are identified to suggest choledocholithiasis. The spleen has an unremarkable unenhanced appearance. There is mild dilatation of the pancreatic duct. There is pancreas divisum. The adrenals are unremarkable. There are probable subcentimeter cysts in both kidneys. No retroperitoneal lymphadenopathy or ascites is identified in the upper abdomen. The visualized bones demonstrate normal marrow signal intensity. MR/MR MRCP IMPRESSION: Pancreas divisum. Mild prominence of the pancreatic duct. TODAY'S VISIT He continues on famotidine 20 mg at night with an extra dose as needed for breakthrough GERD. We review all the studies I we can not find a GI source for his pain. The MRI was reassuring in that he had some mild pancreatic duct dilation that could be a genetic variant along with pancreatic divisum. Although he did not get the EKG I ordered he does have chronic AFib and I did note that his BNP has doubled as of the only baseline I have on him as of last year. This could indicate that his heart is struggling and that the abdominal pain is a manifestation of compromised blood flow when the heart is under stre ss. This is particularly true given the fact that he has shortness of breath when he has the abdominal pain as well. He is followed by [facility] [place] and I encouraged him to check with them and see whether he may be due for repeat echocardiogram or other cardiac studies. It also may be that he needs to increase his diuretic. With this, he does not really need to follow with our service although he can unless his primary doctor wishes to take over the prescribing of his famotidine. Return office visit pdelroy [facility] Medical History (Updated 12/08/24 @ 14:24 by GEOFF Gutierrez) Dilated bile duct Overweight (BMI 25.0-29.9) Dilated pancreatic duct Vitamin D deficiency Stress-induced cardiomyopathy Paroxysmal atrial fibrillation History of non-ST elevation myocardial infarction (NSTEMI) Essential hypertension Pure hypercholesterolemia Chronic kidney disease (CKD), stage II (mild) COPD (chronic obstructive pulmonary disease) Bronchitis Sinusitis Personal history of nicotine dependence H. pylori infection Constipation Gastritis Tubular adenoma of colon (~2010) Surgical History History of cardioversion History of cardiac cath History of endoscopy (~2018) History of colonoscopy (~2018) Family History Sister Breast cancer Social History Housing: House Alcohol intake: never Patient Tobacco Use Status: Former Tobacco user Years Smoked: (former smoker - onset 18yo, 1ppd x 49yrs, 40pyh - quit 07/2022) e-Cigarette/Vaping Use: Never Used Second Hand Smoke Exposure: Yes Substance Use Type: Marijuana service: No Current occupational status: retired Cognitive needs: No Hearing needs: No Vision needs: No Review of Systems Const Denies fatigue, Denies fever(s), Denies night sweats, Denies poor appetite and Denies weight loss ENT Reports Normal hearing present, Denies dental pain, Denies dysphagia, Denies hearing loss, Denies mouth pain, Denies odynophagia, Denies throat swelling, Den ies tongue swelling and Reports other (Dentition adequate) Card Reports dyspnea on exertion Resp Reports dyspnea on exertion GI Details: Reports abdominal pain, Denies melena, Denies bloating, Denies hematochezia, Denies constipation, Denies GI cramping, Denies dysphagia, Denies excessive flatus, Denies early satiety, Reports heartburn, Denies diarrhea, Denies nausea, Denies odynophagia, Denies vomiting and Denies hematemesis Skin/Breast Denies pruritus, Denies lesions, Denies rash and Denies jaundice Neuro Reports Normal hearing present and Denies Abnormal speech present Endo Denies fatigue Aller/Immun Denies throat swelling and Denies tongue swelling Physical Exam Vital Signs: Last Vital Signs Pulse 90 12/08/24 12:39 BP 158/86 H 12/08/24 12:39 Pulse Ox 96 12/08/24 12:39 Oxygen Delivery Method Room Air 12/08/24 12:39 BMI result Body Mass Index 26.4 Const General: cooperative, no acute distress, well developed and well groomed Nutritional Appearance: well nourished Orientation/consciousness: oriented to person, oriented to place and oriented to time Limitations: No language barrier HEENT Head: Yes normocephalic and Yes atraumatic Eyes General: appearance normal, both eyes and all related structures Pupils: Equal, round and reactive pupils present Neck Neck: Yes normal visual inspection and Yes no lymphadenopathy Thyroid: Thyroid normal Resp Effort & Inspection: normal respiratory effort and able to speak in complete sentences Auscultation: clear to auscultation bilaterally Cardio Rate: regular rate Rhythm: regular rhythm Heart sounds: Normal, physiologic split S2 sound present Peripheral pulses: radial pulses present and posterior tibial pulses present GI Inspection: No distended and No Abdominal panniculus present Palpation (GI): Soft to palpation, nontender, no guarding, not rigid and No hepatosplenomegaly present Percussion: Yes normal to percussion Auscultation: normal bowel sounds Rectal Exam - Male: Yes deferred Skin General skin exam: no rashes or lesions noted, turgor normal, skin not dry, no jaundice, No spider nevi and no striae Rashes: no rashes Nails: normal Neuro General: oriented to person, oriented to place and oriented to time Cranial nerves: Yes Equal, round and reactive pupils present and Yes Normal hearing present Speech: No Abnormal speech present Extrem General: Yes normal to inspection, No clubbing, No cyanosis and No edema Psych Appearance: grossly normal and well kempt Mental Status: mental status grossly normal Speech and movement: Normal speech and movement present Affect: normal affect Attitude: cooperative Thought process: Normal thought process present and not confabulating Thought content: Normal thought content present Insight: Fair insight present (Psych) Judgement: Fair judgement present (Psych) Results Reviewed Results Reviewed: Laboratory Tests 02/16/24 10/25/24 12:14 10:09 WBC 11.0 H RBC 4.50 L Hgb 14.2 Hct 42.1 Plt Count 258 Estimated GFR 56 Total Bilirubin 0.4 AST 23 ALT 17 Alkaline Phosphatase 123 H B-Natriuretic Peptide 105 H 258 H Amylase 54 Lipase 18 TSH 4.83 H Free T4 0.98 EKG 06/2024 (not the 1 I ordered) AFib with normal ventricular response as interpreted by Cardiology MRCP 10/18/2024 FINDINGS: There is no significant signal loss within the liver on opposed phase imaging to suggest steatosis. No abnormal signal intensity is identified in the liver. There is no intrahepatic biliary ductal dilatation. The gallbladder is unremarkable. The common bile duct is normal in caliber. No intraluminal filling defects are identified to suggest choledocholithiasis. The spleen has an unremarkable unenhanced appearance. There is mild dilatation of the pancreatic duct. There is pancreas divisum. The adrenals are unremarkable. There are probable subcentimeter cysts in both kidneys. No retroperitoneal lymphadenopathy or ascites is identified in the upper abdomen. The visualized bones demonstrate normal marrow signal intensity. MR/MR MRCP IMPRESSION: Pancreas divisum. Mild prominence of the pancreatic duct. Assessment & Plan Assessment & Plan (1) Dilated pancreatic duct: Comment: Follow-up MR I would benign he also had pancreatic divisum which is benign Code(s): K86.89 - Other specified diseases of pancreas Category: Medical (2) GERD without esophagitis: Code(s): K21.9 - Gastro-esophageal reflux disease without esophagitis Category: Medical (3) Paroxysmal atrial fibrillation: Code(s): I48.0 - Paroxysmal atrial fibrillation Category: Medical (4) Elevated brain natriuretic peptide (BNP) level: Code(s): R79.89 - Other specified abnormal findings of blood chemistry Category: Medical Plan He continues on famotidine 20 mg at night with an extra dose as needed for breakthrough GERD. We review all the studies I we can not find a GI source for his pain. The MRI was reassuring in that he had some mild pancreatic duct dilation that could be a genetic variant along with pancreatic divisum. Although he did not get the EKG I ordered he does have chronic AFib and I did note that his BNP has doubled as of the only baseline I have on him as of last year. This could indicate that his heart is struggling and that the abdominal pain is a manifestation of compromised blood flow when the heart is under stress. This is particularly true given the fact that he has shortness of breath when he has the abdominal pain as well. He is followed by [facility] [place] and I encouraged him to check with them and see whether he may be due for repeat echocardiogram or other cardiac studies. It also may be that he needs to increase his diuretic. The patient admits that he has had more episodes of ankle swelling recently. With this, he does not really need to follow with our service although he can unless his primary doctor wishes to take over the prescribing of his famotidine. Return office visit p.r.n. Medications: Refilled famotidine 40 mg PO BID 180 tabs 1RF 90 days Coding Level of Care Code Est Pt Level 3 (61755) Diagnoses Dilated pancreatic duct K86.89 GERD without esophagitis K21.9 Paroxysmal atrial fibrillation I48.0 Elevated brain natriuretic peptide (BNP) level R79.89
[2024-12-08 12:39] VITALS: BP 158/86; PULSE 90; O2SAT 96; BMI 26.4
--- OUTSIDE RECORDS SUMMARY | 2024-12-08 13:24 | XMS_ITS | Clinical Summary ---
Author Organization [facility] Facility Address [address] [address] Care Team Providers Care Tax Services Professional Name Role Phone Efe Ricci MD Primary Care Provider [phone] Allergies No known active allergies Medications amLODIPine [...] this topic Insurance Medicare Medicare Care Teams Tax Services Professional Relationship Specialty Start Date End Date Efe Ricci MD [address] [place] [address] [address] [place], [place] [id number] PCP - General Internal Medicine 01/16/23
== END 2024-12-08 13:35 | disposition home or self-care (01) ==
LOC: HO.HGI 12:31
PROVIDERS: PCP Internal Medicine; Visit Provider Nurse Practitioner
DX: K86.89 Other specified diseases of pancreas (principal); K21.9 Gastro-esophageal reflux disease without esophagitis; I48.0 Paroxysmal atrial fibrillation; R79.89 Other specified abnormal findings of blood chemistry
CPT/HCPCS: 99213

== ENCOUNTER → 2024-12-08 12:30 | Outpatient (BNVA) | payer MEDICARE, MEDICAID, SELFPAY | PROVIDERS: PCP Internal Medicine; Visit Provider Nurse Practitioner | DX: K86.89 Other specified diseases of pancreas (principal); K21.9 Gastro-esophageal reflux disease without esophagitis; I48.0 Paroxysmal atrial fibrillation; R79.89 Other specified abnormal findings of blood chemistry | CPT/HCPCS: 99212 ==

== ENCOUNTER 2025-01-04 09:48 | Outpatient (AMB) | payer MEDICARE, MEDICAID, SELFPAY ==
[2025-01-04 09:59] VITALS: BP 120/72; PULSE 86; BMI 26.2
--- NOTE | 2025-01-04 09:59 | A.OFFVIS_ITS ---
Vital Signs 01/04/25 09:59 Height 6 ft 5 in Weight 221 lb 5.506 oz BMI 26.2 BP 120/72 Blood Pressure Location Rt brachial Position Sitting Pulse 86 Pulse Source Monitor Intake Visit Reasons: 6m follow up Outside Collector Required: No Allergies No Known Drug Allergies Allergy (Verified 01/04/25 10:01) Unknown Medication List - Last Reconciled 01/04/25 by CONSTANTIN Barillas albuterol sulfate 90 mcg/actuation 2 inhalations inhalation Q4H PRN amlodipine 5 mg PO DAILY apixaban (Eliquis) 5 mg PO BID aspirin 81 mg PO DAILY atorvastatin 10 mg PO BEDTIME 90 days bisacodyl 10 mg (2 x 5 mg) PO BEDTIME cholecalciferol (vitamin D3) 50 mcg PO DAILY 90 days comp.stocking,knee,long,medium As directed famotidine 40 mg PO BID 90 days fluticasone propion-salmeterol 250-50 mcg/dose (Wixela Inhub) 1 inh inhalation BID 30 days furosemide 20 mg PO DAILY PRN metoprolol succinate ER 50 mg PO DAILY montelukast 10 mg PO QPM 90 days simethicone (Gas Relief (simethicone)) 125 mg PO BID-QID PRN umeclidinium 62.5 mcg/actuation (Incruse Ellipta) 1 inh inhalation DAILY 30 days HPI HPI 6m follow up: Details: Elias is a 69-year-old male past medical history of smoking, COPD, hypertension, paroxysmal now persistent atrial fibrillation, Congestive heart failure, takotsubo cardiomyopathy who presents for follow-up. Today he reports that he has been feeling generally well. He does have issues with shortness of breath with activity which he relates to his COPD. No PND, orthopnea. He will get some mild leg edema and he takes Lasix PRN. He gets a rare discomfort in his chest which is vaguely described and has occurred randomly. He has no clear chest discomfort brought on by exertional activities. He has a small dog which he walks 3 times daily. He will notice occasional heart palpitations when he is physically active. No dizziness, presyncope, syncope. Continues to follow with GI for abdominal issues. He still has issues with intermittent constipation and abdominal pains. He is following with GI. Taking meds as directed. No bleeding issues reported. [facility] Medical History Dilated bile duct Overweight (BMI 25.0-29.9) Dilated pancreatic duct Vitamin D deficiency Stress-induced cardiomyopathy Paroxysmal atrial fibrillation History of non-ST elevation myocardial infarction (NSTEMI) Essential hypertension Pure hypercholesterolemia Chronic kidney disease (CKD), stage II (mild) COPD (chronic obstructive pulmonary disease) Bronchitis Sinusitis Personal history of nicotine dependence H. pylori infection Constipation Gastritis Tubular adenoma of colon (~2010) Surgical History History of cardioversion History of cardiac cath History of endoscopy (~2018) History of colonoscopy (~2018) Family History Sister Breast cancer Social History Housing: House Alcohol intake: never Patient Tobacco Use Status: Former Tobacco user Years Smoked: (former smoker - onset 18yo, 1ppd x 49yrs, 40pyh - quit 07/2022) e-Cigarette/Vaping Use: Never Used Second Hand Smoke Exposure: Yes Substance Use Type: Marijuana service: No Current occupational status: retired Cognitive needs: No Hearing needs: No Vision needs: No Review of Systems Const All systems reviewed & are unremarkable except as noted in HPI and below ENT Denies dizziness Card Denies chest pain, Denies chest pain at rest, Denies chest pain with activity, Denies rapid heart rate, Denies pedal edema, Denies edema, Reports leg edema, Denies lightheadedness, Denies palpitations, Denies dyspnea, Reports dyspnea on exertion and Denies orthopnea Resp Denies cough, Denies dyspnea and Reports dyspnea on exertion GI Denies hematochezia and Denies change in stool character Musc Denies abnormal gait, Denies limited range of motion, Denies muscle cramps, Denies muscle weakness, Denies numbness, Denies radiating pain into limb, Denies stiffness and Denies tingling Neuro Denies abnormal gait, Denies dizziness, Denies numbness and Denies tingling Endo Denies palpitations Physical Exam Vital Signs: BMI result Body Mass Index 26.2 Const General: cooperative, healthy appearing, comfortable and no acute distress Orientation/consciousness: patient oriented x3 Neck Neck: Yes normal visual inspection Resp Effort & Inspection: normal respiratory effort Auscultation: clear to auscultation bilaterally, no rales, no rhonchi and no wheezes Cardio Rate: regular rate Rhythm: abnormal rhythm Heart sounds: S1 normal heart sound present, S2 normal heart sound present, no gallops, no murmurs and no rubs Neuro General: patient oriented x3 Extrem General: Yes normal to inspection, No no pedal edema and No calf tenderness Psych Appearance: grossly normal Mental Status: mental status grossly normal Speech and movement: Normal speech and movement present Office Procedures EKG Details: Today, read by me, atrial fibrillation, left axis, can't exclude prior anterior infarct, rate 86, Qtc 426ms [id number], Complete Assessment & Plan Assessment & Plan (1) Persistent atrial fibrillation: Code(s): I48.19 - Other persistent atrial fibrillation Category: Medical Plan: Persistent atrial fibrillation treated with heart rate control using metoprolol. His AFib was 1st recognized in 07/2022 and he was initially treated with rhythm control then eventually rate control. EKG done today showing atrial fibrillation, rate 86. Last Holter monitor done 06/20/2023 for 3 days showed atrial fibrillation with average heart rate 71 beats per minute, frequent PVCs 4.4% burden. He is on Eliquis for anticoagulation. Labs 10/25/2024 showed hematocrit 42.1, creatinine 1.28. He tells me he is taking his metoprolol XL only once daily. Prior notes indicated it was b.i.d.. Will have him continue on once daily since his heart rate is good at this time. Continue Eliquis. Cardiology follow-up 6 months, sooner if needed. (2) Stress-induced cardiomyopathy: Code(s): I51.81 - Takotsubo syndrome Category: Medical Plan: [facility] admission for shortness of breath 11/2022. He ruled in for NSTEMI. Echocardiogram showed EF 20-25% with regional wall motion abnormalities. He was taken for cardiac catheterization showing only minimal luminal irregularities. He was then determined to have stress induced cardiomyopathy. He was initially on lisinopril and metoprolol however at this time is only on the metoprolol. Last echocardiogram done at [facility] 02/10/2023 showed EF 60-65%, inferior wall motion abnormality present. Currently no signs of fluid overloaded on exam. He does use Lasix p.r.n. for leg swelling. Will update echo prior to his next visit. Signs and symptoms of heart failure reviewed with him. (3) S/P cardiac catheterization: Comment: 12/18/2022, left main, lad, left circumflex, RCA each with luminal irregularities Code(s): Z98.890 - Other specified postprocedural states Category: Surgical Plan: As above (4) Systolic heart failure: Code(s): I50.20 - Unspecified systolic (congestive) heart failure Category: Medical Qualifiers: Heart failure chronicity: acute Qualified Code(s): I50.21 - Acute systolic (congestive) heart failure Plan: Acute systolic heart failure during recent [facility] admission 11/2022. Diuresed input on Lasix 20 mg daily. Does not appear fluid overloaded on examination today. Using his Lasix PRN. (5) Hypertension: Code(s): I10 - Essential (primary) hypertension Category: Medical Qualifiers: Hypertension type: primary hypertension Qualified Code(s): I10 - Essential (primary) hypertension Plan: Blood pressure goal less than 130/80. Well controlled at this time. No med changes made. Continue amlodipine and metoprolol. Plan I discussed with the patient the importance of continuing his current medications and maintaining an active lifestyle to manage his COPD and Atrial Fibrillation. We reviewed the use of Eliquis and the recommendation to avoid aspirin unless necessary. The patient was advised to manage peripheral edema with diuretics and salt reduction. Follow-up is scheduled for six months, with earlier consultation if needed. Orders: Orders CA echo transthoracic complete 5 Months I51.81 - Takotsubo syndrome Patient Instructions: - Continue taking prescribed medications as directed. - Maintain an active lifestyle, including regular walks. - Use diuretics as needed for swelling. - Reduce salt intake to manage fluid retention. - Avoid aspirin unless specifically advised by a healthcare provider. - Schedule a follow-up appointment in six months or sooner if symptoms worsen. Patient was informed and verbally consented to the use of an ambient scribe for clinic note documentation during this visit. Visit time spent on chart review, interview, assessment, orders, documentation. Coding Level of Care Code Est Pt Level 4 (84153) Complex EM visit Add On G2211 Diagnoses Persistent atrial fibrillation I48.19 Stress-induced cardiomyopathy I51.81 S/P cardiac catheterization Z98.890 Acute systolic heart failure I50.21 Heart failure chronicity: acute Primary hypertension I10 Hypertension type: primary hypertension CPT Codes EKG - CPT: [id number], Complete ([id number]) Time Spent (min) 28
--- OUTSIDE RECORDS SUMMARY | 2025-01-04 12:36 | XMS_ITS | Clinical Summary ---
Author Organization [facility] Facility Address [address] [address] Care Team Providers Care Molder Foam Rubber Name Role Phone Efe Ricci MD Primary Care Provider [phone] Allergies No known active allergies Medications amLODIPine [...] this topic Insurance Medicare Medicare Care Teams Molder Foam Rubber Relationship Specialty Start Date End Date Efe Ricci MD [address] [place] [address] [address] [place], [place] [id number] PCP - General Internal Medicine 01/16/23
== END 2025-01-04 10:24 | disposition home or self-care (01) ==
LOC: HO.HCS 09:49
PROVIDERS: PCP Internal Medicine; Visit Provider Nurse Practitioner Family
DX: I48.19 Other persistent atrial fibrillation (principal); I51.81 Takotsubo syndrome; Z98.890 Other specified postprocedural states; I50.21 Acute systolic (congestive) heart failure; I10 Essential (primary) hypertension
CPT/HCPCS: 93010; 99214; G2211

== ENCOUNTER → 2025-01-04 09:48 | Outpatient (BNVA) | payer MEDICARE, MEDICAID, SELFPAY | PROVIDERS: PCP Internal Medicine; Visit Provider Nurse Practitioner Family | DX: I51.81 Takotsubo syndrome (principal); I48.19 Other persistent atrial fibrillation; I50.21 Acute systolic (congestive) heart failure; I10 Essential (primary) hypertension | CPT/HCPCS: 93005; 99212 ==

== ENCOUNTER 2025-03-08 10:37 | Outpatient (AMB) | payer MEDICARE, MEDICAID, SELFPAY ==
[2025-03-08 10:44] VITALS: BP 130/74; PULSE 101; O2SAT 96; BMI 26.3
--- NOTE | 2025-03-08 10:44 | MHC.PC.OV ---
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 Accompanied by: Self / Same As Patient Allergies No Known Drug Allergies Allergy (Verified 03/08/25 11:14) Unknown Medication List - Last Reconciled 03/08/25 by Efe Ricci MD albuterol sulfate 90 mcg/actuation 2 puffs inhalation Q4H PRN amlodipine 5 mg PO DAILY apixaban (Eliquis) 5 mg PO BID aspirin 81 mg PO DAILY atorvastatin 10 mg PO BEDTIME 90 days bisacodyl 10 mg (2 x 5 mg) PO BEDTIME cholecalciferol (vitamin D3) 50 mcg PO DAILY 90 days comp.stocking,knee,long,medium As directed famotidine 40 mg PO BID 90 days fluticasone propion-salmeterol 250-50 mcg/dose (Wixela Inhub) 1 inh inhalation BID 30 days furosemide 20 mg PO DAILY PRN metoprolol succinate ER 50 mg PO DAILY montelukast 10 mg PO QPM 90 days simethicone (Gas Relief (simethicone)) 125 mg PO BID-QID PRN umeclidinium 62.5 mcg/actuation (Incruse Ellipta) 1 inh inhalation DAILY 30 days Tobacco use date assessed: 03/08/25 Fall risk assessment: No Falls in past year Last assessed Fall Risk: 03/08/25 Dental Screening Dental Screen Date: 03/08/25 Did you have a dental visit in the last 12 months?: No Did you have a dental problem in the last 6 months where you did not have access to dental care?: No Was dental information given to patient?: No HPI 4mth f/u HPI Details Patient comes in today for his follow up visit Relates increased cough and congestion since last Friday (about 4 days ago) Notes (+) mild SOB at times as well and he has been coughing up some thick dark phlegm at times He denies any fever or sore throat Denies any headaches or dizziness Denies any chest pains No nausea/vomiting, no abdominal pain No change in bowel habits noted Needs his Eliquis Rx refilled He was not able to get his follow up labs done yet - states that he will try to get them done tomorrow morning [facility] Medical History Dilated bile duct Overweight (BMI 25.0-29.9) Dilated pancreatic duct Vitamin D deficiency Stress-induced cardiomyopathy Paroxysmal atrial fibrillation History of non-ST elevation myocardial infarction (NSTEMI) Essential hypertension Pure hypercholesterolemia Chronic kidney disease (CKD), stage II (mild) COPD (chronic obstructive pulmonary disease) Bronchitis Sinusitis Personal history of nicotine dependence H. pylori infection Constipation Gastritis Tubular adenoma of colon (~2010) Surgical History History of cardioversion History of cardiac cath History of endoscopy (~2018) History of colonoscopy (~2018) Family History Sister Breast cancer Social History Housing: House Alcohol intake: never Patient Tobacco Use Status: Former Tobacco user Years Smoked: (former smoker - onset 18yo, 1ppd x 49yrs, 40pyh - quit 07/2022) e-Cigarette/Vaping Use: Never Used Second Hand Smoke Exposure: Yes Substance Use Type: Marijuana service: No Current occupational status: retired Cognitive needs: No Hearing needs: No Vision needs: No Questionnaire PHQ-9 Over the last 2 weeks, how often have you been bothered by any of the following problems? 1. Little interest or pleasure in doing things: not at all 2. Feeling down, depressed, or hopeless: not at all 3. Trouble falling or staying asleep, or sleeping too much: not at all 4. Feeling tired or having little energy: not at all 5. Poor appetite or overeating: not at all 6. Feeling bad about yourself - or that you are a failure or have let yourself or your family down: not at all 7. Trouble concentrating on things, such as reading the newspaper or watching television: not at all 8. Moving or speaking so slowly that other people could have noticed. Or the opposite - being so fidgety or restless that you have been moving around a lot more than usual: not at all 9. Thoughts that you would be better off or of hurting yourself in some way: not at all Total score: 0 Depression Screening Interpretation: Negative Depression Screening Done: Yes 20802 - PHQ-9 Billing: Yes Source: Developed by Drs. Kwan Nicholas, Shreya Dempsey, Sandoval Fuller and colleagues, with an educational em from [employer]. Thrive Questionnaire Date Thrive assessed: 03/08/25 I am a: Patient What is your living situation today?: I have a place to live, but I am worried about losing it in the future Within the past 12 months, did the food you bought not last and you didn't have the money to get more?: I choose not to answer this question Within the past 12 months, did you worry whether your food would run out before you got money to buy more?: Never true Do you have trouble paying for medicines?: No Do you have trouble getting transportation to medical appointments?: No Do you have trouble paying your heating and electricity bill?: Yes Do you have trouble taking care of your child, family member or friend?: No Do you have trouble with day-to-day activities such as bathing, preparing meals, shopping, managing finances, etc.?: No Are you currently unemployed and looking for a job?: No Are you interested in more education?: No Please select the resources that you would like help with: None Currently or been in a relationship where the following occur: No concerns reported THRIVE Score: 2 AUDIT C Alcohol Use Questionnaire (AUDIT-C) 1. How often do you have a drink containing alcohol?: Never 3. How often do you have six or more drinks on one occasion?: Never Total Score: 0 Score Reviewed/Action Taken: Yes GENIE-7 AMB Questionnaire GENIE-7 Date GENIE - 7 assessed: 03/08/25 Feeling nervous, anxious, or on edge: 0 = Not at all Not being able to stop or control worryin = Not at all Worrying too much about different things: 0 = Not at all Trouble relaxin = Not at all Being so restless that it is hard to sit still: 0 = Not at all Becoming easily annoyed or irritable: 0 = Not at all Feeling afraid as if something awful might happen: 0 = Not at all Total GENIE-7 score (0-4 normal; 5-9 mild; 10-14 moderate; 15-21 severe): 0 Source: Developed by Drs. Kwan Nicholas, Shreya Dempsey, Sandoval Fuller and colleagues, with an educational em from [employer]. Review of Systems Const Denies chills, Reports fatigue, Denies fever(s) and Denies headache(s) ENT Denies dysphagia, Denies dizziness, Denies otalgia, Denies headache(s), Reports nasal congestion, Denies neck pain, Denies odynophagia and Denies sore throat Card Denies chest pain, Denies palpitations and Reports dyspnea on exertion (mild but increased lately with his recent respiratory symptoms) Resp Reports chest congestion, Reports cough (on and off - coughs up dark, thick phlegm at times), Reports dyspnea on exertion (mild but increased lately with his recent respiratory symptoms) and Denies wheezing GI Denies abdominal pain, Reports constipation (controlled lately), Denies dysphagia, Denies heartburn, Denies diarrhea, Denies nausea, Denies odynophagia and Denies vomiting Denies difficulty urinating, Denies dysuria, Denies nocturia and Denies urinary frequency Musc Denies back pain and Denies neck pain Skin/Breast Denies rash Neuro Denies dizziness and Denies headache(s) Endo Reports fatigue and Denies palpitations Aller/Immun Denies wheezing Physical exam (Primary Care) Vital Signs: Last Vital Signs Pulse 101 H 03/08/25 10:44 BP 130/74 03/08/25 10:44 Pulse Ox 96 03/08/25 10:44 Oxygen Delivery Method Room Air 03/08/25 10:44 BMI result Body Mass Index 26.3 Tobacco/Smoking Status: Tobacco use Status Tobacco use date assessed 03/08/25 03/08/25 10:46 Patient Tobacco Use Status Former Tobacco user 03/08/25 10:46 e-Cigarette/Vaping Use Never Used 03/08/25 10:46 PHQ-9: PHQ-9 Score PHQ-9: Total score 0 03/08/25 11:19 Depression Screening Interpretation: Negative Thrive Assessment: Date of Thrive Assessment Date Thrive assessed 03/08/25 03/08/25 10:46 Currently or been in a relationship where the following occur: No concerns reported Const General: no acute distress and alert HENMT Ears: TM's normal bilaterally and EAC's normal Throat: Yes posterior oropharynx normal and Yes tonsils normal (no TP congestion) Neck Neck: Yes supple and No lymphadenopathy Thyroid: Thyroid normal Resp Auscultation: no crackles, no rales, rhonchi (scattered) throughout, no wheezes and diminished lung sounds bilateral Cardio Rate: regular rate Rhythm: abnormal rhythm irregularly irregular Heart sounds: no murmurs GI Palpation (GI): Soft to palpation and nontender Auscultation: normal bowel sounds General: Yes no CVA tenderness Back/Spine/Pelvis Back: no CVA tenderness Skin Rashes: no rashes Extrem General: Yes no clubbing, cyanosis or edema Coding Level of Care Code Est Pt Level 4 (36843) Diagnoses COPD exacerbation J44.1 Persistent atrial fibrillation I48.19 Stress-induced cardiomyopathy I51.81 Pure hypercholesterolemia E78.00 Chronic idiopathic constipation K59.04 Dilated pancreatic duct K86.89 GERD without esophagitis K21.9 Chronic kidney disease (CKD), stage II (mild) N18.2 Vitamin D deficiency E55.9 Eosinophilia, unspecified type D72.10 Eosinophilia type: unspecified eosinophilia Impaired fasting glucose R73.01 Overweight (BMI 25.0-29.9) E66.3 Additional Codes PHQ-9 - 78116 - PHQ-9 Billing: Yes ([id number]) Assessment & Plan Assessment & Plan (1) COPD exacerbation: Code(s): J44.1 - Chronic obstructive pulmonary disease with (acute) exacerbation Category: Medical Plan: Will start him empirically on Doxycycline 100 mg BID x 7 days and oral Prednisone 20 mg QD x 5 days Continue Wixela Inhub 250-50 mcg 1 inhalation BID, Incruse Ellipta 62.5 mcg 1 inhalation QD and Albuterol HFA 2 inhalations Q 6 hours PRN Follow up with pulmonary as scheduled (2) Persistent atrial fibrillation: Code(s): I48.19 - Other persistent atrial fibrillation Category: Medical Plan: Patient is currently still in atrial fibrillation but is rate-controlled His most recent EKG done in June 2024 still showed persistent atrial fibrillation He's had 2 unsuccessful cardioversions in the past; was initially on Fleicanide but this had to be discontinued a couple of years ago when patient developed stress-induced cardiomyopathy and also had NSTEMI He was more recently tried on Amiodarone but this was also discontinued due to his increasing constipation while on the Rx He was seen by Dr. Constantino at [facility] in March 2023 and was advised to just continue with rate control for his AF with no further recommendations at the time Continue Apixaban 5 mg BID for thromboembolism prophylaxis (Rx refilled) and Metoprolol ER 50 mg QD for rate control Follow up with cardiology as scheduled (3) Stress-induced cardiomyopathy: Code(s): I51.81 - Takotsubo syndrome Category: Medical Plan: His EF was around 25 to 30% back in September 2022 when he presented to the ER with increasing SOB - was diagnosed with CHF at the time and started on Furosemide 20 mg QD His EF apparently improved back to normal a few months later He had a normal myocardial perfusion on stress testing in September 2022 and cardiac catheterization done in 2022 also showed NO significant coronary disease Continue Aspirin 81 mg QD (4) Pure hypercholesterolemia: Code(s): E78.00 - Pure hypercholesterolemia, unspecified Category: Medical Plan: His cholesterol levels have improved from his previous numbers in January 2024 when last checked a few months ago He was not able to get his follow up labs done prior to his appointment today - states that he will go and get these done tomorrow Reinforced low cholesterol diet Continue Atorvastatin 10 mg Q HS Will have him recheck his labs and fasting lipids in 4 months for follow up (5) Chronic idiopathic constipation: Code(s): K59.04 - Chronic idiopathic constipation Category: Medical Plan: Patient states that this has been better controlled as long as he stays on his regimen of Miralax 17 gm QD and Dulcolax 10 mg Q HS He is again reminded to increase his oral fluids and dietary fiber intake Follow up with GI as scheduled (6) Dilated pancreatic duct: Comment: Follow-up MR I would benign he also had pancreatic divisum which is benign Code(s): K86.89 - Other specified diseases of pancreas Category: Medical Plan: Patient is advised / reassured that his recent MRI/MRCP revealed (+) pancreas divisum, which is a benign condition with no further workups or intervention required (7) GERD without esophagitis: Code(s): K21.9 - Gastro-esophageal reflux disease without esophagitis Category: Medical Plan: Dietary restrictions reinforced Continue Famotidine 40 mg Q HS (8) Chronic kidney disease (CKD), stage II (mild): Code(s): N18.2 - Chronic kidney disease, stage 2 (mild) Category: Medical Plan: He's had bouts of TEO on his hospital admissions to [facility] a couple of years ago but his renal function appears stable on his recent labs Follow up with nephrology as scheduled Will have patient recheck his labs and renal function in 4 months for follow up (9) Vitamin D deficiency: Code(s): E55.9 - Vitamin D deficiency, unspecified Category: Medical Plan: Continue Vitamin D3 2000 units QD - he is advised that his Vitamin D level is still low on his recent labs (10) Eosinophilia: Code(s): D72.10 - Eosinophilia, unspecified Category: Medical Qualifiers: Eosinophilia type: unspecified eosinophilia Qualified Code(s): D72.10 - Eosinophilia, unspecified Plan: His recent labs still shows (+) leucocytosis and eosinophilia although his WBC count has decreased from before - still unclear at this time what is causing these His IgE Ab level back in January 2024 came out normal We will recheck his CBC in 4 months for follow up (11) Impaired fasting glucose: Code(s): R73.01 - Impaired fasting glucose Category: Medical Plan: His FBS was normal at 93 mg/dl and HgbA1c was normal at 5.8% when previously checked Reinforced low calorie/low carb diet (12) Overweight (BMI 25.0-29.9): Code(s): E66.3 - Overweight Category: Medical Plan: Reinforce diet/exercise as tolerated/lose weight Plan Follow up in 4 months Orders: Orders Comprehensive [place]. Panel Fast 4 Months E78.00 - Pure hypercholesterolemia, unspecified UA CC w/rflx Micro + Cult 4 Months R30.0 - Dysuria Complete Blood Count Auto Diff 4 Months D64.9 - Anemia, unspecified Lipid Panel 4 Months E78.00 - Pure hypercholesterolemia, unspecified Medications: New doxycycline hyclate 100 mg PO BID 14 caps 0RF 7 days prednisone 20 mg PO DAILY 5 tabs 0RF 5 days Changed From apixaban 5 mg PO BID 60 tabs 0RF To Eliquis (apixaban) 5 mg PO BID 180 tabs 1RF 90 days NS
== END 2025-03-08 11:26 | disposition home or self-care (01) ==
LOC: HO.HMCH 10:38
PROVIDERS: PCP Internal Medicine; Visit Provider Internal Medicine
DX: J44.1 Chronic obstructive pulmonary disease with (acute) exacerbation (principal); I48.19 Other persistent atrial fibrillation; I51.81 Takotsubo syndrome; E78.00 Pure hypercholesterolemia, unspecified; K59.04 Chronic idiopathic constipation; K86.89 Other specified diseases of pancreas; K21.9 Gastro-esophageal reflux disease without esophagitis; N18.2 Chronic kidney disease, stage 2 (mild); E55.9 Vitamin D deficiency, unspecified; D72.10 Eosinophilia, unspecified; R73.01 Impaired fasting glucose; E66.3 Overweight

== ENCOUNTER → 2025-03-08 10:37 | Outpatient (BNVA) | payer MEDICARE, MEDICAID, SELFPAY | PROVIDERS: PCP Internal Medicine; Visit Provider Internal Medicine | DX: J44.1 Chronic obstructive pulmonary disease with (acute) exacerbation (principal); I48.19 Other persistent atrial fibrillation; I51.81 Takotsubo syndrome; E78.00 Pure hypercholesterolemia, unspecified; K59.04 Chronic idiopathic constipation; K86.89 Other specified diseases of pancreas; K21.9 Gastro-esophageal reflux disease without esophagitis; N18.2 Chronic kidney disease, stage 2 (mild); E55.9 Vitamin D deficiency, unspecified; D72.10 Eosinophilia, unspecified; R73.01 Impaired fasting glucose; E66.3 Overweight; Z68.26 Body mass index [BMI] 26.0-26.9, adult; Z87.891 Personal history of nicotine dependence | CPT/HCPCS: 96127; 99212 ==

== ENCOUNTER 2025-03-28 10:08 | Outpatient (AMB) | payer MEDICARE, MEDICAID, SELFPAY ==
[2025-03-28 10:13] VITALS: BP 122/72; PULSE 87; O2SAT 98; BMI 26.9
--- NOTE | 2025-03-28 10:13 | MHC.OFFVIS ---
Vital Signs 03/28/25 10:13 Height 6 ft 5 in Weight 227 lb 1.218 oz BMI 26.9 BP 122/72 Blood Pressure Location Lt brachial Position Sitting Pulse 87 Pulse Source Pulse Oximeter Pulse Oximetry (%) 98 Oxygen Delivery Method Room Air Intake Visit Reasons: copd Intake Note: pt is here for follow up and states he is always wheezing, and he feels like copd is advancing. 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 Allergies No Known Drug Allergies Allergy (Verified 03/28/25 10:33) Unknown Medication List - Last Reconciled 03/28/25 by Dominique Monterroso MD albuterol sulfate 90 mcg/actuation 2 puffs inhalation Q4H PRN amlodipine 5 mg PO DAILY aspirin 81 mg PO DAILY atorvastatin 10 mg PO BEDTIME 90 days bisacodyl 10 mg (2 x 5 mg) PO BEDTIME cholecalciferol (vitamin D3) 50 mcg PO DAILY 90 days comp.stocking,knee,long,medium As directed Eliquis (apixaban) 5 mg PO BID 90 days NS famotidine 40 mg PO BID 90 days fluticasone propion-salmeterol 250-50 mcg/dose (Wixela Inhub) 1 inh inhalation BID 30 days furosemide 20 mg PO DAILY PRN metoprolol succinate ER 50 mg PO DAILY montelukast 10 mg PO QPM 90 days simethicone (Gas Relief (simethicone)) 125 mg PO BID-QID PRN umeclidinium 62.5 mcg/actuation (Incruse Ellipta) 1 inh inhalation DAILY 30 days Do you need a note to return to daycare/school/sports/work: No HPI HPI copd: Details: 69 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 HE DOES HAVE MODERATELY SEVERE OBSTRUCTIVE AIRWAY DISORDER BUT IT SEEMS TO BE WELL CONTROLLED WITH HIS CURRENT MEDICAL REGIMEN. A FEW WEEKS AGO HE HAD COLD SYMPTOMS BUT RECOVERED FROM THAT UNEVENTFULLY. AT PRESENT HE HAS USUAL MILD INTERMITTENT COUGH AND ALSO GETS SHORT OF BREATH IF HE CLIMBS UP HILL OR STAIRS, BUT ON DAY-TO-DAY ACTIVITIES HE IS OKAY. DOES NOT SMOKE NOW. [facility] Medical History Dilated bile duct Overweight (BMI 25.0-29.9) Dilated pancreatic duct Vitamin D deficiency Stress-induced cardiomyopathy Paroxysmal atrial fibrillation History of non-ST elevation myocardial infarction (NSTEMI) Essential hypertension Pure hypercholesterolemia Chronic kidney disease (CKD), stage II (mild) COPD (chronic obstructive pulmonary disease) Bronchitis Sinusitis Personal history of nicotine dependence H. pylori infection Constipation Gastritis Tubular adenoma of colon (~2010) Surgical History History of cardioversion History of cardiac cath History of endoscopy (~2018) History of colonoscopy (~2018) Family History Sister Breast cancer Social History Housing: House Alcohol intake: never Patient Tobacco Use Status: Former Tobacco user Years Smoked: (former smoker - onset 18yo, 1ppd x 49yrs, 40pyh - quit 07/2022) e-Cigarette/Vaping Use: Never Used Second Hand Smoke Exposure: Yes Substance Use Type: Marijuana service: No Current occupational status: retired Cognitive needs: No Hearing needs: No Vision needs: No Review of Systems Const All systems reviewed & are unremarkable except as noted in HPI and below Eyes Reports no additional complaints ENT Reports no additional complaints Card Reports chest pain (Discomfort across the sternum manubrie), Denies pedal edema, Denies irregular heart rhythm and Denies leg edema Resp Reports as per HPI GI Reports no additional complaints Reports no additional complaints Musc Reports no additional complaints Skin/Breast Reports system reviewed and no additional complaints, except as documented Neuro Reports no additional complaints Psych Reports no additional complaints Physical Exam Vital Signs: Last Vital Signs Pulse 87 03/28/25 10:13 BP 122/72 03/28/25 10:13 Pulse Ox 98 03/28/25 10:13 Oxygen Delivery Method Room Air 03/28/25 10:13 BMI result Body Mass Index 26.9 Const General: healthy appearing, comfortable, no acute distress, alert and awake Orientation/consciousness: patient oriented x3 HEENT Head: Yes normal to inspection General nose exam: No nasal polyps present, No nasal discharge present and Other nasal findings present (THICK YELLOW PHLEGM IS NOTED IN THE LEFT NOSTRIL.) Face and sinus: Yes sinuses nontender Mouth: oropharynx normal Throat: Yes posterior oropharynx normal (THERE IS MODERATE AMOUNT OF WHITISH YELLOW PHLEGM) Eyes General: appearance normal, both eyes and all related structures Neck Neck: Yes normal visual inspection, Yes no lymphadenopathy, Yes trachea midline and Yes no JVD Thyroid: Thyroid normal Chest Chest palpation & inspection: normal inspection of the chest, normal palpation of entire chest wall and no tenderness Resp Other: Percussion note is resonant, breath sounds are distant but equal on both sides. No wheezes heard .Also no rhonchi or crepitations. Cardio Palpation: normal PMI Rate: regular rate Rhythm: regular rhythm Heart sounds: no gallops and no murmurs GI Palpation (GI): Soft to palpation, nontender, No hepatosplenomegaly present and no masses Auscultation: normal bowel sounds Back/Spine/Pelvis Thoracic/Lumbar Spine: thoracic and lumbar spine normal to inspection Skin General skin exam: no rashes or lesions noted Neuro General: patient oriented x3 and no focal motor deficits Cranial nerves: Yes CN's II-XII intact bilaterally Extrem General: Yes normal to inspection, Yes no clubbing, cyanosis or edema and Yes no calf tenderness Psych Appearance: grossly normal and well kempt Speech and movement: Normal speech and movement present Results Reviewed Results Reviewed: LDCT 10/14/24 1. Coronary artery disease. 2. LungRADS 2 - Benign Appearance: Continue annual screening with low dose Chest CT in 12 months. Assessment & Plan Assessment & Plan (1) COPD (chronic obstructive pulmonary disease): Comment: (COPD -MODERATELY SEVERE. HAS BEEN STABLE AND CONTROLLED, BUT COMPLAINS OF INCREASED DYSPNEA ON ANY EXERTION. ON FURTHER DISCUSSION HE ADMITS THAT HIS DYSPNEA ON EXERTION IS NOT A BIG PROBLEM. AND IT SEEMS TO BE REMAINING STABLE. Code(s): J44.9 - Chronic obstructive pulmonary disease, unspecified Category: Medical Qualifiers: COPD type: unspecified COPD Qualified Code(s): J44.9 - Chronic obstructive pulmonary disease, unspecified Plan: DISCUSSED ABOUT HIS MEDICAL REGIMEN CONTINUE INCRUSE ELLIPTA 1 INHALATION DAILY AND CONTINUE WIXELA 250-51 INHALATION B.I.D. CONTINUE MONTELUKAST 10 MG DAILY USE ALBUTEROL HFA 2 PUFFS Q 6 HOURS ONLY P.R.N. (2) Personal history of nicotine dependence: Comment: (former smoker - onset 18yo, 1ppd x 49yrs, 40pyh - quit 07/2022), has cheated by smoking 1 or 2 cigarettes a day last month, may be due to stress, but not anymore. Code(s): Z87.891 - Personal history of nicotine dependence Category: Medical Plan: AGAIN STRESSED THAT HE SHOULD NOT GO BACK TO SMOKING. ALSO CONTINUE TO HAVE ANNUAL LUNG SCREENING WITH LDCT. Coding Level of Care Code Est Pt Level 3 (92196) Diagnoses Chronic obstructive pulmonary disease, unspecified COPD type J44.9 COPD type: unspecified COPD Personal history of nicotine dependence Z87.891
== END 2025-03-28 10:27 | disposition home or self-care (01) ==
LOC: HO.HPS 10:09
PROVIDERS: PCP Internal Medicine; Visit Provider Internal Medicine
DX: J44.9 Chronic obstructive pulmonary disease, unspecified (principal); Z87.891 Personal history of nicotine dependence
CPT/HCPCS: 99213

== ENCOUNTER → 2025-03-28 10:08 | Outpatient (BNVA) | payer MEDICARE, MEDICAID, SELFPAY | PROVIDERS: PCP Internal Medicine; Visit Provider Internal Medicine | DX: J44.9 Chronic obstructive pulmonary disease, unspecified (principal); Z87.891 Personal history of nicotine dependence | CPT/HCPCS: 99212 ==